=== PATIENT | female | born 1990 | race Caucasian/White ===

== ENCOUNTER 2016-07-15 06:48 | Day surgery (SDC) | payer OTHER ==
[2016-07-15 08:26] VITALS: RESP 16; TEMP 97.4
[2016-07-15] MEDS ORDERED: LACTATED RINGERS 1,000 ML IV SCH (08:36)
[2016-07-15] MEDS ORDERED: LIDOCAINE 1% 20 ML VIAL (10MG/ML) FOR IV START INTRADERMA ONE (08:36)
--- NOTE | 2016-07-15 09:30 | P.PCN ---
Date of Procedure: 07/15/16 Procedure(s) Performed: PREOPERATIVE DIAGNOSIS: Lumbar radiculopathy in right L5-S1 distribution POSTOPERATIVE DIAGNOSIS: Lumbar radiculopathy in right L5-S1 distribution PROCEDURE 1. Transforaminal epidural steroid injection under fluoroscopic guidance at right L5-S1 level. 2. Lumbar epidurogram : ANESTHESIA: Local with 1% lidocaine; IV sedation with Versed 2 mg and fentanyle 100 mcg . EBL: Minimal PROCEDURE INDICATION: The patient with low back pain and radiculopathy symptoms unresponsive to conservative treatment. PROCEDURE DESCRIPTION / TECHNIQUE: The patient was seen and identified in the preoperative area. Risks, benefits , complications, and alternatives were discussed with the patient. The patient agreed to proceed with the procedure and signed the consent. IV was started, and vital signs were stable. Patient was taken to the OR and time out was completed. The patient was placed in the prone position on procedure table and a pillow was placed under the abdomen to reduce lumbar lordosis. The lumbosacral area was prepped and draped in the usual sterile fashion. Critical pause was taken. Vital signs were closely monitored during the procedure. Conscious sedation was used during the procedure to decrease patients anxiety. Using oblique fluoroscopy, the chin of the Apollo dog at right L5-S1 level was identified, and the skin and deeper tissues just below was localized with 1 % lidocaine. Subsequently, a 22-gauge 3.5-inch spinal needle was advanced under a tunneled view fluoroscopic guidance just underneath the chin of the Apollo dog at the righ L5-S1 . Under lateral fluoroscopy, the needle was then advanced to the posterior border of the L5-S1 interforaminal space. After negative aspiration of CSF and blood and with no paresthesias, 3 mL ofomnipaque- 180 contrast dye was injected excellent epidurogram and outlining of the L5-S1 nerve root Subsequently, 3 mL of block solution containing 80 mg of Kenalog and 1 mL of Lidocaine 1% was injected. Needle was removed .. At the end of the procedure, skin was cleansed, and bandages were applied. COMPLICATIONS: None COMMENTS: DISPOSITION / PLANS: The patient was placed in a supine position and transferred to the recovery area in a stable condition for observation. There was no evidence of lower extremity motor or sensory deficit after the procedure. Patient was discharged from the recovery room after meeting discharge criteria. Home discharge instructions were given to the patient by the staff. The patient was reexamined prior to discharge.
[2016-07-15] MEDS ORDERED: IV FLUID CONTINUATION 1,000 ML IV ONE (09:33)
[2016-07-15 09:51] VITALS: BP 121/86; PULSE 86
--- NOTE | 2016-07-15 09:54 | FL ---
EXAMINATION TYPE: FL guided pain mgmt statistic DATE OF EXAM: 07/15/2016 9:32 AM CLINICAL HISTORY: Low back pain. TECHNIQUE: Fluoroscopy. COMPARISON: None. FINDINGS: Fluoroscopic guidance was provided during pain relief procedure performed by Dr. Dillon . A total of 8 seconds of fluoroscopic time was utilized during the procedure and two spot images ar e acquired. Images acquired shows needle localization with contrast injection off of the midline in the lower lumbar spine. IMPRESSION: As Above.
[2016-07-15] MEDS ORDERED: MIDAZOLAM 2 MG/2 ML VIAL ONE (15:13)
[2016-07-15] MEDS ORDERED: IOHEXOL 180 MG/ML 1 ML ML ONE (15:13)
[2016-07-15] MEDS ORDERED: TRIAMCINOLONE ACETONIDE 40 MG/ML 1 ML VIAL ONE (15:13)
[2016-07-15] MEDS ORDERED: fentaNYL (PF) 50 MCG/ML 2 ML AMP ONE (15:13)
== END 2016-07-15 10:02 | disposition home or self-care (01) ==
LOC: ORPAIN 06:48
PROVIDERS: ATTEND Specialist
DX: M54.16 Radiculopathy, lumbar region (principal); Z88.1 Allergy status to other antibiotic agents; Z88.5 Allergy status to narcotic agent; Z88.8 Allergy status to other drugs, medicaments and biological substances; Z79.899 Other long term (current) drug therapy
CPT/HCPCS: 81025; 64483; J2250; J3301; Q9965; J3010

== ENCOUNTER → 2016-07-28 | Outpatient (CLI) | payer OTHER ==
[2016-07-28 12:24] VITALS: BP 118/86; PULSE 96; RESP 16; TEMP 98.9
--- NOTE | 2016-07-28 13:16 | P.PN ---
Subjective This is follow-up visit for this patient with a history of severe and chronic low back pain with radiation to the right lower extremity diagnosed with lumbar radiculopathy, we have done interventional pain management injection, right transforaminal epidural steroid injection x3 , patient reported that her pain in the low back and right lower extremity , improved 100%, she is currently complaining of severe neck pain , and occasional numbness and tingling sensation in her hand, he had computed tomography scan of the neck done which was negative for any abnormalities Physical Examinations : 1-Constitutiona : Cooperative , not in acute distress . 2-HEENT : nech ; supple , no Lymphadenopathy , no Thyromegaly , normal thyroid size . eyes : no ptosis , no icterus, no photophobia . ENT : normal of hearing , normal oropharynx , no Thrush . 3- Respiratory : Chest clear to auscultations Bilaterally , no wheezing , no Rhonchi . 4- Cardiovascular : regular rate and rhythem , S1 , S2 , no S3 , no S4. 5- Gastrointestinal : abdomen soft no tenderness , bowel sounds positive all four quadrents , no organomegally . 6- Genitourinary : Defferred . 7- neurologic : Cranial nerve II to XII intact , no focal neurological deffecit . 8-psychatric : alert , oriented X 3 , appropriate affect , intact judgment and insight . 9-Lymphatic : no Lymphadenopathy . 10- musculoskeltal : exams of the cervical spine = motor strength normal bilateral upper extremities facet loading test cervical area positive. Normal sensation in the upper extremity bilaterally . Deep tendon reflexes in the biceps and the triceps exams of the Lumber spine = motor strength lower extremities ,thigh and legs .5/5 Assessment and plan = - Chronic low back pain with radiation to the right lower extremity , proved after right-sided transforaminal epidural steroid injections . Neck pain secondary to cervical facet , computed tomography scan of the cervical spine was negative for any abnormalities , for this reason I will order MRI of the cervical spine to confirm the diagnosis , and to identify the etiology And in the future we can consider doing diagnostic medial branch block cervical area and possible radiofrequency ablation of the medial branch Objective - Vital Signs Vital signs: Vital Signs Temp 98.9 F 07/28/16 12:17 Pulse 96 07/28/16 12:17 Resp 16 07/28/16 12:17 BP 118/86 07/28/16 12:17 Pulse Ox 95 07/28/16 12:17 Intake & Output 07/27/16 07/28/16 07/28/16 18:59 06:59 18:59 Weight 81.647 kg
== END | disposition home or self-care (01) ==
LOC: PNWHC3 12:03
PROVIDERS: ATTEND Specialist
DX: M54.16 Radiculopathy, lumbar region (principal); M46.93 Unspecified inflammatory spondylopathy, cervicothoracic region
CPT/HCPCS: 99211

== ENCOUNTER → 2016-08-06 | Outpatient (CLI) | payer OTHER ==
--- NOTE | 2016-08-06 17:09 | MR ---
EXAMINATION TYPE: MR cervical spine wo con DATE OF EXAM: 08/06/2016 8:06 AM COMPARISON: CT cervical spine dated 06/25/1962 HISTORY: Neck pain, Headaches TECHNIQUE: Multiplanar, multisequence images of the cervical spine were acquired. C2-C3: No evidence for degenerative disc disease. No disc bulge/herniation or protrusion. No Canal stenosis. Foramina are patent bilaterally. C3-C4: No evidence for degenerative disc disease. No disc bulge/herniation or protrusion. No Canal stenosis. Foramina are patent bilaterally. C4-C5: No evidence for degenerative disc disease. No disc bulge/herniation or protrusion. No Canal stenosis. Foramina are patent bilaterally. C5-C6: Mild disc desiccation and central disc bulging but no canal stenosis or foraminal encroachment . C6-C7: No evidence for degenerative disc disease. No disc bulge/herniation or protrusion. No Canal stenosis. Foramina are patent bilaterally. C7-T1: No evidence for degenerative disc disease. No disc bulge/herniation or protrusion. No Canal stenosis. Foramina are patent bilaterally. Cervical segments are intact. There is normal alignment. Cervical spinal cord is of normal signal. Craniovertebral junction relationships are within normal limits. Loss of the normal cervical lordos is. IMPRESSION: 1. Loss of the normal cervical lordosis can be seen with muscular spasm. 2. Mild disc desiccation C5-C6 with central disc bulging but no canal stenosis or foraminal encroachm ent.
== END | disposition home or self-care (01) ==
LOC: RADMRIMAIN 07:37
PROVIDERS: ATTEND Specialist
DX: M50.222 Other cervical disc displacement at C5-C6 level (principal)
CPT/HCPCS: 72141

== ENCOUNTER → 2016-08-19 | Outpatient (CLI) | payer OTHER ==
--- NOTE | 2016-08-19 14:53 | CT ---
EXAMINATION TYPE: CT abdomen pelvis wo con DATE OF EXAM: 08/19/2016 2:34 PM COMPARISON: NONE HISTORY: Diverticulitis CT DLP: 983 mGycm Automated exposure control for dose reduction was used. TECHNIQUE: Helical acquisition of images was performed from the lung bases through the pelvis. FINDINGS: LUNG BASES: No significant abnormality is appreciated. LIVER/GB: Previous cholecystectomy noted.. PANCREAS: No significant abnormality is seen. SPLEEN: No significant abnormality is seen. ADRENALS: No significant abnormality is seen. KIDNEYS: No significant abnormality is seen. URINARY BLADDER: No significant abnormality is seen. PELVIC ADENOPATHY: None visualized. OSSEOUS STRUCTURES: No significant abnormality is seen. BOWEL: Within the pelvis there is very mild induration of the fat adjacent to the sigmoid colon. This may represent a very mild colitis. Correlate clinically. Appendix has a normal appearance Other: Tiny subcutaneous nodules may represent sebaceous cysts IMPRESSION: MILD INDURATION THE PELVIC FAT MAY REPRESENT A MILD COLITIS OR CORRELATE CLINICALLY.
== END | disposition home or self-care (01) ==
LOC: RADCTMAIN 14:11
PROVIDERS: ATTEND Family Medicine
DX: K57.32 Diverticulitis of large intestine without perforation or abscess without bleeding (principal)
CPT/HCPCS: 74176

== ENCOUNTER → 2016-09-01 | Outpatient (CLI) | payer OTHER ==
[2016-09-01 14:09] VITALS: BP 124/89; PULSE 96; RESP 16; TEMP 99
--- NOTE | 2016-09-01 14:38 | P.PN ---
Progress Note - Text Patient returns for followup for chronic neck and back pain with radiation to bilateral LE's and right UE, and bilateral LE pain is significantly improved. Patient recently underwent TFESI x 3 with excellent relief but has had persistent neck pain and numbness/tingling in RUE, so Dr. Dillon ordered MRI C -spine, as patient has been also dropping objects and states that she cannot draw anymore with her right hand. Patient continues on tramadol medications for pain from PCP with good relief. Patient denies adverse drug effects from medications. Today, pt denies new-onset weakness, bowel/bladder incontinence, or any other signs or symptoms of cauda equina syndrome. There are no signs of acute intoxication, and no indications of medication diversion or overuse. In addition to above, 13-point review of systems is also negative for chest pain , shortness of breath, changes in vision, changes in hearing, new onset weakness , abdominal pain, diarrhea, extreme fatigue, malaise, fever, skin changes, homicidal or suicidal ideation, or bowel or bladder incontinence. Vital Signs: Reviewed in EMR Gen: WDWN, AAOx3, NAD HEENT: NCAT, EOMI, hearing grossly normal Pulm: resp unlabored Abd: soft, NT, ND Neck: supple, trachea midline ROM in flexion cervical spine: reduced ROM in extension cervical spine: reduced Cervical paravertebral tenderness: + Cervical Facet tenderness: + bilateral Spurling's: + RUE Upper extremity: decreased international manager strength due to pain Neuro: CN II-XII grossly intact, muscle strength lower extremities PRESERVED Imaging: MRI cervical spine dated 08/06/2016 demonstrates mild disc desiccation and central disc bulging at C5-C6 level without central canal stenosis or foraminal encroachment. There is also loss of the normal cervical lordosis. Assessment: 1. cervical spondylosis without myelopathy 2. lumbar radiculopathy 3. herniated cervical disc 4. cervical radiculopathy Plan: 1. Explanation: Opioid and psychological risk scores were reviewed. Diagnoses , prognoses, and multiple treatment options including but not limited to physical therapy, interventional therapies, adjuvant medical therapies, narcotic medication therapies, and surgery were discussed with the patient and all questions were answered to the patient's satisfaction. 2. Opioid agreement: no opioids prescribed 3. Counseling: The patient was counseled extensively on SMOKING CESSATION, BODY MASS INDEX, EXERCISE. Specifically, the patient was instructed regarding the importance of smoking cessation, obesity, and exercise in the context of both chronic pain and overall health. 4. Procedures: cervical NIKKI series 5. Consultations: None 6. Investigations: None 7. Medications: none prescribed 8. Disposition: f/u for procedure as scheduled PQRS measures: 1-Patient's medications are documented in the chart. 2-Tobacco use is positive, counseling given 3-Patient has not had a pneumococcal vaccine. 4-Advanced care planning discussed, patient unable to give. 5-Opioid contract NOT signed with the patient. 6-Pain positive, follow-up visit or procedure scheduled 7-Patient's blood pressure measured and documented, and WNL. 8-Patient's weight was measured, and body mass index ABOVE the normal limits, and counseling was done. Patient instructed to follow up with PCP. 9-Patient WAS NOT identified as an unhealthy alcohol user.
== END | disposition home or self-care (01) ==
LOC: PNWHC3 13:53
PROVIDERS: ATTEND Anesthesiology
DX: M47.812 Spondylosis without myelopathy or radiculopathy, cervical region (principal); M54.16 Radiculopathy, lumbar region; M50.20 Other cervical disc displacement, unspecified cervical region; M54.12 Radiculopathy, cervical region; Z79.899 Other long term (current) drug therapy; Z72.0 Tobacco use
CPT/HCPCS: 99211

== ENCOUNTER 2016-10-09 10:25 | Day surgery (SDC) | payer OTHER ==
[2016-10-07 11:34] VITALS: BMI 32.4
[~2016-10-09 10:25] MED LIST: LACTATED RINGERS 1,000 ML IV ONE
[2016-10-09 10:50] VITALS: TEMP 98.5
[2016-10-09] MEDS ORDERED: LIDOCAINE 1% 20 ML VIAL (10MG/ML) FOR IV START INTRADERMA ONE (10:57)
[2016-10-09] MEDS ORDERED: IOHEXOL 180 MG/ML 1 ML ML ONE (12:08)
[2016-10-09] MEDS ORDERED: MIDAZOLAM 2 MG/2 ML VIAL ONE (12:08)
[2016-10-09] MEDS ORDERED: DEXAMETHASONE SOD PHOS (MDV) 100 MG/10 ML VIAL ONE (12:08)
[2016-10-09] MEDS ORDERED: fentaNYL (PF) 50 MCG/ML 2 ML AMP ONE (12:08)
--- NOTE | 2016-10-09 12:33 | P.PCN ---
Date of Procedure: 10/09/16 Procedure(s) Performed: . PROCEDURE 1. Cervical epidural steroid injection under fluoroscopic guidance, C7-T1 2. Cervical epidurogram. PREOPERATIVE DIAGNOSIS: 1- Cervical herniated Disc Diseases 2-cervical spondylosis with cervical Facet arthropathy without myelopathy POSTOPERATIVE DIAGNOSIS: : 1- Cervical herniated Disc Diseases , 2-cervical spondylosis with cervical Facet arthropathy without myelopathy ANESTHESIA: Local anesthesia with 1% lidocaine 3 ml ,and IV sedation with Versed 2 mg and Fentanyl 100 mcg. EBL 0 PROCEDURE INDICATION: The patient with neck pain and radiculitis unresponsive to conservative treatment consents for procedure. PROCEDURE DESCRIPTION / TECHNIQUE: The patient was seen and identified in the preoperative area. Risks, benefits, complications, including but not limited to infections ,bleeding , allergic reactions to the medications ,and not complete pain releife, and alternatives were discussed with the patient, the patient agreed to proceed with the procedure and signed the consent. Patient was taken to the OR and time out was completed. The patient was placed in the prone position on the procedure table. A pillow was placed under the patients chest to increase the cervical interlaminar space. The cervical area was prepped and draped in the usual sterile fashion. Vital signs were closely monitored during the procedure. Conscious sedation was used during the procedure to decrease patients anxiety. Using anterior-posterior fluoroscopy, the C7-T1 interlaminar space was identified and the skin over this site was marked and then infiltrated with 1% lidocaine subcutaneously. Subsequently, a 20-gauge 3-1/2-inch Tuohy epidural needle was inserted and advanced toward the epidural space by means of the `` hanging-drop technique and guided by AP and lateral fluoroscopy. The correct needle position in the epidural space was verified with the injection of 2 mL of the water soluble contrast dye Isovue-180 and observing an excellent epidurogram with the epidural spread of the dye, after negative aspiration for blood and CSF and in the absence of paresthesias. Again after negative aspiration, mixture containing 20 mg Dexamethasone and 2 ml of preservative- free normal saline injected and a washout of epidurogram was seen. Needle was withdrawn intact, skin was cleansed, and bandages were applied. Complications= none. Disposition= patient was placed in supine position and transferred to the recovery room area in stable condition and there was no evidence of upper or lower extremity motor or sensory deficit after the procedure patient was discharged from recovery room after discharge criteria met and home discharge instructions was given by the staff and patient will follow with the pain clinic in 2-4 weeks
[2016-10-09 12:42] VITALS: RESP 18
[2016-10-09] MEDS ORDERED: IV FLUID CONTINUATION 1,000 ML IV ONE (12:59)
[2016-10-09 13:07] VITALS: BP 119/68; PULSE 83
--- NOTE | 2016-10-09 13:10 | FL ---
FLUOROSCOPY 20 of fluoroscopy time were utilized during Pain Injection. 1 images document the procedure.
== END 2016-10-09 13:02 | disposition home or self-care (01) ==
LOC: ORPAIN 10:25
PROVIDERS: ATTEND Specialist
DX: M50.10 Cervical disc disorder with radiculopathy, unspecified cervical region (principal); M47.812 Spondylosis without myelopathy or radiculopathy, cervical region; M46.92 Unspecified inflammatory spondylopathy, cervical region; Z88.1 Allergy status to other antibiotic agents; Z88.8 Allergy status to other drugs, medicaments and biological substances
CPT/HCPCS: 62321; 99152; J2250; Q9965; J3010; J1100

== ENCOUNTER 2016-10-22 08:37 | Day surgery (SDC) | payer OTHER ==
[2016-10-17 15:11] VITALS: BMI 31.8
[~2016-10-22 08:37] MED LIST changes: -LACTATED RINGERS 1,000 ML IV ONE; +LACTATED RINGERS 1,000 ML IV SCH; +LIDOCAINE 1% 20 ML VIAL (10MG/ML) FOR IV START INTRADERMA PRN
[2016-10-22 09:10] VITALS: RESP 16; TEMP 98.3
[2016-10-22 09:13] LABS: Glucose,Whole Blood 88 mg/dL (75-99)
[2016-10-22] MEDS ORDERED: LIDOCAINE 1% INJ 10MG/ML (20 ML MDV) ONE (09:20)
[2016-10-22] MEDS ORDERED: PROPOFOL 10 MG/ML 20 ML VIAL IV ONE (09:20)
--- NOTE | 2016-10-22 09:41 | P.PCN ---
Date of Procedure: 10/22/16 Procedure(s) Performed: Brief history: Patient is a pleasant 26-year-old white female, scheduled for an elective upper endoscopy as well as colonoscopy as a part of evaluation of abdominal pain, intermittent nausea vomiting and alternating diarrhea and constipation for the last 10 years duration. In the last 6 months symptoms have been progressively getting worse. Procedure performed: Esophagogastroduodenoscopy with biopsy Colonoscopy with biopsy Preoperative diagnosis: GERD/abdominal pain, nausea vomiting Change in bowel habits Anesthesia: MAC Procedure: After informed consent was obtained from the patient was brought into the endoscopy unit and IV sedation was administered by anesthesia under continuous monitoring. Initially upper endoscopy was done. The Olympus GF 160 video endoscope was inserted inserted into the mouth and esophagus intubated without any difficulty and was gradually advanced into the stomach and duodenum and carefully examined. The bulb and second part of the duodenum appeared normal. Biopsies were done from this area to rule out celiac disease. The scope was then withdrawn into the stomach adequately insufflated with air and upon careful examination the antrum had mild gastritis and biopsies were also done from this area. The body, cardia and fundus appeared normal. The scope was then withdrawn into the esophagus. The GE junction was located at 40 cm to the incisors. It appeared regular with no erythema erosions or ulcerations. Rest of the esophagus appeared normal. Patient tolerated the procedure well. At this time the patient continued to remain sedation. Initial digital rectal examination was normal. Olympus CF 160 video colonoscope was then inserted into the rectum and gradually advanced to the cecum without any difficulty. Careful examination was performed as the scope was gradually being withdrawn. to the terminal ileum was intubated and 20 cm visualized and appeared normal. The prep was excellent. The cecum, ascending colon, transverse colon, descending colon, sigmoid colon and rectum appeared normal. and biopsies were done from the ascending and descending colon to rule out microscopic/ collagenous colitis. Retroflexion was performed in the rectum and no lesions were noted. Patient tolerated the procedure well. Impression: 1. Upper endoscopy revealed mild antral gastritis but no evidence of esophagitis or peptic ulcer disease. 2.. Colonoscopy was essentially within normal limits with no evidence of colitis or colorectal neoplasia. Recommendations: Findings of this examination were discussed with the patient as well as her family. She was advised to follow with the biopsy results and she'll be seen in office in 2-3 weeks.
[2016-10-22 09:52] VITALS: PULSE 89
[2016-10-22 10:09] VITALS: BP 111/78
== END 2016-10-22 10:10 | disposition home or self-care (01) ==
LOC: ORWHC2ENDO 08:37
PROVIDERS: ATTEND Internal Medicine Gastroenterology
DX: K29.50 Unspecified chronic gastritis without bleeding (principal); K29.80 Duodenitis without bleeding; J45.909 Unspecified asthma, uncomplicated; Z79.899 Other long term (current) drug therapy; Z79.51 Long term (current) use of inhaled steroids; Z88.5 Allergy status to narcotic agent; Z88.0 Allergy status to penicillin; Z88.2 Allergy status to sulfonamides; Z88.8 Allergy status to other drugs, medicaments and biological substances; F17.200 Nicotine dependence, unspecified, uncomplicated
CPT/HCPCS: 88305; 88342; 45380; 43239; J2001; J2704

== ENCOUNTER 2016-11-11 09:11 | Day surgery (SDC) | payer OTHER ==
[2016-11-07 10:06] VITALS: BMI 31.8
[~2016-11-11 09:11] MED LIST changes: +LACTATED RINGERS 1,000 ML IV ONE; -LACTATED RINGERS 1,000 ML IV SCH; -LIDOCAINE 1% 20 ML VIAL (10MG/ML) FOR IV START INTRADERMA PRN
[2016-11-11 09:37] VITALS: TEMP 98.2
[2016-11-11] MEDS ORDERED: LACTATED RINGERS 1,000 ML IV ONE (09:47)
[2016-11-11] MEDS ORDERED: LIDOCAINE 1% 20 ML VIAL (10MG/ML) FOR IV START SQ ONE (09:49)
[2016-11-11] MEDS ORDERED: MIDAZOLAM 2 MG/2 ML VIAL ONE (09:50)
[2016-11-11] MEDS ORDERED: DEXAMETHASONE SOD PHOS (MDV) 100 MG/10 ML VIAL ONE (09:50)
[2016-11-11] MEDS ORDERED: fentaNYL (PF) 50 MCG/ML 2 ML AMP ONE (09:50)
[2016-11-11] MEDS ORDERED: IOHEXOL 180 MG/ML 1 ML ML ONE (09:50)
--- NOTE | 2016-11-11 10:08 | P.PCN ---
Date of Procedure: 11/11/16 Surgeon: Adam Mathews Pathology: none sent Condition: stable Disposition: PACU Description of Procedure: PREOPERATIVE DIAGNOSIS: Cervical radiculopathy. POSTOPERATIVE DIAGNOSIS: Cervical radiculopathy. PROCEDURE 1. Cervical epidural steroid injection under fluoroscopic guidance, C7-T1 level. 2. Cervical epidurogram. ANESTHESIA: Local anesthesia with 1% lidocaine and IV sedation with versed/ fentanyl. EBL: Minimal PROCEDURE INDICATION: The patient with neck pain and radiculitis unresponsive to conservative treatment consents for procedure. PROCEDURE DESCRIPTION / TECHNIQUE: The patient was seen and identified in the preoperative area. Risks, benefits, complications, and alternatives were discussed with the patient (including but not limited to incomplete pain relief, bleeding, infection, nerve damage, and allergies to medications), the patient agreed to proceed with the procedure and signed the consent after all questions were answered. Patient was taken to the OR and time out was completed to verify proper patient , position, laterality of pain, and allergies. Pt was placed in the prone position. A pillow was placed under the patients chest to increase the cervical interlaminar space. The cervical area was prepped and draped in the usual sterile fashion. Critical pause was taken. Vital signs were closely monitored during the procedure. Conscious sedation was used during the procedure to decrease patients anxiety. Using anterior-posterior fluoroscopy, the C7-T1 interlaminar space was identified and the skin over this site was marked and then infiltrated with 1% lidocaine subcutaneously in a paramedian fashion. Subsequently, a 20-gauge 3-1/2 -inch Tuohy epidural needle was inserted and advanced toward the epidural space by means of the loss of resistance technique and guided by AP and lateral fluoroscopy. After negative aspiration for blood or CSF and in the absence of paresthesias, the correct needle position in the epidural space was verified with the injection of 1 mL of the water soluble contrast dye Omnipaque-180 and observing an excellent epidurogram with the epidural spread of the dye, after negative aspiration for blood and CSF and in the absence of paresthesias. Again after negative aspiration, a 5 ml mixture containing 10 mg of Decadron and 4 ml of preservative free Normal Saline solution was injected and a washout of epidurogram was seen. Needle was withdrawn intact, skin was cleansed, and bandages were applied. COMPLICATIONS: None COMMENTS: DISPOSITION / PLANS: The patient was placed in a supine position and transferred to the recovery area in a stable condition for observation. There was no evidence of upper extremity motor or sensory deficit after the procedure. Patient was discharged from the recovery room after meeting discharge criteria. Home discharge instructions were given to the patient by the staff. The patient was reexamined prior to discharge. The patient will schedule a follow-up in the clinic in 4-6 weeks. Of note, when patient turned over prone for procedure to be done, I noted a BUFFALO HUMP in her upper back. Patient requested that I do the procedure to help with the pain, and I did so. Patient notes that she gets bronchitis once per month and gets steroids for one week roughly each month. I informed her that she should tell her PCP about this PIPPA and that we cannot do steroid injections for her for at least 2-3 months as we await reduction of circulating corticosteroids.
[2016-11-11] MEDS ORDERED: IV FLUID CONTINUATION 850 ML IV ONE (10:13)
--- NOTE | 2016-11-11 10:16 | FL ---
EXAMINATION TYPE: FL guided pain mgmt statistic DATE OF EXAM: 11/11/2016 10:10 AM FLUOROSCOPY Fluoroscopy time of 10 seconds was used during cervical epidural injection. 3 image/s document/s the procedure.
[2016-11-11 10:34] VITALS: BP 105/74; PULSE 96; RESP 18
== END 2016-11-11 10:38 | disposition home or self-care (01) ==
LOC: ORPAIN 09:11
PROVIDERS: ATTEND Anesthesiology
DX: G89.29 Other chronic pain (principal); M54.12 Radiculopathy, cervical region; M54.81 Occipital neuralgia; F32.9 Major depressive disorder, single episode, unspecified; Z79.1 Long term (current) use of non-steroidal anti-inflammatories (NSAID); Z79.899 Other long term (current) drug therapy; Z88.6 Allergy status to analgesic agent; Z88.1 Allergy status to other antibiotic agents; Z88.8 Allergy status to other drugs, medicaments and biological substances; Z91.09 Other allergy status, other than to drugs and biological substances
CPT/HCPCS: 62321; 99152; J2250; Q9965; J3010; J1100

== ENCOUNTER 2016-11-20 14:54 | Emergency (ER) | payer OTHER ==
[2016-11-20] MEDS ORDERED: HYDROmorphone 1 MG/ML 1 ML SYRINGE IVP STA ×2 (15:52→17:43)
[2016-11-20] MEDS ORDERED: SODIUM CHLORIDE 0.9% 1,000 ML IV ONE (15:52)
[2016-11-20] MEDS ORDERED: ONDANSETRON 4 MG/2 ML VIAL IVP STA ×2 (15:52→17:43)
[2016-11-20 16:21] LABS: Amorphous Sediment,Urine Occasional /hpf; Appearance,Urine Turbid (Clear); Bacteria,Urine Moderate /hpf; Bilirubin,Urine 1+ (Negative); Glucose,Urine (UA) Negative (Negative); Ketones,Urine Trace (Negative); Leukocyte Esterase,Urine Trace (Negative); Mucus,Urine Many /hpf; Nitrite,Urine Negative (Negative); Particle Count 45684; Protein,Urine 2+ (Negative); RBC,Urine 5 /hpf (0-5); Specific Gravity,Urine 1.027 (1.001-1.035); Squamous Epithelial Cell,Urine 68 /hpf (0-4); UA Billing (MACRO vs. MICRO) MICRO; WBC,Urine 13 /hpf (0-5)
[2016-11-20 16:46] LABS: Basophils # (A) 0.1 k/uL (0-0.2); Basophils % (A) 0 %; CH 31.9; CHCM 34.5; Eosinophils # (A) 0.2 k/uL (0-0.7); Eosinophils % (A) 1 %; HCT 50.6 % (34.0-46.0); HDW 2.54; HGB 16.8 gm/dL (11.4-16.0); Luc # (Auto) 0.15; Luc % (Auto) 1; Lymphocytes # (A) 3.1 k/uL (1.0-4.8); Lymphocytes % (A) 20 %; MCH 30.8 pg (25.0-35.0); MCHC 33.2 g/dL (31.0-37.0); MCV 92.7 fL (80.0-100.0); Mean Platelet Volume 7.5; Monocytes % (A) 7 %; Neutrophils # (A) 10.6 k/uL (1.3-7.7); Neutrophils % (A) 70 %; RBC 5.46 m/uL (3.80-5.40); RDW 12.9 % (11.5-15.5); WBC 15.1 k/uL (3.8-10.6); WBC (Perox) 14.88
[2016-11-20 16:54] LABS: ALT 28 U/L (9-52); AST 17 U/L (14-36); Alkaline Phosphatase 77 U/L (38-126); Anion Gap 17 mmol/L; Blood Urea Nitrogen 14 mg/dL (7-17); Calcium 10.6 mg/dL (8.4-10.2); Carbon Dioxide 20 mmol/L (22-30); Chloride 106 mmol/L (98-107); Glucose 96 mg/dL (74-99); Non-African American GFR(MDRD) >60 (>60 ml/min/1.73 sqM); Sodium 143 mmol/L (137-145); Total Bilirubin 0.6 mg/dL (0.2-1.3); Total Protein 8.1 g/dL (6.3-8.2)
[2016-11-20 17:26] VITALS: BP 109/58; PULSE 80; RESP 18; TEMP 98.5
--- NOTE | 2016-11-20 17:27 | US ---
EXAMINATION TYPE: US ABD LIMITED KIDNEYS/BLADDER DATE OF EXAM: 11/20/2016 5:16 PM COMPARISON: None CLINICAL HISTORY: Pain. Low midline pain, hematuria, hysterectomy. Hx of ovarian, uterine, cervical and colon cancer EXAM MEASUREMENTS: Liver Length: 14.4 cm CBD: 0.4 cm CHD: 0.6 cm Right Kidney: 10.4 x 4.4 x 4.4 cm Left Kidney: 10.3 x 4.2 x 5.0 cm Pancreas: Tail obscured by overlying bowel gas Liver: wnl Gallbladder: Surgically absent CBD: wnl CHD: wnl Right Kidney: wnl Left Kidney: wnl Bladder: mildly distended. Not well visualized Bilateral Jets not Seen IMPRESSION: NO ACUTE PROCESS.
--- NOTE | 2016-11-20 17:57 | ED ---
General Adult HPI - General Chief complaint: Abdominal Pain Stated complaint: vomiting Source: patient Mode of arrival: ambulatory Limitations: no limitations - History of Present Illness Initial comments: 26-year-old female with a past medical history of ureterolithiasis on the right and ureteral stents presented for evaluation of 2 days of left side pain that she states is similar to previous stones. She states that she used to have a urologist when she was living in [place] but has none here. She hasn 't established with primary care physician either. She states that her urine is discolored looked significantly hematuria. There is associated intractable nausea and vomiting and she tried taking Zofran without any improvement. There are no alleviating factors. She denies any vaginal discharge bleeding, diarrhea constipation, chest pain, shortness breath, fevers, chills. - Related Data Home Medications Medication Instructions Recorded Confirmed Albuterol Inhaler [Ventolin Hfa 1 - 2 puff INHALATION Q6HR PRN 03/25/16 11/20/16 Inhaler] Gabapentin [Neurontin] 600 mg PO TID 03/25/16 11/20/16 Lurasidone [Latuda] 80 mg PO DAILY 09/01/16 11/20/16 Estrogens, Conjugated Cream 1 applicator VAGINAL DAILY 10/07/16 11/20/16 [Premarin Cream] traMADol HCl [Ultram] 1 tab PO TID PRN 10/09/16 11/20/16 ALPRAZolam [Xanax] 0.5 mg PO DAILY PRN 11/20/16 11/20/16 Cetirizine HCl [Zyrtec] 10 mg PO DAILY 11/20/16 11/20/16 Meloxicam [Mobic] 15 mg PO DAILY 11/20/16 11/20/16 Methocarbamol [Robaxin] 500 mg PO QID PRN 11/20/16 11/20/16 Ondansetron Odt [Zofran Odt] 4 mg PO Q12HR PRN 11/20/16 11/20/16 Pantoprazole Sodium [Protonix] 40 mg PO BID 11/20/16 11/20/16 Previous Rx's Medication Instructions Recorded Ciprofloxacin HCl [Cipro] 250 mg PO Q12HR #6 tablet 11/20/16 Allergies Allergy/AdvReac Type Severity Reaction Status Date / Time acetaminophen Allergy Swelling Verified 11/20/16 15:44 [From Darvocet-N] amoxicillin trihydrate Allergy Swelling Verified 11/20/16 15:44 [From Augmentin] ceftriaxone sodium Allergy Swelling Verified 11/20/16 15:44 [From Rocephin] clarithromycin [From Biaxin] Allergy Swelling Verified 11/20/16 15:44 fexofenadine HCl Allergy Swelling Verified 11/20/16 15:44 [From Leslye] ketorolac tromethamine Allergy Swelling Verified 11/20/16 15:44 [From Toradol] loratadine [From Claritin] Allergy Swelling Verified 11/20/16 15:44 meperidine HCl [From Demerol] Allergy Swelling Verified 11/20/16 15:44 morphine Allergy Swelling Verified 11/20/16 15:44 Penicillins Allergy Swelling Verified 11/20/16 15:44 potassium clavulanate Allergy Swelling Verified 11/20/16 15:44 [From Augmentin] propoxyphene Allergy Swelling Verified 11/20/16 15:44 [From Darvocet-N] Sulfa (Sulfonamide Allergy Swelling Verified 11/20/16 15:44 Antibiotics) Review of Systems ROS Statement: Those systems with pertinent positive or pertinent negative responses have been documented in the HPI. ROS Other: All systems not noted in ROS Statement are negative. Constitutional: Denies: fever, chills, weakness Eyes: Denies: eye pain, eye discharge, vision change ENT: Denies: ear pain, throat pain Respiratory: Denies: cough, dyspnea Cardiovascular: Denies: chest pain, palpitations, dyspnea on exertion, orthopnea Gastrointestinal: Reports: abdominal pain, nausea, vomiting. Denies: diarrhea, constipation, hematemesis, melena Genitourinary: Reports: frequency, hematuria. Denies: urgency, dysuria Musculoskeletal: Reports: back pain. Denies: arthralgia, myalgia Skin: Denies: rash, lesions, change in color Neurological: Denies: headache, weakness, numbness, paresthesias, confusion Psychiatric: Denies: anxiety, depression Hematological/Lymphatic: Denies: easy bleeding, easy bruising Past Medical History Past Medical History: Asthma, Cancer, GERD/Reflux, Musculoskeletal Disorder Additional Past Medical History / Comment(s): HX OF CERVICAL,UTERINE AND COLON CANCER WITH CHEMO AT 16 YRS OLD, RIGHT KIDNEY STONES, HYPOGLYCEMIA (HIGH PROTEIN DIET) , ENVIRONMENTAL ALLERGIES, BULDGING DISC WITH BACK PAIN., STATES SHE HAS NAUSEA -POSSIBLE SORES IN STOMACH-SEES DR Edward CM. History of Any Multi-Drug Resistant Organisms: None Reported Past Surgical History: Cholecystectomy, Hysterectomy, Tonsillectomy Additional Past Surgical History / Comment(s): kidney stents, EGD Past Anesthesia/Blood Transfusion Reactions: Postoperative Nausea & Vomiting ( PONV) Additional Past Anesthesia/Blood Transfusion Reaction / Comment(s): ANXIETY. PT IS ADOPTED AND DOES NOT KNOW FAMILY HX. Past Psychological History: Anxiety, Depression, PTSD Smoking Status: Current every day smoker Past Alcohol Use History: None Reported Additional Past Alcohol Use History / Comment(s): SMOKING SINCE AGE 13. SMOKES 1 /2 PPD. Past Drug Use History: None Reported - Past Family History Mother Family Medical History: Unable to Obtain Additional Family Medical History / Comment(s): Adopted General Exam Limitations: no limitations General appearance: alert, in distress, obese Head exam: Present: atraumatic, normocephalic, normal inspection Eye exam: Present: normal appearance, PERRL, EOMI. Absent: scleral icterus, conjunctival injection, periorbital swelling ENT exam: Present: normal exam, mucous membranes moist Neck exam: Present: normal inspection. Absent: tenderness, meningismus, lymphadenopathy Respiratory exam: Present: normal lung sounds bilaterally. Absent: respiratory distress, wheezes, rales, rhonchi, stridor Cardiovascular Exam: Present: regular rate, normal rhythm, normal heart sounds. Absent: systolic murmur, diastolic murmur, rubs, gallop, clicks GI/Abdominal exam: Present: soft, normal bowel sounds. Absent: distended, tenderness, guarding, rebound, rigid Rectal exam: Present: deferred Extremities exam: Present: normal inspection, full ROM, normal capillary refill. Absent: tenderness, pedal edema, joint swelling, calf tenderness Back exam: Present: normal inspection Neurological exam: Present: alert, oriented X3, CN II-XII intact Psychiatric exam: Present: normal affect, normal mood Skin exam: Present: warm, dry, intact, normal color. Absent: rash Course Vital Signs 11/20/16 11/20/16 11/20/16 15:16 15:44 17:24 Temperature 98.2 F 98.5 F Pulse Rate 87 101 H 80 Respiratory 20 16 18 Rate Blood Pressure 120/78 109/58 O2 Sat by Pulse 97 98 98 Oximetry Medical Decision Making - Medical Decision Making 18-year-old female with a past medical history of ureterolithiasis presented for evaluation of left flank pain radiation around her left abdomen. She states there is associated hematuria during this time. Concern for recurrent ureterolithiasis versus urinary tract infection. Labs showed a mild leukocytosis however there was no blood in the urine. It was positive for urinary tract infection and she was given her first dose of antibiotics here in the department. She is informed of her results and stated that she was feeling much better at this time. She acknowledged an understanding of all these results and through shared decision making it was determined that she would be discharged with instructions to follow with her primary care physician but to return to this facility if her symptoms worsen or persist. She was also told that she would be given antibiotic for her urinary tract infection and a referral for a urologist. - Lab Data Result diagrams: 11/20/16 16:32 11/20/16 16:32 Lab Results 11/20/16 11/20/16 11/20/16 Range/Units 16:14 16:14 16:32 WBC 15.1 H (3.8-10.6) k/uL RBC 5.46 H (3.80-5.40) m/uL Hgb 16.8 H (11.4-16.0) gm/dL Hct 50.6 H (34.0-46.0) % MCV 92.7 (80.0-100.0) fL MCH 30.8 (25.0-35.0) pg MCHC 33.2 (31.0-37.0) g/dL RDW 12.9 (11.5-15.5) % Plt Count 268 (150-450) k/uL Neutrophils % 70 % Lymphocytes % 20 % Monocytes % 7 % Eosinophils % 1 % Basophils % 0 % Neutrophils # 10.6 H (1.3-7.7) k/uL Lymphocytes # 3.1 (1.0-4.8) k/uL Monocytes # 1.0 (0-1.0) k/uL Eosinophils # 0.2 (0-0.7) k/uL Basophils # 0.1 (0-0.2) k/uL Sodium (137-145) mmol/L Potassium (3.5-5.1) mmol/L Chloride (98-107) mmol/L Carbon Dioxide (22-30) mmol/L Anion Gap mmol/L BUN (7-17) mg/dL Creatinine (0.52-1.04) mg/dL Est GFR (MDRD) Af Amer (>60 ml/min/1.73 sqM) Est GFR (MDRD) Non-Af (>60 ml/min/1.73 sqM) Glucose (74-99) mg/dL Calcium (8.4-10.2) mg/dL Total Bilirubin (0.2-1.3) mg/dL AST (14-36) U/L ALT (9-52) U/L Alkaline Phosphatase (38-126) U/L Total Protein (6.3-8.2) g/dL Albumin (3.5-5.0) g/dL Lipase (23-300) U/L Urine Color [place] Urine Appearance Turbid H (Clear) Urine pH 6.0 (5.0-8.0) Ur Specific [place] 1.027 (1.001-1.035) Urine Protein 2+ H (Negative) Urine Glucose (UA) Negative (Negative) Urine Ketones Trace H (Negative) Urine Blood Negative (Negative) Urine Nitrite Negative (Negative) Urine Bilirubin 1+ H (Negative) Urine Urobilinogen 4.0 (<2.0) mg/dL Ur Leukocyte Esterase Trace H (Negative) Urine RBC 5 (0-5) /hpf Urine WBC 13 H (0-5) /hpf Ur Squamous Epith Cells 68 H (0-4) /hpf Amorphous Sediment Occasional H (None) /hpf Urine Bacteria Moderate H (None) /hpf Urine Mucus Many H (None) /hpf Urine HCG, Qual Not Detected (Not Detectd) 11/20/16 Range/Units 16:32 WBC (3.8-10.6) k/uL RBC (3.80-5.40) m/uL Hgb (11.4-16.0) gm/dL Hct (34.0-46.0) % MCV (80.0-100.0) fL MCH (25.0-35.0) pg MCHC (31.0-37.0) g/dL RDW (11.5-15.5) % Plt Count (150-450) k/uL Neutrophils % % Lymphocytes % % Monocytes % % Eosinophils % % Basophils % % Neutrophils # (1.3-7.7) k/uL Lymphocytes # (1.0-4.8) k/uL Monocytes # (0-1.0) k/uL Eosinophils # (0-0.7) k/uL Basophils # (0-0.2) k/uL Sodium 143 (137-145) mmol/L Potassium 4.0 (3.5-5.1) mmol/L Chloride 106 (98-107) mmol/L Carbon Dioxide 20 L (22-30) mmol/L Anion Gap 17 mmol/L BUN 14 (7-17) mg/dL Creatinine 0.70 (0.52-1.04) mg/dL Est GFR (MDRD) Af Amer >60 (>60 ml/min/1.73 sqM) Est GFR (MDRD) Non-Af >60 (>60 ml/min/1.73 sqM) Glucose 96 (74-99) mg/dL Calcium 10.6 H (8.4-10.2) mg/dL Total Bilirubin 0.6 (0.2-1.3) mg/dL AST 17 (14-36) U/L ALT 28 (9-52) U/L Alkaline Phosphatase 77 (38-126) U/L Total Protein 8.1 (6.3-8.2) g/dL Albumin 5.4 H (3.5-5.0) g/dL Lipase 39 (23-300) U/L Urine Color Urine Appearance (Clear) Urine pH (5.0-8.0) Ur Specific [place] (1.001-1.035) Urine Protein (Negative) Urine Glucose (UA) (Negative) Urine Ketones (Negative) Urine Blood (Negative) Urine Nitrite (Negative) Urine Bilirubin (Negative) Urine Urobilinogen (<2.0) mg/dL Ur Leukocyte Esterase (Negative) Urine RBC (0-5) /hpf Urine WBC (0-5) /hpf Ur Squamous Epith Cells (0-4) /hpf Amorphous Sediment (None) /hpf Urine Bacteria (None) /hpf Urine Mucus (None) /hpf Urine HCG, Qual (Not Detectd) Disposition Clinical Impression: UTI (urinary tract infection) Disposition: HOME SELF-CARE Condition: Stable Instructions: Urinary Tract Infection in Women (ED) Additional Instructions: Please use medication as discussed. Please follow up with family doctor if symptoms have not improved over the next two days. Please return to the emergency room if your symptoms increase or worsen or for any other concerns. Prescriptions: Ciprofloxacin HCl [Cipro] 250 mg PO Q12HR #6 tablet Referrals: Bijan James DO [Primary Care Provider] - 1-2 days Time of Disposition: 17:59
== END 2016-11-20 18:22 | disposition home or self-care (01) ==
LOC: EC 14:54 → SUPCPDRO 14:54 → EC 18:22
DX: N39.0 Urinary tract infection, site not specified (principal); R10.9 Unspecified abdominal pain; R11.2 Nausea with vomiting, unspecified; K21.9 Gastro-esophageal reflux disease without esophagitis; F32.9 Major depressive disorder, single episode, unspecified; F41.9 Anxiety disorder, unspecified; F43.10 Post-traumatic stress disorder, unspecified; F17.200 Nicotine dependence, unspecified, uncomplicated; Z85.41 Personal history of malignant neoplasm of cervix uteri; Z85.42 Personal history of malignant neoplasm of other parts of uterus; Z85.038 Personal history of other malignant neoplasm of large intestine; Z79.1 Long term (current) use of non-steroidal anti-inflammatories (NSAID); Z79.899 Other long term (current) drug therapy; Z88.5 Allergy status to narcotic agent; Z88.6 Allergy status to analgesic agent; Z88.0 Allergy status to penicillin; Z88.1 Allergy status to other antibiotic agents; Z88.2 Allergy status to sulfonamides; Z88.8 Allergy status to other drugs, medicaments and biological substances; Z90.49 Acquired absence of other specified parts of digestive tract; Z90.710 Acquired absence of both cervix and uterus
CPT/HCPCS: 36415; 80053; 83690; 85025; 81001; 81025; 76705; 76770; 99284; 96374; 96375; 96376 ×2; 96361 ×2; J2405; J1170

== ENCOUNTER 2016-11-21 08:16 | Emergency (ER) | payer OTHER ==
[2016-11-21 08:22] VITALS: BP 121/76; PULSE 103; RESP 20; TEMP 98.8
[2016-11-21] MEDS ORDERED: METOCLOPRAMIDE 5 MG/ML 2 ML VIAL IVP STA (08:28)
[2016-11-21] MEDS ORDERED: SODIUM CHLORIDE 0.9% 1,000 ML IV STA (08:28)
[2016-11-21] MEDS ORDERED: LEVOFLOXACIN 750MG-D5W PMX 750 MG in DEXTROSE/WATER 1 150ML.BAG IVPB STA (08:44)
[2016-11-21] MEDS ORDERED: SODIUM CHLORIDE 0.9% 1,000 ML IV ONE (08:54)
--- NOTE | 2016-11-21 08:56 | ED ---
Nausea/Vomiting/Diarrhea HPI - General Chief complaint: Nausea/Vomiting/Diarrhea Stated complaint: vomiting Time Seen by Provider: 11/21/16 08:26 Source: patient, RN notes reviewed Mode of arrival: ambulatory Limitations: no limitations - History of Present Illness Initial comments: 26-year-old female presents emergency Department with chief complaint of nausea vomiting and right flank pain. Patient seen here yesterday for similar symptoms and diagnosed with urinary tract infection. Patient states that she was unable take Cipro because of the vomiting. She tried some Zofran at home with no relief. Patient has a long history kidney stones. Patient had ultrasound x-ray which showed no evidence of stone or hydronephrosis. Patient denies any fever, chills, diarrhea constipation. Denies any chest pain or shortness of breath. Patient states nothing makes her pain feel better or worse at this time. - Related Data Home Medications Medication Instructions Recorded Confirmed Albuterol Inhaler [Ventolin Hfa 2 puff INHALATION RT-Q6H PRN 03/25/16 11/21/16 Inhaler] Gabapentin [Neurontin] 600 mg PO TID 03/25/16 11/21/16 Lurasidone [Latuda] 80 mg PO DAILY 09/01/16 11/21/16 Estrogens, Conjugated Cream 1 applicator VAGINAL DAILY 10/07/16 11/21/16 [Premarin Cream] traMADol HCl [Ultram] 1 tab PO TID PRN 10/09/16 11/21/16 ALPRAZolam [Xanax] 0.5 mg PO DAILY PRN 11/20/16 11/21/16 Cetirizine HCl [Zyrtec] 10 mg PO DAILY 11/20/16 11/21/16 Meloxicam [Mobic] 15 mg PO DAILY 11/20/16 11/21/16 Methocarbamol [Robaxin] 1,000 mg PO QID PRN 11/20/16 11/21/16 Ondansetron Odt [Zofran Odt] 4 mg PO Q12HR PRN 11/20/16 11/21/16 Pantoprazole Sodium [Protonix] 40 mg PO BID 11/20/16 11/21/16 Budesonide/Formoterol Fumarate 1 puff INHALATION RT-BID 11/21/16 11/21/16 [Symbicort 160-4.5 Mcg Inhaler] Previous Rx's Medication Instructions Recorded Ciprofloxacin HCl [Cipro] 250 mg PO Q12HR #6 tablet 11/20/16 Promethazine [Phenergan] 25 mg PO Q6HR #14 tablet 11/21/16 Allergies Allergy/AdvReac Type Severity Reaction Status Date / Time acetaminophen Allergy Swelling Verified 11/21/16 08:42 [From Darvocet-N] amoxicillin trihydrate Allergy Swelling Verified 11/21/16 08:42 [From Augmentin] ceftriaxone sodium Allergy Swelling Verified 11/21/16 08:42 [From Rocephin] clarithromycin [From Biaxin] Allergy Swelling Verified 11/21/16 08:42 fexofenadine HCl Allergy Swelling Verified 11/21/16 08:42 [From Leslye] ketorolac tromethamine Allergy Swelling Verified 11/21/16 08:42 [From Toradol] loratadine [From Claritin] Allergy Swelling Verified 11/21/16 08:42 meperidine HCl [From Demerol] Allergy Swelling Verified 11/21/16 08:42 morphine Allergy Swelling Verified 11/21/16 08:42 Penicillins Allergy Swelling Verified 11/21/16 08:42 potassium clavulanate Allergy Swelling Verified 11/21/16 08:42 [From Augmentin] propoxyphene Allergy Swelling Verified 11/21/16 08:42 [From Darvocet-N] Sulfa (Sulfonamide Allergy Swelling Verified 11/21/16 08:42 Antibiotics) Review of Systems ROS Statement: Those systems with pertinent positive or pertinent negative responses have been documented in the HPI. ROS Other: All systems not noted in ROS Statement are negative. 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 History of Any Multi-Drug Resistant Organisms: None Reported Past Surgical History: Cholecystectomy, Hysterectomy, Tonsillectomy Additional Past Surgical History / Comment(s): kidney stents, EGD Past Anesthesia/Blood Transfusion Reactions: Postoperative Nausea & Vomiting ( PONV) Additional Past Anesthesia/Blood Transfusion Reaction / Comment(s): ANXIETY. PT IS ADOPTED AND DOES NOT KNOW FAMILY HX. Past Psychological History: Anxiety, Depression, PTSD Smoking Status: Current every day smoker Past Alcohol Use History: None Reported Additional Past Alcohol Use History / Comment(s): SMOKING SINCE AGE 13. SMOKES 1 /2 PPD. Past Drug Use History: None Reported - Past Family History Mother Family Medical History: Unable to Obtain Additional Family Medical History / Comment(s): Adopted General Exam Limitations: no limitations General appearance: alert, in no apparent distress Head exam: Present: atraumatic, normocephalic, normal inspection Respiratory exam: Present: normal lung sounds bilaterally. Absent: respiratory distress, wheezes, rales, rhonchi, stridor Cardiovascular Exam: Present: regular rate, normal rhythm, normal heart sounds. Absent: systolic murmur, diastolic murmur, rubs, gallop, clicks GI/Abdominal exam: Present: soft, tenderness (Mild suprapubic), normal bowel sounds. Absent: distended, guarding, rebound, rigid Back exam: Present: full ROM, CVA tenderness (R). Absent: tenderness, CVA tenderness (L) Neurological exam: Present: alert, oriented X3, CN II-XII intact Skin exam: Present: warm, dry, intact, normal color. Absent: rash Course Vital Signs 11/21/16 08:21 Temperature 98.8 F Pulse Rate 103 H Respiratory 20 Rate Blood Pressure 121/76 O2 Sat by Pulse 97 Oximetry Medical Decision Making - Medical Decision Making 26-year-old female presented for nausea vomiting. Patient does feel slightly improved at this time. Patient has postnasal drainage most likely causing her nausea. Patient's labwork improved from prior yesterday. Patient is requesting to be discharged at this time return parameters were discussed. - Lab Data Result diagrams: 11/21/16 09:15 11/21/16 09:15 Lab Results 11/21/16 11/21/16 11/21/16 Range/Units 09:15 09:15 09:35 WBC 11.7 H (3.8-10.6) k/uL RBC 5.33 (3.80-5.40) m/uL Hgb 16.1 H (11.4-16.0) gm/dL Hct 48.7 H (34.0-46.0) % MCV 91.5 (80.0-100.0) fL MCH 30.2 (25.0-35.0) pg MCHC 33.0 (31.0-37.0) g/dL RDW 12.9 (11.5-15.5) % Plt Count 275 (150-450) k/uL Neutrophils % 67 % Lymphocytes % 24 % Monocytes % 7 % Eosinophils % 1 % Basophils % 0 % Neutrophils # 7.8 H (1.3-7.7) k/uL Lymphocytes # 2.8 (1.0-4.8) k/uL Monocytes # 0.8 (0-1.0) k/uL Eosinophils # 0.2 (0-0.7) k/uL Basophils # 0.1 (0-0.2) k/uL Sodium 142 (137-145) mmol/L Potassium 3.9 (3.5-5.1) mmol/L Chloride 108 H (98-107) mmol/L Carbon Dioxide 20 L (22-30) mmol/L Anion Gap 14 mmol/L BUN 13 (7-17) mg/dL Creatinine 0.66 (0.52-1.04) mg/dL Est GFR (MDRD) Af Amer >60 (>60 ml/min/1.73 sqM) Est GFR (MDRD) Non-Af >60 (>60 ml/min/1.73 sqM) Glucose 91 (74-99) mg/dL Calcium 10.1 (8.4-10.2) mg/dL Total Bilirubin 0.6 (0.2-1.3) mg/dL AST 18 (14-36) U/L ALT 19 (9-52) U/L Alkaline Phosphatase 70 (38-126) U/L Total Protein 7.9 (6.3-8.2) g/dL Albumin 5.1 H (3.5-5.0) g/dL Amylase 50 (30-110) U/L Lipase 35 (23-300) U/L Urine Color Urine Appearance (Clear) Urine pH (5.0-8.0) Ur Specific [place] (1.001-1.035) Urine Protein (Negative) Urine Glucose (UA) (Negative) Urine Ketones (Negative) Urine Blood (Negative) Urine Nitrite (Negative) Urine Bilirubin (Negative) Urine Urobilinogen (<2.0) mg/dL Ur Leukocyte Esterase (Negative) Urine RBC (0-5) /hpf Urine WBC (0-5) /hpf Ur Squamous Epith Cells (0-4) /hpf Urine Bacteria (None) /hpf Hyaline Casts (0-2) /lpf Urine Mucus (None) /hpf Urine HCG, Qual Not Detected (Not Detectd) 11/21/16 Range/Units 09:35 WBC (3.8-10.6) k/uL RBC (3.80-5.40) m/uL Hgb (11.4-16.0) gm/dL Hct (34.0-46.0) % MCV (80.0-100.0) fL MCH (25.0-35.0) pg MCHC (31.0-37.0) g/dL RDW (11.5-15.5) % Plt Count (150-450) k/uL Neutrophils % % Lymphocytes % % Monocytes % % Eosinophils % % Basophils % % Neutrophils # (1.3-7.7) k/uL Lymphocytes # (1.0-4.8) k/uL Monocytes # (0-1.0) k/uL Eosinophils # (0-0.7) k/uL Basophils # (0-0.2) k/uL Sodium (137-145) mmol/L Potassium (3.5-5.1) mmol/L Chloride (98-107) mmol/L Carbon Dioxide (22-30) mmol/L Anion Gap mmol/L BUN (7-17) mg/dL Creatinine (0.52-1.04) mg/dL Est GFR (MDRD) Af Amer (>60 ml/min/1.73 sqM) Est GFR (MDRD) Non-Af (>60 ml/min/1.73 sqM) Glucose (74-99) mg/dL Calcium (8.4-10.2) mg/dL Total Bilirubin (0.2-1.3) mg/dL AST (14-36) U/L ALT (9-52) U/L Alkaline Phosphatase (38-126) U/L Total Protein (6.3-8.2) g/dL Albumin (3.5-5.0) g/dL Amylase (30-110) U/L Lipase (23-300) U/L Urine Color Yellow Urine Appearance Cloudy H (Clear) Urine pH 6.0 (5.0-8.0) Ur Specific [place] 1.021 (1.001-1.035) Urine Protein 1+ H (Negative) Urine Glucose (UA) Negative (Negative) Urine Ketones 1+ H (Negative) Urine Blood Trace H (Negative) Urine Nitrite Negative (Negative) Urine Bilirubin 1+ H (Negative) Urine Urobilinogen 3.0 (<2.0) mg/dL Ur Leukocyte Esterase Trace H (Negative) Urine RBC 5 (0-5) /hpf Urine WBC 5 (0-5) /hpf Ur Squamous Epith Cells 29 H (0-4) /hpf Urine Bacteria Rare H (None) /hpf Hyaline Casts 5 H (0-2) /lpf Urine Mucus Many H (None) /hpf Urine HCG, Qual (Not Detectd) Disposition Clinical Impression: Nausea & vomiting, Post-nasal drainage, Abdominal pain Disposition: HOME SELF-CARE Condition: Stable Instructions: Acute Nausea and Vomiting (ED) Additional Instructions: Please return to the Emergency Department if symptoms worsen or any other concerns. Prescriptions: Promethazine [Phenergan] 25 mg PO Q6HR #14 tablet Referrals: Bijan James DO [Primary Care Provider] - 1-2 days Time of Disposition: 10:42
[2016-11-21] MEDS ORDERED: HYDROmorphone 1 MG/ML 1 ML SYRINGE IVP STA (08:57)
[2016-11-21 09:40] LABS: Basophils # (A) 0.1 k/uL (0-0.2); Basophils % (A) 0 %; CH 31.4; CHCM 34.5; Eosinophils # (A) 0.2 k/uL (0-0.7); Eosinophils % (A) 1 %; HCT 48.7 % (34.0-46.0); HDW 2.58; HGB 16.1 gm/dL (11.4-16.0); Luc # (Auto) 0.13; Luc % (Auto) 1; Lymphocytes # (A) 2.8 k/uL (1.0-4.8); Lymphocytes % (A) 24 %; MCH 30.2 pg (25.0-35.0); MCV 91.5 fL (80.0-100.0); Mean Platelet Volume 7.7; Monocytes # (A) 0.8 k/uL (0-1.0); Monocytes % (A) 7 %; Neutrophils # (A) 7.8 k/uL (1.3-7.7); Neutrophils % (A) 67 %; RBC 5.33 m/uL (3.80-5.40); RDW 12.9 % (11.5-15.5); WBC 11.7 k/uL (3.8-10.6); WBC (Perox) 9.78
[2016-11-21 09:45] LABS: ALT 19 U/L (9-52); AST 18 U/L (14-36); Alkaline Phosphatase 70 U/L (38-126); Amylase 50 U/L (30-110); Anion Gap 14 mmol/L; Blood Urea Nitrogen 13 mg/dL (7-17); Calcium 10.1 mg/dL (8.4-10.2); Carbon Dioxide 20 mmol/L (22-30); Chloride 108 mmol/L (98-107); Glucose 91 mg/dL (74-99); Non-African American GFR(MDRD) >60 (>60 ml/min/1.73 sqM); Potassium 3.9 mmol/L (3.5-5.1); Sodium 142 mmol/L (137-145); Total Bilirubin 0.6 mg/dL (0.2-1.3); Total Protein 7.9 g/dL (6.3-8.2)
[2016-11-21] MEDS ORDERED: ONDANSETRON 4 MG/2 ML VIAL IVP STA (10:00)
[2016-11-21 10:02] LABS: Appearance,Urine Cloudy (Clear); Bacteria,Urine Rare /hpf; Bilirubin,Urine 1+ (Negative); Glucose,Urine (UA) Negative (Negative); Ketones,Urine 1+ (Negative); Leukocyte Esterase,Urine Trace (Negative); Mucus,Urine Many /hpf; Nitrite,Urine Negative (Negative); Particle Count 20494; Protein,Urine 1+ (Negative); RBC,Urine 5 /hpf (0-5); Specific Gravity,Urine 1.021 (1.001-1.035); Squamous Epithelial Cell,Urine 29 /hpf (0-4); UA Billing (MACRO vs. MICRO) MICRO; WBC,Urine 5 /hpf (0-5)
== END 2016-11-21 11:06 | disposition home or self-care (01) ==
LOC: EC 08:16
DX: R11.2 Nausea with vomiting, unspecified (principal); R10.30 Lower abdominal pain, unspecified; R09.82 Postnasal drip; K21.9 Gastro-esophageal reflux disease without esophagitis; J45.909 Unspecified asthma, uncomplicated; F17.200 Nicotine dependence, unspecified, uncomplicated; Z85.038 Personal history of other malignant neoplasm of large intestine; Z90.49 Acquired absence of other specified parts of digestive tract; Z88.0 Allergy status to penicillin; Z88.1 Allergy status to other antibiotic agents; Z88.2 Allergy status to sulfonamides; Z88.5 Allergy status to narcotic agent; Z88.8 Allergy status to other drugs, medicaments and biological substances; Z79.51 Long term (current) use of inhaled steroids; Z79.899 Other long term (current) drug therapy
CPT/HCPCS: 99284; 96365; 96366; 96375 ×3; 36415; 80053; 82150; 83690; 85025; 81001; 81025; 87040; J2765; J2405; J1170; J1956

== ENCOUNTER 2016-11-27 08:14 | Emergency (ER) | payer OTHER ==
[2016-11-27 08:18] VITALS: TEMP 98.3
[2016-11-27] MEDS ORDERED: METOCLOPRAMIDE 5 MG/ML 2 ML VIAL IVP STA ×2 (08:44→09:54)
[2016-11-27] MEDS ORDERED: SODIUM CHLORIDE 0.9% 1,000 ML IV ONE (08:44)
[2016-11-27] MEDS ORDERED: HYDROmorphone 1 MG/ML 1 ML SYRINGE IVP STA (08:44)
--- NOTE | 2016-11-27 08:48 | ED ---
Nausea/Vomiting/Diarrhea HPI - General Chief complaint: Nausea/Vomiting/Diarrhea Stated complaint: vomiting Time Seen by Provider: 11/27/16 08:27 Source: patient, RN notes reviewed Mode of arrival: ambulatory Limitations: no limitations - History of Present Illness Initial comments: Patient is a 26-year-old female presents emergency room for evaluation of vomiting. Patient states she's been here twice already within the past week or so for vomiting. Patient states that she went to her primary care provider on Thursday and was told to come to the emergency room if symptoms still persist throughout the week. Patient states she still vomits multiple times today. Patient denies constipation or diarrhea. Patient now states she's been developing right lower quadrant pain over the past day. Patient states she has a history of cholecystectomy and hysterectomy. Both surgeries were done in [place]. Patient states she moved here about a year ago. Patient states she has been having on and off chills. Patient denies headache or dizziness. Patient denies chest pain or shortness of breath. Patient is very nauseous. Patient states she was sent home with Phenergan. Patient states she is unable to swallow the Phenergan. Patient states last time she was here she is diagnosed with urinary tract infection. Patient denies any urinary symptoms. Patient does state that she had a right ureteral stent placed about a year and a half ago. Patient denies any flank pain. Patient denies any blood in the urine. Patient states she is having constant 4 out of 10 pain in her right lower quadrant. - Related Data Home Medications Medication Instructions Recorded Confirmed Albuterol Inhaler [Ventolin Hfa 2 puff INHALATION RT-Q6H PRN 03/25/16 11/27/16 Inhaler] Gabapentin [Neurontin] 600 mg PO TID 03/25/16 11/27/16 Lurasidone [Latuda] 80 mg PO DAILY 09/01/16 11/27/16 traMADol HCl [Ultram] 50 mg PO TID PRN 10/09/16 11/27/16 ALPRAZolam [Xanax] 0.5 mg PO DAILY PRN 11/20/16 11/27/16 Cetirizine HCl [Zyrtec] 10 mg PO DAILY 11/20/16 11/27/16 Meloxicam [Mobic] 15 mg PO DAILY 11/20/16 11/27/16 Methocarbamol [Robaxin] 1,000 mg PO QID PRN 11/20/16 11/27/16 Ondansetron Odt [Zofran Odt] 4 mg PO Q12HR PRN 11/20/16 11/27/16 Pantoprazole Sodium [Protonix] 40 mg PO BID 11/20/16 11/27/16 Budesonide/Formoterol Fumarate 1 puff INHALATION RT-BID 11/21/16 11/27/16 [Symbicort 160-4.5 Mcg Inhaler] Allergies Allergy/AdvReac Type Severity Reaction Status Date / Time acetaminophen Allergy Swelling Verified 11/27/16 09:45 [From Darvocet-N] amoxicillin trihydrate Allergy Swelling Verified 11/27/16 09:45 [From Augmentin] ceftriaxone sodium Allergy Swelling Verified 11/27/16 09:45 [From Rocephin] clarithromycin [From Biaxin] Allergy Swelling Verified 11/27/16 09:45 fexofenadine HCl Allergy Swelling Verified 11/27/16 09:45 [From Leslye] ketorolac tromethamine Allergy Swelling Verified 11/27/16 09:45 [From Toradol] loratadine [From Claritin] Allergy Swelling Verified 11/27/16 09:45 meperidine HCl [From Demerol] Allergy Swelling Verified 11/27/16 09:45 morphine Allergy Swelling Verified 11/27/16 09:45 Penicillins Allergy Swelling Verified 11/27/16 09:45 potassium clavulanate Allergy Swelling Verified 11/27/16 09:45 [From Augmentin] propoxyphene Allergy Swelling Verified 11/27/16 09:45 [From Darvocet-N] Sulfa (Sulfonamide Allergy Swelling Verified 11/27/16 09:45 Antibiotics) Review of Systems ROS Statement: Those systems with pertinent positive or pertinent negative responses have been documented in the HPI. ROS Other: All systems not noted in ROS Statement are negative. 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 History of Any Multi-Drug Resistant Organisms: None Reported Past Surgical History: Cholecystectomy, Hysterectomy, Tonsillectomy Additional Past Surgical History / Comment(s): kidney stents, EGD Past Anesthesia/Blood Transfusion Reactions: Postoperative Nausea & Vomiting ( PONV) Additional Past Anesthesia/Blood Transfusion Reaction / Comment(s): ANXIETY. PT IS ADOPTED AND DOES NOT KNOW FAMILY HX. Past Psychological History: Anxiety, Depression, PTSD Smoking Status: Current every day smoker Past Alcohol Use History: None Reported Additional Past Alcohol Use History / Comment(s): SMOKING SINCE AGE 13. SMOKES 1 /2 PPD. Past Drug Use History: None Reported - Past Family History Mother Family Medical History: Unable to Obtain Additional Family Medical History / Comment(s): Adopted General Exam - General Exam Comments Initial Comments: Laying in exam room, no acute distress. Limitations: no limitations General appearance: alert, in no apparent distress Head exam: Present: atraumatic, normocephalic, normal inspection Eye exam: Present: normal appearance ENT exam: Present: normal exam Neck exam: Present: normal inspection Respiratory exam: Present: normal lung sounds bilaterally. Absent: respiratory distress Cardiovascular Exam: Present: normal rhythm, tachycardia, normal heart sounds GI/Abdominal exam: Present: soft, tenderness (Right lower quadrant), normal bowel sounds. Absent: distended, guarding, rebound, rigid Extremities exam: Present: normal inspection Back exam: Present: normal inspection Neurological exam: Present: alert, oriented X3, CN II-XII intact, normal gait Psychiatric exam: Present: normal affect, normal mood Skin exam: Present: warm, dry, intact, normal color. Absent: rash Course Vital Signs 11/27/16 11/27/16 11/27/16 08:16 09:56 11:50 Temperature 98.3 F 98.3 F Pulse Rate 108 H 89 89 Respiratory 20 18 18 Rate Blood Pressure 117/76 101/67 101/67 O2 Sat by Pulse 98 97 97 Oximetry Medical Decision Making - Medical Decision Making Patient is a 26-year-old female presents to the emergency room for evaluation of abdominal pain and nausea and vomiting. Patient has been here already twice for this issue. Patient's labs redrawn. No change from previous labs. CT abdomen and pelvis ordered to rule out appendicitis. No acute findings noted. Patient states she is feeling better after medications and would like to be discharged. Advised patient to follow-up with GI specialist. Patient states she understands everything that was discussed with her. Return parameters discussed. Case discussed with Dr. Olson. - Lab Data Result diagrams: 11/27/16 08:56 11/27/16 08:56 Lab Results 11/27/16 11/27/16 11/27/16 Range/Units 08:56 08:56 08:56 WBC 11.7 H (3.8-10.6) k/uL RBC 5.12 (3.80-5.40) m/uL Hgb 16.2 H (11.4-16.0) gm/dL Hct 46.6 H (34.0-46.0) % MCV 91.0 (80.0-100.0) fL MCH 31.7 (25.0-35.0) pg MCHC 34.9 (31.0-37.0) g/dL RDW 13.0 (11.5-15.5) % Plt Count 285 (150-450) k/uL Neutrophils % 72 % Lymphocytes % 19 % Monocytes % 6 % Eosinophils % 2 % Basophils % 0 % Neutrophils # 8.4 H (1.3-7.7) k/uL Lymphocytes # 2.2 (1.0-4.8) k/uL Monocytes # 0.7 (0-1.0) k/uL Eosinophils # 0.2 (0-0.7) k/uL Basophils # 0.1 (0-0.2) k/uL Sodium 142 (137-145) mmol/L Potassium 3.6 (3.5-5.1) mmol/L Chloride 106 (98-107) mmol/L Carbon Dioxide 21 L (22-30) mmol/L Anion Gap 15 mmol/L BUN 12 (7-17) mg/dL Creatinine 0.72 (0.52-1.04) mg/dL Est GFR (MDRD) Af Amer >60 (>60 ml/min/1.73 sqM) Est GFR (MDRD) Non-Af >60 (>60 ml/min/1.73 sqM) Glucose 96 (74-99) mg/dL Calcium 10.4 H (8.4-10.2) mg/dL Magnesium 1.9 (1.6-2.3) mg/dL Total Bilirubin 0.7 (0.2-1.3) mg/dL AST 21 (14-36) U/L ALT 30 (9-52) U/L Alkaline Phosphatase 83 (38-126) U/L Total Protein 8.1 (6.3-8.2) g/dL Albumin 5.2 H (3.5-5.0) g/dL Amylase 64 (30-110) U/L Lipase 52 (23-300) U/L Urine Color Yellow Urine Appearance Cloudy H (Clear) Urine pH 6.0 (5.0-8.0) Ur Specific [place] 1.019 (1.001-1.035) Urine Protein 1+ H (Negative) Urine Glucose (UA) Negative (Negative) Urine Ketones 1+ H (Negative) Urine Blood Trace H (Negative) Urine Nitrite Negative (Negative) Urine Bilirubin Negative (Negative) Urine Urobilinogen 3.0 (<2.0) mg/dL Ur Leukocyte Esterase Trace H (Negative) Urine RBC 7 H (0-5) /hpf Urine WBC 4 (0-5) /hpf Ur Squamous Epith Cells 7 H (0-4) /hpf Urine Bacteria Rare H (None) /hpf Urine Mucus Many H (None) /hpf - Radiology Data Radiology results: report reviewed, image reviewed Disposition Clinical Impression: Nausea and vomiting Disposition: HOME SELF-CARE Condition: Good Instructions: Acute Nausea and Vomiting (ED), Abdominal Pain (ED) Additional Instructions: Continue taking at home medications as needed. Please follow-up with GI specialist. If any new symptom arises or symptoms worsen, return to ER as soon as possible. Referrals: Bijan James DO [Primary Care Provider] - 1-2 days Time of Disposition: 11:37
[2016-11-27 09:20] LABS: Appearance,Urine Cloudy (Clear); Bacteria,Urine Rare /hpf; Bilirubin,Urine Negative (Negative); Glucose,Urine (UA) Negative (Negative); Ketones,Urine 1+ (Negative); Leukocyte Esterase,Urine Trace (Negative); Mucus,Urine Many /hpf; Nitrite,Urine Negative (Negative); Particle Count 10110; Protein,Urine 1+ (Negative); RBC,Urine 7 /hpf (0-5); Specific Gravity,Urine 1.019 (1.001-1.035); Squamous Epithelial Cell,Urine 7 /hpf (0-4); UA Billing (MACRO vs. MICRO) MICRO; WBC,Urine 4 /hpf (0-5)
[2016-11-27 09:22] LABS: Basophils # (A) 0.1 k/uL (0-0.2); Basophils % (A) 0 %; CH 31.7; CHCM 35.1; Eosinophils # (A) 0.2 k/uL (0-0.7); Eosinophils % (A) 2 %; HCT 46.6 % (34.0-46.0); HDW 2.55; HGB 16.2 gm/dL (11.4-16.0); Luc # (Auto) 0.15; Luc % (Auto) 1; Lymphocytes # (A) 2.2 k/uL (1.0-4.8); Lymphocytes % (A) 19 %; MCH 31.7 pg (25.0-35.0); MCHC 34.9 g/dL (31.0-37.0); Mean Platelet Volume 7.5; Monocytes # (A) 0.7 k/uL (0-1.0); Monocytes % (A) 6 %; Neutrophils # (A) 8.4 k/uL (1.3-7.7); Neutrophils % (A) 72 %; RBC 5.12 m/uL (3.80-5.40); WBC 11.7 k/uL (3.8-10.6); WBC (Perox) 12.46
[2016-11-27 09:35] LABS: ALT 30 U/L (9-52); AST 21 U/L (14-36); Alkaline Phosphatase 83 U/L (38-126); Amylase 64 U/L (30-110); Anion Gap 15 mmol/L; Blood Urea Nitrogen 12 mg/dL (7-17); Calcium 10.4 mg/dL (8.4-10.2); Carbon Dioxide 21 mmol/L (22-30); Chloride 106 mmol/L (98-107); Glucose 96 mg/dL (74-99); Magnesium 1.9 mg/dL (1.6-2.3); Non-African American GFR(MDRD) >60 (>60 ml/min/1.73 sqM); Potassium 3.6 mmol/L (3.5-5.1); Sodium 142 mmol/L (137-145); Total Bilirubin 0.7 mg/dL (0.2-1.3); Total Protein 8.1 g/dL (6.3-8.2)
[2016-11-27] MEDS ORDERED: RX INFO: IV CONTRAST WAS GIVEN 1 EACH MISC MISCELLANE PRN (09:53)
[2016-11-27 09:58] VITALS: BP 101/67; PULSE 89; RESP 18
--- NOTE | 2016-11-27 10:30 | CT ---
EXAMINATION TYPE: CT abdomen pelvis w con DATE OF EXAM: 11/27/2016 10:17 AM COMPARISON: NONE HISTORY: Rt sided pain, vomiting CT DLP: 1481 mGycm CONTRAST: CT scan of the abdomen and pelvis is performed without Oral Contrast and with IV Contrast, patient in jected with 100 mL of Omnipaque 350. FINDINGS: LUNG BASES-: No visible nodule. No infiltrate. LIVER/GB: Cholecystectomy clips are in place. No space occupying hepatic lesion. Biliary tree is o f normal caliber. PANCREAS: No inflammation. No distinct mass. SPLEEN: No splenic enlargement. No lesion seen. ADRENALS: No nodule. No thickening. KIDNEYS/BLADDER: No hydronephrosis. No nephrolithiasis. No disctinct renal mass. Urinary bladder g rossly unremarkable. BOWEL: Normal appendix. Normal bowel caliber. No inflammation. GENITAL ORGANS: No gross abnormality. LYMPH NODES: No greater than 1cm abdominal or pelvic lymph nodes are appreciated. AORTA: No significant abnormality. OSSEOUS STRUCTURES: Grade 1 retrolisthesis L5 on S1 with a mild posterior disc bulge or small herniat ion. OTHER: No significant additional abnormality is seen. IMPRESSION: 1. No significant abnormality to account for the patient's symptoms.
== END 2016-11-27 11:50 | disposition home or self-care (01) ==
LOC: EC 08:14
DX: R11.2 Nausea with vomiting, unspecified (principal); R10.31 Right lower quadrant pain; R68.83 Chills (without fever); R00.0 Tachycardia, unspecified; J45.909 Unspecified asthma, uncomplicated; K21.9 Gastro-esophageal reflux disease without esophagitis; F32.9 Major depressive disorder, single episode, unspecified; F41.9 Anxiety disorder, unspecified; M62.9 Disorder of muscle, unspecified; F17.200 Nicotine dependence, unspecified, uncomplicated; Z79.1 Long term (current) use of non-steroidal anti-inflammatories (NSAID); Z79.51 Long term (current) use of inhaled steroids; Z79.899 Other long term (current) drug therapy; Z88.0 Allergy status to penicillin; Z88.1 Allergy status to other antibiotic agents; Z88.2 Allergy status to sulfonamides; Z88.5 Allergy status to narcotic agent; Z88.6 Allergy status to analgesic agent; Z88.8 Allergy status to other drugs, medicaments and biological substances; Z91.048 Other nonmedicinal substance allergy status; Z90.49 Acquired absence of other specified parts of digestive tract; Z90.710 Acquired absence of both cervix and uterus
CPT/HCPCS: 36415; 80053; 82150; 83690; 83735; 85025; 81001; 74177; 99284; 96374; 96375; 96376; 96361 ×3; J2765; J1170; Q9967

== ENCOUNTER → 2016-12-30 | Outpatient (CLI) | payer OTHER ==
[2016-12-30 13:05] VITALS: BP 113/81; PULSE 98; RESP 16; TEMP 99.1
--- NOTE | 2016-12-30 13:15 | P.PN ---
Progress Note - Text Patient returns for followup for chronic neck and back pain with radiation to bilateral LE's and right UE, and bilateral LE pain is significantly improved. Patient recently underwent TFESI x 3 with excellent relief and MERCEDES x 2 with good relief but has had persistent headaches; each NIKKI worked for approximately 4-6 weeks. Patient continues on tramadol medications for pain from PCP with good relief. Patient denies adverse drug effects from medications. Today, pt denies new-onset weakness, bowel/bladder incontinence, or any other signs or symptoms of cauda equina syndrome. There are no signs of acute intoxication, and no indications of medication diversion or overuse. In addition to above, 13-point review of systems is also negative for chest pain , shortness of breath, changes in vision, changes in hearing, new onset weakness , abdominal pain, diarrhea, extreme fatigue, malaise, fever, skin changes, homicidal or suicidal ideation, or bowel or bladder incontinence. Vital Signs: Reviewed in EMR Gen: WDWN, AAOx3, NAD HEENT: NCAT, EOMI, hearing grossly normal; TTP over bilateral occipital ridges Pulm: resp unlabored Abd: soft, NT, ND Neck: supple, trachea midline ROM in flexion cervical spine: reduced ROM in extension cervical spine: reduced Cervical paravertebral tenderness: + Cervical Facet tenderness: + bilateral Spurling's: + RUE > LUE Upper extremity: decreased operations and maintenance specialist strength due to pain Neuro: CN II-XII grossly intact, muscle strength lower extremities PRESERVED Imaging: MRI cervical spine dated 08/06/2016 demonstrates mild disc desiccation and central disc bulging at C5-C6 level without central canal stenosis or foraminal encroachment. There is also loss of the normal cervical lordosis. Assessment: 1. cervical spondylosis without myelopathy 2. lumbar radiculopathy 3. herniated cervical disc 4. cervical radiculopathy\ 5. occipital neuralgia Plan: 1. Explanation: Opioid and psychological risk scores were reviewed. Diagnoses , prognoses, and multiple treatment options including but not limited to physical therapy, interventional therapies, adjuvant medical therapies, narcotic medication therapies, and surgery were discussed with the patient and all questions were answered to the patient's satisfaction. 2. Opioid agreement: no opioids prescribed 3. Counseling: The patient was counseled extensively on SMOKING CESSATION, BODY MASS INDEX, EXERCISE. Specifically, the patient was instructed regarding the importance of smoking cessation, obesity, and exercise in the context of both chronic pain and overall health. 4. Procedures: bilateral occipital NB 5. Consultations: None 6. Investigations: None 7. Medications: none prescribed 8. Disposition: f/u for procedure as scheduled PQRS measures: 1-Patient's medications are documented in the chart. 2-Tobacco use is positive, counseling given 3-Patient has not had a pneumococcal vaccine. 4-Advanced care planning discussed, patient unable to give. 5-Opioid contract NOT signed with the patient. 6-Pain positive, follow-up visit or procedure scheduled 7-Patient's blood pressure measured and documented, and WNL. 8-Patient's weight was measured, and body mass index ABOVE the normal limits, and counseling was done. Patient instructed to follow up with PCP. 9-Patient WAS NOT identified as an unhealthy alcohol user.
== END ==
LOC: PNWHC3 12:40
PROVIDERS: ATTEND Anesthesiology
DX: M50.10 Cervical disc disorder with radiculopathy, unspecified cervical region (principal); M47.22 Other spondylosis with radiculopathy, cervical region; M54.16 Radiculopathy, lumbar region; M54.81 Occipital neuralgia; Z79.891 Long term (current) use of opiate analgesic
CPT/HCPCS: 99211

== ENCOUNTER 2017-02-02 06:14 | Day surgery (SDC) | payer OTHER ==
[2017-01-27 12:10] VITALS: BMI 29.2
[2017-02-02 06:49] VITALS: RESP 16; TEMP 98.2
[2017-02-02 07:02] LABS: Glucose,Whole Blood 90 mg/dL (75-99)
[2017-02-02] MEDS ORDERED: IV FLUID CONTINUATION 1,000 ML IV ONE ×2 (07:02→07:41)
[2017-02-02] MEDS ORDERED: LIDOCAINE 1% 20 ML VIAL (10MG/ML) FOR IV START SQ ONE (07:04)
[2017-02-02] MEDS ORDERED: LACTATED RINGERS 1,000 ML IV ONE (07:15)
--- NOTE | 2017-02-02 07:41 | P.PCN ---
Date of Procedure: 02/02/17 Preoperative Diagnosis: Postoperative Diagnosis: Procedure(s) Performed: Implants: Surgeon: Adam Mathews Pathology: none sent Condition: stable Disposition: PACU Indications for Procedure: Operative Findings: Description of Procedure: Date of the Procedure: Pre-operative diagnosis: 1- Bilateral occipital neuralgia Post Operative Diagnosis: 1- Bilateral occipital neuralgia Procedure: Bilateral occipital nerve block ANESTHESIA: Conscious sedation with Versed/fentanyl. EBL: Minimal PROCEDURE INDICATION: The patient with neck pain and headache secondary to bilateral occipital neuralgia and has failed conservative management. No use of blood thinners. PROCEDURE DESCRIPTION / TECHNIQUE: The patient was seen and identified in the preoperative area. Risks, benefits, complications, and alternatives were discussed with the patient (including but not limited to incomplete pain relief , bleeding, infection, nerve damage, and allergies to medications), the patient agreed to proceed with the procedure and signed the consent after all questions were answered. Patient was taken to the OR and time out was completed to verify proper patient , position, laterality of pain, and allergies. Pt was placed in the sitting position. IV was started. Vital signs remained stable throughout the procedure. Conscious sedation was used during the procedure to decrease patients anxiety. The cervical area and bilateral occipital areas were prepped in the usual sterile fashion. Critical pause was taken. The right occipital ridge was palpated and was then accessed with a 25 G needle. Then after negative aspiration, 3 ml of the total 6 ml block solution containing 4 ml of PF Bupivacaine 0.5% and Kenalog 80 mg was injected. Needle was withdrawn intact. The entire procedure was then repeated on the left side exactly as above. Needle was withdrawn intact and there were no acute complications. DISPOSITION / PLANS: The patient was placed in a supine position and transferred to the recovery area in a stable condition for observation and was discharged from the recovery room after meeting discharge criteria. Home discharge instructions given to the patient by the staff. The patient was reexamined prior to discharge and there were no issues. The patient will schedule a repeat injection in approximately 2-4 weeks.
[2017-02-02 07:47] VITALS: BP 116/85; PULSE 83
== END 2017-02-02 07:58 | disposition home or self-care (01) ==
LOC: ORPAIN 06:14
PROVIDERS: ATTEND Anesthesiology
DX: M54.81 Occipital neuralgia (principal)
CPT/HCPCS: 64405; J2250; J3301; J2001; 99152

== ENCOUNTER → 2017-02-11 | Outpatient (CLI) | payer OTHER ==
--- NOTE | 2017-02-12 08:33 | ECHOF ---
Referral Reason:I49.3 PVC MEASUREMENTS -------- HEIGHT: 160.0 cm WEIGHT: 74.8 kg BP: 159/88 RVIDd: 2.5 cm (< 3.3) IVSd: 1.1 cm (0.6 - 1.1) LVIDd: 3.8 cm (3.9 - 5.3) LVPWd: 1.1 cm (0.6 - 1.1) IVSs: 1.4 cm LVIDs: 3.0 cm LVPWs: 1.4 cm LAESV Index (A-L): 7.18 ml/m Ao Diam: 2.6 cm (2.0 - 3.7) AV Cusp: 1.7 cm (1.5 - 2.6) LA Diam: 2.6 cm (2.7 - 3.8) MV EXCURSION: 19.436 mm (> 18.000) MV EF SLOPE: 126 mm/s (70 - 150) EPSS: 0.4 cm MV E Zafar: 0.59 m/s MV DecT: 243 ms MV A Zafar: 0.52 m/s MV E/A Ratio: 1.12 RAP: 5.00 mmHg RVSP: 8.72 mmHg FINDINGS -------- Sinus rhythm with extra systolic beats. This was a technically adequate study. Overall left ventricular systolic function is low-normal with, an EF between 50 - 55 %. The right ventricle is normal in size and function. Normal LA size by volume 22+/-6 ml/m2. The right atrium is normal in size. The aortic valve is trileaflet and appears structurally normal. The mitral valve is normal. There is trace mitral regurgitation. Trace tricuspid regurgitation present. There is no evidence of pulmonary hypertension. The right ventricular systolic pressure, as measured by Doppler, is 8.72mmHg. Trace/mild (physiologic) pulmonic regurgitation. The aortic root size is normal. Normal inferior vena cava with normal inspiratory collapse consistent with estimated right atrial pressure of 5 mmHg. There is a small pericardial effusion is located near the right ventricular apex. CONCLUSIONS -------- 1. Sinus rhythm with extra systolic beats. 2. Trace/mild (physiologic) pulmonic regurgitation. 3. The aortic root size is normal. 4. There is a small pericardial effusion is located near the right ventricular apex. 5. This was a technically adequate study. 6. Overall left ventricular systolic function is low-normal with, an EF between 50 - 55 %. 7. Normal LA size by volume 22+/-6 ml/m2. 8. The aortic valve is trileaflet and appears structurally normal. 9. There is trace mitral regurgitation. 10. Trace tricuspid regurgitation present. 11. There is no evidence of pulmonary hypertension. 12. The right ventricular systolic pressure, as measured by Doppler, is 8.72mmHg. [employer]: Chase Islas RDCS
== END | disposition home or self-care (01) ==
LOC: RADECHMAIN 11:11
PROVIDERS: ATTEND Family Medicine
DX: I08.1 Rheumatic disorders of both mitral and tricuspid valves (principal); I31.3 Pericardial effusion (noninflammatory)
CPT/HCPCS: 93306

== ENCOUNTER 2017-02-24 06:19 | Day surgery (SDC) | payer OTHER ==
[2017-02-20 09:59] VITALS: BMI 29.2
[2017-02-24 06:33] VITALS: RESP 16; TEMP 97.6
[2017-02-24] MEDS: LACTATED RINGERS 1,000 ML IV SCH ×2 (06:35→07:07)
[2017-02-24 06:41] LABS: Glucose,Whole Blood 97 mg/dL (75-99)
[2017-02-24] MEDS ORDERED: IV FLUID CONTINUATION 1,000 ML IV ONE (07:28)
[2017-02-24 07:46] VITALS: BP 128/87; PULSE 93
--- NOTE | 2017-02-24 08:23 | P.PCN ---
Date of Procedure: 02/24/17 Preoperative Diagnosis: Postoperative Diagnosis: Procedure(s) Performed: Pre-operative diagnosis: 1- Bilateral occipital neuralgea Post Operative Diagnosis 1- Bilateral occipital neuralgea Procedure: 1- Bilateral occipital nerve block ANESTHESIA: Conscious sedation with Versed.2 mg , EBL: Minimal PROCEDURE INDICATION: The patient with neck pain and headache secondary to occipital neuralgea unresponsive to conservative treatments. PROCEDURE DESCRIPTION / TECHNIQUE: The patient was seen and identified in the preoperative area. Risks, benefits, complications, and alternatives were discussed with the patient, the patient agreed to proceed with the procedure and signed the consent. IV was started. Vital signs remained stable throughout the procedure. Patient was taken to the OR and time out was completed. The patient was placed in the pron (sitting ) position on the procedure table. A pillow was placed under the patients chest to increase the cervical interlaminar space. The cervical area and right occiptial area were prepped with alcohol swab. Critical pause was taken. Vital signs were closely monitored during the procedure. Conscious sedation was used during the procedure to decrease patients anxiety. The right occiptal ridge was palpated and was then accessed with a 25 G needle. Then after negative aspiration, 6 ml of the block solution containing 6 ml of PF Buvicaine 0.5% and Kenalog 40 mg was injected. Needle was withdrawn intact. Then the same procedure was repeated on the left side and related the left occipital nerve block, after negative aspiration 6 mL of the block solution containing ropivacaine 0.5% and 40 mg of Kenalog injected after negative aspiration Patient tolerated procedure well. No acute complications. Implants: Indications for Procedure: Operative Findings: Description of Procedure:
== END 2017-02-24 07:57 | disposition home or self-care (01) ==
LOC: ORPAIN 06:19
PROVIDERS: ATTEND Specialist
DX: M54.81 Occipital neuralgia (principal)
CPT/HCPCS: 64405; 99152; J2250; J3301

== ENCOUNTER 2017-04-07 11:03 | Emergency (ER) | payer OTHER ==
[2017-04-07 11:08] VITALS: RESP 18
[2017-04-07] MEDS ORDERED: methylPREDNISolone SOD SUCCI 125 MG/2 ML VIAL IV STA (11:13)
[2017-04-07] MEDS ORDERED: ACETAMINOPHEN IV (For NPO) 1,000 MG in EMPTY BAG 1 BAG IVPB STA (11:13)
[2017-04-07] MEDS ORDERED: SODIUM CHLORIDE 0.9% 1,000 ML IV STA (11:13)
[2017-04-07] MEDS ORDERED: IPRATROPIUM-ALBUTEROL 3 ML NEB INHALATION STA ×2 (11:13→12:09)
--- NOTE | 2017-04-07 11:16 | ED ---
General Adult HPI - General Chief complaint: Upper Respiratory Infection Stated complaint: Cough, poss pneumonia Time Seen by Provider: 04/07/17 11:09 Source: patient, RN notes reviewed Mode of arrival: ambulatory Limitations: no limitations - History of Present Illness Initial comments: Patient 26-year-old female who presents emergency room today with chief complaint of increased cough congestion over the last 5 days. She does admit to history of asthma. States been on steroids and breathing treatments at home over the last 5 days. States she started antibiotics azithromycin yesterday. She was seen by the family doctor yesterday given another shot steroids. She was told by the family doctor if she was not feeling better today to come here to the emergency room. Patient states no improvement today. States still coughing with positive sputum production. She denies any other symptoms. Patient denies any recent shortness of breath, chest pain, back pain, abdominal pain, nausea or vomiting, numbness or tingling, dysuria or hematuria, constipation or diarrhea, headaches or visual changes, or any other complaints. - Related Data Home Medications Medication Instructions Recorded Confirmed Cetirizine HCl [Zyrtec] 10 mg PO DAILY 11/20/16 04/07/17 Pantoprazole Sodium [Protonix] 40 mg PO BID 11/20/16 04/07/17 Budesonide/Formoterol Fumarate 1 puff INHALATION RT-BID 11/21/16 04/07/17 [Symbicort 160-4.5 Mcg Inhaler] Venlafaxine HCl ER [Effexor XR] 150 mg PO DAILY 12/30/16 04/07/17 ALPRAZolam [Xanax] 0.25 mg PO BID PRN 04/07/17 04/07/17 Gabapentin [Neurontin] 300 mg PO BID 04/07/17 04/07/17 Allergies Allergy/AdvReac Type Severity Reaction Status Date / Time amoxicillin trihydrate Allergy Swelling Verified 04/07/17 11:23 [From Augmentin] ceftriaxone sodium Allergy Swelling Verified 04/07/17 11:23 [From Rocephin] clarithromycin [From Biaxin] Allergy Swelling Verified 04/07/17 11:23 fexofenadine HCl Allergy Swelling Verified 04/07/17 11:23 [From Leslye] ketorolac tromethamine Allergy Swelling Verified 04/07/17 11:23 [From Toradol] loratadine [From Claritin] Allergy Swelling Verified 04/07/17 11:23 meperidine HCl [From Demerol] Allergy Swelling Verified 04/07/17 11:23 morphine Allergy Swelling Verified 04/07/17 11:23 Penicillins Allergy Swelling Verified 04/07/17 11:23 potassium clavulanate Allergy Swelling Verified 04/07/17 11:23 [From Augmentin] propoxyphene Allergy Swelling Verified 04/07/17 11:23 [From Darvocet-N] Sulfa (Sulfonamide Allergy Swelling Verified 04/07/17 11:23 Antibiotics) Review of Systems ROS Statement: Those systems with pertinent positive or pertinent negative responses have been documented in the HPI. ROS Other: All systems not noted in ROS Statement are negative. Past Medical History Past Medical History: Cancer Additional Past Medical History / Comment(s): HX OF CERVICAL,UTERINE AND COLON CANCER WITH CHEMO AT 16 YRS OLD, RIGHT KIDNEY STONES, HYPOGLYCEMIA (HIGH PROTEIN DIET), BULDGING DISC WITH BACK PAIN., History of Any Multi-Drug Resistant Organisms: None Reported Past Surgical History: Cholecystectomy, Hysterectomy, Tonsillectomy Additional Past Surgical History / Comment(s): kidney stents, EGD Past Anesthesia/Blood Transfusion Reactions: Postoperative Nausea & Vomiting ( PONV) Additional Past Anesthesia/Blood Transfusion Reaction / Comment(s): ANXIETY. PT IS ADOPTED AND DOES NOT KNOW FAMILY HX. Past Psychological History: Anxiety, Depression, PTSD Smoking Status: Current every day smoker Past Alcohol Use History: None Reported Past Drug Use History: Marijuana - Past Family History Mother Family Medical History: Unable to Obtain Additional Family Medical History / Comment(s): Adopted General Exam - General Exam Comments Initial Comments: General: The patient is awake and alert, in no distress, and does not appear acutely ill. Eye: Pupils are equal, round and reactive to light, extra-ocular movements are intact. No nystagmus. There is normal conjunctiva bilaterally. No signs of icterus. Ears, nose, mouth and throat: There are moist mucous membranes and no oral lesions. Neck: The neck is supple, there is no tenderness or JVD. Cardiovascular: There is a regular rate and rhythm. No murmur, rub or gallop is appreciated. Respiratory: Bilateral expiratory wheeze and scattered rhonchi. respirations are non-labored, breath sounds are equal. No stridor, rales. Musculoskeletal: Normal ROM, no tenderness. Strength 5/5. Sensation intact. Pulses equal bilaterally 2+. Neurological: A&O x 3. CN II-XII intact, There are no obvious motor or sensory deficits. Coordination appears grossly intact. Speech is normal. Skin: Skin is warm and dry and no rashes or lesions are noted. Psychiatric: Cooperative, appropriate mood & affect, normal judgment. Limitations: no limitations Course Vital Signs 04/07/17 04/07/17 04/07/17 11:04 11:21 11:32 Temperature 99.1 F Pulse Rate 116 H 116 H 116 H Respiratory 18 Rate Blood Pressure 119/74 O2 Sat by Pulse 96 Oximetry 04/07/17 04/07/17 12:14 12:25 Temperature Pulse Rate 114 H 116 H Respiratory Rate Blood Pressure O2 Sat by Pulse Oximetry Medical Decision Making - Medical Decision Making Patient reexamined at this time shows no signs of distress. Chest x-rays negative for any sign of pneumonia. Was given 2 breathing treatments here in the emergency room is feeling better. She states she would like to be discharged home. Patient labs been reviewed to show 16,000 white count. She has been on steroids. Patient at this time will be discharged. Advised continue his antibiotics, steroids and breathing treatments at home. Advised return if symptoms increase or worsen. - Lab Data Result diagrams: 04/07/17 11:29 04/07/17 11:29 Lab Results 04/07/17 04/07/17 04/07/17 Range/Units 11:29 11:29 11:29 WBC 16.5 H (3.8-10.6) k/uL RBC 4.56 (3.80-5.40) m/uL Hgb 14.6 (11.4-16.0) gm/dL Hct 43.5 (34.0-46.0) % MCV 95.3 (80.0-100.0) fL MCH 31.9 (25.0-35.0) pg MCHC 33.5 (31.0-37.0) g/dL RDW 13.3 (11.5-15.5) % Plt Count 316 (150-450) k/uL Neutrophils % 85 % Lymphocytes % 9 % Monocytes % 4 % Eosinophils % 1 % Basophils % 0 % Neutrophils # 14.0 H (1.3-7.7) k/uL Lymphocytes # 1.6 (1.0-4.8) k/uL Monocytes # 0.7 (0-1.0) k/uL Eosinophils # 0.1 (0-0.7) k/uL Basophils # 0.0 (0-0.2) k/uL Sodium 142 (137-145) mmol/L Potassium 3.9 (3.5-5.1) mmol/L Chloride 108 H (98-107) mmol/L Carbon Dioxide 22 (22-30) mmol/L Anion Gap 12 mmol/L BUN 7 (7-17) mg/dL Creatinine 0.63 (0.52-1.04) mg/dL Est GFR (MDRD) Af Amer >60 (>60 ml/min/1.73 sqM) Est GFR (MDRD) Non-Af >60 (>60 ml/min/1.73 sqM) Glucose 98 (74-99) mg/dL Calcium 9.6 (8.4-10.2) mg/dL Urine Color Urine Appearance (Clear) Urine pH (5.0-8.0) Ur Specific [place] (1.001-1.035) Urine Protein (Negative) Urine Glucose (UA) (Negative) Urine Ketones (Negative) Urine Blood (Negative) Urine Nitrite (Negative) Urine Bilirubin (Negative) Urine Urobilinogen (<2.0) mg/dL Ur Leukocyte Esterase (Negative) Ur Squamous Epith Cells (0-4) /hpf Amorphous Sediment (None) /hpf Urine Mucus (None) /hpf Urine HCG, Qual Not Detected (Not Detectd) 04/07/17 Range/Units 11:29 WBC (3.8-10.6) k/uL RBC (3.80-5.40) m/uL Hgb (11.4-16.0) gm/dL Hct (34.0-46.0) % MCV (80.0-100.0) fL MCH (25.0-35.0) pg MCHC (31.0-37.0) g/dL RDW (11.5-15.5) % Plt Count (150-450) k/uL Neutrophils % % Lymphocytes % % Monocytes % % Eosinophils % % Basophils % % Neutrophils # (1.3-7.7) k/uL Lymphocytes # (1.0-4.8) k/uL Monocytes # (0-1.0) k/uL Eosinophils # (0-0.7) k/uL Basophils # (0-0.2) k/uL Sodium (137-145) mmol/L Potassium (3.5-5.1) mmol/L Chloride (98-107) mmol/L Carbon Dioxide (22-30) mmol/L Anion Gap mmol/L BUN (7-17) mg/dL Creatinine (0.52-1.04) mg/dL Est GFR (MDRD) Af Amer (>60 ml/min/1.73 sqM) Est GFR (MDRD) Non-Af (>60 ml/min/1.73 sqM) Glucose (74-99) mg/dL Calcium (8.4-10.2) mg/dL Urine Color Yellow Urine Appearance Turbid H (Clear) Urine pH 7.0 (5.0-8.0) Ur Specific [place] 1.016 (1.001-1.035) Urine Protein Trace H (Negative) Urine Glucose (UA) Negative (Negative) Urine Ketones Negative (Negative) Urine Blood Trace H (Negative) Urine Nitrite Negative (Negative) Urine Bilirubin Negative (Negative) Urine Urobilinogen <2.0 (<2.0) mg/dL Ur Leukocyte Esterase Negative (Negative) Ur Squamous Epith Cells 2 (0-4) /hpf Amorphous Sediment Many H (None) /hpf Urine Mucus Rare H (None) /hpf Urine HCG, Qual (Not Detectd) Disposition Clinical Impression: Asthma exacerbation Disposition: HOME SELF-CARE Condition: Good Instructions: Upper Respiratory Infection (ED) Additional Instructions: Please use medication as discussed. Please follow-up with family doctor in the next 2 days of symptoms have not improved. Please return to emergency room if the symptoms increase or worsen or for any other concerns. Referrals: Glynn Akhtar PAC [Primary Care Provider] - 1-2 days Time of Disposition: 12:44
[2017-04-07 11:56] LABS: Basophils % (A) 0 %; CH 31.5; CHCM 33.2; Eosinophils # (A) 0.1 k/uL (0-0.7); Eosinophils % (A) 1 %; HCT 43.5 % (34.0-46.0); HDW 2.43; HGB 14.6 gm/dL (11.4-16.0); Luc # (Auto) 0.07; Luc % (Auto) 0; Lymphocytes # (A) 1.6 k/uL (1.0-4.8); Lymphocytes % (A) 9 %; MCH 31.9 pg (25.0-35.0); MCHC 33.5 g/dL (31.0-37.0); MCV 95.3 fL (80.0-100.0); Mean Platelet Volume 7.2; Monocytes # (A) 0.7 k/uL (0-1.0); Monocytes % (A) 4 %; Neutrophils % (A) 85 %; RBC 4.56 m/uL (3.80-5.40); RDW 13.3 % (11.5-15.5); WBC 16.5 k/uL (3.8-10.6); WBC (Perox) 16.36
[2017-04-07 12:06] LABS: Anion Gap 12 mmol/L; Blood Urea Nitrogen 7 mg/dL (7-17); Calcium 9.6 mg/dL (8.4-10.2); Carbon Dioxide 22 mmol/L (22-30); Chloride 108 mmol/L (98-107); Glucose 98 mg/dL (74-99); Non-African American GFR(MDRD) >60 (>60 ml/min/1.73 sqM); Potassium 3.9 mmol/L (3.5-5.1); Sodium 142 mmol/L (137-145)
[2017-04-07 12:07] LABS: Amorphous Sediment,Urine Many /hpf; Appearance,Urine Turbid (Clear); Bilirubin,Urine Negative (Negative); Glucose,Urine (UA) Negative (Negative); Ketones,Urine Negative (Negative); Leukocyte Esterase,Urine Negative (Negative); Mucus,Urine Rare /hpf; Nitrite,Urine Negative (Negative); Particle Count 9956; Protein,Urine Trace (Negative); Specific Gravity,Urine 1.016 (1.001-1.035); Squamous Epithelial Cell,Urine 2 /hpf (0-4); UA Billing (MACRO vs. MICRO) MICRO; Urobilinogen,Urine <2.0 mg/dL (<2.0)
--- NOTE | 2017-04-07 12:17 | XR ---
EXAMINATION TYPE: XR chest 2V DATE OF EXAM: 04/07/2017 COMPARISON: 06/25/2016 TECHNIQUE: PA and lateral views submitted. HISTORY: Cough and congestion FINDINGS: The lungs are clear and there is no pneumothorax, pleural effusion, or focal pneumonia. Surgical cl ips are seen in the upper abdomen. IMPRESSION: 1. No acute process.
[2017-04-07 12:54] VITALS: BP 128/67; PULSE 109; TEMP 98.3
== END 2017-04-07 12:54 | disposition home or self-care (01) ==
LOC: EC 11:03
DX: J45.901 Unspecified asthma with (acute) exacerbation (principal); F41.9 Anxiety disorder, unspecified; F32.9 Major depressive disorder, single episode, unspecified; F17.200 Nicotine dependence, unspecified, uncomplicated; F43.10 Post-traumatic stress disorder, unspecified; Z85.038 Personal history of other malignant neoplasm of large intestine; Z85.41 Personal history of malignant neoplasm of cervix uteri; Z85.42 Personal history of malignant neoplasm of other parts of uterus; Z79.51 Long term (current) use of inhaled steroids; Z79.899 Other long term (current) drug therapy; Z88.0 Allergy status to penicillin; Z88.1 Allergy status to other antibiotic agents; Z88.8 Allergy status to other drugs, medicaments and biological substances; Z88.6 Allergy status to analgesic agent; Z88.5 Allergy status to narcotic agent; Z88.2 Allergy status to sulfonamides
CPT/HCPCS: 99284 ×2; 96374 ×2; 96375 ×2; 96361 ×2; 36415; 94640 ×2; 80048; 85025; 81001; 81025; 71020; J2930; J0131

== ENCOUNTER → 2017-04-21 | Outpatient (CLI) | payer OTHER ==
--- NOTE | 2017-04-21 11:51 | XR ---
EXAMINATION TYPE: XR chest 2V DATE OF EXAM: 04/21/2017 COMPARISON: None HISTORY: Wheezing TECHNIQUE: Frontal and lateral views of the chest are obtained. FINDINGS: There is no focal air space opacity, pleural effusion, or pneumothorax seen. The cardiac silhouette size is within normal limits. The osseous structures are intact. IMPRESSION: No acute cardiopulmonary process.
== END | disposition home or self-care (01) ==
LOC: RADXRYALE 11:26
PROVIDERS: ATTEND Physician Assistant
DX: R00.2 Palpitations (principal)
CPT/HCPCS: 71020

== ENCOUNTER 2017-06-03 10:49 | Emergency (ER) | payer OTHER ==
[2017-06-03 10:57] VITALS: RESP 18
[2017-06-03] MEDS ORDERED: ORPHENADRINE 30 MG/ML 2 ML VIAL IM STA (11:08)
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
[2017-06-03] MEDS ORDERED: ACETAMINOPHEN TAB 500 MG TAB PO STA (12:05)
[2017-06-03 12:59] VITALS: BP 109/68; PULSE 82; TEMP 98.2
--- NOTE | 2017-06-03 13:29 | CT ---
EXAMINATION TYPE: CT cervical spine wo con DATE OF EXAM: 06/03/2017 COMPARISON: 06/25/2016 HISTORY: Neck pain CT DLP: [address] of the cervical spine was performed with bone and soft tissue window settings submitted . Coronal and sagittal reconstruction is obtained. There is normal alignment and prevertebral soft tissues. I do not see evidence for fracture or subl uxation. No significant degenerative changes are present. The lung apices are clear IMPRESSION: No evidence for fracture or subluxation of the cervical spine.
--- NOTE | 2017-06-03 14:00 | XR ---
EXAM TYPE: LUMBAR SPINE X RAY SERIES COMPARISON: NONE HISTORY: Pain TECHNIQUE: 4 views are submitted. FINDINGS: Alignment is anatomic. The pedicles are intact. The transverse processes are intact. There is no s pondylolysis or spondylolisthesis. Surgical clips in the right upper quadrant noted. IMPRESSION: 1. No acute process.
== END 2017-06-03 14:47 | disposition home or self-care (01) ==
LOC: EC 10:49
DX: S16.1XXA Strain of muscle, fascia and tendon at neck level, initial encounter (principal); M54.5 Low back pain; J45.909 Unspecified asthma, uncomplicated; M79.7 Fibromyalgia; F32.9 Major depressive disorder, single episode, unspecified; F41.9 Anxiety disorder, unspecified; F17.200 Nicotine dependence, unspecified, uncomplicated; Z79.51 Long term (current) use of inhaled steroids; Z79.899 Other long term (current) drug therapy; Z88.0 Allergy status to penicillin; Z88.1 Allergy status to other antibiotic agents; Z88.5 Allergy status to narcotic agent; Z88.6 Allergy status to analgesic agent; Z88.8 Allergy status to other drugs, medicaments and biological substances; Z87.39 Personal history of other diseases of the musculoskeletal system and connective tissue; Z86.69 Personal history of other diseases of the nervous system and sense organs; Z85.41 Personal history of malignant neoplasm of cervix uteri; Z85.42 Personal history of malignant neoplasm of other parts of uterus; Z85.038 Personal history of other malignant neoplasm of large intestine; Z90.710 Acquired absence of both cervix and uterus; V49.59XA Passenger injured in collision with other motor vehicles in traffic accident, initial encounter; Y92.410 Unspecified street and highway as the place of occurrence of the external cause
CPT/HCPCS: 72100; 72125; 96372; 99284

== ENCOUNTER 2017-07-05 21:45 | Emergency (ER) | payer OTHER ==
[2017-07-05 21:52] VITALS: RESP 18; TEMP 98.4
[2017-07-05] MEDS ORDERED: SODIUM CHLORIDE 0.9% 500 ML IV STA (22:33)
[2017-07-05] MEDS ORDERED: METOCLOPRAMIDE 5 MG/ML 2 ML VIAL IVP STA (22:33)
[2017-07-05 22:46] VITALS: BP 107/66; PULSE 83
[2017-07-05 23:03] LABS: Basophils # (A) 0.1 k/uL (0-0.2); Basophils % (A) 1 %; Eosinophils # (A) 0.2 k/uL (0-0.7); Eosinophils % (A) 2 %; HCT 47.1 % (34.0-46.0); HGB 15.1 gm/dL (11.4-16.0); Lymphocytes # (A) 3.2 k/uL (1.0-4.8); Lymphocytes % (A) 22 %; MCH 29.8 pg (25.0-35.0); MCV 93.1 fL (80.0-100.0); Mean Platelet Volume 8.6; Monocytes # (A) 0.8 k/uL (0-1.0); Monocytes % (A) 5 %; Neutrophils # (A) 10.1 k/uL (1.3-7.7); Neutrophils % (A) 69 %; Platelet Count 305 k/uL (150-450); RBC 5.06 m/uL (3.80-5.40); RDW 14.5 % (11.5-15.5); WBC 14.5 k/uL (3.8-10.6)
--- NOTE | 2017-07-05 23:03 | XR ---
EXAMINATION TYPE: XR chest 2V DATE OF EXAM: 07/05/2017 COMPARISON: 04/28/2017 HISTORY: Chest pain TECHNIQUE: Frontal and lateral views of the chest are obtained. FINDINGS: Heart and mediastinum are normal. Lungs are clear. Diaphragm is normal. Bony thorax is int act. There are chest leads. IMPRESSION: Normal chest. No change.
--- NOTE | 2017-07-05 23:10 | ED ---
General Adult HPI - General Chief complaint: Arrhythmia/Palpitations Stated complaint: heart monitor/cardiac issue Time Seen by Provider: 07/05/17 22:07 Source: patient, RN notes reviewed Mode of arrival: wheelchair Limitations: no limitations - History of Present Illness Initial comments: 26-year-old female presents to the emergency department with a chief complaint of syncope. The patient states that she was at home she felt her heart start to race and then she passed out for a quick second. She has a monitor on for the last month try to catch this arrhythmia that they have been looking for. They state that she had no pain or discomfort for this. She states she started to develop tunnel vision before she passed out. There has been no fever chills lately. She sees Dr. Mccray. Her cardiac arrhythmia. They deny any other symptoms at this time. Patient denies any recent fever, chills, shortness of breath, chest pain, back pain, abdominal pain, nausea vomiting, numbness or tingling, dysuria or hematuria, constipation or diarrhea, headaches or visual changes, or any other current symptoms. - Related Data Home Medications Medication Instructions Recorded Confirmed Pantoprazole Sodium [Protonix] 40 mg PO BID 11/20/16 07/05/17 Venlafaxine HCl ER [Effexor XR] 150 mg PO DAILY 12/30/16 07/05/17 Gabapentin [Neurontin] 600 mg PO BID 04/07/17 07/05/17 traZODone HCL 50 - 150 mg PO HS 04/22/17 07/05/17 traMADol HCL [Ultram] 50 mg PO BID PRN 07/05/17 07/05/17 Allergies Allergy/AdvReac Type Severity Reaction Status Date / Time amoxicillin trihydrate Allergy Swelling Verified 07/05/17 21:52 [From Augmentin] ceftriaxone sodium Allergy Swelling Verified 07/05/17 21:52 [From Rocephin] clarithromycin [From Biaxin] Allergy Swelling Verified 07/05/17 21:52 fexofenadine HCl Allergy Swelling Verified 07/05/17 21:52 [From Leslye] ketorolac tromethamine Allergy Swelling Verified 07/05/17 21:52 [From Toradol] loratadine [From Claritin] Allergy Swelling Verified 07/05/17 21:52 meperidine HCl [From Demerol] Allergy Swelling Verified 07/05/17 21:52 morphine Allergy Swelling Verified 07/05/17 21:52 Penicillins Allergy Swelling Verified 07/05/17 21:52 potassium clavulanate Allergy Swelling Verified 07/05/17 21:52 [From Augmentin] propoxyphene Allergy Swelling Verified 07/05/17 21:52 [From Darvocet-N] Sulfa (Sulfonamide Allergy Swelling Verified 07/05/17 21:52 Antibiotics) Review of Systems ROS Statement: Those systems with pertinent positive or pertinent negative responses have been documented in the HPI. ROS Other: All systems not noted in ROS Statement are negative. Past Medical History Past Medical History: Asthma, Cancer, Fibromyalgia Additional Past Medical History / Comment(s): "HX OF CERVICAL,UTERINE AND COLON CANCER WITH HYSTERECTOMY/CHEMO AT 16 YRS OLD, RIGHT KIDNEY STONES, HYPOGLYCEMIA (HIGH PROTEIN DIET), BULDGING DISCS CERVICAL AND IN BACK, BACK PAIN, R SIDED SCIATICA, CERVICAL PAIN, OCCIPITAL NEURALGIA, PVCS. History of Any Multi-Drug Resistant Organisms: C-DIFF Date of last positivie culture/infection: 2010 MDRO Source:: stool Past Surgical History: Cholecystectomy, Hysterectomy, Tonsillectomy Additional Past Surgical History / Comment(s): R sided kidney stents, EGD/ colonoscopy, several pain clinic procedures/blocks. Past Anesthesia/Blood Transfusion Reactions: Motion Sickness, Postoperative Nausea & Vomiting (PONV) Additional Past Anesthesia/Blood Transfusion Reaction / Comment(s): PT IS ADOPTED AND DOES NOT KNOW FAMILY HX. Past Psychological History: Anxiety, Depression, PTSD Smoking Status: Current some day smoker Past Alcohol Use History: None Reported Past Drug Use History: Marijuana - Past Family History Mother Family Medical History: Unable to Obtain Additional Family Medical History / Comment(s): Adopted Father Family Medical History: Neurologic Disorder Additional Family Medical History / Comment(s): Father of ALS. General Exam - General Exam Comments Initial Comments: General: The patient is awake and alert, in no distress, and does not appear acutely ill. Eye: Pupils are equal, round and reactive to light, extra-ocular movements are intact; there is normal conjunctiva bilaterally. No signs of icterus. Ears, nose, mouth and throat: There are moist mucous membranes. Neck: The neck is supple, there is no tenderness. Cardiovascular: There is a regular rate and rhythm. No murmur, rub or gallop is appreciated. Respiratory: Lungs are clear to auscultation, respirations are non-labored, breath sounds are equal. No wheezes, stridor, rales, or rhonchi. Gastrointestinal: Soft, non-distended, non-tender abdomen without masses or organomegaly noted. There is no rebound or guarding present. No CVA tenderness. Bowel sounds are unremarkable. Back: There is no tenderness to palpation in the midline. There is no obvious deformity. No rashes noted. Musculoskeletal: Normal ROM, no tenderness, There is no pedal edema. There is no calf tenderness or swelling. Sensation intact. Pulses equal bilaterally 2+. Neurological: CN II-XII intact, There are no obvious motor or sensory deficits. Coordination appears grossly intact. Speech is normal. Skin: Skin is warm and dry and no rashes or lesions are noted. Psychiatric: Cooperative, appropriate mood & affect, normal judgment. Limitations: no limitations Course Vital Signs 07/05/17 07/05/17 21:46 22:45 Temperature 98.4 F Pulse Rate 104 H 83 Respiratory 18 18 Rate Blood Pressure 116/77 107/66 O2 Sat by Pulse 98 94 L Oximetry Medical Decision Making - Medical Decision Making 26-year-old female presents emergency Department chief complaint of syncopal episode at home. Patient proceeded to leave AMA due to the fact that he had to redraw her blood. We discussed with hemolyzed we would need 3 tested. She do not want this to happen. We did contact her Holter monitor which she'll that she went into sinus tachycardia between 102 and 108. She is a snack at this time an EKG was reviewed. We did discuss the risks of leaving AGAINST MEDICAL ADVICE. The patient stated that she understood but she will be leaving at this time. - Lab Data Result diagrams: 07/05/17 22:03 Lab Results 07/05/17 07/05/17 Range/Units 22:03 22:03 WBC 14.5 H (3.8-10.6) k/uL RBC 5.06 (3.80-5.40) m/uL Hgb 15.1 (11.4-16.0) gm/dL Hct 47.1 H (34.0-46.0) % MCV 93.1 (80.0-100.0) fL MCH 29.8 (25.0-35.0) pg MCHC 32.0 (31.0-37.0) g/dL RDW 14.5 (11.5-15.5) % Plt Count 305 (150-450) k/uL Neutrophils % 69 % Lymphocytes % 22 % Monocytes % 5 % Eosinophils % 2 % Basophils % 1 % Neutrophils # 10.1 H (1.3-7.7) k/uL Lymphocytes # 3.2 (1.0-4.8) k/uL Monocytes # 0.8 (0-1.0) k/uL Eosinophils # 0.2 (0-0.7) k/uL Basophils # 0.1 (0-0.2) k/uL PT 10.2 (9.0-12.0) sec INR 1.0 (<1.2) APTT 24.8 (22.0-30.0) sec - Radiology Data Radiology results: report reviewed, image reviewed Disposition Clinical Impression: Tachycardia Disposition: Left Against Medical Advice Referrals: Bijan James DO [Primary Care Provider] - 1-2 days
[2017-07-05 23:26] LABS: Partial Thromboplastin Time 24.8 sec (22.0-30.0); Prothrombin Time 10.2 sec (9.0-12.0)
== END 2017-07-05 23:40 | disposition left against medical advice (07) ==
LOC: EC 21:45
DX: R00.0 Tachycardia, unspecified (principal); R55 Syncope and collapse; F32.9 Major depressive disorder, single episode, unspecified; F41.9 Anxiety disorder, unspecified; F43.10 Post-traumatic stress disorder, unspecified; F17.200 Nicotine dependence, unspecified, uncomplicated; M79.7 Fibromyalgia; Z85.41 Personal history of malignant neoplasm of cervix uteri; Z85.038 Personal history of other malignant neoplasm of large intestine; Z79.899 Other long term (current) drug therapy; Z88.0 Allergy status to penicillin; Z88.1 Allergy status to other antibiotic agents; Z88.2 Allergy status to sulfonamides; Z88.5 Allergy status to narcotic agent; Z88.6 Allergy status to analgesic agent; Z88.8 Allergy status to other drugs, medicaments and biological substances
CPT/HCPCS: 36415; 93005; 85025; 85610; 85730; 71020; 99285; 96374; 96361; J2765

== ENCOUNTER → 2017-07-09 | Day surgery (SDC) | payer OTHER ==
[2017-06-01 14:15] VITALS: BMI 29.5
[~2017-07-09] MED LIST changes: +IV FLUID CONTINUATION 400 ML IV ONE; +LACTATED RINGERS 1,000 ML IV SCH; +LIDOCAINE 1% 20 ML VIAL (10MG/ML) FOR IV START INTRADERMA ONE
--- NOTE | 2017-07-09 08:31 | P.PCN ---
Date of Procedure: 07/09/17 Procedure(s) Performed: PREOPERATIVE DIAGNOSIS: Lumbar radiculopathy in right L4-5 distribution POSTOPERATIVE DIAGNOSIS: Lumbar radiculopathy in right L4-5 distribution PROCEDURE 1. Transforaminal epidural steroid injection under fluoroscopic guidance at right L4-5 level. 2. Lumbar epidurogram : ANESTHESIA: Local with 1% lidocaine 3 ml , moderate sedation with intravenous Versed 2 mg and fentanyle 100 micrograms. EBL: Minimal PROCEDURE INDICATION: The patient with low back pain and radiculopathy symptoms unresponsive to conservative treatment. PROCEDURE DESCRIPTION / TECHNIQUE: The patient was seen and identified in the preoperative area. Risks, benefits , complications, and alternatives were discussed with the patient. The patient agreed to proceed with the procedure and signed the consent. IV was started, and vital signs were stable. Patient was taken to the OR and time out was completed. The patient was placed in the prone position on procedure table and a pillow was placed under the abdomen to reduce lumbar lordosis. The lumbosacral area was prepped and draped in the usual sterile fashion. Critical pause was taken. Vital signs were closely monitored during the procedure. Conscious sedation was used during the procedure to decrease patients anxiety. Using oblique fluoroscopy, the chin of the ``Apollo dog at right L4-5 level was identified, and the skin and deeper tissues just below was localized with 1 % lidocaine. Subsequently, a 22-gauge 3.5-inch spinal needle was advanced under a tunneled view fluoroscopic guidance just underneath the chin of the ``Apollo dog at the right/left L-(or S1). Under lateral fluoroscopy, the needle was then advanced to the posterior border of the L4-5 interforaminal space. After negative aspiration of CSF and blood and with no paresthesias, 1 mL ofomnipaque- 240 contrast dye was injected excellent epidurogram and outlining of the L4-5 nerve root Subsequently, 3 mL of block solution containing 20 mg Dexamethason and 2 mL of Lidocaine 1% was injected. Needle was removed intact .. At the end of the procedure, skin was cleansed, and bandages were applied. COMPLICATIONS: None COMMENTS: DISPOSITION / PLANS: The patient was placed in a supine position and transferred to the recovery area in a stable condition for observation. There was no evidence of lower extremity motor or sensory deficit after the procedure. Patient was discharged from the recovery room after meeting discharge criteria. Home discharge instructions were given to the patient by the staff. The patient was reexamined prior to discharge.
--- NOTE | 2017-07-09 08:49 | FL ---
Fluoroscopy INDICATION: Pain FINDINGS: Fluoroscopy time: 12 seconds. Images obtained: 2. IMPRESSIONS: 1. Documentation of fluoroscopy.
[2017-07-09 16:28] VITALS: BP 110/71; PULSE 94; RESP 18; TEMP 98
== END | disposition home or self-care (01) ==
LOC: ORPAIN 06:44
PROVIDERS: ATTEND Specialist
DX: M54.16 Radiculopathy, lumbar region (principal); C18.9 Malignant neoplasm of colon, unspecified; J45.909 Unspecified asthma, uncomplicated; M79.7 Fibromyalgia; Z88.0 Allergy status to penicillin; Z88.1 Allergy status to other antibiotic agents; Z90.710 Acquired absence of both cervix and uterus
CPT/HCPCS: 64483; J2250; J3301; Q9965; J2001; J3010; 99152

== ENCOUNTER 2017-07-21 08:44 | Day surgery (SDC) | payer OTHER ==
[2017-07-15 12:23] VITALS: BMI 27.8
[~2017-07-21 08:44] MED LIST changes: -IV FLUID CONTINUATION 400 ML IV ONE; -LACTATED RINGERS 1,000 ML IV ONE; -LACTATED RINGERS 1,000 ML IV SCH; -LIDOCAINE 1% 20 ML VIAL (10MG/ML) FOR IV START INTRADERMA ONE; +SODIUM CHLORIDE 0.9% 1,000 ML IV SCH
[2017-07-21 09:42] VITALS: PULSE 99; TEMP 98.4
[2017-07-21 10:54] VITALS: RESP 16
--- NOTE | 2017-07-21 11:09 | P.PCN ---
Preoperative Diagnosis: Recurrent syncope, syncope of unknown origin Twelve-lead ECG Sinus rhythm normal SC narrow QRS early repolarization abnormality inferior laterally normal QT interval no delta waves no epsilon waves Tilt table test report Baseline blood pressure 120/79 mmHg Baseline heart rate 74 beats a minute Patient was tilted upright at an angle of 70 per protocol there was no significant change in her blood pressure there was a mild increase in heart rate from 90-200 beats a minute that remain sustained Complain of blurring of vision but no loss of consciousness When she was laid supine her blood pressure was 113/71 mmHg and heart rate 75 beats a minute Impression Mild orthostatic intolerance Normal twelve-lead ECG with early repolarization abnormality, a normal variant Patient is intolerant of ECG patches when she wore a 30 day event monitor I would recommend proceeding with a diagnostic EP study for evaluation of recurrent syncope. If the EP study does not reveal any abnormalities, then a loop monitor should be implanted
== END 2017-07-21 11:04 | disposition home or self-care (01) ==
LOC: CATHEP 08:44
PROVIDERS: ATTEND Internal Medicine Clinical Cardiac Electrophysiology
DX: R55 Syncope and collapse (principal); R00.2 Palpitations; Z88.1 Allergy status to other antibiotic agents; Z88.2 Allergy status to sulfonamides; Z88.8 Allergy status to other drugs, medicaments and biological substances; F17.210 Nicotine dependence, cigarettes, uncomplicated; Z79.899 Other long term (current) drug therapy
CPT/HCPCS: 93005; 93660

== ENCOUNTER → 2017-08-10 | Outpatient (CLI) | payer OTHER ==
[2017-08-10 14:15] VITALS: BP 112/79; PULSE 111; RESP 16; TEMP 98.3
--- NOTE | 2017-08-10 20:27 | P.PN ---
Subjective Progress Note Date: 08/10/17 This is follow-up visit for this patient with a history of severe and chronic low back pain with radiation to the right lower extremity we have on right side L4 5 transforaminal epidural steroid injection, and this helped her radicular pain significantly , currently she is complaining of severe low back pain radiated to the right buttock area, she denies any motor or sensory deficit , Patients currently on Ultram 50 mg every 6 hours when necessary Patient denies any side effects of the medication, denies excessive drowsiness or sleepiness, denies suicidal ideation, and reports that the current pain medication is NOT helping To control the pain ,and improve activity of daily living Patient denies any motor or sensory deficit , patient denies any fever or night sweats, denies any change in the bowel movements or urination Physical Examinations : 1-Constitutiona : Cooperative , not in acute distress . 2-HEENT : nech ; supple , no Lymphadenopathy , no Thyromegaly , normal thyroid size . eyes : no ptosis , no icterus, no photophobia . ENT : normal of hearing , normal oropharynx , no Thrush . 3- Respiratory : Chest clear to auscultations Bilaterally , no wheezing , no Rhonchi . 4- Cardiovascular : regular rate and rhythem , S1 , S2 , no S3 , no S4. 5- Gastrointestinal : abdomen soft no tenderness , bowel sounds positive all four quadrents , no organomegally . 6- Genitourinary : Defferred . 7- neurologic : Cranial nerve II to XII intact , no focal neurological deffecit . 8-psychatric : alert , oriented X 3 , appropriate affect , intact judgment and insight . 9-Lymphatic : no Lymphadenopathy . 10- musculoskeltal : exams of the Lumber spine = motor strength lower extremities ,thigh and legs .5/5 deep tendon reflexes : normal Knee Jerk , normal ankle Jerk . Sever tenderness over the Sacroiliac joint on the Right Assessment and plan = Chronic low back pain secondary to lumbar radiculopathy pain improved after the right-sided transforaminal epidural steroid injection Currently complaining of severe right sided sacroiliitis chronic and current use of high-risk medication (Opioids). The patient was counseled about risk of opioid use, psychological risk associated with opioids and was orally counseled to not overuse , divert,or sell dictations to take medications as prescribed only , and to restore medication in safe location , and the patient counseled against driving while using narcotic medications, and also not to use alcohol or any illicit recreational drugs, the patient's verbalized understanding that the lack of compliance will result in failure to renew narcotic prescription and possible discharge from the clinic - diagnoses, prognosis, and treatment options including but not limited to physical therapy, surgical interventions, interventional therapies , and medication management including narcotics and adjuvant medication were discussed with the patient and all the questions answered Patient could benefit from right-sided sacroiliac joint steroid injection under fluoroscopy guidance , procedure risk and benefits and alternatives discussed with the patient she agreed with the preceding also patient given prescription refill for her current pain medication Ultram 50 mg every 8 hours dispense 60 with 2 refills and [place] 5/325 every 8 hours when necessary dispensed 10 Objective - Vital Signs Vital signs: Vital Signs Temp 98.3 F 08/10/17 14:07 Pulse 111 H 08/10/17 14:07 Resp 16 08/10/17 14:07 BP 112/79 08/10/17 14:07 Pulse Ox 96 08/10/17 14:07 Intake & Output 08/10/17 08/10/17 08/11/17 06:59 18:59 06:59 Weight 63.503 kg
== END | disposition home or self-care (01) ==
LOC: PNWHC3 13:50
PROVIDERS: ATTEND Specialist
DX: G89.29 Other chronic pain (principal); M54.16 Radiculopathy, lumbar region; M46.1 Sacroiliitis, not elsewhere classified; Z79.52 Long term (current) use of systemic steroids; Z79.891 Long term (current) use of opiate analgesic; Z76.0 Encounter for issue of repeat prescription; Z71.89 Other specified counseling
CPT/HCPCS: 99211

== ENCOUNTER → 2017-08-15 | Outpatient (CLI) | payer OTHER ==
[2017-08-15 11:06] LABS: HCT 43.8 % (34.0-46.0); HGB 14.6 gm/dL (11.4-16.0); MCH 30.5 pg (25.0-35.0); MCHC 33.3 g/dL (31.0-37.0); MCV 91.6 fL (80.0-100.0); Mean Platelet Volume 7.1; Platelet Count 267 k/uL (150-450); RBC 4.79 m/uL (3.80-5.40); RDW 12.8 % (11.5-15.5); WBC 15.8 k/uL (3.8-10.6)
[2017-08-15 11:24] LABS: Anion Gap 14 mmol/L; Blood Urea Nitrogen 9 mg/dL (7-17); Calcium 10.3 mg/dL (8.4-10.2); Carbon Dioxide 26 mmol/L (22-30); Chloride 104 mmol/L (98-107); Glucose 95 mg/dL (74-99); Potassium 3.4 mmol/L (3.5-5.1); Sodium 144 mmol/L (137-145)
== END | disposition home or self-care (01) ==
LOC: LABWHC1 10:33
PROVIDERS: ATTEND Internal Medicine Clinical Cardiac Electrophysiology
DX: R00.2 Palpitations (principal); R55 Syncope and collapse
CPT/HCPCS: 36415; 80048; 85027

== ENCOUNTER 2017-08-21 03:49 | Emergency (ER) | payer OTHER ==
[2017-08-21 03:56] VITALS: RESP 18; TEMP 98.2
[2017-08-21] MEDS ORDERED: PANTOPRAZOLE 40 MG/10 ML VIAL IVP STA (05:05)
[2017-08-21] MEDS ORDERED: SODIUM CHLORIDE 0.9% 500 ML IV STA (05:05)
[2017-08-21] MEDS ORDERED: METOCLOPRAMIDE 5 MG/ML 2 ML VIAL IVP STA (05:07)
--- NOTE | 2017-08-21 05:10 | ED ---
General Adult HPI - General Chief complaint: Abdominal Pain Stated complaint: Abdominal pain Time Seen by Provider: 08/21/17 04:32 Source: patient, RN notes reviewed, Caregiver Mode of arrival: ambulatory Limitations: no limitations - History of Present Illness Initial comments: Patient is a pleasant 27-year-old female presenting to the emergency Department with abdominal pain. Onset of symptoms was around midnight. Discomfort is severe. Patient has vomited and had diarrhea. Patient leaves there may have been blood in the vomit and diarrhea. Patient has had similar symptoms approximately 20 times previously associate with kidney stones. Generally symptoms are more on the right however. Patient states every time she has this there is associated bleeding. Patient states she has been evaluated for this and they're unclear why she has associated bleeding. Patient has seen Neurologists and Has Had Scopes Done. - Related Data Home Medications Medication Instructions Recorded Confirmed Pantoprazole Sodium [Protonix] 40 mg PO BID 11/20/16 08/18/17 Venlafaxine HCl ER [Effexor XR] 150 mg PO DAILY 12/30/16 08/18/17 Gabapentin [Neurontin] 600 mg PO BID 04/07/17 08/18/17 traZODone HCL 100 mg PO HS 04/22/17 08/18/17 traMADol HCL [Ultram] 50 mg PO BID PRN 07/05/17 08/18/17 Previous Rx's Medication Instructions Recorded Ondansetron Odt [Zofran Odt] 4 mg PO Q8HR PRN #10 tab 08/21/17 Potassium Chloride ER [K-Dur 20] 20 meq PO BID #4 tab 08/21/17 Allergies Allergy/AdvReac Type Severity Reaction Status Date / Time amoxicillin trihydrate Allergy Swelling Verified 08/18/17 13:51 [From Augmentin] ceftriaxone sodium Allergy Swelling Verified 08/18/17 13:51 [From Rocephin] clarithromycin [From Biaxin] Allergy Swelling Verified 08/18/17 13:51 fexofenadine HCl Allergy Swelling Verified 08/18/17 13:51 [From Leslye] ketorolac tromethamine Allergy Swelling Verified 08/18/17 13:51 [From Toradol] loratadine [From Claritin] Allergy Swelling Verified 08/18/17 13:51 meperidine HCl [From Demerol] Allergy Swelling Verified 08/18/17 13:51 morphine Allergy Swelling Verified 08/18/17 13:51 Penicillins Allergy Swelling Verified 08/18/17 13:51 potassium clavulanate Allergy Swelling Verified 08/18/17 13:51 [From Augmentin] propoxyphene Allergy Swelling Verified 08/18/17 13:51 [From Darvocet-N] Sulfa (Sulfonamide Allergy Swelling Verified 08/18/17 13:51 Antibiotics) Review of Systems ROS Statement: Those systems with pertinent positive or pertinent negative responses have been documented in the HPI. ROS Other: All systems not noted in ROS Statement are negative. Constitutional: Denies: fever Eyes: Denies: eye pain ENT: Denies: ear pain Respiratory: Denies: dyspnea Cardiovascular: Denies: chest pain Endocrine: Denies: fatigue Gastrointestinal: Reports: abdominal pain, nausea, vomiting, diarrhea Genitourinary: Denies: dysuria Musculoskeletal: Denies: back pain Skin: Denies: rash Neurological: Denies: weakness Past Medical History Past Medical History: Asthma, Cancer, Fibromyalgia Additional Past Medical History / Comment(s): HX OF CERVICAL,UTERINE AND COLON CANCER WITH HYSTERECTOMY/CHEMO AT 16 YRS OLD, RIGHT KIDNEY STONES, HYPOGLYCEMIA (HIGH PROTEIN DIET), BULGING DISCS CERVICAL AND IN BACK, BACK PAIN, R SIDED SCIATICA, CERVICAL PAIN, OCCIPITAL NEURALGIA, STATES HX OF PVC'S History of Any Multi-Drug Resistant Organisms: C-DIFF Date of last positivie culture/infection: 2010 MDRO Source:: stool Past Surgical History: Cholecystectomy, Hysterectomy, Tonsillectomy Additional Past Surgical History / Comment(s): R sided kidney stents, EGD/ colonoscopy, several pain clinic procedures/blocks. Past Anesthesia/Blood Transfusion Reactions: Motion Sickness, Postoperative Nausea & Vomiting (PONV) Additional Past Anesthesia/Blood Transfusion Reaction / Comment(s): PT IS ADOPTED AND DOES NOT KNOW FAMILY HX. Past Psychological History: Anxiety, Depression, PTSD Smoking Status: Current some day smoker Past Alcohol Use History: None Reported Past Drug Use History: Marijuana - Past Family History Mother Family Medical History: Unable to Obtain Additional Family Medical History / Comment(s): Adopted Father Family Medical History: Neurologic Disorder Additional Family Medical History / Comment(s): Father of ALS. General Exam Limitations: no limitations General appearance: alert Head exam: Present: atraumatic, normocephalic Eye exam: Present: normal appearance, PERRL ENT exam: Present: normal oropharynx Neck exam: Present: normal inspection Respiratory exam: Present: normal lung sounds bilaterally Cardiovascular Exam: Present: regular rate, normal rhythm Expanded Peripheral pulses: 2+: Radial (R), Radial (L), Dorsalis Pedis (R), Dorsalis Pedis (L) GI/Abdominal exam: Present: soft, tenderness (Moderate tenderness left lower abdomen), normal bowel sounds. Absent: distended, guarding, rebound, rigid, pulsatile mass Rectal exam: Present: normal inspection (RN is present. No gross blood.). Absent: bloody stool Extremities exam: Present: normal inspection Neurological exam: Present: alert Psychiatric exam: Present: normal affect, normal mood Skin exam: Present: normal color Course Vital Signs 08/21/17 08/21/17 03:53 06:36 Temperature 98.2 F Pulse Rate 107 H 75 Respiratory 18 18 Rate Blood Pressure 121/82 114/56 O2 Sat by Pulse 98 96 Oximetry Medical Decision Making - Medical Decision Making Patient reevaluated and resting comfortably in bed. Patient does request bentyl and states this usually works well for her. Patient updated on results and plan. - Lab Data Result diagrams: 08/21/17 05:20 08/21/17 05:20 Lab Results 08/21/17 08/21/17 08/21/17 Range/Units 05:20 05:20 05:20 WBC 14.2 H (3.8-10.6) k/uL RBC 4.78 (3.80-5.40) m/uL Hgb 14.6 (11.4-16.0) gm/dL Hct 43.1 (34.0-46.0) % MCV 90.0 (80.0-100.0) fL MCH 30.6 (25.0-35.0) pg MCHC 33.9 (31.0-37.0) g/dL RDW 12.9 (11.5-15.5) % Plt Count 302 (150-450) k/uL Neutrophils % 76 % Lymphocytes % 17 % Monocytes % 4 % Eosinophils % 2 % Basophils % 0 % Neutrophils # 10.7 H (1.3-7.7) k/uL Lymphocytes # 2.5 (1.0-4.8) k/uL Monocytes # 0.6 (0-1.0) k/uL Eosinophils # 0.3 (0-0.7) k/uL Basophils # 0.1 (0-0.2) k/uL Sodium 145 (137-145) mmol/L Potassium 3.0 L* (3.5-5.1) mmol/L Chloride 106 (98-107) mmol/L Carbon Dioxide 25 (22-30) mmol/L Anion Gap 14 mmol/L BUN 5 L (7-17) mg/dL Creatinine 0.60 (0.52-1.04) mg/dL Est GFR (MDRD) Af Amer >60 (>60 ml/min/1.73 sqM) Est GFR (MDRD) Non-Af >60 (>60 ml/min/1.73 sqM) Glucose 99 (74-99) mg/dL Calcium 10.1 (8.4-10.2) mg/dL Total Bilirubin 0.3 (0.2-1.3) mg/dL AST 17 (14-36) U/L ALT 24 (9-52) U/L Alkaline Phosphatase 74 (38-126) U/L Total Protein 6.9 (6.3-8.2) g/dL Albumin 4.4 (3.5-5.0) g/dL Amylase 41 (30-110) U/L Lipase 49 (23-300) U/L Urine Color Urine Appearance (Clear) Urine pH (5.0-8.0) Ur Specific [place] (1.001-1.035) Urine Protein (Negative) Urine Glucose (UA) (Negative) Urine Ketones (Negative) Urine Blood (Negative) Urine Nitrite (Negative) Urine Bilirubin (Negative) Urine Urobilinogen (<2.0) mg/dL Ur Leukocyte Esterase (Negative) Ur Squamous Epith Cells (0-4) /hpf Amorphous Sediment (None) /hpf Urine Mucus (None) /hpf Stool Occult Blood Negative (Negative) 08/21/17 Range/Units 05:20 WBC (3.8-10.6) k/uL RBC (3.80-5.40) m/uL Hgb (11.4-16.0) gm/dL Hct (34.0-46.0) % MCV (80.0-100.0) fL MCH (25.0-35.0) pg MCHC (31.0-37.0) g/dL RDW (11.5-15.5) % Plt Count (150-450) k/uL Neutrophils % % Lymphocytes % % Monocytes % % Eosinophils % % Basophils % % Neutrophils # (1.3-7.7) k/uL Lymphocytes # (1.0-4.8) k/uL Monocytes # (0-1.0) k/uL Eosinophils # (0-0.7) k/uL Basophils # (0-0.2) k/uL Sodium (137-145) mmol/L Potassium (3.5-5.1) mmol/L Chloride (98-107) mmol/L Carbon Dioxide (22-30) mmol/L Anion Gap mmol/L BUN (7-17) mg/dL Creatinine (0.52-1.04) mg/dL Est GFR (MDRD) Af Amer (>60 ml/min/1.73 sqM) Est GFR (MDRD) Non-Af (>60 ml/min/1.73 sqM) Glucose (74-99) mg/dL Calcium (8.4-10.2) mg/dL Total Bilirubin (0.2-1.3) mg/dL AST (14-36) U/L ALT (9-52) U/L Alkaline Phosphatase (38-126) U/L Total Protein (6.3-8.2) g/dL Albumin (3.5-5.0) g/dL Amylase (30-110) U/L Lipase (23-300) U/L Urine Color Yellow Urine Appearance Turbid H (Clear) Urine pH 7.5 (5.0-8.0) Ur Specific [place] 1.018 (1.001-1.035) Urine Protein Trace H (Negative) Urine Glucose (UA) Negative (Negative) Urine Ketones Negative (Negative) Urine Blood Negative (Negative) Urine Nitrite Negative (Negative) Urine Bilirubin Negative (Negative) Urine Urobilinogen 2.0 (<2.0) mg/dL Ur Leukocyte Esterase Negative (Negative) Ur Squamous Epith Cells 3 (0-4) /hpf Amorphous Sediment Rare H (None) /hpf Urine Mucus Many H (None) /hpf Stool Occult Blood (Negative) - Radiology Data Radiology results: report reviewed (Computed tomography scan abdomen pelvis shows no acute process) Disposition Clinical Impression: Abdominal pain Disposition: HOME SELF-CARE Condition: Stable Instructions: Abdominal Pain (ED) Additional Instructions: Please follow-up with your primary care physician in the next day or 2 for recheck. Please have your primary care physician recheck your potassium level. Return for fever, uncontrolled vomiting, increased pain, change or worsening symptoms, bleeding, or other concerns. Prescriptions: Ondansetron Odt [Zofran Odt] 4 mg PO Q8HR PRN #10 tab PRN Reason: Nausea Potassium Chloride ER [K-Dur 20] 20 meq PO BID #4 tab Referrals: Bijan James DO [Primary Care Provider] - 1-2 days Time of Disposition: 06:46
[2017-08-21] MEDS: HYDROmorphone 0.5 MG/0.5 ML SYRINGE IVP STA ×2 (05:18→05:23)
[2017-08-21 05:36] LABS: Basophils # (A) 0.1 k/uL (0-0.2); Basophils % (A) 0 %; Eosinophils # (A) 0.3 k/uL (0-0.7); Eosinophils % (A) 2 %; HCT 43.1 % (34.0-46.0); HGB 14.6 gm/dL (11.4-16.0); Lymphocytes # (A) 2.5 k/uL (1.0-4.8); Lymphocytes % (A) 17 %; MCH 30.6 pg (25.0-35.0); MCHC 33.9 g/dL (31.0-37.0); Mean Platelet Volume 7.1; Monocytes # (A) 0.6 k/uL (0-1.0); Monocytes % (A) 4 %; Neutrophils # (A) 10.7 k/uL (1.3-7.7); Neutrophils % (A) 76 %; Platelet Count 302 k/uL (150-450); RBC 4.78 m/uL (3.80-5.40); RDW 12.9 % (11.5-15.5); WBC 14.2 k/uL (3.8-10.6)
[2017-08-21 05:43] LABS: ALT 24 U/L (9-52); AST 17 U/L (14-36); Albumin 4.4 g/dL (3.5-5.0); Alkaline Phosphatase 74 U/L (38-126); Amylase 41 U/L (30-110); Anion Gap 14 mmol/L; Blood Urea Nitrogen 5 mg/dL (7-17); Calcium 10.1 mg/dL (8.4-10.2); Carbon Dioxide 25 mmol/L (22-30); Chloride 106 mmol/L (98-107); Glucose 99 mg/dL (74-99); Lipase 49 U/L (23-300); Sodium 145 mmol/L (137-145); Total Bilirubin 0.3 mg/dL (0.2-1.3); Total Protein 6.9 g/dL (6.3-8.2)
[2017-08-21 05:47] LABS: Amorphous Sediment,Urine Rare /hpf; Appearance,Urine Turbid (Clear); Bilirubin,Urine Negative (Negative); Blood,Urine Negative (Negative); Color,Urine Yellow; Glucose,Urine (UA) Negative (Negative); Ketones,Urine Negative (Negative); Leukocyte Esterase,Urine Negative (Negative); Mucus,Urine Many /hpf; Nitrite,Urine Negative (Negative); PH, Urine 7.5 (5.0-8.0); Protein,Urine Trace (Negative); Specific Gravity,Urine 1.018 (1.001-1.035); Squamous Epithelial Cell,Urine 3 /hpf (0-4)
[2017-08-21] MEDS ORDERED: POTASSIUM CHLORIDE 2 MEQ/ML 20 ML VIAL IV STA (05:50)
[2017-08-21] MEDS ORDERED: POTASSIUM CHLORIDE 10 MEQ in WATER FOR INJECTION 1 100ML.BAG IVPB STA (05:53)
--- NOTE | 2017-08-21 06:30 | CT ---
EXAM: CT Abdomen and Pelvis Without Intravenous Contrast CLINICAL HISTORY: Reason: abdominal pain TECHNIQUE: Axial computed tomography images of the abdomen and pelvis without intravenous contrast. CTDI is 7.7 mGy and DLP is 402.2 mGy-cm. This CT exam was performed using one or more of the following dose reduction techniques: automated exposure control, adjustment of the mA and/or kV according to patient size, and/or use of iterative reconstruction technique. COMPARISON: 11/27/16 FINDINGS: Absent contrast limit evaluation. Lower thorax: Calcification in the visualized right hilum and right lower lobe likely benign Mild dependent atelectasis. ABDOMEN: Liver: Unremarkable noncontrast liver. Gallbladder and bile ducts: Status post cholecystectomy. No ductal dilatation. Pancreas: Unremarkable. No ductal dilation. Spleen: Unremarkable. No splenomegaly. Adrenals: Unremarkable. No mass. Kidneys and ureters: No renal or ureteral calcification. No hydronephrosis Stomach and bowel: Mild thickening of the colonic wall likely under distention Nonspecific small bowel gas pattern. No bowel obstruction. Appendix: Normal appendix PELVIS: Bladder: Unremarkable. No stones. Decompressed bladder Reproductive: Status post hysterectomy. ABDOMEN and PELVIS: Intraperitoneal space: No free fluid. No free air Bones/joints: No acute fracture. No dislocation. Soft tissues: Unremarkable. Vasculature: Unremarkable. No abdominal aortic aneurysm. Lymph nodes: Unremarkable. No enlarged lymph nodes. IMPRESSION: Nonspecific bowel gas pattern. No bowel obstruction, free fluid or free air. Status post cholecystectomy. No renal or ureteral calcification
[2017-08-21 06:37] VITALS: BP 114/56; PULSE 75
[2017-08-21] MEDS ORDERED: POTASSIUM CHLORIDE ER 20 MEQ TAB.ER PO STA (06:42)
[2017-08-21] MEDS ORDERED: DICYCLOMINE 10 MG/ML 2 ML AMP IM STA (06:45)
== END 2017-08-21 07:33 | disposition home or self-care (01) ==
LOC: EC 03:49
DX: R10.32 Left lower quadrant pain (principal); R19.7 Diarrhea, unspecified; R11.2 Nausea with vomiting, unspecified; F41.9 Anxiety disorder, unspecified; F32.9 Major depressive disorder, single episode, unspecified; M79.7 Fibromyalgia; F43.10 Post-traumatic stress disorder, unspecified; F17.200 Nicotine dependence, unspecified, uncomplicated; Z87.442 Personal history of urinary calculi; Z85.41 Personal history of malignant neoplasm of cervix uteri; Z85.038 Personal history of other malignant neoplasm of large intestine; Z90.49 Acquired absence of other specified parts of digestive tract; Z98.890 Other specified postprocedural states; Z88.0 Allergy status to penicillin; Z88.1 Allergy status to other antibiotic agents; Z88.2 Allergy status to sulfonamides; Z88.5 Allergy status to narcotic agent; Z88.6 Allergy status to analgesic agent; Z88.8 Allergy status to other drugs, medicaments and biological substances; Z79.899 Other long term (current) drug therapy
CPT/HCPCS: 99284; 96365; 96375 ×3; 96372; 96361; 36415; 80053; 82150; 83690; 85025; 82272; 81001; 74176; J0500; J2765; J3480; C9113; J1170

== ENCOUNTER → 2017-08-24 | Day surgery (SDC) | payer OTHER ==
[2017-08-18 13:56] VITALS: BMI 24.7
[~2017-08-24] MED LIST changes: +ACETAMINOPHEN IV (For NPO) 1,000 MG in EMPTY BAG 1 BAG IVPB ONE; +ACETAMINOPHEN TAB 325 MG TAB PO PRN; +CLINDAMYCIN 600 MG in DEXTROSE 5% IN WATER 50 ML IVPB ONE; +DEXAMETHASONE SOD PHOSPHATE 10 MG/ML 1 ML VIAL IV ONE; +GABAPENTIN 300 MG CAP PO SCH; +HYDROmorphone 2 MG/ML 1 ML SYRINGE IVP ONE; +ISOPROTERENOL 250 MCG/1.25 ML SYR IV ONE; +LACTATED RINGERS 1,000 ML IV SCH; +LIDOCAINE 1% INJ 10MG/ML (20 ML MDV) ONE; +LIDOCAINE 2% INJ 20 MG/ML SQ ONE; +MIDAZOLAM 2 MG/2 ML VIAL IV ONE; +MIDAZOLAM 2 MG/2 ML VIAL IV PRN; +MIDAZOLAM 2 MG/2 ML VIAL ONE; +ONDANSETRON 4 MG/2 ML VIAL IVP ONE; +PROCAINAMIDE 100 MG/ML 10 ML VIAL IV ONE; +PROPOFOL 10 MG/ML 20 ML VIAL IV ONE; +SCOPOLAMINE 1.5MG/72HR PATCH TRANSDERM ONE; +fentaNYL (PF) 50 MCG/ML 2 ML AMP IV PRN; +fentaNYL (PF) 50 MCG/ML 2 ML AMP ONE; +traMADol 50 MG TAB PO PRN
[2017-08-24 06:54] VITALS: RESP 18
[2017-08-24 07:21] LABS: Basophils # (A) 0.1 k/uL (0-0.2); Basophils % (A) 0 %; Eosinophils # (A) 0.2 k/uL (0-0.7); Eosinophils % (A) 2 %; HGB 14.1 gm/dL (11.4-16.0); Lymphocytes # (A) 2.7 k/uL (1.0-4.8); Lymphocytes % (A) 22 %; MCH 30.5 pg (25.0-35.0); MCHC 33.4 g/dL (31.0-37.0); MCV 91.2 fL (80.0-100.0); Monocytes # (A) 0.5 k/uL (0-1.0); Monocytes % (A) 5 %; Neutrophils # (A) 8.5 k/uL (1.3-7.7); Neutrophils % (A) 70 %; Platelet Count 277 k/uL (150-450); RBC 4.61 m/uL (3.80-5.40); WBC 12.1 k/uL (3.8-10.6)
[2017-08-24 07:29] LABS: Anion Gap 12 mmol/L; Calcium 9.9 mg/dL (8.4-10.2); Carbon Dioxide 23 mmol/L (22-30); Chloride 109 mmol/L (98-107); Glucose 85 mg/dL (74-99); Sodium 144 mmol/L (137-145)
[2017-08-24 07:34] LABS: Blood Urea Nitrogen 7 mg/dL (7-17); Potassium 4.3 mmol/L (3.5-5.1)
--- NOTE | 2017-08-24 10:55 | P.PCN ---
Preoperative Diagnosis: Loop monitor implant Primary physicians: Dr. James Aerophysics Engineer: Dr. Monte Indication: Recurrent syncope with palpitations, no evidence for neurocardiogenic syncope on tilt table testing, normal twelve-lead ECG, EP study did not reveal any inducible arrhythmias, normal procainamide challenge Patient was brought to the EP lab in a fasting state. Written informed consent was obtained prior to the procedure. The left pectoral area was prepped and draped per protocol. Intravenous antibiotic was administered preoperatively. A subcutaneous Loop monitor was implanted successfully and the wound was closed per protocol. The device was programmed to detect significant malcom- arrhythmic and tachy-arrhythmic events, per protocol. Device and programming details: Programming to detect tachycardia and bradycardia arrhythmias. R wave sensing greater than 0.5 mV
[2017-08-24] MEDS: HYDROcodone/APAP 5-325MG 1 EACH TAB PO PRN ×2 (11:28→17:05)
[2017-08-24 11:32] VITALS: TEMP 98.2
--- NOTE | 2017-08-24 11:59 | CE ---
CARDIAC ELECTROPHYSIOLOGY REPORT This is a 27-year-old female with recurrent palpitations and syncope whose tilt-table test did not reveal neurocardiogenic syncope. Her 12-lead ECG is normal. She was brought in for a diagnostic EP study and possible radiofrequency ablation and possible implantation of loop monitor, depending upon the results. Patient was brought to the EP Lab in a fasting state. Written informed consent was obtained prior to the procedure. Three venous sheaths were placed in the right femoral vein and via these diagnostic catheters were placed in the heart starting at high right atrium, HIS bundle and RV and later in the coronary sinus. Sinus cycle length 716 milliseconds, AR interval 150 milliseconds, QRS 104 milliseconds, QT 360 milliseconds. AH interval 76 milliseconds, HV interval 46 milliseconds. Sinus node recovery times at 600, 500, and 400 milliseconds were 841, 888 and 825 milliseconds. Corresponding corrected sinus node recovery times within normal limits. AV node Wenckebach block was about 400 milliseconds. No slow pathway. No delta waves noted. VA Wenckebach block greater than 550 milliseconds. Ventricular extra stimulation was performed after a single extrastimuli. Ventricular ERP is 500/200 milliseconds. No VT induced. High-right atrial extra stim was performed and a single echo beat was noted 500/40 milliseconds but no SVT was induced and this could not be reproduced. Atrial ERP 500/390 milliseconds, AV node ERP was 500/350 milliseconds. Isuprel was started and the heart rate increased from 140 to 150 beats per minute. Thereafter, full EP study was performed from the high right atrium and from the coronary sinus and from the right ventricle. Straight pacing was performed, burst stimulation was performed in the coronary sinus. The stimulation was performed in the right ventricle. Extra stimulation after double extra stimuli was performed. No supraventricular ventricular arrhythmias were induced. Following that, Isuprel was stopped and a full g of IV procainamide was infused. HV interval remained stable and there were no ECG abnormalities noted on procainamide. All catheters were then removed and preparations were made for implantation of a loop monitor. RESULT: 1. Diagnostic EP study revealing normal sinus node function, normal AV node function. 2. Absence of dual AV node physiology or any accessory pathway conduction. 3. No inducible supraventricular arrhythmias. 4. No inducible ventricular arrhythmias and normal response to IV procainamide infusion without development of any ECG abnormalities and without development of any HV abnormalities. MMODL / IJN: [id number] /
--- NOTE | 2017-08-24 12:05 | LTR ---
DATE OF SERVICE: 08/24/2018 RE: Emma Ruiz Dear Dr. James; Emma Ruiz underwent a diagnostic EP study which revealed normal sinus node function, normal AV node function and absence of any inducible supraventricular or ventricular arrhythmias both on and off Isuprel. I infused IV procainamide to look for any HIS bundle abnormalities or any evidence for Brugada syndrome, but response to procainamide infusion was also normal. Therefore, I proceeded with implantation of a loop monitor to see if she has any arrhythmias during the episodes of syncope, when she also complains of palpitations. In the past, she has had a tilt-table test which did not reveal any neurocardiogenic phenomenon. Hopefully we can sort out whether her syncopal spells are arrhythmogenic or not with an implanted loop monitor. Thank you for entrusting me with the care of your patient. Warm regards. Sincerely, MD ROLAND Shaikh / JUANY: [id number] /
[2017-08-24 18:11] VITALS: BP 146/82; PULSE 102
== END ==
LOC: CATHEP 06:19
PROVIDERS: ATTEND Internal Medicine Clinical Cardiac Electrophysiology
DX: R55 Syncope and collapse (principal); R00.2 Palpitations; Z79.899 Other long term (current) drug therapy; F17.210 Nicotine dependence, cigarettes, uncomplicated; Z88.6 Allergy status to analgesic agent; Z88.1 Allergy status to other antibiotic agents; Z88.5 Allergy status to narcotic agent; Z88.0 Allergy status to penicillin
CPT/HCPCS: 93623; 93620; 33282; 80048; 85025; C1894; C1769 ×2; C1730 ×2; C1764; J2001; J2690; J2250; J1100; J2405

== ENCOUNTER 2017-09-08 09:14 | Day surgery (SDC) | payer OTHER ==
[2017-09-07 09:35] VITALS: BMI 24.7
[2017-09-08] MEDS ORDERED: LIDOCAINE 1% 20 ML VIAL (10MG/ML) FOR IV START INTRADERMA ONE (09:26)
[2017-09-08 09:36] VITALS: RESP 16; TEMP 98.3
[2017-09-08] MEDS ORDERED: LACTATED RINGERS 1,000 ML IV ONE (09:40)
--- NOTE | 2017-09-08 10:31 | P.PCN ---
Date of Procedure: 09/08/17 Surgeon: Adam Mathews Pathology: none sent Condition: stable Disposition: PACU Description of Procedure: PREOPERATIVE DIAGNOSIS: 1-Sacroiliitis. POSTOPERATIVE DIAGNOSIS:. 1-Sacroiliitis. PROCEDURES: Right Sacroiliac joint steroid injection with fluoroscopic guidance ANESTHESIA: Local with 1% lidocaine; conscious sedation EBL: Minimal. PROCEDURE INDICATIONS: This patient with a history of low back pain secondary to sacroiliitis and lumbar DDD unresponsive to conservative management. No use of blood thinners. PROCEDURE DESCRIPTION: The patient was seen and identified in the preoperative area. Risks, benefits, complications, and alternatives were discussed with the patient (including but not limited to incomplete pain relief, bleeding, infection, nerve damage, and allergies to medications), the patient agreed to proceed with the procedure and signed the consent after all questions were answered. Patient was taken to the OR and time out was completed to verify proper patient , position, laterality of pain, and allergies. Pt was placed in the prone position and a pillow was placed under the abdomen to reduce lumbar lordosis. The lumbosacral area was prepped and draped in the usual sterile fashion. Critical pause was taken. Vital signs were closely monitored during the procedure. The fluoroscopic camera was placed in contralateral oblique view and right sacroiliiac joint lower pole was identified. After local infiltration with 1% lidocaine 2 ml, Subsequently, a 22-gauge 3.5 inch spinal needle was introduced into the posteroinferior aspect of the right sacroiliac joint under direct fluoroscopic visualization. Subsequently, all 4 ml of a solution of a total of 4 ml solution containing total 3 mL of 0.5% preservative-free bupivicaine mixed with 40 mg of Kenalog was injected after negative aspiration for CSF, blood, and air and negative for paresthesia. The entire procedure was repeated on the left side as above. Needle was withdrawn intact. Skin was cleansed, and bandages were applied. COMPLICATIONS: None. COMMENTS: DISPOSITION / PLANS: The patient was placed in a supine position and transferred to the recovery area in a stable condition for observation and was discharged from the recovery room after meeting discharge criteria. Home discharge instructions given to the patient by the staff. The patient was reexamined prior to discharge. The patient will schedule a follow up in clinic in 3-4 weeks.
[2017-09-08] MEDS ORDERED: IV FLUID CONTINUATION 1,000 ML IV ONE (10:55)
[2017-09-08 10:59] VITALS: BP 127/84; PULSE 95
--- NOTE | 2017-09-08 13:03 | FL ---
EXAMINATION TYPE: FL guided pain mgmt statistic DATE OF EXAM: 09/08/2017 FLUOROSCOPY Fluoroscopy time of 11 seconds was used during needle placement for SI joint injection. 2 image/s do cument/s the procedure.
== END 2017-09-08 11:04 | disposition home or self-care (01) ==
LOC: ORPAIN 09:14
PROVIDERS: ATTEND Anesthesiology
DX: G89.29 Other chronic pain (principal); M46.1 Sacroiliitis, not elsewhere classified; M51.16 Intervertebral disc disorders with radiculopathy, lumbar region; Z90.710 Acquired absence of both cervix and uterus
CPT/HCPCS: J2250; J3301; Q9965; J3010; G0260; 27096

== ENCOUNTER → 2017-10-05 | Outpatient (CLI) | payer OTHER ==
[2017-10-05 14:50] VITALS: BP 142/95; PULSE 96; RESP 20
--- NOTE | 2017-10-05 15:47 | P.PN ---
Subjective Progress Note Date: 10/05/17 This is follow-up visit for this patient with a history of severe and chronic low back pain with radiation to the right lower extremity diagnosed with lumbar radiculopathy and right sacroiliitis , we have done transforaminal epidural steroid injection which helped her lower extremity pain , and later on with done right-sided sacroiliac joint steroid injection , and that helped her right buttock pain patient currently on Ultram 50 mg twice a day and Neurontin 600 mg twice a day Patient denies any side effects of the medication, denies excessive drowsiness or sleepiness, denies suicidal ideation, and reports that the current pain medication is helping To control the pain and improve activity of daily living . and patient here for follow-up visit and medication refill, but she reported that she was recently diagnosed with acute leukemia and she is going to get chemotherapy at [facility] Objective - Vital Signs Vital signs: Vital Signs Temp Pulse 96 10/05/17 14:45 Resp 20 10/05/17 14:45 BP 142/95 10/05/17 14:45 Pulse Ox 96 10/05/17 14:45 Intake & Output 10/04/17 10/05/17 10/05/17 18:59 06:59 18:59 Weight 68.039 kg - Exam Physical Examinations : 1-Constitutiona : Cooperative , not in acute distress . 2-HEENT : nech ; supple , eyes : no ptosis , no icterus, no photophobia . ENT : normal of hearing , normal oropharynx , no Thrush . 3- Respiratory : Chest clear to auscultations Bilaterally , no wheezing , no Rhonchi . 4- Cardiovascular : regular rate and rhythem , S1 , S2 , no S3 , no S4. 5- Gastrointestinal : abdomen soft no tenderness , bowel sounds positive all four quadrents , no organomegally . 6- Genitourinary : Defferred . 7- neurologic : Cranial nerve II to XII intact , no focal neurological deffecit . 8-psychatric : alert , oriented X 3 , appropriate affect , intact judgment and insight . 9- musculoskeltal : , Lumber spine = normal moter stegnth lower extremities ,thigh and legs Sever tenderness over the Sacroiliac joint on the Right , Assessment and Plan Plan: Assessment and plan= chronic low back pain secondary to lumbar radiculitis, right sacroiliitis Newly diagnosed leukemia patient will get chemotherapy [facility] chronic and current use of high-risk medication (opioids) Patient denies any side effects of the current pain medication and the current treatment/medication ML and the patient to do activity of daily living , Diagnoses, prognosis, treatment options, including but not limited to physical therapy, medication management, interventional therapies, and surgery, were discussed with the patient All the questions answered Patient signed the narcotic agreement, and he was orally counseled, not to overuse, not to abuse, not to Divert , not tp sell pain medication, and to take it as prescribed only, Patient was counseled not to drive or operate heavy equipment while using narcotic medication, and advised not to use alcohol or any Illicit drugs while using the narcotis, the patient's verbalized understanding that lack of compliance with any of the above instructions and will likely to cause discharge from the pain service, not to renew his narcotic prescriptions Medication managements= patient will be given prescription refills for Ultram 50 mg twice a day dispense 60 with 2refill patient will follow up in the pain clinic in 3 months , Time with Patient: Less than 30
== END | disposition home or self-care (01) ==
LOC: PNWHC3 13:48
PROVIDERS: ATTEND Specialist
DX: G89.29 Other chronic pain (principal); M54.16 Radiculopathy, lumbar region; M46.1 Sacroiliitis, not elsewhere classified; C95.90 Leukemia, unspecified not having achieved remission; Z79.891 Long term (current) use of opiate analgesic; Z79.899 Other long term (current) drug therapy
CPT/HCPCS: 99211

== ENCOUNTER 2017-10-16 10:43 | Emergency (ER) | payer OTHER ==
[2017-10-16 10:48] VITALS: BP 123/86; PULSE 78; RESP 18; TEMP 98.8
[2017-10-16] MEDS ORDERED: SODIUM CHLORIDE 0.9% 1,000 ML IV STA (11:50)
[2017-10-16] MEDS ORDERED: ONDANSETRON 4 MG/2 ML VIAL IVP STA (11:50)
--- NOTE | 2017-10-16 12:06 | ED ---
General Adult HPI - General Chief complaint: Nausea/Vomiting/Diarrhea Stated complaint: SENT BY FOR FLUIDS Time Seen by Provider: 10/16/17 11:42 Source: patient, RN notes reviewed Mode of arrival: ambulatory Limitations: no limitations - History of Present Illness Initial comments: 27-year-old female presenting with nausea and vomiting. Patient called her oncologist's office today and was instructed by staff to present to the emergency department for evaluation. She has recent diagnosis of cancer, she is uncertain if this is leukemia, lymphoma, or breast origin. She states her workup was completed at [facility]. She states she is scheduled to start chemotherapy in approximately one month but has not had any treatments today. Nausea vomiting has been ongoing for several months. She also has chronic pain and is taking tramadol. She is complaining of generalized pain at the time my evaluation. No significant abdominal pain, no fever or chills. No change in bowel habits or dysuria. - Related Data Home Medications Medication Instructions Recorded Confirmed Venlafaxine HCl ER [Effexor XR] 150 mg PO HS 12/30/16 10/16/17 traZODone HCL 50 mg PO HS 04/22/17 10/16/17 traMADol HCL [Ultram] 50 mg PO BID PRN 07/05/17 10/16/17 Albuterol Inhaler [Ventolin Hfa 2 puff INHALATION RT-Q6H PRN 10/16/17 10/16/17 Inhaler] Gabapentin 600 mg PO TID 10/16/17 10/16/17 Ranitidine HCl [Zantac] 150 mg PO BID 10/16/17 10/16/17 Allergies Allergy/AdvReac Type Severity Reaction Status Date / Time adhesive tape Allergy skin Verified 10/16/17 11:45 blisters amoxicillin trihydrate Allergy Swelling Verified 10/16/17 11:45 [From Augmentin] ceftriaxone sodium Allergy Swelling Verified 10/16/17 11:45 [From Rocephin] clarithromycin [From Biaxin] Allergy Swelling Verified 10/16/17 11:45 fexofenadine HCl Allergy Swelling Verified 10/16/17 11:45 [From Leslye] ketorolac tromethamine Allergy Swelling Verified 10/16/17 11:45 [From Toradol] loratadine [From Claritin] Allergy Swelling Verified 10/16/17 11:45 meperidine HCl [From Demerol] Allergy Swelling Verified 10/16/17 11:45 morphine Allergy Swelling Verified 10/16/17 11:45 Penicillins Allergy Swelling Verified 10/16/17 11:45 potassium clavulanate Allergy Swelling Verified 10/16/17 11:45 [From Augmentin] propoxyphene Allergy Swelling Verified 10/16/17 11:45 [From Darvocet-N] Sulfa (Sulfonamide Allergy Swelling Verified 10/16/17 11:45 Antibiotics) Review of Systems ROS Statement: Those systems with pertinent positive or pertinent negative responses have been documented in the HPI. ROS Other: All systems not noted in ROS Statement are negative. Past Medical History Past Medical History: Asthma, Cancer, Fibromyalgia Additional Past Medical History / Comment(s): HX OF CERVICAL,UTERINE AND COLON CANCER WITH HYSTERECTOMY/CHEMO AT 16 YRS OLD, RIGHT KIDNEY STONES, HYPOGLYCEMIA (HIGH PROTEIN DIET), BULGING DISCS CERVICAL AND IN BACK, BACK PAIN, R SIDED SCIATICA, CERVICAL PAIN, OCCIPITAL NEURALGIA, STATES HX OF PVC'S, History of Any Multi-Drug Resistant Organisms: C-DIFF Date of last positivie culture/infection: 2010 MDRO Source:: stool Past Surgical History: Cholecystectomy, Hysterectomy, Tonsillectomy Additional Past Surgical History / Comment(s): R sided kidney stents, EGD/ colonoscopy, several pain clinic procedures/blocks. Past Anesthesia/Blood Transfusion Reactions: Motion Sickness, Postoperative Nausea & Vomiting (PONV) Additional Past Anesthesia/Blood Transfusion Reaction / Comment(s): PT IS ADOPTED AND DOES NOT KNOW FAMILY HX. Past Psychological History: Anxiety, Depression, PTSD Smoking Status: Current some day smoker Past Alcohol Use History: None Reported Past Drug Use History: Marijuana - Past Family History Mother Family Medical History: Unable to Obtain Additional Family Medical History / Comment(s): Adopted Father Family Medical History: Neurologic Disorder Additional Family Medical History / Comment(s): Father of ALS. General Exam Limitations: no limitations General appearance: alert, in no apparent distress Head exam: Present: normocephalic Eye exam: Present: normal appearance, PERRL, EOMI ENT exam: Present: mucous membranes dry Neck exam: Present: normal inspection. Absent: tenderness, meningismus Respiratory exam: Present: normal lung sounds bilaterally. Absent: respiratory distress, wheezes Cardiovascular Exam: Present: regular rate, normal rhythm GI/Abdominal exam: Present: soft. Absent: distended, tenderness, guarding Extremities exam: Present: normal inspection, normal capillary refill. Absent: pedal edema Back exam: Present: normal inspection Neurological exam: Present: alert, oriented X3. Absent: motor sensory deficit Psychiatric exam: Present: normal affect, normal mood Skin exam: Present: warm, intact Course Vital Signs 10/16/17 10:44 Temperature 98.8 F Pulse Rate 78 Respiratory 18 Rate Blood Pressure 123/86 O2 Sat by Pulse 98 Oximetry Medical Decision Making - Medical Decision Making Laboratory studies are obtained, patient will be given IV hydration prior to IV initiation, patient is requesting pain medication, she has an ALLERGY to Toradol and morphine. She states Dilaudid works for her pain, she is informed that this institution is currently out of [facility] and there is a national shortage. At this time the patient does state she is leaving, this is AGAINST MEDICAL ADVICE, I would prefer the patient stay for IV hydration. Disposition Clinical Impression: Dehydration Disposition: Left Against Medical Advice Referrals: Bijan James DO [Primary Care Provider] - 1-2 days Time of Disposition: 12:06
== END 2017-10-16 12:02 | disposition left against medical advice (07) ==
LOC: EC 10:43
DX: E86.0 Dehydration (principal); R11.2 Nausea with vomiting, unspecified; G89.29 Other chronic pain; F32.9 Major depressive disorder, single episode, unspecified; F41.9 Anxiety disorder, unspecified; M79.7 Fibromyalgia; F17.200 Nicotine dependence, unspecified, uncomplicated; Z79.891 Long term (current) use of opiate analgesic; Z79.899 Other long term (current) drug therapy; Z92.21 Personal history of antineoplastic chemotherapy; Z88.0 Allergy status to penicillin; Z88.1 Allergy status to other antibiotic agents; Z88.2 Allergy status to sulfonamides; Z88.5 Allergy status to narcotic agent; Z88.6 Allergy status to analgesic agent; Z88.8 Allergy status to other drugs, medicaments and biological substances; Z91.048 Other nonmedicinal substance allergy status; Z85.41 Personal history of malignant neoplasm of cervix uteri; Z85.42 Personal history of malignant neoplasm of other parts of uterus; Z86.69 Personal history of other diseases of the nervous system and sense organs; Z90.710 Acquired absence of both cervix and uterus; Z85.038 Personal history of other malignant neoplasm of large intestine; Z90.49 Acquired absence of other specified parts of digestive tract
CPT/HCPCS: 99283

== ENCOUNTER → 2017-10-20 | Outpatient (CLI) | payer OTHER ==
--- NOTE | 2017-10-20 08:29 | MM ---
Reason for exam: clinical finding. Last mammogram was performed 1 year and 4 months ago. History: Patient is postmenopausal, has history of colon cancer at age 21, has history of endometrial cancer at age 16, and has history of ovarian cancer at age 16. Taking estrogen for 5 years. Physical Findings: Nurse did not find any significant physical abnormalities on exam. MG 3D Diag Mammo W/Cad NANDINI Bilateral CC and MLO view(s) were taken. Prior study comparison: July 04, 2016, right breast MG 3d diag mammo w/cad RT. January 03, 2016, right breast MG 3d work up w/cad RT. There are scattered fibroglandular densities. There is no discrete abnormality. Loop recorder inferior medial aspect. These results were verbally communicated with the patient and result sheet given to the patient on 10/20/17. ASSESSMENT: Negative, BI-RAD 1 RECOMMENDATION: Routine screening mammogram of both breasts at age 38. Manage on a clinical basis with regard to left pain.
--- NOTE | 2017-10-20 08:30 | USB ---
Reason for exam: clinical finding. History: Patient is postmenopausal, has history of colon cancer at age 21, has history of endometrial cancer at age 16, and has history of ovarian cancer at age 16. Taking estrogen for 5 years. US Breast LT Left breast ultrasound includes all four quadrants, the retroareolar region and axilla. Finding demonstrates no cystic or solid lesion seen. These results were verbally communicated with the patient and result sheet given to the patient on 10/20/17. ASSESSMENT: Negative, BI-RAD 1 RECOMMENDATION: Clinical management of the left breast. Manage on a clinical basis with regard to left pain.
== END | disposition home or self-care (01) ==
LOC: RADMAMWWP 06:57
PROVIDERS: ATTEND Family Medicine
DX: N64.4 Mastodynia (principal); Z85.43 Personal history of malignant neoplasm of ovary
CPT/HCPCS: 77066; 76641; G0279

== ENCOUNTER → 2017-11-09 | Outpatient (CLI) | payer OTHER ==
--- NOTE | 2017-11-10 08:42 | CT ---
EXAMINATION TYPE: CT chest w con DATE OF EXAM: 11/09/2017 COMPARISON: NONE HISTORY: Shortness of breath with pain under left rib cage. CT DLP: 550 mGycm Automated exposure control for dose reduction was used. CONTRAST: CT scan of the chest is performed with IV Contrast, patient injected with 100 mL of Isovue 300. FINDINGS: LUNGS: The lungs are grossly clear, there is no concerning parenchymal mass or nodule identified. T here is no pleural effusion or pneumothorax seen. The tracheobronchial tree is patent. MEDIASTINUM: There are no greater than 1 cm hilar or mediastinal lymph nodes. No pericardial effusi on is seen. Thoracic aorta is of normal caliber. The heart is not enlarged. UPPER ABDOMEN: No significant abnormality appreciated. OTHER: Subcutaneous radiopaque metallic object measuring 4.6 cm in length which extends over the ant erior chest wall to the left of midline at the level of the sternomanubrial joint. IMPRESSION: 1. No significant abnormality to account for the patient's symptoms. 2.Subcutaneous radiopaque metallic object as discussed above. Correlate clinically.
== END | disposition home or self-care (01) ==
LOC: RADCTMAIN 18:47
PROVIDERS: ATTEND Internal Medicine Hematology & Oncology
DX: T17.898A Other foreign object in other parts of respiratory tract causing other injury, initial encounter (principal)
CPT/HCPCS: 71260; Q9967

== ENCOUNTER 2017-12-07 13:29 | Day surgery (SDC) | payer OTHER ==
[2017-11-16 09:17] VITALS: BMI 26.5
[~2017-12-07 13:29] MED LIST changes: -ACETAMINOPHEN IV (For NPO) 1,000 MG in EMPTY BAG 1 BAG IVPB ONE; -ACETAMINOPHEN TAB 325 MG TAB PO PRN; +CLINDAMYCIN 600 MG in DEXTROSE 5% IN WATER 50 ML IVPB STA; -DEXAMETHASONE SOD PHOSPHATE 10 MG/ML 1 ML VIAL IV ONE; -GABAPENTIN 300 MG CAP PO SCH; -HYDROmorphone 2 MG/ML 1 ML SYRINGE IVP ONE; -ISOPROTERENOL 250 MCG/1.25 ML SYR IV ONE; -LACTATED RINGERS 1,000 ML IV SCH; -LIDOCAINE 1% INJ 10MG/ML (20 ML MDV) ONE; -LIDOCAINE 2% INJ 20 MG/ML SQ ONE; -MIDAZOLAM 2 MG/2 ML VIAL IV ONE; -MIDAZOLAM 2 MG/2 ML VIAL IV PRN; -MIDAZOLAM 2 MG/2 ML VIAL ONE; -ONDANSETRON 4 MG/2 ML VIAL IVP ONE; -PROCAINAMIDE 100 MG/ML 10 ML VIAL IV ONE; -PROPOFOL 10 MG/ML 20 ML VIAL IV ONE; -SCOPOLAMINE 1.5MG/72HR PATCH TRANSDERM ONE; -fentaNYL (PF) 50 MCG/ML 2 ML AMP IV PRN; -fentaNYL (PF) 50 MCG/ML 2 ML AMP ONE; -traMADol 50 MG TAB PO PRN
[2017-12-07 13:46] VITALS: TEMP 99
[2017-12-07] MEDS: MIDAZOLAM 2 MG/2 ML VIAL IVP ONE ×2 (14:57→15:05)
[2017-12-07] MEDS ORDERED: LIDOCAINE 2% INJ 20 MG/ML SQ ONE (15:00)
[2017-12-07] MEDS ORDERED: fentaNYL (PF) 50 MCG/ML 2 ML AMP IVP ONE (15:05)
--- NOTE | 2017-12-07 15:17 | P.PCN ---
Preoperative Diagnosis: Loop explant under sedation and local anesthesia. Patient was brought to the EP lab in a fasting state. Written informed consent was obtained prior to the procedure. The subcutaneous device was successfully explanted under local anesthesia. Preoperative antibiotics were administered. The wound was closed in layers and dressed per protocol. Result: Successful loop monitor explantation. Conscious sedation Patient underwent EP procedure under conscious sedation/moderate sedation, monitoring of the level of consciousness and physiologic parameters including but not limited to vital signs and oxygenation. Patient tolerated the procedure well without any acute complications. Start time: 1455 Stop time: 1510
[2017-12-07 16:08] VITALS: BP 111/69; PULSE 82; RESP 18
== END 2017-12-07 15:56 | disposition home or self-care (01) ==
LOC: CATHEP 13:29
PROVIDERS: ATTEND Internal Medicine Clinical Cardiac Electrophysiology
DX: T82.847A Pain due to cardiac prosthetic devices, implants and grafts, initial encounter (principal)
CPT/HCPCS: 33284; J2001; J2250; J3010

== ENCOUNTER → 2017-12-28 | Outpatient (CLI) | payer OTHER ==
[2017-12-28 13:46] VITALS: BP 105/64; PULSE 93; RESP 16; TEMP 98.4
--- NOTE | 2017-12-28 14:19 | P.PAINPG ---
Subjective Progress Note Date: 12/28/17 Principal diagnosis: Lumbar radicular pain, right hip pain, right sacroiliac pain This is a pleasant 27-year-old woman with a very complicated past medical history. She presents today for medication management. She also would like to consider injection therapy. She has had this in the past reports is quite helpful for her. She has 2 main areas of pain today she has intractable right hip joint pain. She also has pain which begins around her lumbosacral junction and radiates down her right leg into her foot. She denies bowel or bladder dysfunction. She does report she is having difficulty walking secondary to her severe pain. She reports excellent results from previous lumbar epidural steroid injections. She was recently taken to the [facility] and had a presumed diagnosis of leukemia. Fortunately, this proved to not be the case. She is still looking for the cause of her significant weight loss. Objective - Vital Signs Vital signs: Vital Signs Temp 98.4 F 12/28/17 13:43 Pulse 93 12/28/17 13:43 Resp 16 12/28/17 13:43 BP 105/64 12/28/17 13:43 Pulse Ox 97 12/28/17 13:43 Intake & Output 12/27/17 12/28/17 12/28/17 18:59 06:59 18:59 Weight 58.967 kg - Exam General: The patient is alert and oriented. Patient is not sedateded Patient answers all question appropriately. Cardiac: Heart is regular in rate and rhythm Respiratory: Clear to auscultation. No audible wheezes. Abdomen: Soft nontender nondistended. Lower extremities: Strength is normal bilaterally. Sensation is normal bilaterally. Reflexes are preserved and symmetric bilaterally. Straight leg raise is negative bilaterally. Straight leg raise on the right is provocative for lumbar radicular symptoms as well as a significant back pain. The left side is negative. Internal and external hip rotation maneuvers are extremity painful for this patient. Assessment and Plan (1) Lumbar back pain with radiculopathy affecting right lower extremity Narrative/Plan: Plan of Care 1. Medications: I had a prolonged conversation the patient regarding her use of opiates as well as her use of marijuana. She does use opiates on an extremely conservative basis. She has used 10 [place] tablets over the last 6 months. She also uses a small amount of tramadol. The addition of marijuana to her medication management profile has allowed her to discontinue her use of benzodiazepines as well as other central nervous system depressants. We discussed the current legal situation regarding marijuana being considered a schedule one substance by the Federal Government. We also discussed that these medications have not been studied to be safe in concomitant utilization. Overall evaluation of the clinical picture I think reveals that the use of marijuana has allowed her to discontinue significant medications. I advised her not to use these medicines at the same time. We will continue to give her tramadol as well as a very small amount of [place]. We will not escalate this dosage. She has agreed to start working with a mental health counselor to decrease her use of marijuana. I have reviewed the patient's MAPS report and it reveals expected results. Patient has signed an opiate agreement as well as opiate consent for treatment in our clinic. They understand the risks and benefits of opiate medications. They are aware of the potential for addiction. 2. Interventions: We will schedule the patient for a right L4 5 lumbar transforaminal epidural steroid injection. 3. Referrals: I have referred the patient to the pain psychologist at the [facility] in [place]. 4. Testing: No testing was ordered today. 5. Psychological: Patient is being referred to a psychologist Current Visit: Yes Status: Acute Code(s): M54.17 - RADICULOPATHY, LUMBOSACRAL REGION SNOMED Code(s): 001629157 (2) Right hip pain Current Visit: Yes Status: Acute Code(s): M25.551 - PAIN IN RIGHT HIP SNOMED Code(s): 18576683 (3) Pain of right sacroiliac joint Current Visit: Yes Status: Acute Code(s): M53.3 - SACROCOCCYGEAL DISORDERS, NOT ELSEWHERE CLASSIFIED SNOMED Code(s): 991638010 PQRS Measure Charge Sheet Measure #130: Documentation of Current Meds in Medical Chart: Patient's medications documented in chart Measure #226: Tobacco Use: Screen & Cessation Intervention: Pt screened for tobacco use AND intervention given Measure #111: Pneumonia Vaccination: Pneumococcal vaccine NOT administered or previously given Measure #47: Advance Care Plan: Advance care planning discussed & documented, pt chose/unable to give Measure #412: Opioid Treatment Agreement: Documented signed opioid trtmnt agreemnt min once during opioid trtmnt Measure #408: Opioid Therapy Follow-up Evaluation: Patient had f/u eval minimum every 3 months during opioid therapy Measure #317: Preventitive Care & Scrn High Bld Press & F/U: Normal blood pressure, f/u not required Measure #128: Body Mass Index (BMI) Screening & Follow-up: BMI documented within normal parameters Measure #131: Pain Assessment & Follow-up: Pain positive & plan documented Measure #431: Unhealthy Alcohol Use Preventative Care & Scrn: Patient not identified as an unhealthy alcohol user PQRS Narrative: Smoking Status Current every day smoker Do You Want the Pneumonia No Vaccine AT THIS TIME? Narcotic Agreement Date Signed 04/14/17 Blood Pressure 105/64 Pain Intensity [Right Lower 8 Back] Scale Used Numeric (1 - 10) Hx Alcohol Use (MH) No Home Medications: Ambulatory Orders Venlafaxine HCl ER [Effexor XR] 150 mg PO HS 12/30/16 traZODone HCL 50 mg PO HS 04/22/17 traMADol HCL [Ultram] 50 mg PO BID PRN 07/05/17 Albuterol Inhaler [Ventolin Hfa Inhaler] 2 puff INHALATION RT-Q6H PRN 10/16/17 Gabapentin 600 mg PO TID 10/16/17 Ranitidine HCl [Zantac] 150 mg PO BID 10/16/17 Controlled Substance Measures - Controlled Substance Measures Is patient prescribed a controlled substance at discharge?: Yes When asked, does pt state using other controlled substances?: Yes If prescribed controlled substance>3 days was MAPS reviewed?: Yes If Rx opioid, was Start Talking consent form obtained?: Yes Was information provided regarding opioid addiction?: Yes
== END | disposition home or self-care (01) ==
LOC: PNWHC3 13:29
PROVIDERS: ATTEND Pain Medicine Pain Medicine
DX: M25.551 Pain in right hip (principal); M54.17 Radiculopathy, lumbosacral region; M53.3 Sacrococcygeal disorders, not elsewhere classified; F17.200 Nicotine dependence, unspecified, uncomplicated; Z79.899 Other long term (current) drug therapy
CPT/HCPCS: 99211

== ENCOUNTER 2018-01-13 08:20 | Day surgery (SDC) | payer OTHER ==
[2018-01-11 12:52] VITALS: BMI 23.9
[~2018-01-13 08:20] MED LIST changes: -CLINDAMYCIN 600 MG in DEXTROSE 5% IN WATER 50 ML IVPB ONE; -CLINDAMYCIN 600 MG in DEXTROSE 5% IN WATER 50 ML IVPB STA; +LACTATED RINGERS 1,000 ML IV SCH; -SODIUM CHLORIDE 0.9% 1,000 ML IV SCH
[2018-01-13 09:32] VITALS: TEMP 98.5
[2018-01-13] MEDS ORDERED: LIDOCAINE 1% 20 ML VIAL (10MG/ML) FOR IV START INTRADERMA ONE (09:47)
--- NOTE | 2018-01-13 10:44 | P.PCN ---
Date of Procedure: 01/13/18 Procedure(s) Performed: PREOPERATIVE DIAGNOSIS: Lumbar radiculopathy in right L4-5 distribution POSTOPERATIVE DIAGNOSIS: Lumbar radiculopathy in right L4-5 distribution PROCEDURE 1. Transforaminal epidural steroid injection under fluoroscopic guidance at right L4-5 level. 2. Lumbar epidurogram : ANESTHESIA: Local with 1% lidocaine 3 ml , moderate sedation with intravenous Versed 2 mg and fentanyle 100 micrograms EBL: Minimal PROCEDURE INDICATION: The patient with low back pain and radiculopathy symptoms unresponsive to conservative treatment. PROCEDURE DESCRIPTION / TECHNIQUE: The patient was seen and identified in the preoperative area. Risks, benefits , complications, and alternatives were discussed with the patient. The patient agreed to proceed with the procedure and signed the consent. IV was started, and vital signs were stable. Patient was taken to the OR and time out was completed. The patient was placed in the prone position on procedure table and a pillow was placed under the abdomen to reduce lumbar lordosis. The lumbosacral area was prepped and draped in the usual sterile fashion. Critical pause was taken. Vital signs were closely monitored during the procedure. Conscious sedation was used during the procedure to decrease patients anxiety. Using oblique fluoroscopy, the chin of the ``Apollo dog at right L4-5 level was identified, and the skin and deeper tissues just below was localized with 1% lidocaine. Subsequently, a 22-gauge 3.5-inch spinal needle was advanced under a tunneled view fluoroscopic guidance just underneath the chin of the `` Apollo dog at the right L4-5 . Under lateral fluoroscopy, the needle was then advanced to the posterior border of the L4-5 interforaminal space. After negative aspiration of CSF and blood and with no paresthesias, 1 mL Isovue 200 contrast dye was injected excellent epidurogram and outlining of the nerve root Subsequently, 3 mL of block solution containing 40 Depomedrol, and 2 mL of Lidocaine 1% was injected. Needle was removed . At the end of the procedure, skin was cleansed, and bandages were applied. COMPLICATIONS:none DISPOSITION / PLANS: The patient was placed in a supine position and transferred to the recovery area in a stable condition for observation. There was no evidence of lower extremity motor or sensory deficit after the procedure. Patient was discharged from the recovery room after meeting discharge criteria. Home discharge instructions were given to the patient by the staff. The patient was reexamined prior to discharge.
[2018-01-13] MEDS ORDERED: IV FLUID CONTINUATION 1,000 ML IV ONE (10:47)
[2018-01-13 10:49] VITALS: RESP 16
[2018-01-13 11:03] VITALS: BP 102/68; PULSE 76
--- NOTE | 2018-01-13 11:44 | FL ---
Fluoroscopy HISTORY: Pain 2 seconds fluoroscopy time supplied to the referring clinician. 2 intraoperative C-arm images docume nt the procedure. See dictated report from anesthesia.
== END 2018-01-13 11:20 | disposition home or self-care (01) ==
LOC: ORPAIN 08:20
PROVIDERS: ATTEND Specialist
DX: M54.16 Radiculopathy, lumbar region (principal); Z90.710 Acquired absence of both cervix and uterus
CPT/HCPCS: 64483; J2250; J3301; J3010; Q9966

== ENCOUNTER 2018-01-28 09:04 | Day surgery (SDC) | payer OTHER ==
[2018-01-26 09:09] VITALS: BMI 23.9
[2018-01-28 10:16] VITALS: TEMP 98.7
[2018-01-28] MEDS: LACTATED RINGERS 1,000 ML IV SCH ×2 (10:31→10:38)
--- NOTE | 2018-01-28 10:48 | P.PCN ---
Date of Procedure: 01/28/18 Surgeon: Neville Jerry Description of Procedure: DESCRIPTION OF PROCEDURE(S): PREOPERATIVE DIAGNOSIS: Lumbar radiculopathy POSTOPERATIVE DIAGNOSIS: Lumbar radiculopathy PROCEDURE 1. Transforaminal epidural steroid injection under fluoroscopic guidance right L4 2. Lumbar epidurogram ANESTHESIA: Local with 1% lidocaine 3 ml ; IV sedation with Versed 2 mg and fentanyl 100 micrograms. PROCEDURE INDICATION: The patient with low back pain and radiculopathy symptoms unresponsive to conservative treatment. She is undergone one previous lumbar transforaminal epidural steroid injection at the L4 5 interspace. She reports this was extremely helpful in reducing her symptoms. PROCEDURE DESCRIPTION / TECHNIQUE: The patient was seen and identified in the preoperative area. Risks, benefits, complications, and alternatives were discussed with the patient. The patient agreed to proceed with the procedure and signed the consent. IV was started, and vital signs were stable. Patient was taken to the OR and time out was completed. The patient was placed in the prone position on procedure table and a pillow was placed under the abdomen to reduce lumbar lordosis. The lumbosacral area was prepped and draped in the usual sterile fashion. Vital signs were closely monitored during the procedure. Conscious sedation was used. Using oblique fluoroscopy, the chin of the ``Apollo dog and the skin and deeper tissues just below was localized with 1% lidocaine. Subsequently, a 22- gauge 3.5-inch spinal needle was advanced under a tunneled view fluoroscopic guidance just underneath the chin of the ``Apollo dog . Under lateral fluoroscopy, the needle was then advanced to the posterior border of the foramen. After negative aspiration of CSF and blood and with no paresthesias, 1 mL of Omnipaque-240 contrast dye was injected and there was no evidence of intravascular injection. The 40 mg of Depo-Medrol and 1 mL of 0.5% bupivacaine was then delivered. The needle was withdrawn intact. At the end of the procedure, skin was cleansed, and bandages were applied. COMPLICATIONS: None COMMENTS: DISPOSITION / PLANS: The patient was placed in a supine position and transferred to the recovery area in a stable condition for observation. There was no evidence of lower extremity motor or sensory deficit after the procedure. Patient was discharged from the recovery room after meeting discharge criteria. Home discharge instructions were given to the patient by the staff. The patient was reexamined prior to discharge. She can follow up for repeat of this procedure on an as-needed basis.
[2018-01-28] MEDS ORDERED: IV FLUID CONTINUATION 1,000 ML IV ONE (11:02)
[2018-01-28 11:05] VITALS: RESP 18
[2018-01-28 11:22] VITALS: BP 106/75; PULSE 82
--- NOTE | 2018-01-28 12:08 | FL ---
EXAMINATION TYPE: FL guided pain mgmt statistic DATE OF EXAM: 01/28/2018 HISTORY: Pain TRANSFORAMINAL STEROID INJ. 2 images scanned. 5 secs FL time. .
== END 2018-01-28 11:40 | disposition home or self-care (01) ==
LOC: ORPAIN 09:04
PROVIDERS: ATTEND Pain Medicine Pain Medicine
DX: M54.16 Radiculopathy, lumbar region (principal)
CPT/HCPCS: 64483; J2250; J1030; J3010; Q9966; 99152

== ENCOUNTER → 2018-02-12 | Outpatient (CLI) | payer OTHER ==
--- NOTE | 2018-02-14 13:22 | CT ---
EXAMINATION TYPE: CT abdomen pelvis w con DATE OF EXAM: 02/12/2018 COMPARISON: 08/21/2017 INDICATION: weight loss DLP: 920 mGycm, Automated exposure control for dose reduction was used. CONTRAST: 100 mL of Isovue 300. Study performed with Oral Contrast TECHNIQUE: Axial images were obtained from above the diaphragm to the pubic rami in the axial plane a t 5 mm thick sections. Reconstructed images are reviewed on the computer in the coronal plane. FINDINGS: Limited CT sections are obtained the lung bases. Minimal compressive atelectasis within the dependen t portions of the lung bases. Lung bases are otherwise clear. CT ABDOMEN: Liver: Normal Spleen: Normal Pancreas: Normal Adrenal glands: The adrenal glands are normal. Gallbladder: Surgically absent Kidneys: No masses are evident. No hydronephrosis is present. No cysts are present. Delayed images were obtained through the kidneys, which remain unremarkable. Aorta: Normal Inferior vena cava: Normal. CT PELVIS: Loops of bowel within the abdomen and pelvis are normal. There are loops of bowel which are incom pletely distended or lack oral contrast limiting their evaluation. Patient's anastomosis is not ident ified. Fecal debris is within the ascending and transverse colon. Appendix: Normal as visualized. Urinary bladder: Normal. Genitourinary structures: Adnexal regions are clear. Uterus is absent. There is fullness through the vaginal vault region. Osseous structures: No suspicious lytic or sclerotic lesions. IMPRESSIONS: 1. Unremarkable CT abdomen pelvis. Some fullness of the vaginal vault is present, this could be eval uated with pelvic examination.
== END | disposition home or self-care (01) ==
LOC: RADCTMAIN 16:19
PROVIDERS: ATTEND Family Medicine
DX: R10.12 Left upper quadrant pain (principal); R19.7 Diarrhea, unspecified
CPT/HCPCS: 74177; Q9967

== ENCOUNTER 2018-06-01 11:51 | Observation (INO) | payer OTHER ==
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
--- NOTE | 2018-06-01 13:05 | CT ---
EXAMINATION TYPE: CT brain wo con for TPA DATE OF EXAM: 06/01/2018 COMPARISON: 06/25/2016 HISTORY: Rt sided numbness CT DLP: 1067.[address] of the brain was performed. The ventricles, basal cisterns and sulci overlying the cerebral convexities demonstrate a normal appe arance. There is no evidence for intracranial hemorrhage or sulcal effacement. No mass effects are seen. Osseous calvarium is intact. If symptoms persist consider MRI as clinically warranted. IMPRESSION: 1. No acute intracranial process is seen at this time.
[2018-06-01 13:50] LABS: Basophils # (A) 0.1 k/uL (0-0.2); Basophils % (A) 0 %; Eosinophils # (A) 0.3 k/uL (0-0.7); Eosinophils % (A) 2 %; HCT 40.2 % (34.0-46.0); HGB 14.4 gm/dL (11.4-16.0); Lymphocytes # (A) 2.6 k/uL (1.0-4.8); Lymphocytes % (A) 17 %; MCH 32.3 pg (25.0-35.0); MCHC 35.8 g/dL (31.0-37.0); MCV 90.3 fL (80.0-100.0); Mean Platelet Volume 7.3; Monocytes # (A) 0.6 k/uL (0-1.0); Monocytes % (A) 4 %; Neutrophils # (A) 11.4 k/uL (1.3-7.7); Neutrophils % (A) 76 %; Platelet Count 261 k/uL (150-450); RBC 4.45 m/uL (3.80-5.40); RDW 12.7 % (11.5-15.5)
--- NOTE | 2018-06-01 13:50 | XR ---
EXAMINATION TYPE: XR chest 2V DATE OF EXAM: 06/01/2018 COMPARISON: 07/05/2017 INDICATION: Altered mental status right arm numbness syncope chest pain asthma TECHNIQUE: Frontal and lateral views of the chest are obtained. FINDINGS: The heart size is normal. The pulmonary vasculature is normal. The lungs are clear. IMPRESSION: 1. No acute pulmonary process.
--- NOTE | 2018-06-01 13:50 | CT ---
EXAMINATION TYPE: CT angio head neck DATE OF EXAM: 06/01/2018 COMPARISON: None HISTORY: Rt sided numbness and weakness CT DLP: 377.6 mGycm CONTRAST: Performed with IV Contrast, patient injected with 65 mL of Isovue 370. Combination Contrast CTA cervical carotids and [place] CTA cervical carotids with 3-D recons truction Contrast CTA of the cervical carotids was performed 3-D reconstruction imaging obtained at a separate workstation. Right carotid system: No significant plaque is seen of the right common carotid artery. There is No significant plaque also noted at the carotid bulb and proximal ICA. No significant diameter reductio n. ECA is patent. Right vertebral artery appears unremarkable. Left carotid system: No significant plaque is seen of the left common carotid artery. There is No si gnificant plaque also noted at the carotid bulb and proximal ICA. No significant diameter reduction. ECA is patent. Left vertebral artery appears unremarkable. IMPRESSION: 1. No significant diameter reduction to account for the patient's symptoms. CTA [place] with 3-D reconstruction Contrast CTA of the [place] was performed 3-D reconstruction imaging obtained at a separate workstation. Vertebrobasilar system as well as intracranial portions of the internal carotid arteries and their ma eric tributaries are patent. I do not see evidence for sizable aneurysm or vascular malformation. Pl ease note MRI provides greater sensitivity and specificity. Visualized brain appears grossly unremar kable. IMPRESSION: 1. No significant abnormality.
[2018-06-01 13:53] LABS: INR 1.1 (<1.2); Partial Thromboplastin Time 24.5 sec (22.0-30.0); Prothrombin Time 10.5 sec (9.0-12.0)
[2018-06-01 13:58] LABS: ALT 21 U/L (9-52); AST 18 U/L (14-36); Alkaline Phosphatase 55 U/L (38-126); Anion Gap 7 mmol/L; Blood Urea Nitrogen 9 mg/dL (7-17); Calcium 9.5 mg/dL (8.4-10.2); Carbon Dioxide 25 mmol/L (22-30); Chloride 105 mmol/L (98-107); Glucose 69 mg/dL (74-99); Potassium 3.8 mmol/L (3.5-5.1); Sodium 137 mmol/L (137-145); Total Bilirubin 0.3 mg/dL (0.2-1.3); Total Protein 6.4 g/dL (6.3-8.2)
[2018-06-01 14:08] LABS: Creatine Kinase 76 U/L (30-135)
[2018-06-01 14:21] LABS: Creatine Kinase MB <0.2 ng/mL (0.0-2.4); Troponin I <0.012 ng/mL (0.000-0.034)
[2018-06-01] MEDS ORDERED: fentaNYL (PF) 50 MCG/ML 2 ML AMP IV STA (14:26)
[2018-06-01] MEDS ORDERED: ASPIRIN 325 MG TAB PO STA (14:34)
[2018-06-01] MEDS ORDERED: KETOROLAC 30 MG/ML 1 ML VIAL IVP STA (15:36)
[2018-06-01] MEDS ORDERED: METOCLOPRAMIDE 5 MG/ML 2 ML VIAL IVP STA (15:36)
[2018-06-01] MEDS: SODIUM CHLORIDE 0.9% 1,000 ML IV SCH (15:39)
[2018-06-01] MEDS ORDERED: LORazepam 2 MG/ML INJ IV STA (15:50)
[2018-06-01] MEDS: GABAPENTIN 300 MG CAP PO SCH ×2 (17:34→21:39)
[2018-06-01] MEDS: METHOCARBAMOL 750 MG TAB PO SCH ×2 (17:38→21:40)
[2018-06-01] MEDS ORDERED: ALPRAZolam 0.25 MG TAB PO PRN (20:53)
[2018-06-01] MEDS ORDERED: MELATONIN 3 MG TABLET PO PRN (20:53)
[2018-06-01] MEDS ORDERED: risperiDONE 1 MG TAB PO SCH (21:00)
[2018-06-01] MEDS ORDERED: VENLAFAXINE HCL ER 75 MG CAP PO SCH (21:00)
[2018-06-01] MEDS: NICOTINE 14MG/24HR PATCH TRANSDERM SCH (21:37)
[2018-06-01] MEDS: HEPARIN SODIUM,PORCINE 5,000 UNIT/ML 1 ML VIAL SQ SCH (21:39)
[2018-06-01] MEDS: FAMOTIDINE 20 MG TAB PO SCH (21:39)
[2018-06-01] MEDS: HYDROcodone/APAP 5-325MG 1 EACH TAB PO PRN (21:40)
--- NOTE | 2018-06-01 22:38 | P.CNNES ---
History of Present Illness Consult date: 06/01/18 Reason for Consult: Patient admitted for right sided numbness and weakness for possible TIA. History of Present Illness: This patient is a 27-year-old right-handed white female who has a known history of underlying migraine headaches. Patient states that she develop a severe sharp pain yesterday which was quite intractable in nature. She states the pain was localized over the right side of her head mostly in the suboccipital region. She does have a history of occipital neuritis in the past but this headache was quite different. Soon after the onset of the headache pain she began experiencing right-sided face and arm numbness. This came on suddenly. Shortly after this symptoms she also noted some facial droop on the right side of her face. This also was transient. The patient was very concerned with these new symptoms and decided to come to the emergency room at medical clinic in [facility] for further evaluation. She was seen in the emergency room today by Dr. Olson. She continued to have evidence of right-sided numbness and weakness. She was sent for a computed tomography scan of the brain which revealed no acute intracranial process. The patient also underwent a CT angiogram of the head and neck. This test also came back negative for any acute changes. She was seen in the ER today and was given aspirin. She was admitted to the hospital for more thorough investigation and treatment. Patient states that her headache pain has subsided to a 5/10 in intensity. This morning it was 9/10. She did have some right-sided facial asymmetry but this is also significantly improved since coming into the hospital. The patient was concerned as she has never had this type of headache associated with the numbness and paresthesias. She was seen in the ER by Dr. Olson. She had no signs of meningitis. Her intensity of headache pain had subsided to 4/ 10 in intensity. The patient otherwise seems to be doing better since admission to the hospital. She still has some residual right arm numbness. Patient on questioning mentioned she has been experiencing muscle spasms especially in her calf muscles bilaterally. This is been ongoing for the last several weeks. We have suggested that she have a vitamin D level done and checked. The patient was admitted with a presumptive diagnosis of possible TIA versus stroke. Her neurological examination at this time is nonfocal. We have discussed with her the possibility of complicated migraine presenting with focal neurological deficits. We have recommended the patient undergo a complete stroke evaluation. We will obtain an MRI of the brain for further assessment. She does have evidence of severe right sided occipital neuritis. This is likely contributing to much of her right-sided headache pain. We have recommended she have a occipital nerve block procedure done tomorrow by anesthesia. Her overall prognosis at this time remains guarded. We have discussed all of her findings in detail today with the patient. She is aware of our findings and further recommendations. Neurology is now been consulted for further evaluation and recommendations. Review of Systems IV Constitutional: Denies chills, Denies fever Eyes: denies blurred vision, denies pain Ears, nose, mouth and throat: Denies headache, Denies sore throat Cardiovascular: Denies chest pain, Denies shortness of breath Respiratory: Denies cough Gastrointestinal: Denies abdominal pain, Denies diarrhea, Denies nausea, Denies vomiting Genitourinary: Denies dysuria, Denies hematuria Musculoskeletal: Denies myalgias Integumentary: Denies pruritus, Denies rash Neurological: Reports change in speech, Reports headaches, Reports migraines, Reports motor disturbance, Reports paresthesias, Reports tingling, Denies numbness, Denies weakness Psychiatric: Denies anxiety, Denies depression Endocrine: Denies fatigue, Denies weight change Past Medical History Past Medical History: Asthma, Cancer, Fibromyalgia, Musculoskeletal Disorder, Syncope Additional Past Medical History / Comment(s): HX OF CERVICAL,UTERINE AND COLON CANCER W/ HYSTERECTOMY/CHEMO AT 16 YRS OLD. RIGHT KIDNEY STONES, HYPOGLYCEMIA ( HIGH PROTEIN DIET), BULGING DISCS CERVICAL, AND BACK, W/PAIN, R SIDED SCIATICA, CERVICAL PAIN, OCCIPITAL NEURALGIA. STATES HX OF PVC'S, SYNCOPE. History of Any Multi-Drug Resistant Organisms: C-DIFF Date of last positivie culture/infection: 2010 MDRO Source:: stool Past Surgical History: Cholecystectomy, Hysterectomy, Tonsillectomy Additional Past Surgical History / Comment(s): R sided kidney stents- since removed, EGD/colonoscopy, several pain clinic procedures/blocks. LOOP RECORDER INSERTION since removed. Past Anesthesia/Blood Transfusion Reactions: Motion Sickness, Postoperative Nausea & Vomiting (PONV) Additional Past Anesthesia/Blood Transfusion Reaction / Comment(s): PT IS ADOPTED AND DOES NOT KNOW FAMILY HX. Smoking Status: Current every day smoker - Past Family History Mother Family Medical History: Unable to Obtain Additional Family Medical History / Comment(s): Adopted Father Family Medical History: Neurologic Disorder Additional Family Medical History / Comment(s): Father of ALS. Medications and Allergies Home Medications Medication Instructions Recorded Confirmed Type Gabapentin 600 mg PO TID 10/16/17 06/01/18 History HYDROcodone/APAP 5-325MG [[place] 0.5 tab PO QID PRN 06/01/18 06/01/18 History 5-325] Methocarbamol [Robaxin-750] 750 mg PO QID 06/01/18 06/01/18 History Ranitidine HCl [Zantac] 150 mg PO BID 06/01/18 06/01/18 History Venlafaxine HCl ER [Effexor Xr] 75 mg PO HS 06/01/18 06/01/18 History risperiDONE [RisperDAL] 1 mg PO HS 06/01/18 06/01/18 History Allergies Allergy/AdvReac Type Severity Reaction Status Date / Time adhesive tape Allergy skin Verified 06/01/18 12:17 blisters amoxicillin trihydrate Allergy Swelling Verified 06/01/18 12:17 [From Augmentin] ceftriaxone sodium Allergy Swelling Verified 06/01/18 12:17 [From Rocephin] clarithromycin [From Biaxin] Allergy Swelling Verified 06/01/18 12:17 fexofenadine HCl Allergy Swelling Verified 06/01/18 12:17 [From Leslye] ketorolac tromethamine Allergy Swelling Verified 06/01/18 12:17 [From Toradol] loratadine [From Claritin] Allergy Swelling Verified 06/01/18 12:17 meperidine HCl [From Demerol] Allergy Swelling Verified 06/01/18 12:17 morphine Allergy Swelling Verified 06/01/18 12:17 Penicillins Allergy Swelling Verified 06/01/18 12:17 potassium clavulanate Allergy Swelling Verified 06/01/18 12:17 [From Augmentin] propoxyphene Allergy Swelling Verified 06/01/18 12:17 [From Darvocet-N] Sulfa (Sulfonamide Allergy Swelling Verified 06/01/18 12:17 Antibiotics) Physical Examination - Vital Signs Vital Signs: Vital Signs Temp Pulse Pulse Resp BP BP Pulse Ox 06/01/18 17:15 98.3 F 111 H 18 121/67 99 06/01/18 16:30 18 116/77 96 06/01/18 16:00 72 18 103/48 93 L 06/01/18 11:54 98.1 F 104 H 18 128/76 100 Intake and Output 06/01/18 06/01/18 06/01/18 06:59 14:59 22:59 Other: Weight 63.503 kg 67.9 kg - Constitutional General appearance: average body habitus, cooperative - EENT EENT: PERRL, mucous membranes moist - Respiratory Respiratory: lungs clear, normal breath sounds - Cardiovascular Cardiovascular: regular rate, normal S1, normal S2 Extremities: no peripheral edema bilaterally - Gastrointestinal Gastrointestinal: normoactive bowel sounds - Integumentary Integumentary: normal - Neurologic Cranial nerve examination: PERRL, EOMI, VFF, V1/V2/V3 grossly intact, face symmetric Speech examination: intact Sensorimotor examination: intact Motor examination - right side: 4/5: biceps, triceps, wrist flexion, wrist extension, research engineer marine equipment, hip flexors, knee extensors, dorsiflexion, toe extension (EHL) , plantarflexion Motor examination - left side: 4/5: biceps, triceps, wrist flexion, wrist extension, research engineer marine equipment, hip flexors, knee extensors, dorsiflexion, toe extension (EHL) , plantarflexion Detailed sensory examination: intact Reflex and gait examination: intact Reflexes: 2+: ankle, bicep, knee, tricep - Musculoskeletal Musculoskeletal: no pain - Psychiatric Psychiatric: mood/affect appropriate, cooperative Results - Laboratory Findings CBC and BMP: 06/01/18 13:24 06/01/18 13:24 Abnormal Lab Findings: Abnormal Labs 06/01/18 06/01/18 13:24 13:24 WBC 15.0 H Neutrophils # 11.4 H Glucose 69 L Assessment and Plan (1) Transient cerebral ischemia Current Visit: Yes Status: Acute Code(s): G45.9 - TRANSIENT CEREBRAL ISCHEMIC ATTACK, UNSPECIFIED SNOMED Code(s): 714637658 (2) Occipital neuritis Current Visit: Yes Status: Acute Code(s): M54.81 - OCCIPITAL NEURALGIA SNOMED Code(s): 12861978 (3) Muscle spasm Current Visit: Yes Status: Acute Code(s): M62.838 - OTHER MUSCLE SPASM SNOMED Code(s): 13375509 (4) Asthma exacerbation Current Visit: No Status: Acute Code(s): J45.901 - UNSPECIFIED ASTHMA WITH ( ACUTE) EXACERBATION SNOMED Code(s): 208850428 Plan: This patient is a 27-year-old female who has a long-standing history of migraine headaches. Yesterday she developed a severe onset of right-sided headache pain associated with right-sided face and arm numbness. She is never experience paresthesias associated with her typical migraine headaches. She was very concerned and came into the emergency room today for further evaluation. She was seen in the ER by Dr. Olson. She was sent for a computed tomography scan of the brain and CTA angiogram of the head and neck. Results are as noted above. The patient does have evidence of acute right occipital neuritis on examination. This is the major cause of her headache pain. She also has paresthesias and some degree of spasticity suggesting possibility of underlying demyelinating disease. We have recommended patient undergo MRI of the brain for further evaluation. We will check her vitamin D level as well. Anesthesia will be consulted tomorrow for tomorrow morning to perform a right occipital nerve block procedure for this patient. Her overall prognosis at this time remains guarded. Case was discussed at length with the patient and her son in detail. All of their questions were answered. She'll be reevaluated in the outpatient neurology clinic in 3-4 weeks. Her overall prognosis at this time remains guarded. Time with Patient: Greater than 30
--- NOTE | 2018-06-01 22:56 | HP ---
HISTORY AND PHYSICAL DATE OF SERVICE: 06/01/2018 CHIEF COMPLAINTS: Right-sided numbness. HISTORY OF PRESENT ILLNESS: This 27-year-old woman with a past medical history of multiple medical problems such as asthma, fibromyalgia, DJD, syncope, cholecystectomy, hysterectomy, anxiety, depression, PTSD was being followed by Dr. James in the outpatient setting. The patient had significant history of family history of strokes. The patient has had numbness and tingling of the right side for the last 2 weeks, but today the patient had significant recurrence of numbness of the right hand and some weakness right facial numbness and drooping also which is noted by family and the patient taken to [facility] and admitted for evaluation and treatment. The patient also had some headache also. The initial evaluation including CT angio and stroke workup was basically negative and the patient is admitted for further evaluation and treatment for possible TIA. There is no history of any fever, rigors or chills. No history of headache, loss of consciousness, seizures at this time. The chest x-ray was negative as well. PAST MEDICAL HISTORY: History of fibromyalgia, history of asthma, history of DJD, history of syncope, history of cholecystectomy, anxiety, depression, PTSD. MEDICATIONS: Prior to admission include home medications are: 1. Zantac 150 mg p.o. b.i.d. 2. Robaxin 750 mg p.o. q.i.d. 3. Effexor XR 75 mg p.o. q.h.s. 4. [place] 5 mg q.i.d. p.r.n. 5. Risperdal 1 mg q.h.s. 6. Gabapentin 600 mg p.o. t.i.d. ALLERGIES: ADHESIVE TAPES, AMOXICILLIN, ROCEPHIN, FEXOFENADINE, KETORALAC, LORATADINE, MEPERIDINE, MORPHINE, PENICILLIN, POTASSIUM, PROPOXYPHENE, SULFA. FAMILY HISTORY: Unable to obtain. Patient is adopted. SOCIAL HISTORY: History of smoking on a regular basis. REVIEW OF SYSTEMS: ENT: No diminished hearing or vision. CARDIOVASCULAR: No angina or palpitations. Respiration: No cough. GI as mentioned earlier. : No dysuria. NERVOUS SYSTEM: As mentioned earlier. Allergy/Immunology: No asthma or hayfever. Musculoskeletal: As mentioned above. Hematology/Oncology: No history of anemia. Endocrine: No history of diabetes or hypothyroidism. Constitutional: As mentioned earlier. Dermatology: Negative. Rheumatology: Negative. Psychiatry: As mentioned earlier. PHYSICAL EXAMINATION: The patient is alert and oriented times three. Pulse is 111, blood pressure 120 /67, respirations 18, temperature 98.2, pulse ox 99% on room air. HEENT: Conjunctivae normal. Oral mucosa moist. Neck is no jugular venous distention. No lymph node enlargement. Cardiovascular system: S1, S2 muffled. Respirations: Breath sounds diminished in the bases. No rhonchi. No crackles. ABDOMEN: Soft, nontender. No mass palpable. Legs: No edema. No swelling. Central nervous system: Higher functions as mentioned earlier. Moves all four extremities. No focal deficits. Lymphatics: No lymph nodes palpable in the neck, axillae or groin. Skin: No ulcer, rash or bleeding. LABS: WBC 15, hemoglobin 14.4. Glucose 69. ASSESSMENT: 1. Numbness and weakness of the right side possible acute transient ischemic attack involving the left hemisphere. 2. Increased WBC. 3. History of asthma. 4. History of fibromyalgia. 5. History of degenerative joint disease. 6. History of syncope. 7. History of cervical uterine colon cancer with hysterectomy and chemo. 8. History of right kidney stenosis. 9. Hypoglycemia. 10.Degenerative joint disease. 12.History of cholecystectomy. 13.History of anxiety, depression, PTSD. 14.History of nicotine dependence. RECOMMENDATIONS AND DISCUSSION: In this 27-year-old woman who presented with multiple complex medical issues, we will monitor the patient closely, continue the current medications, management symptomatic treatment. Otherwise, at this time, I recommend continue with current medications. Antiplatelet agents. Consultation for neurovascular workup. Guarded prognosis because of multiple complex medical issues. Further recommendations to follow. Copy of dictation being forwarded to Dr. Bijan James who is the primary care physician. MMODL / IJN: [id number] / MTDD
[2018-06-02] MEDS: SODIUM CHLORIDE 0.9% 1,000 ML IV SCH ×2 (00:07→08:30)
[2018-06-02] MEDS: HYDROcodone/APAP 5-325MG 1 EACH TAB PO PRN (04:24)
[2018-06-02 06:05] VITALS: RESP 16
[2018-06-02 07:09] LABS: Cholesterol 195 mg/dL (<200); HDL Cholesterol 37 mg/dL (40-60); LDL Cholesterol,Calculated 132 mg/dL (0-99); Triglycerides 128 mg/dL (<150)
[2018-06-02] MEDS ORDERED: PANTOPRAZOLE 40 MG TABLET PO SCH (07:30)
[2018-06-02 08:39] VITALS: BP 98/53; PULSE 86; TEMP 98.2
[2018-06-02] MEDS ORDERED: CLOPIDOGREL 75 MG TAB PO SCH (09:00)
[2018-06-02] MEDS ORDERED: DIAZEPAM 5 MG TAB PO ONE (09:30)
--- NOTE | 2018-06-02 10:44 | MR ---
EXAMINATION TYPE: MR brain wo con DATE OF EXAM: 06/02/2018 COMPARISON: CT Angio head and neck dated 06/01/[address] brain dated 06/01/2018 HISTORY: TIA. Rt sided numbness on the prior exams. TECHNIQUE: Multiplanar, multisequence images of the brain and brainstem is performed without intravenous contras t. FINDINGS: Diffusion weighted images demonstrate no evidence of a recent infarct or other diffusion ab normality. There is no extra-axial fluid collection or significant white matter signal abnormality. The ventricular system and cisternal spaces are normal in size and appearance. The brain volume is age appropriate. Midline structures demonstrate normal morphology. The craniocervical junction appears within normal limits. The dural venous sinuses appear patent. The visualized sinuses demonstrate minimal mucosal th ickening within the maxillary and ethmoid sinuses. The globes appear symmetric. IMPRESSION: No evidence of acute infarct or white matter change. Minimal paranasal sinus disease.
[2018-06-02] MEDS ORDERED: ATORVASTATIN 10 MG TAB PO SCH (11:15)
[2018-06-02] MEDS ORDERED: ASPIRIN 325 MG TAB PO SCH (12:00)
--- NOTE | 2018-06-02 12:29 | ECHOF ---
Referral Reason:Stroke MEASUREMENTS -------- HEIGHT: 160.0 cm WEIGHT: 68.0 kg BP: 130/80 IVSd: 1.4 cm (0.6 - 1.1) LVIDd: 3.5 cm (3.9 - 5.3) LVPWd: 1.0 cm (0.6 - 1.1) IVSs: 1.5 cm LVIDs: 2.5 cm LVPWs: 1.7 cm LA Diam: 2.6 cm (2.7 - 3.8) Ao Diam: 2.4 cm (2.0 - 3.7) AV Cusp: 1.8 cm (1.5 - 2.6) LA Diam: 2.5 cm (2.7 - 3.8) MV EXCURSION: 22.560 mm (> 18.000) MV EF SLOPE: 70 mm/s (70 - 150) EPSS: 0.3 cm MV E Zafar: 0.73 m/s MV DecT: 149 ms MV A Zafar: 0.56 m/s MV E/A Ratio: 1.30 RAP: 5.00 mmHg RVSP: 5.68 mmHg FINDINGS -------- Sinus rhythm. This was a technically adequate study. LV size, wall thickness and systolic function are normal, with an EF greater than 55%. The left yaneli tricular size is normal. The right ventricle is normal in size. The left atrial size is normal. The right atrial size is normal. The aortic valve is trileaflet, and appears structurally normal. No aortic stenosis or regurgitation. The mitral valve is normal. Mild mitral regurgitation is present. Mild tricuspid regurgitation present. There is no evidence of pulmonary hypertension. The right v entricular systolic pressure, as measured by Doppler, is 5.68mmHg. There is no pulmonic regurgitation present. The aortic root size is normal. There is no pericardial effusion. CONCLUSIONS -------- 1. Sinus rhythm. 2. This was a technically adequate study. 3. LV size, wall thickness and systolic function are normal, with an EF greater than 55%. 4. The left ventricular size is normal. 5. The left atrial size is normal. 6. The aortic valve is trileaflet, and appears structurally normal. No aortic stenosis or regurgitati on. 7. Mild mitral regurgitation is present. 8. Mild tricuspid regurgitation present. 9. There is no evidence of pulmonary hypertension. 10. There is no pulmonic regurgitation present. 11. The aortic root size is normal. 12. There is no pericardial effusion. MACHINE STRIPER: Grace Carbone RDCS
[2018-06-02] MEDS: GABAPENTIN 300 MG CAP PO SCH (12:43)
[2018-06-02] MEDS: METHOCARBAMOL 750 MG TAB PO SCH ×2 (12:43→12:48)
[2018-06-02] MEDS: FAMOTIDINE 20 MG TAB PO SCH (12:43)
[2018-06-02] MEDS: NICOTINE 14MG/24HR PATCH TRANSDERM SCH (12:43)
[2018-06-02] MEDS: HEPARIN SODIUM,PORCINE 5,000 UNIT/ML 1 ML VIAL SQ SCH (12:47)
--- NOTE | 2018-06-02 23:09 | DS ---
DISCHARGE SUMMARY DATE OF SERVICE: 06/02/2018 FINAL DIAGNOSES: 1. Numbness and weakness of the right side with possible acute transient ischemic attack involving the left hemisphere. 2. Increased WBC. 3. History of asthma. 4. History of fibromyalgia. 5. Hyperlipidemia. 6. Degenerative joint disease. 7. Syncope. 8. Family history of strokes. 9. History of cervical uterine colon cancer with hysterectomy and chemo. 10.History of right kidney stenosis. 11.Hypoglycemia. 12.History of degenerative joint disease. 13.History of cholecystectomy. 14.History of anxiety, depression, PTSD. 15.History of nicotine dependence. DISCHARGE DISPOSITION: The patient is being discharged in stable condition with guarded prognosis. HISTORY OF PRESENT ILLNESS: This 27-year-old woman with a past medical history of multiple medical problems, as mentioned earlier, being followed by Dr. James in the outpatient setting, was admitted with right-sided numbness. The patient treated symptomatically. Neurovascular workup was basically negative. Brain MRI was also done. Neurology cleared the patient for discharge. A brain MRI showed no acute abnormality. The patient is being discharged in stable condition with guarded prognosis. On exam, vital signs are stable. Cardiovascular: S1, S2. Abdomen is soft. Nervous system: No focal deficits. DISCHARGE ADVICE AND MEDICATIONS: 1. Discharge diet is cardiac diet. 2. Activity limited until follow up. 3. Follow up with Dr. James in 2-3 days. 4. Follow up with Dr. Basilio Nagel as advised. MEDICATIONS: 1. Gabapentin 60 mg t.i.d. 2. [place] 5 mg q.i.d. p.r.n. 3. Robaxin 750 mg p.o. q.i.d. 4. Zantac 150 mg b.i.d. 5. Risperdal 1 mg q.h.s. 6. Effexor XR 75 mg q.h.s. 7. Lipitor 10 mg p.o. daily. 8. Plavix 75 mg p.o. daily. 9. [place]it[place] 14 daily. Once again the patient is being discharged in stable condition with guarded prognosis. MMODL / IJN: [id number] /
== END 2018-06-02 13:36 | disposition home or self-care (01) ==
LOC: EC 11:51 → 3SCARD 14:34
PROVIDERS: ADMIT Hospitalist; ATTEND Hospitalist
DX: R20.0 Anesthesia of skin (principal); R53.1 Weakness; M54.81 Occipital neuralgia; R20.2 Paresthesia of skin; R29.810 Facial weakness; D72.829 Elevated white blood cell count, unspecified; J45.909 Unspecified asthma, uncomplicated; G43.909 Migraine, unspecified, not intractable, without status migrainosus; M79.7 Fibromyalgia; F43.10 Post-traumatic stress disorder, unspecified; F32.9 Major depressive disorder, single episode, unspecified; F41.9 Anxiety disorder, unspecified; E78.5 Hyperlipidemia, unspecified; M19.90 Unspecified osteoarthritis, unspecified site; M50.20 Other cervical disc displacement, unspecified cervical region; I49.3 Ventricular premature depolarization; M54.41 Lumbago with sciatica, right side; E16.2 Hypoglycemia, unspecified; F17.200 Nicotine dependence, unspecified, uncomplicated; Z79.899 Other long term (current) drug therapy; Z88.1 Allergy status to other antibiotic agents; Z88.5 Allergy status to narcotic agent; Z88.0 Allergy status to penicillin; Z88.2 Allergy status to sulfonamides; Z88.8 Allergy status to other drugs, medicaments and biological substances; Z91.048 Other nonmedicinal substance allergy status; Z90.710 Acquired absence of both cervix and uterus; Z90.49 Acquired absence of other specified parts of digestive tract; Z16.24 Resistance to multiple antibiotics; Z86.79 Personal history of other diseases of the circulatory system; Z85.41 Personal history of malignant neoplasm of cervix uteri; Z85.42 Personal history of malignant neoplasm of other parts of uterus; Z85.038 Personal history of other malignant neoplasm of large intestine; Z92.21 Personal history of antineoplastic chemotherapy; Z82.0 Family history of epilepsy and other diseases of the nervous system; Z82.3 Family history of stroke
CPT/HCPCS: 96372; 96374; 96375; 99291; 36415; 93005; 93306; 97161; 92523; 80061; 80053; 82550; 82553; 84484; 85025; 85610; 85730; 82306; 71046; 70496; 70450; 70498; 70551; G0378 ×2; S4990 ×2; J2060; J1644; J2765; J3010; Q9967

== ENCOUNTER 2018-06-03 10:41 | Emergency (ER) | payer OTHER ==
--- NOTE | 2018-06-03 11:59 | ED ---
Extremity Problem HPI - General Chief complaint: Extremity Problem,Nontraumatic Stated complaint: rt arm pain, poss blood clot Time Seen by Provider: 06/03/18 11:37 Source: patient, RN notes reviewed, old records reviewed Mode of arrival: ambulatory - History of Present Illness Initial comments: Patient is a 27-year-old female, with a recent history of TIA presents emergency department today with chief complaint of right arm pain extending from the elbow to the hand. She reports it feels swollen and cold touch. Patient reports that the recent diagnosis of TIA was earlier this week. She started on Lipitor and Plavix at that time. Patient states that she has had some pain with range of motion in the elbow and arm. She reports that majority of her IVs were in the left. Patient states that she's had no fevers or chills. She denies any chest pain or shortness breath Patient denies any headache or neurological deficits. - Related Data Home Medications Medication Instructions Recorded Confirmed Gabapentin 600 mg PO TID 10/16/17 06/01/18 HYDROcodone/APAP 5-325MG [[place] 0.5 tab PO QID PRN 06/01/18 06/01/18 5-325] Methocarbamol [Robaxin-750] 750 mg PO QID 06/01/18 06/01/18 Ranitidine HCl [Zantac] 150 mg PO BID 06/01/18 06/01/18 Venlafaxine HCl ER [Effexor XR] 75 mg PO HS 06/01/18 06/01/18 risperiDONE [RisperDAL] 1 mg PO HS 06/01/18 06/01/18 Previous Rx's Medication Instructions Recorded Atorvastatin [Lipitor] 10 mg PO DAILY #30 tab 06/02/18 Clopidogrel [Plavix] 75 mg PO DAILY #30 tab 06/02/18 Nicotine 14Mg/24Hr Patch [Habitrol] 1 patch TRANSDERM DAILY #30 patch 06/02/18 Allergies Allergy/AdvReac Type Severity Reaction Status Date / Time adhesive tape Allergy skin Verified 06/01/18 12:17 blisters amoxicillin trihydrate Allergy Swelling Verified 06/01/18 12:17 [From Augmentin] ceftriaxone sodium Allergy Swelling Verified 06/01/18 12:17 [From Rocephin] clarithromycin [From Biaxin] Allergy Swelling Verified 06/01/18 12:17 fexofenadine HCl Allergy Swelling Verified 06/01/18 12:17 [From Leslye] ketorolac tromethamine Allergy Swelling Verified 06/01/18 12:17 [From Toradol] loratadine [From Claritin] Allergy Swelling Verified 06/01/18 12:17 meperidine HCl [From Demerol] Allergy Swelling Verified 06/01/18 12:17 morphine Allergy Swelling Verified 06/01/18 12:17 Penicillins Allergy Swelling Verified 06/01/18 12:17 potassium clavulanate Allergy Swelling Verified 06/01/18 12:17 [From Augmentin] propoxyphene Allergy Swelling Verified 06/01/18 12:17 [From Darvocet-N] Sulfa (Sulfonamide Allergy Swelling Verified 06/01/18 12:17 Antibiotics) Review of Systems ROS Statement: Those systems with pertinent positive or pertinent negative responses have been documented in the HPI. ROS Other: All systems not noted in ROS Statement are negative. Past Medical History Past Medical History: Asthma, Cancer, CVA/TIA, Fibromyalgia, Musculoskeletal Disorder, Syncope Additional Past Medical History / Comment(s): HX OF CERVICAL,UTERINE AND COLON CANCER W/ HYSTERECTOMY/CHEMO AT 16 YRS OLD. RIGHT KIDNEY STONES, HYPOGLYCEMIA ( HIGH PROTEIN DIET), BULGING DISCS CERVICAL, AND BACK, W/PAIN, R SIDED SCIATICA, CERVICAL PAIN, OCCIPITAL NEURALGIA. STATES HX OF PVC'S, SYNCOPE. History of Any Multi-Drug Resistant Organisms: C-DIFF Date of last positivie culture/infection: 2010 MDRO Source:: stool Past Surgical History: Cholecystectomy, Hysterectomy, Tonsillectomy Additional Past Surgical History / Comment(s): R sided kidney stents- since removed, EGD/colonoscopy, several pain clinic procedures/blocks. LOOP RECORDER INSERTION since removed. Past Anesthesia/Blood Transfusion Reactions: Motion Sickness, Postoperative Nausea & Vomiting (PONV) Additional Past Anesthesia/Blood Transfusion Reaction / Comment(s): PT IS ADOPTED AND DOES NOT KNOW FAMILY HX. Past Psychological History: Anxiety, Depression, PTSD Smoking Status: Current some day smoker Past Alcohol Use History: None Reported Past Drug Use History: None Reported - Past Family History Mother Family Medical History: Unable to Obtain Additional Family Medical History / Comment(s): Adopted Father Family Medical History: Neurologic Disorder Additional Family Medical History / Comment(s): Father of ALS. General Exam - General Exam Comments Initial Comments: This is a 27-year-old female. Alert and oriented. Patient appears in no acute distress. General appearance: alert, in no apparent distress Head exam: Present: atraumatic, normocephalic, normal inspection Eye exam: Present: normal appearance, PERRL, EOMI. Absent: scleral icterus, conjunctival injection, periorbital swelling ENT exam: Present: normal exam, mucous membranes moist Neck exam: Present: normal inspection. Absent: tenderness, meningismus, lymphadenopathy Respiratory exam: Present: normal lung sounds bilaterally. Absent: respiratory distress, wheezes, rales, rhonchi, stridor Cardiovascular Exam: Present: regular rate, normal rhythm, normal heart sounds. Absent: systolic murmur, diastolic murmur, rubs, gallop, clicks GI/Abdominal exam: Present: soft, normal bowel sounds. Absent: distended, tenderness, guarding, rebound, rigid Extremities exam: Present: normal inspection, full ROM, normal capillary refill , other (Patient has tenderness over the brachial radialis muscle over the right elbow and forearm. Patient has full range of motion of the arm and hand. Normal capillary refill less than 2 seconds. Radial pulse was palpable 2+. I was able to obtain the Doppler ultrasound to get an ulnar pulse which was normal. ). Absent: tenderness, pedal edema, joint swelling, calf tenderness Back exam: Present: normal inspection Neurological exam: Present: alert, oriented X3, CN II-XII intact Psychiatric exam: Present: normal affect, normal mood Course Vital Signs 06/03/18 11:02 Temperature 99.2 F Pulse Rate 105 H Respiratory 18 Rate Blood Pressure 144/86 O2 Sat by Pulse 99 Oximetry Medical Decision Making - Medical Decision Making 27-year-old female presents emergency department today complaining of right arm pain and swelling Edvin Yeh reports pain and tenderness palpation over the brachioradialis muscle. Patient reports recent TIA. Essentially his normal pulses normal sensation in the hand distally. Able to obtain Doppler pulses. She started to the brachial radialis muscle. She recent start Lipitor. Could likely have myalgias related to starting Lipitor. I discussed with alt.brought shot was negative for DVT. Discussed that Patient should've rest, ice, take a temperature medication for the pain in the arm. Patient agrees treatment plan will comply. Return parameters were discussed. - Radiology Data Radiology results: report reviewed Ultrasound was negative for any acute process. Disposition Clinical Impression: Right arm pain, Brachioradialis muscle tenderness Disposition: HOME SELF-CARE Condition: Good Instructions: Arm Pain (ED) Additional Instructions: Patient is to follow-up with primary care provider. Return to emergency department if any alarming signs or symptoms occur. Is patient prescribed a controlled substance at d/c from ED?: No Referrals: Bijan James DO [Primary Care Provider] - 1-2 days Time of Disposition: 13:21
--- NOTE | 2018-06-03 12:55 | US ---
EXAMINATION TYPE: US venous doppler duplex UE RT DATE OF EXAM: 06/03/2018 COMPARISON: NONE CLINICAL HISTORY: Pain. Recent IV on Thursday in right arm, pain in right arm. Patient is taking blood thinners SIDE PERFORMED: Right Right Arm: Negative for DVT Grayscale, color doppler, spectral doppler imaging performed of the deep veins of the right upper ext remity. There is normal flow, compressibility and vascular waveforms. IMPRESSION: No ultrasound evidence for acute deep or superficial vein thrombus in the right upper extremity.
[2018-06-03 13:30] VITALS: BP 137/81; PULSE 98; RESP 16; TEMP 99
== END 2018-06-03 13:30 | disposition home or self-care (01) ==
LOC: EC 10:41
DX: M79.7 Fibromyalgia (principal); F32.9 Major depressive disorder, single episode, unspecified; F41.9 Anxiety disorder, unspecified; F43.10 Post-traumatic stress disorder, unspecified; F17.200 Nicotine dependence, unspecified, uncomplicated; Z85.41 Personal history of malignant neoplasm of cervix uteri; Z85.038 Personal history of other malignant neoplasm of large intestine; Z85.42 Personal history of malignant neoplasm of other parts of uterus; Z79.899 Other long term (current) drug therapy; Z88.6 Allergy status to analgesic agent; Z88.5 Allergy status to narcotic agent; Z88.0 Allergy status to penicillin; Z88.2 Allergy status to sulfonamides; Z91.048 Other nonmedicinal substance allergy status; Z88.8 Allergy status to other drugs, medicaments and biological substances
CPT/HCPCS: 99284

== ENCOUNTER 2018-06-07 13:44 | Observation (INO) | payer OTHER ==
[2018-06-07 14:11] LABS: Glucose,Whole Blood 93 mg/dL (75-99)
--- NOTE | 2018-06-07 14:32 | CT ---
EXAMINATION TYPE: CT brain wo con for TPA DATE OF EXAM: 06/07/2018 COMPARISON: 06/01/2018 HISTORY: Rt facial droop CT DLP: 1060.4 mGycm Automated exposure control for dose reduction was used. FINDINGS: There is no acute intracranial hemorrhage, mass effect, or midline shift identified. The ventricles and sulci are within normal limits in size. Changes of chronic sinusitis noted.. IMPRESSION: No acute intracranial hemorrhage, mass effect, or midline shift is seen. If there is clinical concern for acute ischemia correlate with MRI as clinically warranted.
[2018-06-07 14:35] LABS: Basophils # (A) 0.1 k/uL (0-0.2); Basophils % (A) 1 %; Eosinophils # (A) 0.4 k/uL (0-0.7); Eosinophils % (A) 3 %; HCT 42.9 % (34.0-46.0); HGB 14.5 gm/dL (11.4-16.0); Lymphocytes % (A) 32 %; MCH 30.3 pg (25.0-35.0); MCHC 33.9 g/dL (31.0-37.0); MCV 89.4 fL (80.0-100.0); Mean Platelet Volume 7.2; Monocytes # (A) 0.7 k/uL (0-1.0); Monocytes % (A) 6 %; Neutrophils % (A) 57 %; Platelet Count 264 k/uL (150-450); RDW 12.6 % (11.5-15.5); WBC 12.3 k/uL (3.8-10.6)
[2018-06-07 14:46] LABS: ALT 18 U/L (9-52); AST 20 U/L (14-36); Albumin 4.4 g/dL (3.5-5.0); Alkaline Phosphatase 60 U/L (38-126); Anion Gap 9 mmol/L; Blood Urea Nitrogen 11 mg/dL (7-17); Calcium 10.2 mg/dL (8.4-10.2); Carbon Dioxide 25 mmol/L (22-30); Chloride 106 mmol/L (98-107); Glucose 74 mg/dL (74-99); Potassium 4.5 mmol/L (3.5-5.1); Sodium 140 mmol/L (137-145); Total Bilirubin 0.2 mg/dL (0.2-1.3); Total Protein 6.9 g/dL (6.3-8.2)
[2018-06-07 14:47] LABS: Prothrombin Time 10.1 sec (9.0-12.0)
[2018-06-07 14:52] LABS: Creatine Kinase 83 U/L (30-135)
--- NOTE | 2018-06-07 15:01 | ED ---
Neuro HPI - General Chief Complaint: Neuro Symptoms/Deficit Stated Complaint: poss stroke Time Seen by Provider: 06/07/18 13:50 Source: patient, family, RN notes reviewed, old records reviewed Mode of arrival: wheelchair Limitations: no limitations - History of Present Illness Is the patient presenting with stroke symptoms?: Yes Initial Comments: This is a 26-year-old female who presents with complaints of sudden onset at 12: 15 this afternoon of right facial numbness and asymmetry along with right upper and lower extremity weakness. She also has a headache which she states is about 3-4/10 in severity it came on about the same time. Of note she just discharged last week after being worked up for a similar presentation. She denies any blurry vision nausea vomiting fevers chills sweats other symptoms. Of note the patient does states she has improved she has no lower motor weakness to her lower extremities the right upper extremity so weak that improved. She still has right facial asymmetry and difficulty with speech. - Related Data Home Medications: Home Medications Medication Instructions Recorded Confirmed Gabapentin 600 mg PO TID 10/16/17 06/07/18 HYDROcodone/APAP 5-325MG [[place] 0.5 tab PO QID PRN 06/01/18 06/07/18 5-325] Methocarbamol [Robaxin-750] 750 mg PO QID 06/01/18 06/07/18 Ranitidine HCl [Zantac] 150 mg PO BID 06/01/18 06/07/18 Venlafaxine HCl ER [Effexor XR] 75 mg PO HS 06/01/18 06/07/18 risperiDONE [RisperDAL] 1 mg PO HS 06/01/18 06/07/18 ALPRAZolam [Xanax] 0.5 mg PO BID 06/07/18 06/07/18 Previous Rx's Medication Instructions Recorded Atorvastatin [Lipitor] 10 mg PO DAILY #30 tab 06/02/18 Clopidogrel [Plavix] 75 mg PO DAILY #30 tab 06/02/18 Allergies/Adverse Reactions: Allergies Allergy/AdvReac Type Severity Reaction Status Date / Time adhesive tape Allergy skin Verified 06/07/18 14:30 blisters amoxicillin trihydrate Allergy Swelling Verified 06/07/18 14:30 [From Augmentin] ceftriaxone sodium Allergy Swelling Verified 06/07/18 14:30 [From Rocephin] clarithromycin [From Biaxin] Allergy Swelling Verified 06/07/18 14:30 fexofenadine HCl Allergy Swelling Verified 06/07/18 14:30 [From Leslye] ketorolac tromethamine Allergy Swelling Verified 06/07/18 14:30 [From Toradol] loratadine [From Claritin] Allergy Swelling Verified 06/07/18 14:30 meperidine HCl [From Demerol] Allergy Swelling Verified 06/07/18 14:30 morphine Allergy Swelling Verified 06/07/18 14:30 Penicillins Allergy Swelling Verified 06/07/18 14:30 potassium clavulanate Allergy Swelling Verified 06/07/18 14:30 [From Augmentin] propoxyphene Allergy Swelling Verified 06/07/18 14:30 [From Darvocet-N] Sulfa (Sulfonamide Allergy Swelling Verified 06/07/18 14:30 Antibiotics) Review of Systems ROS Statement: Those systems with pertinent positive or pertinent negative responses have been documented in the HPI. ROS Other: All systems not noted in ROS Statement are negative. General Exam - General Exam Comments Initial Comments: This is a well-developed well-nourished awake alert oriented x 3 female Limitations: no limitations General appearance: alert, anxious Head exam: Present: atraumatic, normocephalic, normal inspection Eye exam: Present: PERRL, EOMI ENT exam: Present: mucous membranes moist Neck exam: Present: normal inspection, other (No stridor JVD or bruits). Absent : tenderness, meningismus, lymphadenopathy Respiratory exam: Present: normal lung sounds bilaterally. Absent: respiratory distress, wheezes, rales, rhonchi, stridor Cardiovascular Exam: Present: regular rate, normal rhythm, normal heart sounds. Absent: systolic murmur, diastolic murmur, rubs, gallop, clicks GI/Abdominal exam: Present: soft, normal bowel sounds. Absent: distended, tenderness, guarding, rebound, rigid Extremities exam: Present: normal inspection, normal capillary refill. Absent: full ROM, tenderness, pedal edema, joint swelling, calf tenderness Back exam: Present: normal inspection Neurological exam: Present: alert, oriented X3, motor sensory deficit. Absent: CN II-XII intact Psychiatric exam: Present: normal affect, normal mood Skin exam: Present: warm, dry, intact, normal color. Absent: rash Stroke MDM - Lab Data Result diagrams: 06/07/18 14:10 06/07/18 14:10 Lab Results 06/07/18 06/07/18 06/07/18 Range/Units 14:10 14:10 14:10 WBC 12.3 H (3.8-10.6) k/uL RBC 4.80 (3.80-5.40) m/uL Hgb 14.5 (11.4-16.0) gm/dL Hct 42.9 (34.0-46.0) % MCV 89.4 (80.0-100.0) fL MCH 30.3 (25.0-35.0) pg MCHC 33.9 (31.0-37.0) g/dL RDW 12.6 (11.5-15.5) % Plt Count 264 (150-450) k/uL Neutrophils % 57 % Lymphocytes % 32 % Monocytes % 6 % Eosinophils % 3 % Basophils % 1 % Neutrophils # 7.0 (1.3-7.7) k/uL Lymphocytes # 4.0 (1.0-4.8) k/uL Monocytes # 0.7 (0-1.0) k/uL Eosinophils # 0.4 (0-0.7) k/uL Basophils # 0.1 (0-0.2) k/uL PT (9.0-12.0) sec INR (<1.2) APTT (22.0-30.0) sec Sodium (137-145) mmol/L Potassium (3.5-5.1) mmol/L Chloride (98-107) mmol/L Carbon Dioxide (22-30) mmol/L Anion Gap mmol/L BUN (7-17) mg/dL Creatinine (0.52-1.04) mg/dL Est GFR (CKD-EPI)AfAm (>60 ml/min/1.73 sqM) Est GFR (CKD-EPI)NonAf (>60 ml/min/1.73 sqM) Glucose (74-99) mg/dL POC Glucose (mg/dL) 93 (75-99) mg/dL POC Glu Mechanic Assistant ID Yen Hernández Calcium (8.4-10.2) mg/dL Total Bilirubin (0.2-1.3) mg/dL AST (14-36) U/L ALT (9-52) U/L Alkaline Phosphatase (38-126) U/L Total Creatine Kinase 83 (30-135) U/L CK-MB (CK-2) <0.2 (0.0-2.4) ng/mL CK-MB (CK-2) Rel Index Troponin I <0.012 (0.000-0.034) ng/mL Total Protein (6.3-8.2) g/dL Albumin (3.5-5.0) g/dL 06/07/18 06/07/18 Range/Units 14:10 14:10 WBC (3.8-10.6) k/uL RBC (3.80-5.40) m/uL Hgb (11.4-16.0) gm/dL Hct (34.0-46.0) % MCV (80.0-100.0) fL MCH (25.0-35.0) pg MCHC (31.0-37.0) g/dL RDW (11.5-15.5) % Plt Count (150-450) k/uL Neutrophils % % Lymphocytes % % Monocytes % % Eosinophils % % Basophils % % Neutrophils # (1.3-7.7) k/uL Lymphocytes # (1.0-4.8) k/uL Monocytes # (0-1.0) k/uL Eosinophils # (0-0.7) k/uL Basophils # (0-0.2) k/uL PT 10.1 (9.0-12.0) sec INR 1.0 (<1.2) APTT 25.0 (22.0-30.0) sec Sodium 140 (137-145) mmol/L Potassium 4.5 (3.5-5.1) mmol/L Chloride 106 (98-107) mmol/L Carbon Dioxide 25 (22-30) mmol/L Anion Gap 9 mmol/L BUN 11 (7-17) mg/dL Creatinine 0.65 (0.52-1.04) mg/dL Est GFR (CKD-EPI)AfAm >90 (>60 ml/min/1.73 sqM) Est GFR (CKD-EPI)NonAf >90 (>60 ml/min/1.73 sqM) Glucose 74 (74-99) mg/dL POC Glucose (mg/dL) (75-99) mg/dL POC Glu Mechanic Assistant ID Calcium 10.2 (8.4-10.2) mg/dL Total Bilirubin 0.2 (0.2-1.3) mg/dL AST 20 (14-36) U/L ALT 18 (9-52) U/L Alkaline Phosphatase 60 (38-126) U/L Total Creatine Kinase (30-135) U/L CK-MB (CK-2) (0.0-2.4) ng/mL CK-MB (CK-2) Rel Index Troponin I (0.000-0.034) ng/mL Total Protein 6.9 (6.3-8.2) g/dL Albumin 4.4 (3.5-5.0) g/dL - NIH Stroke Scale 1a. Level of Consciousness: (0) alert 1b. LOC Questions: (0) answers correctly 1c. LOC Commands: (0) performs tasks correctly 2. Best Gaze: (0) normal 3. Visual: (0) no visual loss 4. Facial Palsy: (1) minor paralysis 5a. Motor Arm Left: (0) no drift 5b. Motor Arm Right: (1) drift 6a. Motor Leg Left: (0) no drift 6b. Motor Leg Right: (0) no drift 7. Limb Ataxia: (0) absent 8. Sensory: (0) normal 9. Best Language: (0) no aphasia 10. Dysarthria: (1) mild/moderate dysarthria 11. Extinction/Inattention: (0) no abnormality - Thrombolytic Inclusion/Exclusion Thrombolytic Contraindications: Rapidly Improving s/s - Medical Decision Making The patient did present initially with improving symptoms and denies stroke scale of 3 which improved to 1. This is similar to the presentation the patient had a previous week. Patient will be readmitted for reevaluation migraine variant is considered. - EKG Data -: EKG Interpreted by Me EKG shows normal: sinus rhythm, axis, intervals, QRS complexes, ST-T waves ( Normal sinus rhythm of 80. Interval 158 QRS duration 82 daily since QTC 354/ 421 this is a normal-appearing EKG.) Rate: normal When compared to previous EKG there are: no significant change Past Medical History Past Medical History: Asthma, Cancer, CVA/TIA, Fibromyalgia, Musculoskeletal Disorder, Syncope Additional Past Medical History / Comment(s): HX OF CERVICAL,UTERINE AND COLON CANCER W/ HYSTERECTOMY/CHEMO AT 16 YRS OLD. RIGHT KIDNEY STONES, HYPOGLYCEMIA ( HIGH PROTEIN DIET), BULGING DISCS CERVICAL, AND BACK, W/PAIN, R SIDED SCIATICA, CERVICAL PAIN, OCCIPITAL NEURALGIA. STATES HX OF PVC'S, SYNCOPE. History of Any Multi-Drug Resistant Organisms: C-DIFF Date of last positivie culture/infection: 2010 MDRO Source:: stool Past Surgical History: Cholecystectomy, Hysterectomy, Tonsillectomy Additional Past Surgical History / Comment(s): R sided kidney stents- since removed, EGD/colonoscopy, several pain clinic procedures/blocks. LOOP RECORDER INSERTION since removed. Past Anesthesia/Blood Transfusion Reactions: Motion Sickness, Postoperative Nausea & Vomiting (PONV) Additional Past Anesthesia/Blood Transfusion Reaction / Comment(s): PT IS ADOPTED AND DOES NOT KNOW FAMILY HX. Past Psychological History: Anxiety, Depression, PTSD Smoking Status: Current some day smoker Past Alcohol Use History: None Reported Past Drug Use History: None Reported - Past Family History Mother Family Medical History: Unable to Obtain Additional Family Medical History / Comment(s): Adopted Father Family Medical History: Neurologic Disorder Additional Family Medical History / Comment(s): Father of ALS. Course Vital Signs 06/07/18 06/07/18 06/07/18 13:59 14:14 14:29 Temperature 98.5 F Pulse Rate 96 86 92 Respiratory 18 18 18 Rate Blood Pressure 121/74 112/75 116/75 O2 Sat by Pulse 99 97 97 Oximetry 06/07/18 15:25 Temperature Pulse Rate 81 Respiratory 18 Rate Blood Pressure 104/71 O2 Sat by Pulse 99 Oximetry - Reevaluation(s) Reevaluation #1: 06/07/18 16:00 Due to the circumstances a code stroke was called Dr. Verdugo from interventional neurology did evaluate the patient via telemedicine. CAT scans were reviewed patient currently is not a candidate for TPA. He will be recommending that she seen in this facility for inpatient workup Reevaluation #2: 06/07/18 16:01 Patient did get improvement in her symptoms her NIH score is down to 1. Critical Care Time Critical Care Time: Yes Critical Care Time: 39 minutes of critical care time which includes initial presentation with history physical labs x-rays also reevaluation the patient. Discussion with the neuro interventional is. Discussed with the family. Review of old charting. Discussion with the main physician admission orders and documentation of the above. Disposition Clinical Impression: Transient ischemic attack (TIA), Cephalgia Disposition: ADMITTED IP TO THIS HOSP Condition: Serious Referrals: Bijan James DO [Primary Care Provider] - 1-2 days
[2018-06-07] MEDS ORDERED: METOCLOPRAMIDE 5 MG/ML 2 ML VIAL IVP STA (15:02)
[2018-06-07] MEDS ORDERED: fentaNYL (PF) 50 MCG/ML 2 ML AMP IV STA (15:03)
[2018-06-07 15:05] LABS: Creatine Kinase MB <0.2 ng/mL (0.0-2.4); Troponin I <0.012 ng/mL (0.000-0.034)
--- NOTE | 2018-06-07 15:07 | XR ---
EXAMINATION TYPE: XR chest 2V DATE OF EXAM: 06/07/2018 COMPARISON: 06/01/2018 HISTORY: Altered mental status TECHNIQUE: Frontal and lateral views of the chest are obtained. FINDINGS: There is no focal air space opacity, pleural effusion, or pneumothorax seen. The cardiac silhouette size is within normal limits. The osseous structures are intact. IMPRESSION: No acute cardiopulmonary process.
[2018-06-07] MEDS ORDERED: SODIUM CHLORIDE 0.9% 1,000 ML IV SCH (16:15)
[2018-06-07] MEDS ORDERED: HYDROcodone/APAP 5-325MG 1 EACH TAB PO PRN (16:16)
[2018-06-07 17:15] VITALS: BP 121/72; PULSE 92; RESP 12; TEMP 98.2
[2018-06-07] MEDS ORDERED: METHOCARBAMOL 750 MG TAB PO SCH (18:00)
[2018-06-07] MEDS ORDERED: FAMOTIDINE 20 MG TAB PO SCH (21:00)
[2018-06-07] MEDS ORDERED: risperiDONE 1 MG TAB PO SCH (21:00)
[2018-06-07] MEDS ORDERED: ALPRAZolam 0.5 MG TAB PO SCH (21:00)
[2018-06-07] MEDS ORDERED: VENLAFAXINE HCL ER 75 MG CAP PO SCH (21:00)
[2018-06-07] MEDS ORDERED: GABAPENTIN 300 MG CAP PO SCH (22:00)
[2018-06-08] MEDS ORDERED: ATORVASTATIN 10 MG TAB PO SCH (09:00)
[2018-06-08] MEDS ORDERED: CLOPIDOGREL 75 MG TAB PO SCH (09:00)
== END 2018-06-07 17:09 | disposition left against medical advice (07) ==
LOC: EC 13:44 → 3SCARD 16:17
PROVIDERS: ADMIT Hospitalist; ATTEND Hospitalist
DX: R20.0 Anesthesia of skin (principal); R53.1 Weakness; R51 Headache; D72.829 Elevated white blood cell count, unspecified; M79.7 Fibromyalgia; J45.909 Unspecified asthma, uncomplicated; M19.90 Unspecified osteoarthritis, unspecified site; E78.5 Hyperlipidemia, unspecified; M50.20 Other cervical disc displacement, unspecified cervical region; M54.31 Sciatica, right side; E16.2 Hypoglycemia, unspecified; F43.10 Post-traumatic stress disorder, unspecified; F32.9 Major depressive disorder, single episode, unspecified; F41.9 Anxiety disorder, unspecified; Z16.24 Resistance to multiple antibiotics; F17.200 Nicotine dependence, unspecified, uncomplicated; Z91.048 Other nonmedicinal substance allergy status; Z79.02 Long term (current) use of antithrombotics/antiplatelets; Z79.899 Other long term (current) drug therapy; Z88.0 Allergy status to penicillin; Z88.1 Allergy status to other antibiotic agents; Z88.2 Allergy status to sulfonamides; Z88.5 Allergy status to narcotic agent; Z88.8 Allergy status to other drugs, medicaments and biological substances; Z85.41 Personal history of malignant neoplasm of cervix uteri; Z92.21 Personal history of antineoplastic chemotherapy; Z86.79 Personal history of other diseases of the circulatory system; Z85.42 Personal history of malignant neoplasm of other parts of uterus; Z82.0 Family history of epilepsy and other diseases of the nervous system; Z82.3 Family history of stroke
CPT/HCPCS: 96374; 96375; 99291; 36415; 93005; 80053; 82550; 82553; 84484; 85025; 85610; 85730; 71046; 70450; G0378; J2765; J3010

== ENCOUNTER → 2018-07-09 | Outpatient (CLI) | payer OTHER ==
--- NOTE | 2018-07-09 19:15 | MR ---
EXAMINATION TYPE: MR angio head wo con DATE OF EXAM: 07/09/2018 COMPARISON: None HISTORY: Migraine CONTRAST: None TECHNIQUE: Multiplanar multiecho imaging on a 3.0 Karen magnet is performed through the [place] of T[place] lis. 3-D [id number] imaging is performed. Source images are reviewed on the computer in the axi al plane. Reconstructed images rotating on the computer are reviewed. FINDINGS: The internal carotid arteries bifurcate normally into A1 and M1 segments. The A2 segments are normal. Middle cerebral artery branches are normal. Anterior communicating artery is patent. The right posterior communicating artery is patent. The left posterior communicating artery is patent. Vertebrobasilar arteries within the [id number] are normal. Posterior cerebral vasculature is norm al. No suspicious aneurysm or aneurysmal dilatation is evident. No obstructions are identified. No significant flow-limiting stenosis is evident. IMPRESSIONS: 1. NORMAL MRA [place] OF [place].
--- NOTE | 2018-07-10 11:54 | MR ---
EXAMINATION TYPE: MR cervical spine wo con DATE OF EXAM: 07/09/2018 COMPARISON: 08/06/2016 HISTORY: Disc degeneration, migraine headaches CONTRAST: Performed utilizing 0 mL intravenous Gadavist gadolinium contrast. TECHNIQUE: Multiplanar multiecho imaging on a 3.0 [place] magnet is performed through the cervical spin e. FINDINGS: The craniovertebral junction is normal. Vertebral body alignment is normal. C7-T1: No focal disc herniation or significant disc bulge is evident. No spinal canal stenosis or n eural foraminal stenosis is present. C6-7: No focal disc herniation or significant disc bulge is evident. No spinal canal stenosis or nathen ral foraminal stenosis is present. Mild disc desiccation is present without loss of disc height. C5-6: Subtle disc bulge is present with anterior thecal sac contact. No cord contact is evident. No s chelo canal stenosis or neural foraminal stenosis is present.. C4-5: No focal disc herniation or significant disc bulge is evident. No spinal canal stenosis or nathen ral foraminal stenosis is present. C3-4: No focal disc herniation or significant disc bulge is evident. No spinal canal stenosis or nathen ral foraminal stenosis is present. C2-3: No focal disc herniation or significant disc bulge is evident. No spinal canal stenosis or nathen ral foraminal stenosis is present. Exam is essentially stable from comparison. IMPRESSIONS: 1. Very minimal disc bulge C5-C6 with anterior thecal sac contact. 2. Minimal disc desiccation C6-7.
== END | disposition home or self-care (01) ==
LOC: RADMRIMAIN 13:01
PROVIDERS: ATTEND Psychiatry & Neurology Neurology
DX: G43.109 Migraine with aura, not intractable, without status migrainosus (principal); M50.222 Other cervical disc displacement at C5-C6 level
CPT/HCPCS: 70544; 72141

== ENCOUNTER → 2018-07-27 | Outpatient (CLI) | payer OTHER ==
[2018-07-27 13:26] VITALS: BP 115/78; PULSE 93; RESP 18
--- NOTE | 2018-07-27 14:11 | P.PAINPG ---
Subjective Progress Note Date: 07/27/18 This is follow-up visit for this patient with a history of severe and chronic low back pain with radiation to the right lower extremity diagnosed with lumbar radiculopathy and right sacroiliitis , we have done transforaminal epidural steroid injection which helped her lower extremity pain , and later on with done right-sided sacroiliac joint steroid injection , and that helped her right buttock pain, patient also has severe neck pain and headache she is diagnosed with occipital neuralgia and migraine headache , previously we have done right-sided occipital nerve block patient gets excellent pain relief , in May 2018 patient diagnosed with a TIA , and she had no residual , but currently patient complaining of some numbness in her upper extremities patient currently on [place] 5/325 every 6 hours ,and Neurontin 600 mg twice a day, Robaxin 750 mg every 6 hours Patient denies any side effects of the medication, denies excessive drowsiness or sleepiness, denies suicidal ideation, and reports that the current pain medication is helping To control the pain and improve activity of daily living Physical Examinations : 1-Constitutiona : Cooperative , not in acute distress . 2-HEENT : nech ; supple , eyes : no ptosis , no icterus, no photophobia . ENT : normal of hearing , normal oropharynx , no Thrush . 3- Respiratory : Chest clear to auscultations Bilaterally , no wheezing , no Rhonchi . 4- Cardiovascular : regular rate and rhythem , S1 , S2 , no S3 , no S4. 5- Gastrointestinal : abdomen soft no tenderness , bowel sounds positive all four quadrents , no organomegally . 6- Genitourinary : Defferred . 7- neurologic : Cranial nerve II to XII intact , no focal neurological deffecit . Severe tenderness over the right occipital nerve 8-psychatric : alert , oriented X 3 , appropriate affect , intact judgment and insight . 9- musculoskeltal : , Lumber spine = normal moter stegnth lower extremities ,thigh and legs , Assessment and plan= Right occipital neuralgia chronic low back pain secondary to lumbar radiculitis, right sacroiliitis, improved after the transforaminal epidural steroid injection and right sacroiliac joint steroid injection. Patient could benefit from right-sided occipital nerve block which will be done PIPPA , Objective - Vital Signs Vital signs: Vital Signs Temp Pulse 93 07/27/18 13:16 Resp 18 07/27/18 13:16 BP 115/78 07/27/18 13:16 Pulse Ox 93 L 07/27/18 13:16 Intake & Output 07/26/18 07/27/18 07/27/18 18:59 06:59 18:59 Weight 68.039 kg PQRS Measure Charge Sheet Measure #130: Documentation of Current Meds in Medical Chart: Patient's medications documented in chart Measure #226: Tobacco Use: Screen & Cessation Intervention: Pt screened for tobacco use AND intervention given Measure #111: Pneumonia Vaccination: Pneumococcal vaccine administered or previously received Measure #47: Advance Care Plan: Advance care planning discussed & documented, pt chose/unable to give Measure #412: Opioid Treatment Agreement: No documentation of signed opioid treatment agreement Measure #408: Opioid Therapy Follow-up Evaluation: Patient had NO f/u eval minimum every 3 months during opioid therapy Measure #317: Preventitive Care & Scrn High Bld Press & F/U: Normal blood pressure, f/u not required Measure #128: Body Mass Index (BMI) Screening & Follow-up: BMI documented ABOVE normal parameters - f/u documented Measure #131: Pain Assessment & Follow-up: Pain positive & plan documented, Follow-up scheduled Measure #431: Unhealthy Alcohol Use Preventative Care & Scrn: Patient not identified as an unhealthy alcohol user PQRS Narrative: Smoking Status Current every day smoker Do You Want the Pneumonia Vaccine Up to Date Vaccine AT THIS TIME? Narcotic Agreement Date Signed 04/14/17 Blood Pressure 115/78 Pain Intensity [Right Neck] 8 Hx Alcohol Use (MH) No Home Medications: Ambulatory Orders Gabapentin 600 mg PO TID 10/16/17 HYDROcodone/APAP 5-325MG [[place] 5-325] 0.5 tab PO QID PRN 06/01/18 Methocarbamol [Robaxin-750] 750 mg PO QID 06/01/18 Ranitidine HCl [Zantac] 150 mg PO BID 06/01/18 Venlafaxine HCl ER [Effexor XR] 75 mg PO HS 06/01/18 risperiDONE [RisperDAL] 1 mg PO HS 06/01/18 Atorvastatin [Lipitor] 10 mg PO DAILY #30 tab 06/02/18 ALPRAZolam [Xanax] 0.5 mg PO BID PRN 06/07/18 Aspirin 325 mg PO DAILY 07/27/18 Controlled Substance Measures - Controlled Substance Measures Is patient prescribed a controlled substance at discharge?: No When asked, does pt state using other controlled substances?: No If prescribed controlled substance>3 days was MAPS reviewed?: No If Rx opioid, was Start Talking consent form obtained?: No If opioid is for acute pain is fill amount 7 days or less?: No Was information provided regarding opioid addiction?: No
== END ==
LOC: PNWHC3 12:35
PROVIDERS: ATTEND Specialist
DX: G89.29 Other chronic pain (principal); M54.16 Radiculopathy, lumbar region; M46.1 Sacroiliitis, not elsewhere classified; M54.81 Occipital neuralgia; F17.200 Nicotine dependence, unspecified, uncomplicated; Z79.891 Long term (current) use of opiate analgesic; Z79.899 Other long term (current) drug therapy; Z79.82 Long term (current) use of aspirin
CPT/HCPCS: 99211

== ENCOUNTER → 2018-08-24 | Outpatient (CLI) | payer OTHER ==
[2018-08-24 11:38] VITALS: BP 108/74; PULSE 101; RESP 16
--- NOTE | 2018-08-24 13:30 | P.PN ---
Subjective Progress Note Date: 08/24/18 Emma is a 28-year-old female presents today with continued low back pain as well as occipital headaches. She reports since she's had the occipital nerve block that her pain is significantly improved. She reports pain in her lumbar spine on the right side going down her right leg. She reports that her pain is worse with standing for prolonged periods which causes her have numbness in her legs. She has pain with tenderness to palpation on the right leg and the right hip. She is tender to palpation in multiple areas throughout her body. She is also using multiple medications including opioids, benzodiazepines, muscle relaxants, as well as antipsychotics. She reports she is being weaned off her benzodiazepines. Her primary care physician does not want to write these medications for any further and requested that we take over her care. I discussed with her the risks and benefits of using these medications along with her age and addiction profile. Objective - Vital Signs Vital signs: Vital Signs Temp Pulse 101 H 08/24/18 11:38 Resp 16 08/24/18 11:38 BP 108/74 08/24/18 11:38 Pulse Ox 96 08/24/18 11:38 Intake & Output 08/23/18 08/24/18 08/24/18 18:59 06:59 18:59 Weight 72.121 kg - Exam General: Awake and alert oriented 3 no distress Respiratory exam: No audible wheezing no accessory muscle usage Cardiovascular exam: regular rate, palpable bilateral pulses, no lower extremity edema Abdominal exam: No distention nontender to palpation Cervical spine: Normal alignment, Spurling's negative, facet loading negative Lumbar spine: Loss of lumbar lordosis, forward flexed body position, tender to palpation over bilateral paraspinal muscles, facet loading is positive bilaterally. Straight leg raise is negative. Sacroiliac joints: Tender to palpation over the right SI joint, Jean Paul's test positive on right, gains on's positive on the right. She is also tender over the right trochanteric bursa. Neuro exam: Normal sensation in bilateral upper extremities, deep tendon reflexes are 2+ bilateral upper extremities. Normal sensation in bilateral lower extremities. Deep tendon reflexes are 2+ in lower extremities Psych exam: Cooperative, appropriate mood Assessment and Plan Assessment: #1 sacroiliitis #2 lumbar spondylosis without myelopathy #3 occipital neuralgia Plan: At this time are reviewed with patient her exam as well as her medication list. I advised her that the medication she is on her counterproductive to her overall health. I advised her age of 28 she should focus on her overall health and improving her overall health by daily exercise and try and avoid these medications in general. I advised him that I'm not comfortable writing these medications for her at this point until she is at least off the benzodiazepines. At this point I will schedule for right side SI joint injection. I discussed with the risks benefits and alternatives of the procedure and have also discussed with her in detail the risks of using chronic steroid injections including bone density loss, adjuvant suppression, as well as diabetes. Her mother is also with her the bedside. She would like to move forward with the injection. I advised her that she should hold off on future future injections after this one for at least 3-4 months
== END | disposition home or self-care (01) ==
LOC: PNWHC3 11:04
PROVIDERS: ATTEND Hospitalist
DX: M47.816 Spondylosis without myelopathy or radiculopathy, lumbar region (principal); M46.1 Sacroiliitis, not elsewhere classified; M54.81 Occipital neuralgia; Z79.891 Long term (current) use of opiate analgesic; Z79.899 Other long term (current) drug therapy
CPT/HCPCS: 99211

== ENCOUNTER 2018-09-07 09:24 | Day surgery (SDC) | payer OTHER ==
[2018-09-03 14:50] VITALS: BMI 26.5
[~2018-09-07 09:24] MED LIST changes: -LACTATED RINGERS 1,000 ML IV SCH; +SODIUM CHLORIDE 0.9% 500 ML 500 ML IV SCH
[2018-09-07 10:00] VITALS: TEMP 98.4
[2018-09-07] MEDS ORDERED: LIDOCAINE 1% 20 ML VIAL (10MG/ML) FOR IV START INTRADERMA ONE (10:05)
[2018-09-07] MEDS ORDERED: LACTATED RINGERS 1,000 ML IV ONE (10:05)
[2018-09-07] MEDS ORDERED: IV FLUID CONTINUATION 1,000 ML IV ONE (11:10)
[2018-09-07 11:13] VITALS: RESP 18
[2018-09-07 11:26] VITALS: BP 106/78; PULSE 81
--- NOTE | 2018-09-07 13:20 | FL ---
Fluoroscopy HISTORY: Pain 6 seconds fluoroscopy time supplied to the referring clinician. 1 intraoperative C-arm images docume nt the procedure. See dictated report from anesthesia.
--- NOTE | 2018-09-07 15:19 | P.PCN ---
Date of Procedure: 09/07/18 Procedure(s) Performed: Procedure= Right sacral iliac joints steroid injection under fluoroscopy guidance Preoperative diagnosis= 1-sacroiliitis 2-lumbar spondylosis with facet arthropathy Postoperative diagnosis=1-sacroiliitis 2-lumbar spondylosis with facet arthropathy Complication = none Condition= stable Anesthesia= moderate sedation with intravenous Versed ,and fentanyl ,and local infiltration with lidocaine 1% 2 mL Indication for the procedure= patient complaining of low back pain , examination was positive for severe tenderness over the sacroiliac joints bilaterally and patient diagnosed with sacroiliitis, for this reason he/ she was good candidate for sacroiliac joint steroid injection. Description of the procedure= procedure risk and benefits discussed with the patient, including but not limited, risk of infection and bleeding, and ALLERGIC reaction to the medication and not complete pain relief and patient agreed with the preceding patient taken to the operating room, placed in prone position or standard monitors applied to the patient then after induction of anesthesia back prepped with chlorhexidine 3 times , Then under strict sterile technique, first I did the right sacroiliac joint the which was identified under fluoroscopy guidance been local infiltration of the skin and subcu interstitial with lidocaine 1% then 22-gauge Quincke Needle advanced slowly under fluoroscopy and placed in the right sacroiliac joint needle placement confirmed with AP and oblique and lateral view and after appropriate needle placement confirmed and after negative aspiration, or heme , then Ropivacaine 0.5% 3 mL, and 40 mg of Kenalog mixed together and injected in the right sacroiliac joint after negative aspiration patient tolerated the procedure well without any complication.
== END 2018-09-07 11:36 | disposition home or self-care (01) ==
LOC: ORPAIN 09:24
PROVIDERS: ATTEND Specialist
DX: M46.1 Sacroiliitis, not elsewhere classified (principal); M47.816 Spondylosis without myelopathy or radiculopathy, lumbar region; Z88.0 Allergy status to penicillin; Z88.2 Allergy status to sulfonamides
CPT/HCPCS: J2250; J1030; J3010; G0260; 27096

== ENCOUNTER 2018-09-21 08:40 | Day surgery (SDC) | payer OTHER ==
[2018-09-20 08:35] VITALS: BMI 28.0
[2018-09-21 09:07] VITALS: TEMP 98.5
[2018-09-21] MEDS ORDERED: LACTATED RINGERS 1,000 ML IV ONE (09:17)
[2018-09-21 09:52] VITALS: RESP 16
[2018-09-21 10:03] VITALS: BP 110/76; PULSE 85
[2018-09-21] MEDS ORDERED: IV FLUID CONTINUATION 1,000 ML IV ONE (10:04)
--- NOTE | 2018-09-21 10:07 | FL ---
EXAMINATION TYPE: FL guided pain mgmt statistic DATE OF EXAM: 09/21/2018 CLINICAL HISTORY: Sacroiliac joint pain. TECHNIQUE: Fluoroscopy. COMPARISON: None. FINDINGS: Fluoroscopic guidance was provided during pain relief procedure performed by Dr. Jerry . A total of 2 seconds of fluoroscopic time was utilized during the procedure and 1 spot images are ac quired. Images acquired shows needle localization of the right sacroiliac joint. IMPRESSION: As Above.
--- NOTE | 2018-09-21 13:37 | P.PCN ---
Date of Procedure: 09/21/18 Surgeon: Neville Jerry Description of Procedure: Preoperative diagnoses: right sacroilitis Postoperative diagnoses: right sacroilitis. Procedure: right sacroiliac joint steroid injection under fluoroscopic guidance. Surgeon: Neville Jerry MD Anesthesia: IV sedation per hospital guidelines EBL: None Procedure indication: The patient had a history of severe chronic low back pain, diagnosed with sacroiliitis and lumbar sacral facet arthropathy unresponsive to conservative treatment. Procedure description: The patient was seen and identified in the preoperative holding area, risks and benefits and alternative of the procedure and possible complications discussed with the patient, and he agreed with the preceding, patient signed the consent, an IV was started, and vital signs were monitored and were stable throughout the procedure, patient was placed in the prone position or table and the lumbosacral area was prepped and draped with a sterile fashion, vital signs were closely monitored during the procedure, the fluoroscopy camera was placed in the contralateral oblique view on the right sacroiliac joint and the lower part of the joint was identified a 2 mL then a 25-gauge Quincke-type spinal needle advanced slowly under fluoroscopy and placed in the posterior and inferior border of the right sacroiliac joint, placement confirmed with AP and lateral view, and after appropriate needle placement confirmed and after negative aspiration for heme and CSF and there was , 3 ml of Marcaine 0.5% and 40 mg of Depo-Medrol injected after negative aspiration, no paresthesia during the injection, no resistance to injection, and the needle was removed. The entire same procedure was repeated for the left sacroiliac joint Patient tolerated the procedure well without any complication. The patient returned to supine position after the back was cleaned and a Band- Aid applied, the patient transported to recovery room in stable condition and he was monitored for 30 minutes before he was discharged home and then patient was reexamined before going home and patient was discharged in stable condition and patient will follow up with the pain clinic in a few weeks
== END 2018-09-21 10:07 | disposition home or self-care (01) ==
LOC: ORPAIN 08:40
PROVIDERS: ATTEND Pain Medicine Pain Medicine
DX: G89.29 Other chronic pain (principal); M46.1 Sacroiliitis, not elsewhere classified
CPT/HCPCS: J2250; J1030; J3010; G0260; 27096

== ENCOUNTER 2018-09-28 13:02 | Emergency (ER) | payer OTHER ==
[2018-09-28 13:05] VITALS: BP 103/70; RESP 18; TEMP 98.6
[2018-09-28] MEDS ORDERED: diphenhydrAMINE 50 MG/ML 1 ML VIAL IVP STA (13:15)
[2018-09-28] MEDS ORDERED: SODIUM CHLORIDE 0.9% 1,000 ML IV STA (13:15)
[2018-09-28] MEDS ORDERED: METOCLOPRAMIDE 5 MG/ML 2 ML VIAL IVP STA (13:15)
[2018-09-28] MEDS ORDERED: IPRATROPIUM-ALBUTEROL 3 ML NEB INHALATION STA (13:15)
--- NOTE | 2018-09-28 13:19 | ED ---
General Adult HPI - General Chief complaint: ENT Stated complaint: upper respiratory,migraine Time Seen by Provider: 09/28/18 13:08 Source: patient, RN notes reviewed Mode of arrival: ambulatory Limitations: no limitations - History of Present Illness Initial comments: Patient 28-year-old female presented to the emergency room today with chief complaint of increased sinus congestion over the last 3 days. She states that yesterday afternoon she began having a migraine headache as well. She states that she does have a history of migraines and this wound located in the right side of the back of her head. She does admit that it is a throbbing type pain. She does admit to photosensitivity and feeling nauseous. She states symptoms are consistent with migraine headaches that she's had in the past. She admits that she had a TIA back in June with similar symptoms as well and she was concerned so she thought she should come here to the emergency room to be evaluated. Patient does admit that she's had some mild cough congestion and wheezing. She states she has been using some breathing treatments at home that she just started today. Patient denies any recent fever, chills, shortness of breath, chest pain, back pain, abdominal pain, nausea or vomiting, numbness or tingling, visual changes, or any other complaints. - Related Data Home Medications Medication Instructions Recorded Confirmed Gabapentin 600 mg PO TID 10/16/17 09/28/18 Methocarbamol [Robaxin-750] 750 mg PO QID 06/01/18 09/28/18 Ranitidine HCl [Zantac] 150 mg PO DAILY 06/01/18 09/28/18 Venlafaxine HCl ER [Effexor XR] 75 mg PO HS 06/01/18 09/28/18 risperiDONE [RisperDAL] 1 mg PO HS 06/01/18 09/28/18 Aspirin 325 mg PO DAILY 07/27/18 09/28/18 ALPRAZolam [Xanax] 0.25 mg PO BID PRN 09/28/18 09/28/18 D-Methorphan/PE/Acetaminophen 1 cap PO DAILY PRN 09/28/18 09/28/18 [Vicks Dayquil Liquicaps] Naproxen Sodium [Aleve] 220 mg PO DAILY 09/28/18 09/28/18 risperiDONE [RisperDAL] 0.5 mg PO DAILY 09/28/18 09/28/18 Previous Rx's Medication Instructions Recorded Atorvastatin [Lipitor] 10 mg PO DAILY #30 tab 06/02/18 Allergies Allergy/AdvReac Type Severity Reaction Status Date / Time adhesive tape Allergy skin Verified 09/28/18 13:20 blisters amoxicillin trihydrate Allergy Swelling Verified 09/28/18 13:20 [From Augmentin] ceftriaxone sodium Allergy Swelling Verified 09/28/18 13:20 [From Rocephin] clarithromycin [From Biaxin] Allergy Swelling Verified 09/28/18 13:20 fexofenadine HCl Allergy Swelling Verified 09/28/18 13:20 [From Leslye] ketorolac tromethamine Allergy Swelling Verified 09/28/18 13:20 [From Toradol] loratadine [From Claritin] Allergy Swelling Verified 09/28/18 13:20 meperidine HCl [From Demerol] Allergy Swelling Verified 09/28/18 13:20 morphine Allergy Swelling Verified 09/28/18 13:20 Penicillins Allergy Swelling Verified 09/28/18 13:20 potassium clavulanate Allergy Swelling Verified 09/28/18 13:20 [From Augmentin] propoxyphene Allergy Swelling Verified 09/28/18 13:20 [From Darvocet-N] Sulfa (Sulfonamide Allergy Swelling Verified 09/28/18 13:20 Antibiotics) Review of Systems ROS Statement: Those systems with pertinent positive or pertinent negative responses have been documented in the HPI. ROS Other: All systems not noted in ROS Statement are negative. Past Medical History Past Medical History: Asthma, Cancer, CVA/TIA, Fibromyalgia, Musculoskeletal Disorder, Syncope Additional Past Medical History / Comment(s): HX OF CERVICAL,UTERINE AND COLON CANCER W/ HYSTERECTOMY/CHEMO AT 16 YRS OLD. RIGHT KIDNEY STONES, HYPOGLYCEMIA (HIGH PROTEIN DIET), BULGING DISCS CERVICAL, AND BACK, W/PAIN, R SIDED SCIATICA, CERVICAL PAIN, OCCIPITAL NEURALGIA. STATES HX OF PVC'S, SYNCOPE. History of Any Multi-Drug Resistant Organisms: C-DIFF Date of last positivie culture/infection: 2010 MDRO Source:: stool Past Surgical History: Cholecystectomy, Hysterectomy, Tonsillectomy Additional Past Surgical History / Comment(s): R sided kidney stents- since removed, EGD/colonoscopy, several pain clinic procedures/blocks. LOOP RECORDER INSERTION since removed. Past Anesthesia/Blood Transfusion Reactions: Motion Sickness, Postoperative Nausea & Vomiting (PONV) Additional Past Anesthesia/Blood Transfusion Reaction / Comment(s): PT IS ADOPTED AND DOES NOT KNOW FAMILY HX. Past Psychological History: Anxiety, Depression, PTSD Smoking Status: Current every day smoker Past Alcohol Use History: None Reported Past Drug Use History: None Reported - Past Family History Mother Family Medical History: Unable to Obtain Additional Family Medical History / Comment(s): Adopted Father Family Medical History: Neurologic Disorder Additional Family Medical History / Comment(s): Father of ALS. General Exam - General Exam Comments Initial Comments: General: The patient is awake and alert, in no distress, and does not appear acutely ill. Eye: Pupils are equal, round and reactive to light, extra-ocular movements are intact. No nystagmus. There is normal conjunctiva bilaterally. No signs of icterus. Ears, nose, mouth and throat: There are moist mucous membranes and no oral lesions. Neck: The neck is supple, there is no tenderness or JVD. Cardiovascular: There is a regular rate and rhythm. No murmur, rub or gallop is appreciated. Respiratory: Lungs are clear to auscultation, respirations are non-labored, breath sounds are equal. No wheezes, stridor, rales, or rhonchi. Musculoskeletal: Normal ROM, no tenderness. Strength 5/5. Sensation intact. Neurological: A&O x 3. CN II-XII intact, There are no obvious motor or sensory deficits. Coordination appears grossly intact. Speech is normal. Skin: Skin is warm and dry and no rashes or lesions are noted. Psychiatric: Cooperative, appropriate mood & affect, normal judgment. Limitations: no limitations Course Vital Signs 09/28/18 09/28/18 09/28/18 13:03 14:20 14:30 Temperature 98.6 F Pulse Rate 109 H 69 70 Respiratory 18 Rate Blood Pressure 103/70 O2 Sat by Pulse 95 Oximetry Medical Decision Making - Medical Decision Making Patient's CT of the brain is negative. Patient's chest x-ray unremarkable. Does admit to improvement after breathing treatment here in emergency room. Patient does admit that headache is improved after Reglan, Benadryl, and IV fluids here in the emergency room. Patient admits that she was admitted in the past after similar episodes this past June. Was reviewed and patient did have MRI. MRI was unremarkable. Patient has normal neurological exam. Patient is doing well at this time. Will be discharged home. - Lab Data Result diagrams: 09/28/18 13:44 09/28/18 13:44 Lab Results 09/28/18 09/28/18 09/28/18 Range/Units 13:44 13:44 13:44 WBC 11.4 H (3.8-10.6) k/uL RBC 4.78 (3.80-5.40) m/uL Hgb 14.5 (11.4-16.0) gm/dL Hct 43.7 (34.0-46.0) % MCV 91.5 (80.0-100.0) fL MCH 30.3 (25.0-35.0) pg MCHC 33.1 (31.0-37.0) g/dL RDW 14.2 (11.5-15.5) % Plt Count 244 (150-450) k/uL Neutrophils % 63 % Lymphocytes % 27 % Monocytes % 5 % Eosinophils % 3 % Basophils % 1 % Neutrophils # 7.2 (1.3-7.7) k/uL Lymphocytes # 3.1 (1.0-4.8) k/uL Monocytes # 0.6 (0-1.0) k/uL Eosinophils # 0.3 (0-0.7) k/uL Basophils # 0.1 (0-0.2) k/uL PT 9.9 (9.0-12.0) sec INR 0.9 (<1.2) APTT 24.6 (22.0-30.0) sec Sodium 140 (137-145) mmol/L Potassium 4.0 (3.5-5.1) mmol/L Chloride 107 (98-107) mmol/L Carbon Dioxide 23 (22-30) mmol/L Anion Gap 10 mmol/L BUN 14 (7-17) mg/dL Creatinine 0.53 (0.52-1.04) mg/dL Est GFR (CKD-EPI)AfAm >90 (>60 ml/min/1.73 sqM) Est GFR (CKD-EPI)NonAf >90 (>60 ml/min/1.73 sqM) Glucose 80 (74-99) mg/dL Calcium 9.7 (8.4-10.2) mg/dL Total Bilirubin 0.3 (0.2-1.3) mg/dL AST 16 (14-36) U/L ALT 29 (9-52) U/L Alkaline Phosphatase 74 (38-126) U/L Total Protein 6.8 (6.3-8.2) g/dL Albumin 4.5 (3.5-5.0) g/dL Disposition Clinical Impression: Migraine Disposition: HOME SELF-CARE Condition: Good Instructions (If sedation given, give patient instructions): Migraine Headache (ED) Additional Instructions: Please use medication as discussed. Please follow-up with family doctor in the next 2 days of symptoms have not improved. Please return to emergency room if the symptoms increase or worsen or for any other concerns. Is patient prescribed a controlled substance at d/c from ED?: No Referrals: Bijan James DO [Primary Care Provider] - 1-2 days Time of Disposition: 14:55
[2018-09-28 14:03] LABS: Basophils # (A) 0.1 k/uL (0-0.2); Basophils % (A) 1 %; Eosinophils # (A) 0.3 k/uL (0-0.7); Eosinophils % (A) 3 %; HCT 43.7 % (34.0-46.0); HGB 14.5 gm/dL (11.4-16.0); Lymphocytes # (A) 3.1 k/uL (1.0-4.8); Lymphocytes % (A) 27 %; MCH 30.3 pg (25.0-35.0); MCHC 33.1 g/dL (31.0-37.0); MCV 91.5 fL (80.0-100.0); Mean Platelet Volume 7.7; Monocytes # (A) 0.6 k/uL (0-1.0); Monocytes % (A) 5 %; Neutrophils # (A) 7.2 k/uL (1.3-7.7); Neutrophils % (A) 63 %; Platelet Count 244 k/uL (150-450); RBC 4.78 m/uL (3.80-5.40); RDW 14.2 % (11.5-15.5); WBC 11.4 k/uL (3.8-10.6)
[2018-09-28 14:13] LABS: ALT 29 U/L (9-52); AST 16 U/L (14-36); Albumin 4.5 g/dL (3.5-5.0); Alkaline Phosphatase 74 U/L (38-126); Anion Gap 10 mmol/L; Blood Urea Nitrogen 14 mg/dL (7-17); Calcium 9.7 mg/dL (8.4-10.2); Carbon Dioxide 23 mmol/L (22-30); Chloride 107 mmol/L (98-107); Glucose 80 mg/dL (74-99); Sodium 140 mmol/L (137-145); Total Bilirubin 0.3 mg/dL (0.2-1.3); Total Protein 6.8 g/dL (6.3-8.2)
[2018-09-28 14:17] LABS: INR 0.9 (<1.2); Partial Thromboplastin Time 24.6 sec (22.0-30.0); Prothrombin Time 9.9 sec (9.0-12.0)
--- NOTE | 2018-09-28 14:18 | CT ---
EXAMINATION TYPE: CT brain wo con DATE OF EXAM: 09/28/2018 COMPARISON: 06/07/2018 HISTORY: Weakness CT DLP: 1094.[address] of the brain was performed. The ventricles, basal cisterns and sulci overlying the cerebral convexities demonstrate a normal appe arance. There is no evidence for intracranial hemorrhage or sulcal effacement. No mass effects are seen. Osseous calvarium is intact. If symptoms persist consider MRI as clinically warranted. IMPRESSION: 1. No acute intracranial process is seen at this time.
--- NOTE | 2018-09-28 14:24 | XR ---
EXAMINATION TYPE: XR chest 2V DATE OF EXAM: 09/28/2018 COMPARISON: 06/07/2018 TECHNIQUE: PA and lateral views submitted. HISTORY: Cough FINDINGS: The lungs are clear and there is no pneumothorax, pleural effusion, or focal pneumonia. Surgical cl ips in the abdomen. IMPRESSION: 1. No acute process.
[2018-09-28 14:30] VITALS: PULSE 70
== END 2018-09-28 15:48 | disposition home or self-care (01) ==
LOC: EC 13:02
DX: G43.909 Migraine, unspecified, not intractable, without status migrainosus (principal); R09.89 Other specified symptoms and signs involving the circulatory and respiratory systems; R05 Cough; M79.7 Fibromyalgia; F32.9 Major depressive disorder, single episode, unspecified; F41.9 Anxiety disorder, unspecified; F43.10 Post-traumatic stress disorder, unspecified; F17.200 Nicotine dependence, unspecified, uncomplicated; Z86.73 Personal history of transient ischemic attack (TIA), and cerebral infarction without residual deficits; Z85.41 Personal history of malignant neoplasm of cervix uteri; Z85.038 Personal history of other malignant neoplasm of large intestine; Z85.42 Personal history of malignant neoplasm of other parts of uterus; Z79.1 Long term (current) use of non-steroidal anti-inflammatories (NSAID); Z79.82 Long term (current) use of aspirin; Z79.899 Other long term (current) drug therapy; Z88.0 Allergy status to penicillin; Z88.1 Allergy status to other antibiotic agents; Z88.2 Allergy status to sulfonamides; Z88.6 Allergy status to analgesic agent; Z88.5 Allergy status to narcotic agent; Z88.8 Allergy status to other drugs, medicaments and biological substances
CPT/HCPCS: 36415; 94640; 80053; 85025; 85610; 85730; 71046; 70450; 99284; 96374; 96375; 96361 ×2; J1200; J2765

== ENCOUNTER → 2018-10-19 | Outpatient (CLI) | payer OTHER ==
[2018-10-19 14:34] VITALS: BP 122/75; PULSE 101; RESP 16
--- NOTE | 2018-10-19 14:53 | P.PN ---
Subjective Progress Note Date: 10/19/18 This is a follow-up visit for this 11 years old female with a chronic history of severe low back pain, diagnosed with lumbar radiculopathy and right sacroiliitis Recently we have done right-sided sacroiliac joint steroid injections 2 , she had significant improvement of her right-sided buttock pain , and the pain relief was for a few weeks after each injection, currently she is complaining of severe right buttock pain, she denies any motor or sensory deficits, he denies any fever or night sweats, Objective - Vital Signs Vital signs: Vital Signs Temp Pulse 101 H 10/19/18 14:29 Resp 16 10/19/18 14:29 BP 122/75 10/19/18 14:29 Pulse Ox 96 10/19/18 14:29 Intake & Output 10/18/18 10/19/18 10/19/18 18:59 06:59 18:59 Weight 72.575 kg - Exam Physical Examinations : -Constitutiona : Cooperative , not in acute distress . -HEENT : nech ; supple , no Lymphadenopathy , normal thyroid size . eyes : no ptosis , no icterus, no photophobia . Lumber spine moter stegnth lower extremities ,thigh and legs 5/5 Right side , 5/5 Left side deep tendon reflexes : normal Knee Jerk , normal ankle Jerk positive lumber facet Loading Test Range of motion of the lumbar spine Flexion 30 degrees, extension 10 degrees Fabere test positive RT and positive LT . Sever tenderness over the Sacroiliac joint on the Right sides Gaenslen test positive on the right side Seated flexion test positive on the right side Assessment and Plan Assessment: Assessment and plan= lumbar radiculopathy , right sacroiliitis Patient had positive results after right-sided sacroiliac joint steroid injections 2 She will be good candidate to have RFA of the L5 S1 Dorsal Ramus , and RFA of the lateral branches right-sided S1/S2/S3 Dishing given prescription for Garwood 10/325 dispensed 10 tablets for severe pain , when necessary - PQRS measures = - Patient's medications are documented in the chart. -Tobacco use is positive ,and counseling.Given. -Patient's has not received pneumococcal vaccine. -Advanced care planning discussed, patient not eligible. -Opiate contract not signed. -Pain positive and follow-up visit/procedure is scheduled. -Patient's blood pressure measured [ 122/75 ] , and documented in the record ,and patient will follow up with the primary care. -Patient's weight was measured and body mass index [ 28.3 ] above the normal limits ,and patient instructed to follow-up with the primary care physician. -Patient was not identified as an unhealthy alcohol user Time with Patient: Less than 30
== END ==
LOC: PNWHC3 14:15
PROVIDERS: ATTEND Specialist
DX: M54.16 Radiculopathy, lumbar region (principal); M46.1 Sacroiliitis, not elsewhere classified; Z79.891 Long term (current) use of opiate analgesic; Z71.6 Tobacco abuse counseling; Z72.0 Tobacco use
CPT/HCPCS: 99211

== ENCOUNTER 2018-10-27 09:15 | Day surgery (SDC) | payer OTHER ==
[2018-10-26 10:09] VITALS: BMI 28.3
[~2018-10-27 09:15] MED LIST changes: +LACTATED RINGERS 1,000 ML IV SCH; -SODIUM CHLORIDE 0.9% 500 ML 500 ML IV SCH
[2018-10-27 09:32] VITALS: TEMP 98.8
[2018-10-27] MEDS ORDERED: IV FLUID CONTINUATION 1,000 ML IV ONE (10:30)
[2018-10-27 10:37] VITALS: RESP 18
[2018-10-27 10:46] VITALS: BP 122/75; PULSE 77
--- NOTE | 2018-10-27 11:39 | P.PCN ---
Date of Procedure: 10/27/18 Surgeon: Neville Jerry Description of Procedure: OPERATION: Radiofrequency ablation of the right lateral branches S1, S2, S3 levels under fluoroscopic guidance. PREOPERATIVE DIAGNOSES: Right sacroilitis POSTOPERATIVE DIAGNOSES: same COMPLICATIONS: None. ANESTHESIA: IV sedation with local infiltration. 2 mg of Versed and 100 g of fentanyl was administered CONDITION: Stable. FLUOROSCOPY TIME: 5 seconds. INDICATION FOR THE PROCEDURE: This is a 28-year-old [] with a history of low back pain. The patient has responded well to previous diagnostic sacroiliac joint injections. Based on this positive response to screening evaluations, patient was felt to be good candidate for radiofrequency ablation and scheduled for this procedure. Procedure in Detail: Procedure, risks and benefits discussed with the patient who agreed with proceeding. Patient taken to the operating room, placed in prone position. All standard monitors applied to the patient. Then after induction of anesthesia, back prepped with chloroprep 3 times. Then under fluoroscopic guidance we used 1% lidocaine 8 mL for skin and subcutaneous tissue infiltrations. Then after that, 20-gauge radiofrequency active-tip needles, 4 needles used, each one of them placed at the junction of the base of the transverse process and the superior articulating process of the right side at S1,S2,S3 levels. Needle placement confirmed with AP and lateral views. Then after appropriate needle placement confirmed, we checked for the motor stimulation at 2.5 v, which was positive for localized contractions in the lumbar area and there were no contractions in the lower extremities. Then after that, we checked for the sensory stimulation, which was positive at all levels at less than 0.5 v. Then after that, the radiofrequency done at 80 degrees Centigrade for 90 seconds at each level. Then before the needles taken out, 0.5% Marcaine 6 mL and 40 mg of depomedrol mixed together and 1.5 mL injected at each level after negative aspiration. Patient tolerated the procedure well without any complication and will follow up with the pain clinic in few weeks.
--- NOTE | 2018-10-27 13:26 | FL ---
EXAMINATION TYPE: FL guided pain mgmt statistic DATE OF EXAM: 10/27/2018 CLINICAL HISTORY: Right sacroiliac joint pain. TECHNIQUE: Fluoroscopy. COMPARISON: None. FINDINGS: Fluoroscopic guidance was provided during pain relief procedure performed by Dr. Jerry . A total of 3 seconds of fluoroscopic time was utilized during the procedure and 1 spot images are ac quired. Image acquired shows needle localization of the right sacroiliac joint. IMPRESSION: As Above.
== END 2018-10-27 10:46 | disposition home or self-care (01) ==
LOC: ORPAIN 09:15
PROVIDERS: ATTEND Pain Medicine Pain Medicine
DX: G89.29 Other chronic pain (principal); M46.1 Sacroiliitis, not elsewhere classified; M54.16 Radiculopathy, lumbar region; Z91.09 Other allergy status, other than to drugs and biological substances
CPT/HCPCS: 64640 ×3; J2250; J2001; J3010; 64635; 64636; 99152

== ENCOUNTER → 2018-11-15 | Outpatient (CLI) | payer OTHER ==
[2018-11-15 13:29] VITALS: BP 121/82; PULSE 103; RESP 16
--- NOTE | 2018-11-15 14:03 | P.PN ---
Progress Note - Text Progress Note Date: 11/15/18 Patient returns for followup after right L5, S1 S3 lateral branch radio freq uency ablation. Patient had excellent relief from the procedure. She still has persistent pain in her right low back radiating down to her right lower extremity into the lateral aspect of her foot. She feels pins and needles at the sole of her right foot. She's not had an MRI of her lumbar spine and I will order one today. She takes Whiting 5 mg once to twice a week as needed. She tolerates the medication well with no side effects. She denies weakness, bowel/bladder incontinence, or any other signs or symptoms of cauda equina syndrome. There are no signs of acute intoxication, and no indications of medication diversion or overuse. In addition to above, 13-point review of systems is also negative for chest pain, shortness of breath, changes in vision, changes in hearing, new onset wea kness, abdominal pain, diarrhea, extreme fatigue, malaise, fever, skin changes, homicidal or suicidal ideation, or bowel or bladder incontinence. Vital Signs: Reviewed in EMR Gen: WDWN, AAOx3, NAD HEENT: NCAT, EOMI, hearing grossly normal; TTP over bilateral occipital ridges Pulm: resp unlabored Abd: soft, NT, ND Neck: supple, trachea midline ROM in flexion lumbar spine: reduced ROM in extension lumbarspine: reduced Straight leg raise: + RLE at 30 degrees Neuro: CN II-XII grossly intact, muscle strength lower extremities PRESERVED Imaging: MRI cervical spine dated 08/06/2016 demonstrates mild disc desiccation and central disc bulging at C5-C6 level without central canal stenosis or foraminal encroachment. There is also loss of the normal cervical lordosis. Assessment: 1. cervical spondylosis without myelopathy 2. lumbar radiculopathy, L4-L5, L5-S1 on the right. 3. herniated cervical disc 4. cervical radiculopathy 5. occipital neuralgia Plan: 1. Explanation: Opioid and psychological risk scores were reviewed. Diagnoses, prognoses, and multiple treatment options including but not limited to physical therapy, interventional therapies, adjuvant medical therapies, narcotic medication therapies, and surgery were discussed with the patient and all questions were answered to the patient's satisfaction. 2. Opioid agreement: Whiting 5 mg/325 mg 10 tablets given. 3. Counseling: The patient was counseled extensively on SMOKING CESSATION, BODY MASS INDEX, EXERCISE. Specifically, the patient was instructed regarding the importance of smoking cessation, obesity, and exercise in the context of both chronic pain and overall health. 4. Procedures: R lumbar transforaminal NIKKI L4-L5, L5-S1 as well as lumbar paraspinal trigger point injections. 5. Consultations: Referred patient to Dr. Adriana Diaz for evaluation of lumbar radiculopathy. 6. Investigations Maps reviewed and appropriate patient's history she had a UDS within the last 12 months that was appropriate. A prescription was given for an MRI of her lumbar spine without contrast. 7. Medications: Whiting 5/325 #10 for two months' supply 8. Disposition: f/u for procedure as scheduled PQRS measures: 1-Patient's medications are documented in the chart. 2-Tobacco use is positive, counseling given 3-Patient has not had a pneumococcal vaccine. 4-Advanced care planning discussed, patient unable to give. 5-Opioid contract NOT signed with the patient. 6-Pain positive, follow-up visit or procedure scheduled 7-Patient's blood pressure measured and documented, and WNL. 8-Patient's weight was measured, and body mass index ABOVE the normal limits, and counseling was done. Patient instructed to follow up with PCP. 9-Patient WAS NOT identified as an unhealthy alcohol user.
== END ==
LOC: PNWHC3 13:16
PROVIDERS: ATTEND Anesthesiology
DX: M54.17 Radiculopathy, lumbosacral region (principal); M54.16 Radiculopathy, lumbar region; M47.22 Other spondylosis with radiculopathy, cervical region; M50.10 Cervical disc disorder with radiculopathy, unspecified cervical region; M54.81 Occipital neuralgia; Z71.6 Tobacco abuse counseling; Z79.891 Long term (current) use of opiate analgesic
CPT/HCPCS: 99211

== ENCOUNTER 2018-12-06 06:00 | Day surgery (SDC) | payer OTHER ==
[2018-12-02 10:35] VITALS: BMI 28.3
[2018-12-06 06:21] VITALS: TEMP 97.9
--- NOTE | 2018-12-06 06:29 | P.PCN ---
Date of Procedure: 12/06/18 Description of Procedure: PREOPERATIVE DIAGNOSIS: Lumbar radiculopathy POSTOPERATIVE DIAGNOSIS: Lumbar radiculopathy PROCEDURE 1. Right Transforaminal epidural steroid injection under fluoroscopic guidance L4 5 2. Lumbar epidurogram ANESTHESIA: Local with 1% lidocaine 5 ml PROCEDURE DESCRIPTION / TECHNIQUE: The patient was seen and identified in the preoperative area. Risks, benefits, complications, and alternatives were discussed with the patient. The patient agreed to proceed with the procedure and signed the consent, vital signs were stable prior to the procedure. Patient was taken to the OR and time out was completed. The patient was placed in the prone position on procedure table and a pillow was placed under the abdomen to reduce lumbar lordosis. The lumbosacral area was prepped and draped in the usual sterile fashion. Vital signs were closely monitored during the procedure. Conscious sedation was used. Using oblique fluoroscopy, the chin of the "Apollo dog" at the pedicle and the skin and deeper tissues just below was localized with 1% lidocaine. Subsequently, a 22-gauge 3.5-inch spinal needle was advanced under a tunneled view fluoroscopic guidance just underneath the chin of the "Apollo dog". Under lateral fluoroscopy, the needle was then advanced to the posterior border interforaminal space. After negative aspiration of CSF and blood and with no paresthesias, 1 mL of Omnipaque-240 contrast dye was injected excellent epidurogram. Subsequently, a solution totalling 2ml of dexamethasone and PFNS was injected after negative aspiration (total of 10mg of dexamethasone was used). The needle was removed intact. COMPLICATIONS: None DISPOSITION: The patient was placed in a supine position and transferred to the recovery area in a stable condition for observation. There was no evidence of lower extremity motor or sensory deficit after the procedure. Patient was discharged from the recovery room after meeting discharge criteria. Home discharge instructions were given to the patient by the staff. The patient was reexamined prior to discharge. Follow up as directed.
--- NOTE | 2018-12-06 06:31 | P.PCN ---
Date of Procedure: 12/06/18 Description of Procedure: Procedure right lumbar paraspinal trigger point injections Preoperative diagnosis myofascial pain syndrome Postoperative diagnosis same Procedure description: After the back was prepped with chlorhexidine trigger points were palpated bimanually. At that point a 25-gauge 1.5 inch needle was advanced to the center of the trigger points. After negative aspiration 3 mL of 0.5% ropivacaine was injected into the trigger point. 3 separate points were injected along the paraspinal muscles. Patient tolerated the procedure well and was sent to the recovery Follow-up in the clinic in 4-8 weeks
[2018-12-06 07:18] VITALS: RESP 18
[2018-12-06 07:28] VITALS: BP 114/79; PULSE 91
--- NOTE | 2018-12-06 07:49 | FL ---
EXAMINATION TYPE: FL guided pain mgmt statistic DATE OF EXAM: 12/06/2018 CLINICAL HISTORY: Low back pain. TECHNIQUE: Fluoroscopy. COMPARISON: None. FINDINGS: Fluoroscopic guidance was provided during pain relief procedure performed by Dr. Johnston . A total of 5 seconds of fluoroscopic time was utilized during the procedure and 1 spot images are a cquired. Images acquired shows needle localization of the lumbosacral spine. IMPRESSION: As Above.
== END 2018-12-06 07:31 | disposition home or self-care (01) ==
LOC: ORPAIN 06:00
PROVIDERS: ATTEND Hospitalist
DX: M54.16 Radiculopathy, lumbar region (principal); M79.18 Myalgia, other site; M47.22 Other spondylosis with radiculopathy, cervical region; M50.122 Cervical disc disorder at C5-C6 level with radiculopathy; M54.81 Occipital neuralgia; E66.9 Obesity, unspecified; Z68.28 Body mass index [BMI] 28.0-28.9, adult; Z90.710 Acquired absence of both cervix and uterus; F17.200 Nicotine dependence, unspecified, uncomplicated; Z79.891 Long term (current) use of opiate analgesic; Z88.1 Allergy status to other antibiotic agents; Z88.5 Allergy status to narcotic agent; Z88.0 Allergy status to penicillin; Z88.2 Allergy status to sulfonamides; Z88.8 Allergy status to other drugs, medicaments and biological substances; Z91.09 Other allergy status, other than to drugs and biological substances
CPT/HCPCS: 64483; 20552; J1100; Q9966

== ENCOUNTER → 2018-12-09 | Outpatient (CLI) | payer OTHER ==
--- NOTE | 2018-12-09 15:19 | MR ---
EXAMINATION TYPE: MR lumbar spine wo con DATE OF EXAM: 12/09/2018 COMPARISON: CT abdomen and pelvis February 12, 2018 HISTORY: Intervertebral disc degeneration, lumbar per order. Pain and numbness for over 5 years into right buttocks and thigh per patient. TECHNIQUE: Multiplanar, multisequence imaging of the lumbar spine is performed without IV contrast. FINDINGS: Sagittal images of the lumbar spine show vertebral body heights and alignment to remain sat isfactory. Comparing with CT shows sacralized L5 segment. There is disc desiccation at the L4-L5 leve l. The intervertebral discs otherwise demonstrate normal heights and hydration. The conus medullaris is normal in position and signal ending at T12-L1 disc space. The bone marrow signal intensity is w ithin normal limits. Axial images began at labeled T11-T12 level on image 33 which is felt within normal limits. Axial maggie ges at T12-L1, L1-L2, L2-L3, L3-L4 levels are felt within normal limits. Axial images at L4-L5 and L5-S1 levels show mild to moderate facet degenerative changes bilaterally. Spinal canal is preserved. Bilateral neural foramina are patent. No suspicious incidental retroperitoneal finding is seen. IMPRESSION: Sacralized L5 segment. Facet arthropathy lower lumbar spine..
== END | disposition home or self-care (01) ==
LOC: RADMRIMAIN 14:41
PROVIDERS: ATTEND Family Medicine
DX: M46.96 Unspecified inflammatory spondylopathy, lumbar region (principal); Q76.49 Other congenital malformations of spine, not associated with scoliosis
CPT/HCPCS: 72148

== ENCOUNTER → 2019-01-07 | Outpatient (CLI) | payer OTHER ==
--- NOTE | 2019-01-07 14:59 | ECHOF ---
Referral Reason:R20.2 R53.1 MEASUREMENTS -------- HEIGHT: 160.0 cm WEIGHT: 77.1 kg BP: 109/75 IVSd: 1.1 cm (0.6 - 1.1) LVIDd: 3.5 cm (3.9 - 5.3) LVPWd: 1.0 cm (0.6 - 1.1) IVSs: 1.3 cm LVIDs: 2.6 cm LVPWs: 1.6 cm RVIDd: 2.8 cm (< 3.3) LAESV Index (A-L): 15.75 ml/m Ao Diam: 2.9 cm (2.0 - 3.7) LA Diam: 2.8 cm (2.7 - 3.8) AV Cusp: 2.1 cm (1.5 - 2.6) EPSS: 0.8 cm MV E Zafar: 0.57 m/s MV DecT: 148 ms MV A Zafar: 0.47 m/s MV E/A Ratio: 1.21 MV EF SLOPE: 88.39 mm/s (70 - 150) MV EXCURSION: 14.58 mm (> 18.000) FINDINGS -------- Sinus rhythm. This was a technically adequate study. The left ventricular size is normal. Left ventricular wall thickness is normal. There is normal g lobal left ventricular contractility. Overall left ventricular systolic function is normal with, an EF between 55 - 60 %. The diastolic filling pattern is normal for the age of the patient 6.21. The right ventricle is normal in size. Normal LA size by volume 22+/-6 ml/m2. The right atrial size is normal. Contrast study was performed with 2 iv injections of 8 ccs of agitated normal saline, at rest, and wi th cough. Interatrial and interventricular septum intact. The aortic valve is trileaflet and appears structurally normal. There is no evidence of aortic regu rgitation. There is no evidence of aortic stenosis. The mitral valve is normal. There is trace mitral regurgitation. Trace tricuspid regurgitation present. There is no evidence of pulmonary hypertension. There is no pulmonic regurgitation present. The aortic root size is normal. Normal inferior vena cava with normal inspiratory collapse consistent with estimated right atrial pre ssure of 5 mmHg. There is no pericardial effusion. CONCLUSIONS -------- 1. Sinus rhythm. 2. This was a technically adequate study. 3. The left ventricular size is normal. 4. Left ventricular wall thickness is normal. 5. There is normal global left ventricular contractility. 6. Overall left ventricular systolic function is normal with, an EF between 55 - 60 %. 7. The diastolic filling pattern is normal for the age of the patient 6.21 8. The right ventricle is normal in size. 9. Normal LA size by volume 22+/-6 ml/m2. 10. The right atrial size is normal. 11. Contrast study was performed with 2 iv injections of 8 ccs of agitated normal saline, at rest, an d with cough. 12. Interatrial and interventricular septum intact. 13. The aortic valve is trileaflet and appears structurally normal. 14. There is no evidence of aortic regurgitation. 15. There is no evidence of aortic stenosis. 16. The mitral valve is normal. 17. There is trace mitral regurgitation. 18. Trace tricuspid regurgitation present. 19. There is no evidence of pulmonary hypertension. 20. There is no pulmonic regurgitation present. 21. The aortic root size is normal. 22. Normal inferior vena cava with normal inspiratory collapse consistent with estimated right atrial pressure of 5 mmHg. 23. There is no pericardial effusion. STAGE BUILDER: Tammy Chilel RDCS
== END | disposition home or self-care (01) ==
LOC: RADECHMAIN 07:59
DX: R20.2 Paresthesia of skin (principal); R53.1 Weakness
CPT/HCPCS: 93306

== ENCOUNTER → 2019-01-11 | Outpatient (CLI) | payer OTHER ==
[2019-01-11 11:06] VITALS: BP 119/83; PULSE 109; RESP 18; TEMP 98.5
--- NOTE | 2019-01-11 19:58 | P.PAINPG ---
Subjective Progress Note Date: 01/11/19 This is a follow-up visit for this 28 years old female with a chronic history of severe low back pain, diagnosed with lumbar radiculopathy and right sacroiliitis, lumbar spondylosis with lumbar facet arthropathy, patient continued to have severe low back pain after interventional pain management ,, currently she is complaining of severe right buttock pain, she denies any motor or sensory deficits, she had a new MRI of the lumbar spine H short sacralization of the L5 segment and L4 5 L5-S1 facet joint degeneration , patient was evaluated by the spine surgeon and she is scheduled to have lumbar/sacral fusion by the end of January ,she denies any fever or night sweats, Physical Examinations : -Constitutiona : Cooperative , not in acute distress . -HEENT : nech ; supple , no Lymphadenopathy , normal thyroid size . eyes : no ptosis , no icterus, no photophobia . Lumber spine moter stegnth lower extremities ,thigh and legs 5/5 Right side , 5/5 Left side deep tendon reflexes : normal Knee Jerk , normal ankle Jerk positive lumber facet Loading Test Range of motion of the lumbar spine Flexion 30 degrees, extension 10 degrees Fabere test positive RT and positive LT . Sever tenderness over the Sacroiliac joint on the Right sides Gaenslen test positive on the right side Seated flexion test positive on the right side Assessment and plan= lumbar radiculopathy , right sacroiliitis, lumbar spondylosis and lumbar facet arthropathy. Patient will have lumbar/sacral surgery by the end of the months Patient should continue Neurontin given prescription for Edison 10/325 dispensed 120 tablets for severe pain , when necessary, Patient reported that she will follow up with her spine surgeon after the surgery, she will follow up in the pain clinic in 3-4 months Objective - Vital Signs Vital signs: Vital Signs Temp 98.5 F 01/11/19 10:53 Pulse 109 H 01/11/19 10:53 Resp 18 01/11/19 10:53 BP 119/83 01/11/19 10:53 Pulse Ox 95 01/11/19 10:53 Intake & Output 01/11/19 01/11/19 01/12/19 06:59 18:59 06:59 Weight 77.111 kg PQRS Measure Charge Sheet Measure #130: Documentation of Current Meds in Medical Chart: Patient's medications documented in chart Measure #226: Tobacco Use: Screen & Cessation Intervention: Pt screened for tobacco use AND intervention given Measure #111: Pneumonia Vaccination: Pneumococcal vaccine NOT administered or previously given Measure #47: Advance Care Plan: Advance care planning discussed & documented, pt chose/unable to give Measure #412: Opioid Treatment Agreement: Documented signed opioid trtmnt agreemnt min once during opioid trtmnt Measure #408: Opioid Therapy Follow-up Evaluation: Patient had f/u eval minimum every 3 months during opioid therapy Measure #317: Preventitive Care & Scrn High Bld Press & F/U: Normal blood pressure, f/u not required Measure #128: Body Mass Index (BMI) Screening & Follow-up: BMI documented ABOVE normal parameters - f/u documented Measure #131: Pain Assessment & Follow-up: Pain positive & plan documented, Follow-up scheduled Measure #431: Unhealthy Alcohol Use Preventative Care & Scrn: Patient not identified as an unhealthy alcohol user PQRS Narrative: Smoking Status Current every day smoker Narcotic Agreement Date Signed 01/11/19 Blood Pressure 119/83 Pain Intensity [Right Lower 8 Back] Scale Used Numeric (1 - 10) Hx Alcohol Use (MH) No Home Medications: Ambulatory Orders Gabapentin 800 mg PO TID 10/16/17 Methocarbamol [Robaxin-750] 750 mg PO QID 06/01/18 Ranitidine HCl [Zantac] 150 mg PO BID 06/01/18 Venlafaxine HCl ER [Effexor XR] 75 mg PO HS 06/01/18 risperiDONE [RisperDAL] 1 mg PO HS 06/01/18 Atorvastatin [Lipitor] 10 mg PO DAILY #30 tab 06/02/18 Aspirin 325 mg PO DAILY 07/27/18 ALPRAZolam [Xanax] 0.25 mg PO BID PRN 09/28/18 Naproxen Sodium [Aleve] 220 mg PO DAILY 09/28/18 risperiDONE [RisperDAL] 0.5 mg PO DAILY 09/28/18 HYDROcodone/APAP 10-325MG [Edison 10-325] 10 mg PO DAILY PRN MDD GETS 10 TABS A MONTH 11/15/18 Controlled Substance Measures - Controlled Substance Measures Is patient prescribed a controlled substance at discharge?: Yes When asked, does pt state using other controlled substances?: No If prescribed controlled substance>3 days was MAPS reviewed?: Yes If Rx opioid, was Start Talking consent form obtained?: Yes If opioid is for acute pain is fill amount 7 days or less?: No Was information provided regarding opioid addiction?: Yes
== END | disposition home or self-care (01) ==
LOC: PNWHC3 10:49
PROVIDERS: ATTEND Specialist
DX: G89.29 Other chronic pain (principal); M47.26 Other spondylosis with radiculopathy, lumbar region; M46.96 Unspecified inflammatory spondylopathy, lumbar region; M46.1 Sacroiliitis, not elsewhere classified; F17.200 Nicotine dependence, unspecified, uncomplicated
CPT/HCPCS: 99211

== ENCOUNTER → 2019-02-22 | Outpatient (CLI) | payer OTHER ==
--- NOTE | 2019-02-22 14:41 | XR ---
EXAMINATION TYPE: XR pelvis AP view DATE OF EXAM: 02/22/2019 CLINICAL HISTORY: Pain status post right surgery. TECHNIQUE: A single AP view of the pelvis is obtained. COMPARISON: None. FINDINGS: There is no acute fracture/dislocation evident in the pelvis. 2 metallic devices bridge th e right sacroiliac joint. Left sacroiliac joint also within normal limits. Mild superior joint space loss in both hips is present. Pelvic phleboliths are noted. IMPRESSION: As above
== END | disposition home or self-care (01) ==
LOC: RADXRMAIN 14:14
PROVIDERS: ATTEND Neurological Surgery
DX: Z47.89 Encounter for other orthopedic aftercare (principal); Z98.1 Arthrodesis status
CPT/HCPCS: 72170

== ENCOUNTER → 2019-04-12 | Outpatient (CLI) | payer OTHER ==
--- NOTE | 2019-04-12 14:28 | XR ---
EXAMINATION TYPE: XR pelvis AP view DATE OF EXAM: 04/12/2019 CLINICAL HISTORY: Increasing pelvic pain. History of fusion. TECHNIQUE: A single AP view of the pelvis is obtained. COMPARISON: 02/22/2019. FINDINGS: There is no acute fracture/dislocation evident in the pelvis. Right sacroiliac joint is fu sed with 2 fixation rods. No sacroiliac joint space widening is seen bilaterally. Mild bilateral sacr oiliac joint sclerosis. The hip and sacroiliac joints appear symmetric. No dilated overlying bowel. I ncidentally noted lack of haustration in the colon and suggestion of bowel wall thickening of the merlin cending colon IMPRESSION: 1. Postsurgical change of the right sacroiliac joint. No sacroiliac joint space widening. Mild sclero sis symmetric sacroiliitis. 2. Incidentally noted lack of haustration of the descending colon and suggestion of bowel wall thicke carl. Given the known sacroiliitis consideration could be given to associated inflammatory bowel dise ase such as ulcerative colitis or Crohn's disease.
== END | disposition home or self-care (01) ==
LOC: RADXRMAIN 13:04
PROVIDERS: ATTEND Neurological Surgery
DX: M46.1 Sacroiliitis, not elsewhere classified (principal); Z98.1 Arthrodesis status
CPT/HCPCS: 72170

== ENCOUNTER → 2019-04-28 | Outpatient (CLI) | payer OTHER ==
--- NOTE | 2019-04-28 16:03 | CT ---
EXAMINATION TYPE: CT pelvis wo con DATE OF EXAM: 04/28/2019 COMPARISON: AP pelvis 04/12/2019 HISTORY: Right sided SI joint fusion. CT DLP: 586 mGycm Automated exposure control for dose reduction was used. FINDINGS: Images are obtained in the axial plane at 3 mm thick sections. Oral contrast was utilized. Femoral heads articulate with the acetabulum. There is fusion through the right sacroiliac joint. Lef t sacroiliac joint is patent. Intra-abdominal contents as visualized appear unremarkable. Loops of bowel contrast normal. Urinary b ladder is unremarkable. There may be some prostate prominence. Note is made of some attempted sacralization of L5 on the right IMPRESSION: . NO SUSPICIOUS ACUTE CHANGES. RIGHT SACROILIAC JOINT FIXATION WITH 2 METALLIC IMPLANTS APPEARS EVIDE NT.
== END | disposition home or self-care (01) ==
LOC: RADCTMAIN 13:57
PROVIDERS: ATTEND Neurological Surgery
DX: M25.9 Joint disorder, unspecified (principal); Z98.890 Other specified postprocedural states
CPT/HCPCS: 72192; Q9967

== ENCOUNTER → 2019-05-03 | Outpatient (CLI) | payer OTHER ==
[2019-05-03 12:15] VITALS: BP 113/77; PULSE 101; RESP 16
--- NOTE | 2019-05-03 12:51 | P.PAINPG ---
Subjective Progress Note Date: 05/03/19 This is a follow-up visit for this 28 years old female with a chronic history of severe low back pain, diagnosed with lumbar radiculopathy and right sacroiliitis, lumbar spondylosis with lumbar facet arthropathy, and fibromyalgia, patient had right sacroiliac joint fusion done a few months ago, currently she is complaining severe low back pain, and left-sided neck pain she denies any motor or sensory deficits ,she denies any fever or night sweats, she is currently on Percocet 5/325 every 4 hours when necessary, Neurontin 800 mg 3 times a day, Robaxin-750 Q6 hours Objective - Vital Signs Vital signs: Vital Signs Temp Pulse 101 H 05/03/19 12:07 Resp 16 05/03/19 12:07 BP 113/77 05/03/19 12:07 Pulse Ox 95 05/03/19 12:07 - Exam Physical Examinations : -Constitutiona : Cooperative , not in acute distress . -HEENT : nech : supple , no Lymphadenopathy , normal thyroid size . eyes : no ptosis , no icterus, no photophobia . - neurologic : Cranial nerve II to XII intact , no focal neurological deffecit . -psychatric : alert , oriented X 3 , appropriate affect , intact judgment and insight . -Lymphatic : no Lymphadenopathy . - musculoskeltal : Cervical Spine motor stregnth in the deltoid and biceps, normal right side , normal Left side motor stregnth biceps and the wrist extensors normal right side ,normal left side . Trigger point in the left side trapezius/left rhomboid muscle Lumber spine moter stegnth lower extremities ,thigh and legs 5/5 Right side , 5/5 Left side deep tendon reflexes : normal Knee Jerk , normal ankle Jerk positive lumber facet Loading Test Range of motion of the lumbar spine Flexion 30 degrees, extension 10 degrees strait leg raising test , positive at 60 degree Fabere test positive RT and positive LT . Sever tenderness over the Sacroiliac joint on the Right Ga[place]len test positive on the right side. Seated flexion test positive on the right side. Assessment and Plan Plan: Assessment and plan= chronic low back pain secondary to lumbar degenerative disc disease , lumbar spondylosis with lumbar facet arthropathy . Right sacroiliitis( status post fusion of the right sacroiliac joint) chronic and current use of high-risk medication (opioids) Patient denies any side effects of the current pain medication and the current treatment/medication helping the patient to do activity of daily living , Diagnoses, prognosis, treatment options, including but not limited to physical therapy, medication management, interventional therapies, and surgery, were discussed with the patient All the questions answered The narcotic consent was signed and patient agreed and understood the side effects and complications of opioid treatment. Patient signed the narcotic agreement, and was orally counseled, not to overuse, not to abuse, not to Divert , not tp sell pain medication, and to take it as prescribed only, Patient was counseled not to drive or operate heavy equipment while using narcotic medication, and advised not to use alcohol or any Illicit drugs while using the narcotis. understanding that lack of compliance with any of the above instructions, will likely to cause discharge from, the pain service, not to renew his narcotic prescriptions MAPS Reviwed and it was apropriate . Medication managements= patient will be given prescription refills for [place] 5/325 every 6 hours dispense 30 Neurontin 800 mg every 8 hours dispense 90 with 1 refill, Robaxin 750 every 6 hours when necessary Interventions= patient would be good candidate to have diagnostic medial branch block lumbar area bilaterally L3, L4 ,L5 (to target the facet joint L4-5 , L5-S1 ) , Time with Patient: Less than 30 PQRS Measure Charge Sheet Measure #130: Documentation of Current Meds in Medical Chart: Patient's medications documented in chart Measure #226: Tobacco Use: Screen & Cessation Intervention: Pt screened for tobacco use AND intervention given Measure #111: Pneumonia Vaccination: Pneumococcal vaccine administered or previously received Measure #47: Advance Care Plan: Advance care planning discussed & documented, pt chose/unable to give Measure #412: Opioid Treatment Agreement: Documented signed opioid trtmnt agreemnt min once during opioid trtmnt Measure #408: Opioid Therapy Follow-up Evaluation: Patient had f/u eval minimum every 3 months during opioid therapy Measure #317: Preventitive Care & Scrn High Bld Press & F/U: Normal blood pressure, f/u not required Measure #128: Body Mass Index (BMI) Screening & Follow-up: BMI documented ABOVE normal parameters - f/u documented Measure #131: Pain Assessment & Follow-up: Pain positive & plan documented, Follow-up scheduled Measure #431: Unhealthy Alcohol Use Preventative Care & Scrn: Patient not identified as an unhealthy alcohol user PQRS Narrative: Smoking Status Current every day smoker Narcotic Agreement Date Signed 01/11/19 Blood Pressure 113/77 Pain Intensity [Bilateral 6 Lower Back] Pain Intensity [Neck] 6 Scale Used Numeric (1 - 10) Hx Alcohol Use (MH) No Home Medications: Ambulatory Orders Gabapentin 800 mg PO TID 10/16/17 Methocarbamol [Robaxin-750] 750 mg PO QID 06/01/18 Ranitidine HCl [Zantac] 150 mg PO BID 06/01/18 Venlafaxine HCl ER [Effexor XR] 150 mg PO HS 06/01/18 risperiDONE [RisperDAL] 1 mg PO HS 06/01/18 Atorvastatin [Lipitor] 10 mg PO DAILY #30 tab 06/02/18 risperiDONE [RisperDAL] 0.5 mg PO DAILY 09/28/18 Butalb/Acetaminophen/Caffeine [Esgic 50-325-40 Capsule] 1 cap PO DIRECTED PRN 04/27/19 Cetirizine HCl [Zyrtec] 10 mg PO DAILY 04/27/19 Doxycycline [Vibramycin] 100 mg PO BID 04/27/19 oxyCODONE-APAP 5-325MG [Percocet 5-325 mg] 1 tab PO Q4HR PRN 04/27/19 Controlled Substance Measures - Controlled Substance Measures Is patient prescribed a controlled substance at discharge?: Yes When asked, does pt state using other controlled substances?: No If prescribed controlled substance>3 days was MAPS reviewed?: Yes If Rx opioid, was Start Talking consent form obtained?: Yes If opioid is for acute pain is fill amount 7 days or less?: No Was information provided regarding opioid addiction?: Yes
== END | disposition home or self-care (01) ==
LOC: PNWHC3 12:00
PROVIDERS: ATTEND Specialist
DX: G89.29 Other chronic pain (principal); M51.36 Other intervertebral disc degeneration, lumbar region; M47.816 Spondylosis without myelopathy or radiculopathy, lumbar region; M46.96 Unspecified inflammatory spondylopathy, lumbar region; M46.1 Sacroiliitis, not elsewhere classified; F17.200 Nicotine dependence, unspecified, uncomplicated; Z79.2 Long term (current) use of antibiotics; Z79.891 Long term (current) use of opiate analgesic; Z79.899 Other long term (current) drug therapy
CPT/HCPCS: 99211

== ENCOUNTER 2019-05-10 09:23 | Day surgery (SDC) | payer OTHER ==
[2019-05-06 10:48] VITALS: BMI 29.2
[2019-05-10 10:03] VITALS: TEMP 97.8
--- NOTE | 2019-05-10 10:39 | P.PCN ---
Date of Procedure: 05/10/19 Procedure(s) Performed: PREOPERATIVE DIAGNOSIS : 1- Lumbar spondylosis with Facet Arthropathy without myelopathy . 2- Lumber degenerative disc disease 3-myofascial pain syndrome left side trapezius and cervical paravertebral muscles POSTOPERATIVE DIAGNOSIS: Same as preoperative diagnoses PROCEDURE:1- Diagnostic bilateral L3 , L4 , and L5 medial branch block under fluoroscopy guidance (fluoroscopy images available in the radiology Department ). (The target was the facet joint at L4- 5 ,and L5-S1 levels ) 2- Left side trapezius muscle, and left-sided cervical paravertebral muscle injection(total of 2 trigger point injected ) ANESTHESIA: Local with Ropivacain 0.5 % 6 ml , moderate sedation with intravenous Versed 2 mg and Fentanyl 50 mcg. EBL: Minimal COMPLICATION: None. IV FLUIDS: 100 mL of normal saline. PROCEDURE INDICATION: Chronic low back pain secondary to Facet arthropathy unresponsive to conservative treatment. PROCEDURE DESCRIPTION: the patient was seen and identified in the preop holding area , risks and benefits and possible complications of the procedure and alternative were discussed with the patient, and the patient agreed to proceed with the procedure and signed the consent IV was started and vital signs monitored during the procedure and fluoroscopy was used to maximize the benefit and accuracy of the needle placement, and sedation was given to decrease patient anxiety, patient was taken to the procedure room and placed in prone position vital signs monitored in the back prepped with chlorhexidine X3 then under strict sterile technique using a right oblique fluoroscopy ,the junction of the transverse process and the superior articulating process of the right L3 , L4, and L5 vertebra which corresponding to the fluoroscopy image of the eye of the Apollo dog on the block side for the medial branches and subsequently , after local infiltration of skin and subcu tissuies with Ropivacaine 0.5 % , one mL at each level ,then 22-gauge Quincke-type needles , 3 needle was used , each one of them placed at the junction of the base of the transverse process and the superior articular process at the appropriate level, and the needle was advanced until the periosteum contacted, needle placement confirmed with AP oblique and lateral view and after appropriate needle placement confirmed, and after negative aspiration for heme and CSF and there was no paresthesia 1-1/2 mL of Ropivacaine 0.5% mixed with 20 mg Depo-Medrol , then half mL injected at each level after negative aspiration the needle subsequently removed and the same procedure repeated for the left side at left side at L3, L4 and L5 levels. Then after that the trigger point injection in the left side trapezius muscle on the left side cervical paravertebral muscles each of the trigger point injected with ropivacaine 0.5% 2 mL injected at each trigger point after negative aspiration and injection done after negative aspiration and there was no paresthesia during the injection, injection done several technique after the cervical area was prepped with chlorhexidine 3, tolerated the procedure well without any complications At the end of the procedure and the needles removed and a bandage applied after the skin was cleaned the cleaning solution patient taken to recovery room in sta ble condition and monitors in the recovery room for 20-30 minutes and discharged home in stable condition after discharge criteria met and patient will follow up with the pain clinic in 2-4 weeks
[2019-05-10] MEDS ORDERED: IV FLUID CONTINUATION 650 ML IV ONE (10:40)
[2019-05-10 10:45] VITALS: RESP 18
[2019-05-10 10:58] VITALS: BP 109/73; PULSE 90
--- NOTE | 2019-05-11 10:54 | FL ---
EXAMINATION TYPE: FL guided pain mgmt statistic DATE OF EXAM: 05/10/2019 CLINICAL HISTORY: Low back pain. TECHNIQUE: Fluoroscopy. COMPARISON: None. FINDINGS: Fluoroscopic guidance was provided during pain relief procedure performed by Dr. Dillon . A total of 9 seconds of fluoroscopic time was utilized during the procedure and 4 spot images are acquired. Images acquired shows needle localization at multiple levels in the lumbar spine. IMPRESSION: As Above.
== END 2019-05-10 11:09 | disposition home or self-care (01) ==
LOC: ORPAIN 09:23
PROVIDERS: ATTEND Specialist
DX: G89.29 Other chronic pain (principal); M47.816 Spondylosis without myelopathy or radiculopathy, lumbar region; M51.36 Other intervertebral disc degeneration, lumbar region; M79.18 Myalgia, other site; J45.909 Unspecified asthma, uncomplicated; Z91.048 Other nonmedicinal substance allergy status; Z88.8 Allergy status to other drugs, medicaments and biological substances; Z88.1 Allergy status to other antibiotic agents; Z88.5 Allergy status to narcotic agent; Z88.2 Allergy status to sulfonamides; Z88.0 Allergy status to penicillin; Z88.6 Allergy status to analgesic agent; Z86.73 Personal history of transient ischemic attack (TIA), and cerebral infarction without residual deficits; Z90.710 Acquired absence of both cervix and uterus
CPT/HCPCS: 20552; 64493; 64494; 64495; J2250; J1030; J3010; 99152

== ENCOUNTER 2019-05-16 17:20 | Emergency (ER) | payer OTHER ==
[2019-05-16 17:39] VITALS: BP 106/72; PULSE 94; RESP 18; TEMP 98.9
[2019-05-16] MEDS ORDERED: HYDROmorphone 1 MG/ML 1 ML SYRINGE IM STA (17:56)
--- NOTE | 2019-05-16 18:07 | ED ---
General Adult HPI - General Chief complaint: Headache Stated complaint: lt sided pain Time Seen by Provider: 05/16/19 17:49 Source: patient, RN notes reviewed Mode of arrival: ambulatory Limitations: no limitations - History of Present Illness Initial comments: 28-year-old female with a past medical history of bulging disks, tonic neck pain, chronic back pain, occipital neuralgia, remote history of cervical, uterine, and colon cancer presents to the emergency department for a chief complaint of left neck and left arm pain. Patient states she received trigger point injections in the cervical spine last week. Patient states that since that time she has had a migraine. Patient states she always has a migraine and this is normal for her. Patient states that the pain is shooting from her neck down her arm into her first 3 fingers. States it feels like a nerve pain. Despite initial complaint, patient denies any numbness of the left arm. Denies any fevers or chills. Denies any midline neck pain. Denies any nausea vomiting or confusion. Patient has no other complaints at this time including shortness of breath, chest pain, abdominal pain, nausea or vomiting, headache, or visual changes. - Related Data Home Medications Medication Instructions Recorded Confirmed Gabapentin 800 mg PO TID 10/16/17 05/10/19 Methocarbamol [Robaxin-750] 750 mg PO QID 06/01/18 05/10/19 Ranitidine HCl [Zantac] 150 mg PO BID 06/01/18 05/10/19 Venlafaxine HCl ER [Effexor XR] 150 mg PO HS 06/01/18 05/10/19 risperiDONE [RisperDAL] 1 mg PO HS 06/01/18 05/10/19 risperiDONE [RisperDAL] 0.5 mg PO DAILY 09/28/18 05/10/19 Butalb/Acetaminophen/Caffeine 1 cap PO DIRECTED PRN 04/27/19 05/10/19 [Esgic 50-325-40 Capsule] Cetirizine HCl [Zyrtec] 10 mg PO DAILY 04/27/19 05/10/19 Doxycycline [Vibramycin] 100 mg PO BID 04/27/19 05/10/19 HYDROcodone/APAP 5-325MG [[place] 1 tab PO Q8HR PRN 05/03/19 05/10/19 5-325] Previous Rx's Medication Instructions Recorded Atorvastatin [Lipitor] 10 mg PO DAILY #30 tab 06/02/18 Allergies Allergy/AdvReac Type Severity Reaction Status Date / Time adhesive tape Allergy skin Verified 05/16/19 17:39 blisters amoxicillin trihydrate Allergy Swelling Verified 05/16/19 17:39 [From Augmentin] ceftriaxone sodium Allergy Swelling Verified 05/16/19 17:39 [From Rocephin] clarithromycin [From Biaxin] Allergy Swelling Verified 05/16/19 17:39 fexofenadine HCl Allergy Swelling Verified 05/16/19 17:39 [From Leslye] ketorolac tromethamine Allergy Swelling Verified 05/16/19 17:39 [From Toradol] loratadine [From Claritin] Allergy Swelling Verified 05/16/19 17:39 meperidine HCl [From Demerol] Allergy Swelling Verified 05/16/19 17:39 morphine Allergy Swelling Verified 05/16/19 17:39 Penicillins Allergy Swelling Verified 05/16/19 17:39 potassium clavulanate Allergy Swelling Verified 05/16/19 17:39 [From Augmentin] propoxyphene Allergy Swelling Verified 05/16/19 17:39 [From Darvocet-N] Sulfa (Sulfonamide Allergy Swelling Verified 05/16/19 17:39 Antibiotics) Review of Systems ROS Statement: Those systems with pertinent positive or pertinent negative responses have been documented in the HPI. ROS Other: All systems not noted in ROS Statement are negative. Past Medical History Past Medical History: Asthma, Cancer, CVA/TIA, Fibromyalgia, Musculoskeletal Disorder, Syncope Additional Past Medical History / Comment(s): HX OF CERVICAL,UTERINE AND COLON CANCER W/ HYSTERECTOMY/CHEMO AT 16 YRS OLD. RIGHT KIDNEY STONES, HYPOGLYCEMIA (HIGH PROTEIN DIET), BULGING DISCS CERVICAL, AND BACK, W/PAIN, R SIDED SCIATICA, CERVICAL PAIN, OCCIPITAL NEURALGIA. STATES HX OF PVC'S, SYNCOPE. History of Any Multi-Drug Resistant Organisms: C-DIFF Date of last positivie culture/infection: 2010 MDRO Source:: stool Past Surgical History: Cholecystectomy, Hysterectomy, Tonsillectomy Additional Past Surgical History / Comment(s): R sided kidney stents- since removed, EGD/colonoscopy, several pain clinic procedures/blocks. LOOP RECORDER INSERTION since removed. Right SI infusion Past Anesthesia/Blood Transfusion Reactions: Motion Sickness, Postoperative Nausea & Vomiting (PONV) Additional Past Anesthesia/Blood Transfusion Reaction / Comment(s): PT IS ADOPTED AND DOES NOT KNOW FAMILY HX. Past Psychological History: Anxiety, Depression, PTSD Smoking Status: Current every day smoker Past Alcohol Use History: None Reported Past Drug Use History: None Reported - Past Family History Mother Family Medical History: Unable to Obtain Additional Family Medical History / Comment(s): Adopted Father Family Medical History: Neurologic Disorder Additional Family Medical History / Comment(s): Father of ALS. General Exam Limitations: no limitations General appearance: alert, in no apparent distress Head exam: Present: atraumatic, normocephalic, normal inspection Eye exam: Present: normal appearance, PERRL, EOMI. Absent: scleral icterus, conjunctival injection, periorbital swelling ENT exam: Present: normal exam, mucous membranes moist Neck exam: Present: normal inspection, tenderness (Tenderness noted to the left paraspinal cervical muscles including the trapezius into the shoulder. Muscle spasm noted.), full ROM (Full range motion. No pain with flexion or full extension of the neck.). Absent: meningismus, lymphadenopathy Respiratory exam: Present: normal lung sounds bilaterally. Absent: respiratory distress, wheezes, rales, rhonchi, stridor Cardiovascular Exam: Present: regular rate, normal rhythm, normal heart sounds. Absent: systolic murmur, diastolic murmur, rubs, gallop, clicks Extremities exam: Present: full ROM (Full Range of motion of the left arm. Strength 5 out of 5 in upper extremities bilaterally. No weakness.), normal capillary refill (cap refill less than 2 seconds, radial pulse 2+ in left upper extremity and equal bilaterally), other (Sensation intact in the left upper extremity. Patient able to make an okay sign, spread all fingers, and flex and extend the left wrist. ). Absent: tenderness, pedal edema, joint swelling, calf tenderness Neurological exam: Present: alert, oriented X3, normal gait, other (GCS 15) Psychiatric exam: Present: normal affect, normal mood Course Vital Signs 05/16/19 17:36 Temperature 98.9 F Pulse Rate 94 Respiratory 18 Rate Blood Pressure 106/72 O2 Sat by Pulse 99 Oximetry Medical Decision Making - Medical Decision Making Patient presents for chronic migraine as well as left arm pain after a trigger point injection last week. Pain shoots from her trapezius down her arm. I suspect a muscle spasm of the cervical trapezius as she is tender in this area. It is likely causing mild impingement causing a sharp pain shooting down the median nerve distribution. Patient is ALLERGIC to Toradol and morphine. Patient will be given one IM injection of Dilaudid. Discussed that she needs to follow-up with pain management for further treatment of this problem. However if she has any worsening symptoms such as fever, increased neck pain, or any other she is to return to the emergency department. Disposition Clinical Impression: Migraine, Cervical radiculopathy Disposition: HOME SELF-CARE Condition: Good Instructions (If sedation given, give patient instructions): Cervical Radiculopathy (ED), Migraine Headache (ED) Additional Instructions: Please do gentle stretching of the area. Gentle massage may help as well. Please follow up with primary care in 1-2 days. Please return to the emergency department if you have any worsening symptoms. Is patient prescribed a controlled substance at d/c from ED?: No Referrals: Bijan James DO [Primary Care Provider] - 1-2 days Time of Disposition: 18:06
== END 2019-05-16 18:23 | disposition home or self-care (01) ==
LOC: EC 17:20
DX: G43.909 Migraine, unspecified, not intractable, without status migrainosus (principal); M54.12 Radiculopathy, cervical region; J45.909 Unspecified asthma, uncomplicated; G89.29 Other chronic pain; M79.7 Fibromyalgia; F32.9 Major depressive disorder, single episode, unspecified; F41.9 Anxiety disorder, unspecified; F17.200 Nicotine dependence, unspecified, uncomplicated; Z88.0 Allergy status to penicillin; Z88.1 Allergy status to other antibiotic agents; Z88.2 Allergy status to sulfonamides; Z88.5 Allergy status to narcotic agent; Z88.6 Allergy status to analgesic agent; Z88.8 Allergy status to other drugs, medicaments and biological substances; Z91.048 Other nonmedicinal substance allergy status; Z79.899 Other long term (current) drug therapy; Z85.038 Personal history of other malignant neoplasm of large intestine; Z85.41 Personal history of malignant neoplasm of cervix uteri; Z92.21 Personal history of antineoplastic chemotherapy; Z90.710 Acquired absence of both cervix and uterus; Z98.1 Arthrodesis status
CPT/HCPCS: 99283; 96372; J1170

== ENCOUNTER → 2019-06-04 | Outpatient (CLI) | payer OTHER | END | disposition home or self-care (01) | LOC: RADMRIMAIN 12:11 | PROVIDERS: ATTEND Neurological Surgery | DX: Z53.9 Procedure and treatment not carried out, unspecified reason (principal) ==

== ENCOUNTER 2019-06-09 11:17 | Emergency (ER) | payer OTHER ==
[2019-06-09 11:27] VITALS: BP 104/70; PULSE 94; RESP 16; TEMP 97.9
[2019-06-09] MEDS ORDERED: HYDROmorphone 1 MG/ML 1 ML SYRINGE IM STA (11:49)
[2019-06-09] MEDS ORDERED: ORPHENADRINE 30 MG/ML 2 ML VIAL IM STA (11:50)
--- NOTE | 2019-06-09 11:54 | ED ---
General Adult HPI - General Chief complaint: Neck Pain/Injury Stated complaint: Neck/Head Pain Time Seen by Provider: 06/09/19 11:33 Source: patient, RN notes reviewed Mode of arrival: ambulatory Limitations: no limitations - History of Present Illness Initial comments: Patient is a pleasant 28-year-old female presenting to the emergency Department with neck pain. Patient has chronic neck pain. Patient has had MRI and has seen neurosurgeon. Patient is scheduled for surgery with her neurosurgeon out of [facility]. Patient states no new neck pain. Patient states she has some paresthesias of her left arm however this is chronic and unchanged. No weakness. No loss of control of bowel or bladder. Patient also has chronic back pain which she is also planning surgery for. No fevers. - Related Data Home Medications Medication Instructions Recorded Confirmed Gabapentin 800 mg PO TID 10/16/17 05/10/19 Methocarbamol [Robaxin-750] 750 mg PO QID 06/01/18 05/10/19 Ranitidine HCl [Zantac] 150 mg PO BID 06/01/18 05/10/19 Venlafaxine HCl ER [Effexor XR] 150 mg PO HS 06/01/18 05/10/19 risperiDONE [RisperDAL] 1 mg PO HS 06/01/18 05/10/19 risperiDONE [RisperDAL] 0.5 mg PO DAILY 09/28/18 05/10/19 Butalb/Acetaminophen/Caffeine 1 cap PO DIRECTED PRN 04/27/19 05/10/19 [Esgic 50-325-40 Capsule] Cetirizine HCl [Zyrtec] 10 mg PO DAILY 04/27/19 05/10/19 Doxycycline [Vibramycin] 100 mg PO BID 04/27/19 05/10/19 HYDROcodone/APAP 5-325MG [[place] 1 tab PO Q8HR PRN 05/03/19 05/10/19 5-325] Previous Rx's Medication Instructions Recorded Atorvastatin [Lipitor] 10 mg PO DAILY #30 tab 06/02/18 Allergies Allergy/AdvReac Type Severity Reaction Status Date / Time adhesive tape Allergy skin Verified 06/09/19 11:25 blisters amoxicillin trihydrate Allergy Swelling Verified 06/09/19 11:25 [From Augmentin] ceftriaxone sodium Allergy Swelling Verified 06/09/19 11:25 [From Rocephin] clarithromycin [From Biaxin] Allergy Swelling Verified 06/09/19 11:25 fexofenadine HCl Allergy Swelling Verified 06/09/19 11:25 [From Leslye] ketorolac tromethamine Allergy Swelling Verified 06/09/19 11:25 [From Toradol] loratadine [From Claritin] Allergy Swelling Verified 06/09/19 11:25 meperidine HCl [From Demerol] Allergy Swelling Verified 06/09/19 11:25 morphine Allergy Swelling Verified 06/09/19 11:25 Penicillins Allergy Swelling Verified 06/09/19 11:25 potassium clavulanate Allergy Swelling Verified 06/09/19 11:25 [From Augmentin] propoxyphene Allergy Swelling Verified 06/09/19 11:25 [From Darvocet-N] Sulfa (Sulfonamide Allergy Swelling Verified 06/09/19 11:25 Antibiotics) Review of Systems ROS Statement: Those systems with pertinent positive or pertinent negative responses have been documented in the HPI. ROS Other: All systems not noted in ROS Statement are negative. Constitutional: Denies: fever Eyes: Denies: eye pain ENT: Denies: ear pain Respiratory: Denies: cough, dyspnea Cardiovascular: Denies: chest pain Endocrine: Denies: fatigue Gastrointestinal: Denies: abdominal pain Genitourinary: Denies: dysuria Musculoskeletal: Reports: as per HPI Skin: Denies: rash Neurological: Denies: headache, weakness Past Medical History Past Medical History: Asthma, Cancer, CVA/TIA, Fibromyalgia, Musculoskeletal Disorder, Syncope Additional Past Medical History / Comment(s): HX OF CERVICAL,UTERINE AND COLON CANCER W/ HYSTERECTOMY/CHEMO AT 16 YRS OLD. RIGHT KIDNEY STONES, HYPOGLYCEMIA (HIGH PROTEIN DIET), BULGING DISCS CERVICAL, AND BACK, W/PAIN, R SIDED SCIATICA, CERVICAL PAIN, OCCIPITAL NEURALGIA. STATES HX OF PVC'S, SYNCOPE. History of Any Multi-Drug Resistant Organisms: C-DIFF Date of last positivie culture/infection: 2010 MDRO Source:: stool Past Surgical History: Cholecystectomy, Hysterectomy, Tonsillectomy Additional Past Surgical History / Comment(s): R sided kidney stents- since removed, EGD/colonoscopy, several pain clinic procedures/blocks. LOOP RECORDER INSERTION since removed. Right SI infusion Past Anesthesia/Blood Transfusion Reactions: Motion Sickness, Postoperative Nausea & Vomiting (PONV) Additional Past Anesthesia/Blood Transfusion Reaction / Comment(s): PT IS ADOPTED AND DOES NOT KNOW FAMILY HX. Past Psychological History: Anxiety, Depression, PTSD Smoking Status: Current every day smoker Past Alcohol Use History: None Reported Past Drug Use History: None Reported - Past Family History Mother Family Medical History: Unable to Obtain Additional Family Medical History / Comment(s): Adopted Father Family Medical History: Neurologic Disorder Additional Family Medical History / Comment(s): Father of ALS. General Exam Limitations: no limitations General appearance: alert, in no apparent distress Head exam: Present: normocephalic Eye exam: Present: normal appearance Neck exam: Present: tenderness (Mild diffuse tenderness) Respiratory exam: Present: normal lung sounds bilaterally Cardiovascular Exam: Present: regular rate, normal rhythm Expanded Peripheral pulses: 2+: Radial (R), Radial (L) GI/Abdominal exam: Present: soft. Absent: tenderness Extremities exam: Present: normal inspection, full ROM Back exam: Present: normal inspection Neurological exam: Present: alert. Absent: motor sensory deficit Expanded Speech: Present: fluid speech Sensory exam: Upper Extremity Light Touch: Normal Motor strength exam: RUE: 5, LUE: 5, RLE: 5, LLE: 5 Psychiatric exam: Present: normal affect, normal mood Skin exam: Present: normal color Course Vital Signs 06/09/19 11:23 Temperature 97.9 F Pulse Rate 94 Respiratory 16 Rate Blood Pressure 104/70 O2 Sat by Pulse 98 Oximetry Disposition Clinical Impression: Chronic neck pain Disposition: HOME SELF-CARE Condition: Stable Instructions (If sedation given, give patient instructions): Neck Pain (ED), Chronic Neck Pain (DC) Additional Instructions: Please follow-up with your primary care physician in the next day or 2 for recheck as well as your neurosurgeon. Return for weakness, fever, loss of sensation, loss of control of bowel or bladder, worsening symptoms or any other concerns. Is patient prescribed a controlled substance at d/c from ED?: No Referrals: Bijna James DO [Primary Care Provider] - 1-2 days Time of Disposition: 11:52
== END 2019-06-09 12:34 | disposition home or self-care (01) ==
LOC: EC 11:17
DX: G89.29 Other chronic pain (principal); M54.9 Dorsalgia, unspecified; M54.2 Cervicalgia; F41.9 Anxiety disorder, unspecified; F32.9 Major depressive disorder, single episode, unspecified; M79.7 Fibromyalgia; M54.81 Occipital neuralgia; F17.200 Nicotine dependence, unspecified, uncomplicated; Z79.899 Other long term (current) drug therapy; Z88.2 Allergy status to sulfonamides; Z88.8 Allergy status to other drugs, medicaments and biological substances; Z88.0 Allergy status to penicillin; Z88.5 Allergy status to narcotic agent; Z88.1 Allergy status to other antibiotic agents; Z88.6 Allergy status to analgesic agent; Z91.048 Other nonmedicinal substance allergy status; Z85.038 Personal history of other malignant neoplasm of large intestine; Z86.73 Personal history of transient ischemic attack (TIA), and cerebral infarction without residual deficits; Z92.21 Personal history of antineoplastic chemotherapy
CPT/HCPCS: 96372 ×2; 99283; J2360; J1170

== ENCOUNTER 2019-06-23 13:25 | Emergency (ER) | payer OTHER ==
[2019-06-23 13:30] VITALS: BP 113/72; PULSE 83; RESP 20; TEMP 97.9
[2019-06-23] MEDS ORDERED: oxyCODONE-APAP 10-325MG 1 EACH TAB PO STA (13:48)
--- NOTE | 2019-06-23 14:06 | XR ---
EXAMINATION TYPE: XR hand complete LT DATE OF EXAM: 06/23/2019 CLINICAL HISTORY: Pain and swelling after stepped on dog injury. TECHNIQUE: Frontal, lateral and oblique images of the left hand are obtained. COMPARISON: None. FINDINGS: There is no acute fracture/dislocation evident in the left hand. The joint spaces in the l eft hand appear within normal limits. The overlying soft tissue appears unremarkable. IMPRESSION: There is no acute fracture or dislocation in the left hand.
--- NOTE | 2019-06-23 14:13 | ED ---
Upper Extremity HPI - General Chief Complaint: Extremity Injury, Upper Stated Complaint: Hand injury Time Seen by Provider: 06/23/19 13:39 Source: patient Mode of arrival: ambulatory Limitations: no limitations - History of Present Illness Initial Comments: 28-year-old female presenting today for chief complaint ofleft hand pain after injury. Patient states that when she was sitting on the floor wrapping her great Larry ran across to her left hand causing pain over the dorsum mostly near the base of the right index finger. She otherwise denies gross deformity ecchymosis or soft tissue swelling. She states she is able to fully range of the digit with full strength. Patient does admit to a paresthesia of the left hand she says this is secondary to her cervical spine disease which she has scheduled procedure with Dr. Joseph at [facility] next month> patient denies any worsening of symptoms. remaining ROS (-). pt takes percocet at home for pain. - Related Data Home Medications Medication Instructions Recorded Confirmed Gabapentin 800 mg PO TID 10/16/17 05/10/19 Methocarbamol [Robaxin-750] 750 mg PO QID 06/01/18 05/10/19 Ranitidine HCl [Zantac] 150 mg PO BID 06/01/18 05/10/19 Venlafaxine HCl ER [Effexor XR] 150 mg PO HS 06/01/18 05/10/19 risperiDONE [RisperDAL] 1 mg PO HS 06/01/18 05/10/19 risperiDONE [RisperDAL] 0.5 mg PO DAILY 09/28/18 05/10/19 Butalb/Acetaminophen/Caffeine 1 cap PO DIRECTED PRN 04/27/19 05/10/19 [Esgic 50-325-40 Capsule] Cetirizine HCl [Zyrtec] 10 mg PO DAILY 04/27/19 05/10/19 Doxycycline [Vibramycin] 100 mg PO BID 04/27/19 05/10/19 HYDROcodone/APAP 5-325MG [[place] 1 tab PO Q8HR PRN 05/03/19 05/10/19 5-325] Previous Rx's Medication Instructions Recorded Atorvastatin [Lipitor] 10 mg PO DAILY #30 tab 06/02/18 Allergies Allergy/AdvReac Type Severity Reaction Status Date / Time adhesive tape Allergy skin Verified 06/23/19 13:30 blisters amoxicillin trihydrate Allergy Swelling Verified 06/23/19 13:30 [From Augmentin] ceftriaxone sodium Allergy Swelling Verified 06/23/19 13:30 [From Rocephin] clarithromycin [From Biaxin] Allergy Swelling Verified 06/23/19 13:30 fexofenadine HCl Allergy Swelling Verified 06/23/19 13:30 [From Leslye] ketorolac tromethamine Allergy Swelling Verified 06/23/19 13:30 [From Toradol] loratadine [From Claritin] Allergy Swelling Verified 06/23/19 13:30 meperidine HCl [From Demerol] Allergy Swelling Verified 06/23/19 13:30 morphine Allergy Swelling Verified 06/23/19 13:30 Penicillins Allergy Swelling Verified 06/23/19 13:30 potassium clavulanate Allergy Swelling Verified 06/23/19 13:30 [From Augmentin] propoxyphene Allergy Swelling Verified 06/23/19 13:30 [From Darvocet-N] Sulfa (Sulfonamide Allergy Swelling Verified 06/23/19 13:30 Antibiotics) Review of Systems ROS Statement: Those systems with pertinent positive or pertinent negative responses have been documented in the HPI. ROS Other: All systems not noted in ROS Statement are negative. Past Medical History Past Medical History: Asthma, Cancer, CVA/TIA, Fibromyalgia, Musculoskeletal Disorder, Syncope Additional Past Medical History / Comment(s): HX OF CERVICAL,UTERINE AND COLON CANCER W/ HYSTERECTOMY/CHEMO AT 16 YRS OLD. RIGHT KIDNEY STONES, HYPOGLYCEMIA (HIGH PROTEIN DIET), BULGING DISCS CERVICAL, AND BACK, W/PAIN, R SIDED SCIATICA, CERVICAL PAIN, OCCIPITAL NEURALGIA. STATES HX OF PVC'S, SYNCOPE. History of Any Multi-Drug Resistant Organisms: C-DIFF Date of last positivie culture/infection: 2010 MDRO Source:: stool Past Surgical History: Cholecystectomy, Hysterectomy, Tonsillectomy Additional Past Surgical History / Comment(s): R sided kidney stents- since removed, EGD/colonoscopy, several pain clinic procedures/blocks. LOOP RECORDER INSERTION since removed. Right SI infusion Past Anesthesia/Blood Transfusion Reactions: Motion Sickness, Postoperative Nausea & Vomiting (PONV) Additional Past Anesthesia/Blood Transfusion Reaction / Comment(s): PT IS ADOPTED AND DOES NOT KNOW FAMILY HX. Past Psychological History: Anxiety, Depression, PTSD Smoking Status: Current every day smoker Past Alcohol Use History: None Reported Past Drug Use History: None Reported - Past Family History Mother Family Medical History: Unable to Obtain Additional Family Medical History / Comment(s): Adopted Father Family Medical History: Neurologic Disorder Additional Family Medical History / Comment(s): Father of ALS. General Exam - General Exam Comments Initial Comments: General: The patient is awake and alert, in no distress, and does not appear acutely ill. Eye: Pupils are equal, round and reactive to light, extra-ocular movements are intact. No nystagmus. There is normal conjunctiva bilaterally. No signs of icterus. Cardiovascular: There is a regular rate and rhythm. No murmur, rub or gallop is appreciated. Respiratory: Lungs are clear to auscultation, respirations are non-labored, breath sounds are equal. No wheezes, stridor, rales, or rhonchi. Musculoskeletal: upon inspection of the hands bilaterally there is no Sadler Her male roommate of the skin. No soft tissue swelling or ecchymosis. Patient is able to fully range at the MCP DP PIP joints of all 5 digits the hands equal comparison bilaterally with no decreased strength. Sensation intact both proximal and distal to the affected area. Patient is no anatomical snuffbox tenderness with +2 radial pulses equal and comparison bilaterally. Patient able to fully range the wrist elbow and shoulder of the affected extremity. Neurological: A&O x 3. CN II-XII intact grossly, There are no obvious motor or sensory deficits. Coordination appears grossly intact. Speech is normal. Skin: Skin is warm and dry and no rashes or lesions are noted. Psychiatric: Cooperative, appropriate mood & affect, normal judgment. Limitations: no limitations Course Vital Signs 06/23/19 13:28 Temperature 97.9 F Pulse Rate 83 Respiratory 20 Rate Blood Pressure 113/72 O2 Sat by Pulse 99 Oximetry Medical Decision Making - Medical Decision Making 28-year-old female presenting today for chief complaint of left hand pain after great Larry stepped on it. Patient has no snuffbox tenderness neurovascularly intact x-rays negative for acute osseous injury. Patient has full strength without limitations. Patient is provided home dose of pain medication. Otherwise at this time feel patient is stable for discharge with [facility] instructions and primary care follow-up. Patient is agreeable to this Plan discharge at this time. Return parameters were discussed at length Disposition Clinical Impression: Injury of left hand, Left hand pain Disposition: HOME SELF-CARE Condition: Good Instructions (If sedation given, give patient instructions): Hand Sprain (ED) Additional Instructions: Please use medication as discussed. Please follow-up with family doctor in the next 2 days. Please return to emergency room if the symptoms increase or worsen or for any other concerns. Is patient prescribed a controlled substance at d/c from ED?: No Referrals: Bijan James DO [Primary Care Provider] - 1-2 days Time of Disposition: 14:25
== END 2019-06-23 14:40 | disposition home or self-care (01) ==
LOC: EC 13:25
DX: S69.92XA Unspecified injury of left wrist, hand and finger(s), initial encounter (principal); M79.7 Fibromyalgia; F41.9 Anxiety disorder, unspecified; F32.9 Major depressive disorder, single episode, unspecified; F43.10 Post-traumatic stress disorder, unspecified; F17.200 Nicotine dependence, unspecified, uncomplicated; Z79.899 Other long term (current) drug therapy; Z91.048 Other nonmedicinal substance allergy status; Z88.1 Allergy status to other antibiotic agents; Z88.0 Allergy status to penicillin; Z88.6 Allergy status to analgesic agent; Z88.5 Allergy status to narcotic agent; Z88.2 Allergy status to sulfonamides; Z85.038 Personal history of other malignant neoplasm of large intestine; Z92.21 Personal history of antineoplastic chemotherapy; W54.1XXA Struck by dog, initial encounter; Y92.009 Unspecified place in unspecified non-institutional (private) residence as the place of occurrence of the external cause
CPT/HCPCS: 99283

== ENCOUNTER 2019-07-01 09:23 | Emergency (ER) | payer OTHER ==
--- NOTE | 2019-07-01 09:33 | ED ---
Neck Injury/Pain HPI - General Chief Complaint: Neck Pain/Injury Stated Complaint: neck pain Time Seen by Provider: 07/01/19 09:32 Mode of arrival: ambulatory Limitations: no limitations - History of Present Illness Initial Comments: 28-year-old female presenting today for chief complaint of neck pain she states she has history of similar degenerative changes of the neck which has been treated to her having chemotherapy as a child, for cervical uterine and endometrial cancer, patient states she gets a ROSS CT every 6 months with no noted reoccurence. Patient states she has been strugglign with neck pain for years, she states that she has a scheduled surgery with Dr. Barroso due to developing weakness in the left arm/parathesias. Patient states that she takes percocet at home for the pain. Patient states that she usually has exacerbations of neck pain and need to come to the ER. Denies any falls/trauma to the neck, denies fevers, changes in characteristics of pain, denies increasing weakness or parathesias. Patient states she came to the ER for pain control. Patient denies any other complaints at this time. Denies chest pain, SOB, pain with inspiration, abdominal pain. - Related Data Home Medications Medication Instructions Recorded Confirmed Gabapentin 800 mg PO TID 10/16/17 05/10/19 Methocarbamol [Robaxin-750] 750 mg PO QID 06/01/18 05/10/19 Ranitidine HCl [Zantac] 150 mg PO BID 06/01/18 05/10/19 Venlafaxine HCl ER [Effexor XR] 150 mg PO HS 06/01/18 05/10/19 risperiDONE [RisperDAL] 1 mg PO HS 06/01/18 05/10/19 risperiDONE [RisperDAL] 0.5 mg PO DAILY 09/28/18 05/10/19 Butalb/Acetaminophen/Caffeine 1 cap PO DIRECTED PRN 04/27/19 05/10/19 [Esgic 50-325-40 Capsule] Cetirizine HCl [Zyrtec] 10 mg PO DAILY 04/27/19 05/10/19 Doxycycline [Vibramycin] 100 mg PO BID 04/27/19 05/10/19 HYDROcodone/APAP 5-325MG [[place] 1 tab PO Q8HR PRN 05/03/19 05/10/19 5-325] Previous Rx's Medication Instructions Recorded Atorvastatin [Lipitor] 10 mg PO DAILY #30 tab 06/02/18 Allergies Allergy/AdvReac Type Severity Reaction Status Date / Time adhesive tape Allergy skin Verified 06/23/19 13:30 blisters amoxicillin trihydrate Allergy Swelling Verified 06/23/19 13:30 [From Augmentin] ceftriaxone sodium Allergy Swelling Verified 06/23/19 13:30 [From Rocephin] clarithromycin [From Biaxin] Allergy Swelling Verified 06/23/19 13:30 fexofenadine HCl Allergy Swelling Verified 06/23/19 13:30 [From Leslye] ketorolac tromethamine Allergy Swelling Verified 06/23/19 13:30 [From Toradol] loratadine [From Claritin] Allergy Swelling Verified 06/23/19 13:30 meperidine HCl [From Demerol] Allergy Swelling Verified 06/23/19 13:30 morphine Allergy Swelling Verified 06/23/19 13:30 Penicillins Allergy Swelling Verified 06/23/19 13:30 potassium clavulanate Allergy Swelling Verified 06/23/19 13:30 [From Augmentin] propoxyphene Allergy Swelling Verified 06/23/19 13:30 [From Darvocet-N] Sulfa (Sulfonamide Allergy Swelling Verified 06/23/19 13:30 Antibiotics) Review of Systems ROS Statement: Those systems with pertinent positive or pertinent negative responses have been documented in the HPI. ROS Other: All systems not noted in ROS Statement are negative. Past Medical History Past Medical History: Asthma, Cancer, CVA/TIA, Fibromyalgia, Musculoskeletal Disorder, Syncope Additional Past Medical History / Comment(s): HX OF CERVICAL,UTERINE AND COLON CANCER W/ HYSTERECTOMY/CHEMO AT 16 YRS OLD. RIGHT KIDNEY STONES, HYPOGLYCEMIA (HIGH PROTEIN DIET), BULGING DISCS CERVICAL, AND BACK, W/PAIN, R SIDED SCIATICA, CERVICAL PAIN, OCCIPITAL NEURALGIA. STATES HX OF PVC'S, SYNCOPE. History of Any Multi-Drug Resistant Organisms: C-DIFF Date of last positivie culture/infection: 2010 MDRO Source:: stool Past Surgical History: Cholecystectomy, Hysterectomy, Tonsillectomy Additional Past Surgical History / Comment(s): R sided kidney stents- since removed, EGD/colonoscopy, several pain clinic procedures/blocks. LOOP RECORDER INSERTION since removed. Right SI infusion Past Anesthesia/Blood Transfusion Reactions: Motion Sickness, Postoperative Nausea & Vomiting (PONV) Additional Past Anesthesia/Blood Transfusion Reaction / Comment(s): PT IS ADOPTED AND DOES NOT KNOW FAMILY HX. Past Psychological History: Anxiety, Depression, PTSD Smoking Status: Current every day smoker Past Alcohol Use History: None Reported Past Drug Use History: None Reported - Past Family History Mother Family Medical History: Unable to Obtain Additional Family Medical History / Comment(s): Adopted Father Family Medical History: Neurologic Disorder Additional Family Medical History / Comment(s): Father of ALS. General Exam - General Exam Comments Initial Comments: General: The patient is awake and alert, in no distress, and does not appear acutely ill. Eye: +3 mm pupils are equal, round and reactive to light, extra-ocular movements are intact. No nystagmus. There is normal conjunctiva bilaterally. No signs of icterus. Ears, nose, mouth and throat: There are moist mucous membranes and no oral lesions. Neck: The neck is supple, there is no tenderness or JVD. Midline tenderness to palpation of c-spine. No other changes noted. Cardiovascular: There is a regular rate and rhythm. No murmur, rub or gallop is appreciated. Respiratory: Lungs are clear to auscultation, respirations are non-labored, breath sounds are equal. No wheezes, stridor, rales, or rhonchi. Musculoskeletal: Normal ROM, no tenderness. Strength 5/5 of the right UE 4/5 of the left . Sensation intact of the UE b/l. Radial pulses equal bilaterally 2+. Neurological: A&O x 3. CN II-XII intact grossly, There are no obvious motor or sensory deficits. Coordination appears grossly intact. Speech is normal. Skin: Skin is warm and dry and no rashes or lesions are noted. Psychiatric: Cooperative, appropriate mood & affect, normal judgment. Limitations: no limitations Course Vital Signs 07/01/19 07/01/19 07/01/19 09:25 09:47 10:57 Temperature 98.4 F 98.7 F Pulse Rate 124 H 98 Respiratory 22 20 Rate Blood Pressure 119/82 105/79 O2 Sat by Pulse 95 98 Oximetry 07/01/19 11:00 Temperature Pulse Rate 72 Respiratory 18 Rate Blood Pressure 112/72 O2 Sat by Pulse 100 Oximetry Medical Decision Making - Medical Decision Making 28 oh female with history of chronic neck pain with severe degenerative changes and bulging disc presenting to emergency department for chief complaint of acute on chronic neck pain. She states she has frequent exacerbations of her neck pain that Percocet does not seem to help her she states usually comes to emergency Department for these complaints. Patient denies any change in characteristic pain denies any recent trauma follows denies fevers. Denies any increasing weakness of the left upper extremity which is patient's baseline. Patient states she has scheduled outpatient surgery and she simply came to the emergency department for further evaluation for pain control. Patient was given 1 IM dose of Dilaudid, 1 dose percocet to be taken at home, patient requesting discharge. Case discussed with attending Dr. Reagan--who is agreeable care plan discharge at this time. Return parameters were discussed at length patient verbalized understanding eye surgery patient to contact her neurosurgeon to discuss her visit to emergency department today Disposition Clinical Impression: Chronic neck pain Disposition: HOME SELF-CARE Condition: Good Instructions (If sedation given, give patient instructions): Chronic Neck Pain (DC) Additional Instructions: Please use medication as discussed. Please follow-up with family doctor in the next 2 days, call neurosurgery office in order to obtain refill. Please return to emergency room if the symptoms increase or worsen or for any other concerns. Is patient prescribed a controlled substance at d/c from ED?: No Referrals: Bijan James DO [Primary Care Provider] - 1-2 days Time of Disposition: 10:34
[2019-07-01 09:49] VITALS: TEMP 98.7
[2019-07-01] MEDS ORDERED: HYDROmorphone 0.5 MG/0.5 ML SYRINGE IM STA (09:50)
[2019-07-01] MEDS ORDERED: oxyCODONE-APAP 10-325MG 1 EACH TAB PO STA (10:39)
[2019-07-01 11:01] VITALS: BP 112/72; PULSE 72; RESP 18
== END 2019-07-01 11:00 | disposition home or self-care (01) ==
LOC: EC 09:23
DX: G89.29 Other chronic pain (principal); M54.2 Cervicalgia; F41.9 Anxiety disorder, unspecified; F32.9 Major depressive disorder, single episode, unspecified; F17.200 Nicotine dependence, unspecified, uncomplicated; Z79.899 Other long term (current) drug therapy; Z91.048 Other nonmedicinal substance allergy status; Z88.0 Allergy status to penicillin; Z88.1 Allergy status to other antibiotic agents; Z88.5 Allergy status to narcotic agent; Z88.2 Allergy status to sulfonamides; Z88.8 Allergy status to other drugs, medicaments and biological substances; Z86.73 Personal history of transient ischemic attack (TIA), and cerebral infarction without residual deficits; Z85.41 Personal history of malignant neoplasm of cervix uteri; Z85.038 Personal history of other malignant neoplasm of large intestine
CPT/HCPCS: 99283; 96372; J1170

== ENCOUNTER 2019-07-07 14:10 | Emergency (ER) | payer OTHER ==
[2019-07-07 14:19] VITALS: TEMP 98.6
[2019-07-07] MEDS ORDERED: HYDROmorphone 0.5 MG/0.5 ML SYRINGE IM STA (15:18)
[2019-07-07] MEDS ORDERED: oxyCODONE-APAP 10-325MG 1 EACH TAB PO STA (15:18)
--- NOTE | 2019-07-07 15:23 | ED ---
Neck Injury/Pain HPI - General Chief Complaint: Neck Pain/Injury Stated Complaint: neck pain Time Seen by Provider: 07/07/19 15:00 Mode of arrival: ambulatory Limitations: no limitations - History of Present Illness Initial Comments: 28-year-old female with history of chronic neck pain scheduled for surgery with Dr. Barroso on 08/03 presenting to the ER for increasing pain after physcial therapy today. Patient states that she is unable to tolerate the pain after PT she states her home does of percocet does not seem to control it patient states she needs something to take the edge off. Patient states however she is feeling stronger denies any increasing weakness and fevers denies IV drug use or change in characteristic of her chronic neck pain. Patient denies any falls or trauma. Patient denies increasing loss of sensation or other changes involving her cervical spine. At last visit patient was provided a soft collar for comfort and states that she feels this is helping with comfort significantly. Patient denies any other complaints. On arrival patient appears well no signs of acute distress. Denies chest pain shortness of breath and leg swelling., elissa CASTAÑEDA (-). - Related Data Home Medications Medication Instructions Recorded Confirmed Gabapentin 800 mg PO TID 10/16/17 05/10/19 Methocarbamol [Robaxin-750] 750 mg PO QID 06/01/18 05/10/19 Ranitidine HCl [Zantac] 150 mg PO BID 06/01/18 05/10/19 Venlafaxine HCl ER [Effexor XR] 150 mg PO HS 06/01/18 05/10/19 risperiDONE [RisperDAL] 1 mg PO HS 06/01/18 05/10/19 risperiDONE [RisperDAL] 0.5 mg PO DAILY 09/28/18 05/10/19 Butalb/Acetaminophen/Caffeine 1 cap PO DIRECTED PRN 04/27/19 05/10/19 [Esgic 50-325-40 Capsule] Cetirizine HCl [Zyrtec] 10 mg PO DAILY 04/27/19 05/10/19 Doxycycline [Vibramycin] 100 mg PO BID 04/27/19 05/10/19 HYDROcodone/APAP 5-325MG [[place] 1 tab PO Q8HR PRN 05/03/19 05/10/19 5-325] Previous Rx's Medication Instructions Recorded Atorvastatin [Lipitor] 10 mg PO DAILY #30 tab 06/02/18 Allergies Allergy/AdvReac Type Severity Reaction Status Date / Time adhesive tape Allergy skin Verified 06/23/19 13:30 blisters amoxicillin trihydrate Allergy Swelling Verified 06/23/19 13:30 [From Augmentin] ceftriaxone sodium Allergy Swelling Verified 06/23/19 13:30 [From Rocephin] clarithromycin [From Biaxin] Allergy Swelling Verified 06/23/19 13:30 fexofenadine HCl Allergy Swelling Verified 06/23/19 13:30 [From Leslye] ketorolac tromethamine Allergy Swelling Verified 06/23/19 13:30 [From Toradol] loratadine [From Claritin] Allergy Swelling Verified 06/23/19 13:30 meperidine HCl [From Demerol] Allergy Swelling Verified 06/23/19 13:30 morphine Allergy Swelling Verified 06/23/19 13:30 Penicillins Allergy Swelling Verified 06/23/19 13:30 potassium clavulanate Allergy Swelling Verified 06/23/19 13:30 [From Augmentin] propoxyphene Allergy Swelling Verified 06/23/19 13:30 [From Darvocet-N] Sulfa (Sulfonamide Allergy Swelling Verified 06/23/19 13:30 Antibiotics) Review of Systems ROS Statement: Those systems with pertinent positive or pertinent negative responses have been documented in the HPI. ROS Other: All systems not noted in ROS Statement are negative. Past Medical History Past Medical History: Asthma, Cancer, CVA/TIA, Fibromyalgia, Musculoskeletal Disorder, Syncope Additional Past Medical History / Comment(s): HX OF CERVICAL,UTERINE AND COLON CANCER W/ HYSTERECTOMY/CHEMO AT 16 YRS OLD. RIGHT KIDNEY STONES, HYPOGLYCEMIA (HIGH PROTEIN DIET), BULGING DISCS CERVICAL, AND BACK, W/PAIN, R SIDED SCIATICA, CERVICAL PAIN, OCCIPITAL NEURALGIA. STATES HX OF PVC'S, SYNCOPE. History of Any Multi-Drug Resistant Organisms: C-DIFF Date of last positivie culture/infection: 2010 MDRO Source:: stool Past Surgical History: Cholecystectomy, Hysterectomy, Tonsillectomy Additional Past Surgical History / Comment(s): R sided kidney stents- since removed, EGD/colonoscopy, several pain clinic procedures/blocks. LOOP RECORDER INSERTION since removed. Right SI infusion Past Anesthesia/Blood Transfusion Reactions: Motion Sickness, Postoperative Nausea & Vomiting (PONV) Additional Past Anesthesia/Blood Transfusion Reaction / Comment(s): PT IS ADOPTED AND DOES NOT KNOW FAMILY HX. Past Psychological History: Anxiety, Depression, PTSD Smoking Status: Current every day smoker Past Alcohol Use History: None Reported Past Drug Use History: None Reported - Past Family History Mother Family Medical History: Unable to Obtain Additional Family Medical History / Comment(s): Adopted Father Family Medical History: Neurologic Disorder Additional Family Medical History / Comment(s): Father of ALS. General Exam - General Exam Comments Initial Comments: General: The patient is awake and alert, in no distress, and does not appear acutely ill. Eye: +3 mm pupils are equal, round and reactive to light, extra-ocular movements are intact. No nystagmus. There is normal conjunctiva bilaterally. No signs of icterus. Ears, nose, mouth and throat: There are moist mucous membranes and no oral lesions. Neck: The neck is supple, there is no tenderness or JVD. Cardiovascular: There is a regular rate and rhythm. No murmur, rub or gallop is appreciated. Respiratory: Lungs are clear to auscultation, respirations are non-labored, breath sounds are equal. No wheezes, stridor, rales, or rhonchi. Gastrointestinal: Soft, non-distended, non-tender abdomen without masses or organomegaly noted. There is no rebound or guarding present. Musculoskeletal: Normal ROM of the UE /vl, no tenderness. Strength 5/5 of the UE b/l today (appears increase in strength from previous exam) strong shield operator equal b/l. Sensation intact. Radial pulses equal bilaterally 2+. Neurological: A&O x 3. CN II-XII intact grossly, There are no obvious motor or sensory deficits. Coordination appears grossly intact. Speech is normal. Skin: Skin is warm and dry and no rashes or lesions are noted. Psychiatric: Cooperative, appropriate mood & affect, normal judgment. Limitations: no limitations Course Vital Signs 07/07/19 07/07/19 14:17 15:30 Temperature 98.6 F Pulse Rate 115 H 100 Respiratory 17 18 Rate Blood Pressure 114/79 118/74 O2 Sat by Pulse 95 100 Oximetry Medical Decision Making - Medical Decision Making 28-year-old female presenting today for chief complaint of neck pain after physical therapy. Patient denies any changes in characteristic of pain or new injury. Patient states she would like something for the breakthrough pain. Patient states she does not want any other further evaluation she states that she is excited for her surgery coming up on August [address] Barroso. She states Dr. Barroso is aware of her emergency department visits. Patient denies fevers chills. Acute distress. Patient's edges of the left arm appears to be improved from previous exams. Patient appears well nontoxic. Patient will be discharged with instruction to follow-up with Dr. Barroso. Return parameters discussed patient discharged appearing well. Disposition Clinical Impression: Chronic neck pain Disposition: HOME SELF-CARE Condition: Good Instructions (If sedation given, give patient instructions): Chronic Neck Pain (DC) Additional Instructions: Please use medication as discussed. Please follow-up with neurosurgeon as discussed, please notify him of your visit in the ER. If weakness increases, you develop fever, or increasing neck pain please return to the ER. Please return to emergency room if the symptoms increase or worsen or for any other concerns. Is patient prescribed a controlled substance at d/c from ED?: No Referrals: Bijan James DO [Primary Care Provider] - 1-2 days Wilder Barroso DO [REFERRING] - 1-2 days Time of Disposition: 15:22
[2019-07-07 15:34] VITALS: BP 118/74; PULSE 100; RESP 18
== END 2019-07-07 15:30 | disposition home or self-care (01) ==
LOC: EC 14:10
DX: G89.29 Other chronic pain (principal); M54.2 Cervicalgia; F41.9 Anxiety disorder, unspecified; F32.9 Major depressive disorder, single episode, unspecified; F17.200 Nicotine dependence, unspecified, uncomplicated; Z79.899 Other long term (current) drug therapy; Z91.048 Other nonmedicinal substance allergy status; Z88.0 Allergy status to penicillin; Z88.1 Allergy status to other antibiotic agents; Z88.5 Allergy status to narcotic agent; Z88.2 Allergy status to sulfonamides; Z88.6 Allergy status to analgesic agent; Z86.73 Personal history of transient ischemic attack (TIA), and cerebral infarction without residual deficits; Z85.41 Personal history of malignant neoplasm of cervix uteri; Z85.42 Personal history of malignant neoplasm of other parts of uterus; Z85.038 Personal history of other malignant neoplasm of large intestine
CPT/HCPCS: 99283; 96372; J1170

== ENCOUNTER 2019-07-19 08:28 | Emergency (ER) | payer OTHER ==
[2019-07-19 08:35] VITALS: RESP 18; TEMP 98.7
[2019-07-19] MEDS ORDERED: HYDROmorphone 1 MG/ML 1 ML SYRINGE IM STA (09:12)
[2019-07-19] MEDS ORDERED: ONDANSETRON ODT 4 MG TAB PO STA (09:13)
--- NOTE | 2019-07-19 09:42 | ED ---
Neck Injury/Pain HPI - General Chief Complaint: Neck Pain/Injury Stated Complaint: Neck pain Time Seen by Provider: 07/19/19 08:40 Mode of arrival: ambulatory Limitations: no limitations - History of Present Illness Initial Comments: 28-year-old female past history of chronic back pain presenting to ER for neck pain she states she is out of her Percocet and presents for pain management in the ER. Patient states that she does have a refill tomorrow. Patient states that there is no new weakness. She denies fevers. Patient states she has tingling in her left hand which has been present in the past. Patient denies any nausea vomiting headache dizziness. Patient does have history of cancer, currently in remission. Patient denies other complaints, and appears well on arr ival. - Related Data Home Medications Medication Instructions Recorded Confirmed Gabapentin 800 mg PO TID 10/16/17 05/10/19 Methocarbamol [Robaxin-750] 750 mg PO QID 06/01/18 05/10/19 Ranitidine HCl [Zantac] 150 mg PO BID 06/01/18 05/10/19 Venlafaxine HCl ER [Effexor XR] 150 mg PO HS 06/01/18 05/10/19 risperiDONE [RisperDAL] 1 mg PO HS 06/01/18 05/10/19 risperiDONE [RisperDAL] 0.5 mg PO DAILY 09/28/18 05/10/19 Butalb/Acetaminophen/Caffeine 1 cap PO DIRECTED PRN 04/27/19 05/10/19 [Esgic 50-325-40 Capsule] Cetirizine HCl [Zyrtec] 10 mg PO DAILY 04/27/19 05/10/19 Doxycycline [Vibramycin] 100 mg PO BID 04/27/19 05/10/19 HYDROcodone/APAP 5-325MG [[place] 1 tab PO Q8HR PRN 05/03/19 05/10/19 5-325] Previous Rx's Medication Instructions Recorded Atorvastatin [Lipitor] 10 mg PO DAILY #30 tab 06/02/18 Allergies Allergy/AdvReac Type Severity Reaction Status Date / Time adhesive tape Allergy skin Verified 07/19/19 08:35 blisters amoxicillin trihydrate Allergy Swelling Verified 07/19/19 08:35 [From Augmentin] ceftriaxone sodium Allergy Swelling Verified 07/19/19 08:35 [From Rocephin] clarithromycin [From Biaxin] Allergy Swelling Verified 07/19/19 08:35 fexofenadine HCl Allergy Swelling Verified 07/19/19 08:35 [From Leslye] ketorolac tromethamine Allergy Swelling Verified 07/19/19 08:35 [From Toradol] loratadine [From Claritin] Allergy Swelling Verified 07/19/19 08:35 meperidine HCl [From Demerol] Allergy Swelling Verified 07/19/19 08:35 morphine Allergy Swelling Verified 07/19/19 08:35 Penicillins Allergy Swelling Verified 07/19/19 08:35 potassium clavulanate Allergy Swelling Verified 07/19/19 08:35 [From Augmentin] propoxyphene Allergy Swelling Verified 07/19/19 08:35 [From Darvocet-N] Sulfa (Sulfonamide Allergy Swelling Verified 07/19/19 08:35 Antibiotics) Review of Systems ROS Statement: Those systems with pertinent positive or pertinent negative responses have been documented in the HPI. ROS Other: All systems not noted in ROS Statement are negative. Past Medical History Past Medical History: Asthma, Cancer, CVA/TIA, Fibromyalgia, Musculoskeletal Disorder, Syncope Additional Past Medical History / Comment(s): HX OF CERVICAL,UTERINE AND COLON CANCER W/ HYSTERECTOMY/CHEMO AT 16 YRS OLD. RIGHT KIDNEY STONES, HYPOGLYCEMIA (HIGH PROTEIN DIET), BULGING DISCS CERVICAL, AND BACK, W/PAIN, R SIDED SCIATICA, CERVICAL PAIN, OCCIPITAL NEURALGIA. STATES HX OF PVC'S, SYNCOPE. History of Any Multi-Drug Resistant Organisms: C-DIFF Date of last positivie culture/infection: 2010 MDRO Source:: stool Past Surgical History: Cholecystectomy, Hysterectomy, Tonsillectomy Additional Past Surgical History / Comment(s): R sided kidney stents- since removed, EGD/colonoscopy, several pain clinic procedures/blocks. LOOP RECORDER INSERTION since removed. Right SI infusion Past Anesthesia/Blood Transfusion Reactions: Motion Sickness, Postoperative Nausea & Vomiting (PONV) Additional Past Anesthesia/Blood Transfusion Reaction / Comment(s): PT IS ADOPTED AND DOES NOT KNOW FAMILY HX. Past Psychological History: Anxiety, Depression, PTSD Smoking Status: Current every day smoker Past Alcohol Use History: None Reported Past Drug Use History: None Reported - Past Family History Mother Family Medical History: Unable to Obtain Additional Family Medical History / Comment(s): Adopted Father Family Medical History: Neurologic Disorder Additional Family Medical History / Comment(s): Father of ALS. General Exam - General Exam Comments Initial Comments: General: The patient is awake and alert, in no distress, and does not appear acutely ill. Soft cervical collar in space. Eye: +3 mm pupils are equal, round and reactive to light, extra-ocular movements are intact. No nystagmus. There is normal conjunctiva bilaterally. No signs of icterus. Ears, nose, mouth and throat: There are moist mucous membranes and no oral lesions. Neck: The neck is supple, there is no tenderness or JVD. Midline tenderness to palpation of the cervical spine. Cardiovascular: There is a regular rate and rhythm. No murmur, rub or gallop is appreciated. Respiratory: Lungs are clear to auscultation, respirations are non-labored, breath sounds are equal. No wheezes, stridor, rales, or rhonchi. Gastrointestinal: Soft, non-distended, non-tender abdomen without masses or organomegaly noted. There is no rebound or guarding present. Musculoskeletal: Normal ROM, no tenderness. 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 Sensation intact. radial pulses equal bilaterally 2+. Able to the fingers crossed okay oppose all digits and thumb. Neurological: A&O x 3. CN II-XII intact grossly, There are no obvious motor or sensory deficits. Coordination appears grossly intact. Speech is normal. Skin: Skin is warm and dry and no rashes or lesions are noted. Psychiatric: Cooperative, appropriate mood & affect, normal judgment. Limitations: no limitations Course Vital Signs 07/19/19 07/19/19 08:33 11:49 Temperature 98.7 F 98.7 F Pulse Rate 101 H 89 Respiratory 18 18 Rate Blood Pressure 116/77 120/77 O2 Sat by Pulse 97 97 Oximetry Medical Decision Making - Medical Decision Making 28-year-old female presents emergency department today for chief complaint of neck pain out of medications. Surgery scheduled 08/02. Patient has no new focal deficits. Contacted patients surgical practice, speaking with her surgeons colleague Dr. Lucero who recommended CT of the cervical spine and f/u in office. CT revealed no new acute process. Patient requesting discharge, threatening to leave AMA. At this time I feel she is stable for discharge with no new focal neurological deficits and no new acute process seen of the cervical spine. Return for emergency including fevers were discussed the patient verbalizes understanding she states she will contact her surgeon tomorrow. Discussed case wtih Dr. eGe who is agreeable with care plan and discharge/ - Lab Data Result diagrams: 07/19/19 09:46 07/19/19 09:46 Lab Results 07/19/19 07/19/19 Range/Units 09:46 09:46 WBC 13.1 H (3.8-10.6) k/uL RBC 5.11 (3.80-5.40) m/uL Hgb 15.3 (11.4-16.0) gm/dL Hct 46.1 H (34.0-46.0) % MCV 90.3 (80.0-100.0) fL MCH 30.1 (25.0-35.0) pg MCHC 33.3 (31.0-37.0) g/dL RDW 13.2 (11.5-15.5) % Plt Count 218 (150-450) k/uL Neutrophils % 73 % Lymphocytes % 18 % Monocytes % 3 % Eosinophils % 3 % Basophils % 1 % Neutrophils # 9.5 H (1.3-7.7) k/uL Lymphocytes # 2.4 (1.0-4.8) k/uL Monocytes # 0.4 (0-1.0) k/uL Eosinophils # 0.4 (0-0.7) k/uL Basophils # 0.1 (0-0.2) k/uL Sodium 141 (137-145) mmol/L Potassium 4.7 (3.5-5.1) mmol/L Chloride 110 H (98-107) mmol/L Carbon Dioxide 22 (22-30) mmol/L Anion Gap 9 mmol/L BUN 8 (7-17) mg/dL Creatinine 0.50 L (0.52-1.04) mg/dL Est GFR (CKD-EPI)AfAm >90 (>60 ml/min/1.73 sqM) Est GFR (CKD-EPI)NonAf >90 (>60 ml/min/1.73 sqM) Glucose 90 (74-99) mg/dL Calcium 9.7 (8.4-10.2) mg/dL Disposition Clinical Impression: Neck pain Disposition: HOME SELF-CARE Condition: Good Instructions (If sedation given, give patient instructions): Chronic Neck Pain (DC) Additional Instructions: Please use medication as discussed. Please call primary care provider for medication refill, and please follow-up with Dr. Barroso calling office tomorrow to scheduled appointment and discuss visit. Please return to emergency room if the symptoms increase or worsen or for any other concerns. Is patient prescribed a controlled substance at d/c from ED?: No Referrals: Bijan James DO [Primary Care Provider] - 1-2 days Time of Disposition: 11:33
[2019-07-19 10:01] LABS: Basophils # (A) 0.1 k/uL (0-0.2); Basophils % (A) 1 %; Eosinophils # (A) 0.4 k/uL (0-0.7); Eosinophils % (A) 3 %; HCT 46.1 % (34.0-46.0); HGB 15.3 gm/dL (11.4-16.0); Lymphocytes # (A) 2.4 k/uL (1.0-4.8); Lymphocytes % (A) 18 %; MCH 30.1 pg (25.0-35.0); MCHC 33.3 g/dL (31.0-37.0); MCV 90.3 fL (80.0-100.0); Mean Platelet Volume 7.9; Monocytes # (A) 0.4 k/uL (0-1.0); Monocytes % (A) 3 %; Neutrophils # (A) 9.5 k/uL (1.3-7.7); Neutrophils % (A) 73 %; Platelet Count 218 k/uL (150-450); RBC 5.11 m/uL (3.80-5.40); RDW 13.2 % (11.5-15.5); WBC 13.1 k/uL (3.8-10.6)
[2019-07-19 10:18] LABS: African American GFR (CKD) >90 (>60 ml/min/1.73 sqM); Anion Gap 9 mmol/L; Blood Urea Nitrogen 8 mg/dL (7-17); Calcium 9.7 mg/dL (8.4-10.2); Carbon Dioxide 22 mmol/L (22-30); Chloride 110 mmol/L (98-107); Glucose 90 mg/dL (74-99); Non-African American GFR(CKD) >90 (>60 ml/min/1.73 sqM); Potassium 4.7 mmol/L (3.5-5.1); Sodium 141 mmol/L (137-145)
--- NOTE | 2019-07-19 11:26 | CT ---
EXAMINATION TYPE: CT cervical spine wo con DATE OF EXAM: 07/19/2019 COMPARISON: 06/03/2017 CT and MR cervical spine dated 07/09/2018 HISTORY: Neck pain, upcoming surgery CT DLP: 324.6 mGycm. Automated Exposure Control for Dose Reduction was Utilized. TECHNIQUE: CT scan of the cervical spine is obtained without contrast, axial images are obtained, sa gittal and coronal reformatted images are also reviewed. FINDINGS: There is reversal usual cervical lordosis. Cervical spine is visualized in its entirety fro m C1 through upper thoracic levels, demonstrates satisfactory alignment without evidence of acute fra cture or dislocation. Prevertebral soft tissue appears within normal limits. The C1-C2 articulation is within normal limits on the coronal images. Review of axial images shows no significant spinal canal stenosis or neural foraminal narrowing at an y cervical level. Thyroid gland is felt within normal limits. Visualized lung apices demonstrate very minimal dependent atelectasis is subsegmental. IMPRESSION: 1. There is no acute fracture or dislocation evident in the cervical spine. 2. Reversal usual cervical lordosis that may be on the basis of muscular strain/spasm or patient posi tioning. 3. The previously seen disc bulge at C5-C6 and disc desiccation at C6-C7 on the MRI of 07/09/2018 are n ot well seen on CT. MRI provides better visualization of the intervertebral discs and disc pathology.
[2019-07-19] MEDS ORDERED: HYDROmorphone 0.5 MG/0.5 ML SYRINGE IVP STA (11:37)
[2019-07-19 11:50] VITALS: BP 120/77; PULSE 89
== END 2019-07-19 11:48 | disposition home or self-care (01) ==
LOC: EC 08:28
DX: M54.2 Cervicalgia (principal); R20.2 Paresthesia of skin; G89.29 Other chronic pain; J45.909 Unspecified asthma, uncomplicated; M79.7 Fibromyalgia; F32.9 Major depressive disorder, single episode, unspecified; F41.9 Anxiety disorder, unspecified; F17.200 Nicotine dependence, unspecified, uncomplicated; Z88.0 Allergy status to penicillin; Z88.1 Allergy status to other antibiotic agents; Z88.2 Allergy status to sulfonamides; Z88.5 Allergy status to narcotic agent; Z88.6 Allergy status to analgesic agent; Z88.8 Allergy status to other drugs, medicaments and biological substances; Z91.048 Other nonmedicinal substance allergy status; Z79.899 Other long term (current) drug therapy; Z85.038 Personal history of other malignant neoplasm of large intestine; Z85.41 Personal history of malignant neoplasm of cervix uteri; Z92.21 Personal history of antineoplastic chemotherapy; Z90.710 Acquired absence of both cervix and uterus; Z90.49 Acquired absence of other specified parts of digestive tract
CPT/HCPCS: 36415; 80048; 85025; 72125; 99284; 96374; 96376; J1170 ×2

== ENCOUNTER 2019-07-31 13:34 | Emergency (ER) | payer OTHER ==
[2019-07-31 13:43] VITALS: RESP 18
[2019-07-31] MEDS ORDERED: HYDROmorphone 1 MG/ML 1 ML SYRINGE IM STA (14:17)
[2019-07-31] MEDS ORDERED: ORPHENADRINE 30 MG/ML 2 ML VIAL IM STA (14:17)
--- NOTE | 2019-07-31 14:27 | ED ---
General Adult HPI - General Chief complaint: Neck Pain/Injury Stated complaint: Neck pain Time Seen by Provider: 07/31/19 14:04 Source: patient, RN notes reviewed Mode of arrival: ambulatory Limitations: no limitations - History of Present Illness Initial comments: 28-year-old female presents to the emergency department for chronic neck pain. Patient states that she is having pain consistent with previous flareups of neck pain. States she is scheduled to see her surgeon in 2 days. States she is scheduled for surgery on August 27. Patient denies any new weakness or numbness of the upper extremities or lower extremities. Patient had an ME in 2018 that showed disc bulge at C5-C6 and dislocation at C6-C7. Patient had recent CT that showed no acute fracture or dislocation. This was done and July 19. Denies fevers or chills. Denies headache.Patient has no other complaints at this time including shortness of breath, chest pain, abdominal pain, nausea or vomiting, or visual changes. - Related Data Home Medications Medication Instructions Recorded Confirmed Gabapentin 800 mg PO TID 10/16/17 05/10/19 Methocarbamol [Robaxin-750] 750 mg PO QID 06/01/18 05/10/19 Ranitidine HCl [Zantac] 150 mg PO BID 06/01/18 05/10/19 Venlafaxine HCl ER [Effexor XR] 150 mg PO HS 06/01/18 05/10/19 risperiDONE [RisperDAL] 1 mg PO HS 06/01/18 05/10/19 risperiDONE [RisperDAL] 0.5 mg PO DAILY 09/28/18 05/10/19 Butalb/Acetaminophen/Caffeine 1 cap PO DIRECTED PRN 04/27/19 05/10/19 [Esgic 50-325-40 Capsule] Cetirizine HCl [Zyrtec] 10 mg PO DAILY 04/27/19 05/10/19 Doxycycline [Vibramycin] 100 mg PO BID 04/27/19 05/10/19 HYDROcodone/APAP 5-325MG [[place] 1 tab PO Q8HR PRN 05/03/19 05/10/19 5-325] Previous Rx's Medication Instructions Recorded Atorvastatin [Lipitor] 10 mg PO DAILY #30 tab 06/02/18 Allergies Allergy/AdvReac Type Severity Reaction Status Date / Time adhesive tape Allergy skin Verified 07/31/19 13:43 blisters amoxicillin trihydrate Allergy Swelling Verified 07/31/19 13:43 [From Augmentin] ceftriaxone sodium Allergy Swelling Verified 07/31/19 13:43 [From Rocephin] clarithromycin [From Biaxin] Allergy Swelling Verified 07/31/19 13:43 fexofenadine HCl Allergy Swelling Verified 07/31/19 13:43 [From Leslye] ketorolac tromethamine Allergy Swelling Verified 07/31/19 13:43 [From Toradol] loratadine [From Claritin] Allergy Swelling Verified 07/31/19 13:43 meperidine HCl [From Demerol] Allergy Swelling Verified 07/31/19 13:43 morphine Allergy Swelling Verified 07/31/19 13:43 Penicillins Allergy Swelling Verified 07/31/19 13:43 potassium clavulanate Allergy Swelling Verified 07/31/19 13:43 [From Augmentin] propoxyphene Allergy Swelling Verified 07/31/19 13:43 [From Darvocet-N] Sulfa (Sulfonamide Allergy Swelling Verified 07/31/19 13:43 Antibiotics) Review of Systems ROS Statement: Those systems with pertinent positive or pertinent negative responses have been documented in the HPI. ROS Other: All systems not noted in ROS Statement are negative. Past Medical History Past Medical History: Asthma, Cancer, CVA/TIA, Fibromyalgia, Musculoskeletal Disorder, Syncope Additional Past Medical History / Comment(s): HX OF CERVICAL,UTERINE AND COLON CANCER W/ HYSTERECTOMY/CHEMO AT 16 YRS OLD. RIGHT KIDNEY STONES, HYPOGLYCEMIA (HIGH PROTEIN DIET), BULGING DISCS CERVICAL, AND BACK, W/PAIN, R SIDED SCIATICA, CERVICAL PAIN, OCCIPITAL NEURALGIA. STATES HX OF PVC'S, SYNCOPE. History of Any Multi-Drug Resistant Organisms: C-DIFF Date of last positivie culture/infection: 2010 MDRO Source:: stool Past Surgical History: Cholecystectomy, Hysterectomy, Tonsillectomy Additional Past Surgical History / Comment(s): R sided kidney stents- since removed, EGD/colonoscopy, several pain clinic procedures/blocks. LOOP RECORDER INSERTION since removed. Right SI infusion Past Anesthesia/Blood Transfusion Reactions: Motion Sickness, Postoperative Nausea & Vomiting (PONV) Additional Past Anesthesia/Blood Transfusion Reaction / Comment(s): PT IS ADOPTED AND DOES NOT KNOW FAMILY HX. Past Psychological History: Anxiety, Depression, PTSD Smoking Status: Current every day smoker Past Alcohol Use History: None Reported Past Drug Use History: None Reported - Past Family History Mother Family Medical History: Unable to Obtain Additional Family Medical History / Comment(s): Adopted Father Family Medical History: Neurologic Disorder Additional Family Medical History / Comment(s): Father of ALS. General Exam Limitations: no limitations General appearance: alert, in no apparent distress Head exam: Present: atraumatic, normocephalic, normal inspection Eye exam: Present: normal appearance, PERRL, EOMI. Absent: scleral icterus, conjunctival injection, periorbital swelling ENT exam: Present: normal exam, normal oropharynx, mucous membranes moist, TM's normal bilaterally, normal external ear exam Neck exam: Present: normal inspection, full ROM, other (Has soft collar in place). Absent: tenderness, meningismus, lymphadenopathy Respiratory exam: Present: normal lung sounds bilaterally. Absent: respiratory distress, wheezes, rales, rhonchi, stridor Cardiovascular Exam: Present: regular rate, normal rhythm, normal heart sounds. Absent: systolic murmur, diastolic murmur, rubs, gallop, clicks Extremities exam: Present: normal capillary refill (Capillary refill less than 2 seconds, radial pulse 2+ in upper extremities bilaterally.), other (Sensation intact in upper extremities bilaterally.) Course Vital Signs 07/31/19 13:42 Temperature 99.0 F Pulse Rate 103 H Respiratory 18 Rate Blood Pressure 110/74 O2 Sat by Pulse 97 Oximetry Medical Decision Making - Medical Decision Making 29-year-old female presents for chronic neck pain. This is consistent with previous flares of neck pain. Patient had an MRI last year showing disc bulge. Patient is scheduled for surgery on August 27 and she is seeing her surgeon in 2 days. Patient requesting pain medication. I did give patient Dilaudid. She is requesting a muscle relaxer as well as this has helped in the past. Patient will follow-up with primary care as well. She'll return if she has any worsening symptoms. Disposition Clinical Impression: Chronic neck pain Disposition: HOME SELF-CARE Condition: Good Instructions (If sedation given, give patient instructions): Chronic Neck Pain (DC) Additional Instructions: Please follow-up with your surgeon tomorrow. Follow-up with primary care as well. Return to the emergency department if you have any worsening symptoms. Is patient prescribed a controlled substance at d/c from ED?: No Referrals: Bijan James DO [Primary Care Provider] - 1-2 days Time of Disposition: 14:31
[2019-07-31 14:58] VITALS: BP 104/80; PULSE 92; TEMP 98.9
== END 2019-07-31 14:45 | disposition home or self-care (01) ==
LOC: EC 13:34
DX: G89.29 Other chronic pain (principal); M54.2 Cervicalgia; M79.7 Fibromyalgia; F32.9 Major depressive disorder, single episode, unspecified; F41.9 Anxiety disorder, unspecified; F17.200 Nicotine dependence, unspecified, uncomplicated; Z88.0 Allergy status to penicillin; Z88.1 Allergy status to other antibiotic agents; Z88.2 Allergy status to sulfonamides; Z88.5 Allergy status to narcotic agent; Z88.6 Allergy status to analgesic agent; Z88.8 Allergy status to other drugs, medicaments and biological substances; Z91.048 Other nonmedicinal substance allergy status; Z79.899 Other long term (current) drug therapy; Z85.038 Personal history of other malignant neoplasm of large intestine; Z85.41 Personal history of malignant neoplasm of cervix uteri; Z90.710 Acquired absence of both cervix and uterus; Z90.49 Acquired absence of other specified parts of digestive tract; Z92.21 Personal history of antineoplastic chemotherapy; Z98.1 Arthrodesis status
CPT/HCPCS: 99283; 96372 ×2; J2360; J1170

== ENCOUNTER → 2020-07-12 | Outpatient (CLI) | payer OTHER ==
[2020-07-13 01:47] LABS: Urine Alcohol Negative (Negative); Urine Barbiturate Negative (Negative); Urine Cocaine Negative (Negative); Urine Methadone Negative (Negative); Urine Opiates Positive (Negative); Urine Phencyclidine Negative (Negative)
== END | disposition home or self-care (01) ==
LOC: LABWHC1 13:12
PROVIDERS: ATTEND Psychiatry & Neurology Psychiatry
DX: Z51.81 Encounter for therapeutic drug level monitoring (principal); Z79.899 Other long term (current) drug therapy
CPT/HCPCS: 80306

== ENCOUNTER → 2020-08-24 | Outpatient (CLI) | payer OTHER ==
--- NOTE | 2020-08-29 09:45 | P.ARTDOP ---
Arterial Doppler LOWER EXTREMITY ARTERIAL DOPPLER: DATE OF SERVICE: 08/24/2020 Reason for study: Leg pain. Doppler waveforms: Multiphasic bilaterally throughout. Pulse volume recording: []. Pressure gradients: None. Ankle-brachial indices: Greater than 1 bilaterally. Toe brachial indices: 0.87 on the right, 0.87 on the left Impression: Normal study.
== END | disposition home or self-care (01) ==
LOC: RADUSWWP 12:44
PROVIDERS: ATTEND Family Medicine
DX: M79.661 Pain in right lower leg (principal); M79.662 Pain in left lower leg; F17.210 Nicotine dependence, cigarettes, uncomplicated
CPT/HCPCS: 93922

== ENCOUNTER → 2021-03-04 | Outpatient (CLI) | payer OTHER ==
--- NOTE | 2021-03-05 10:18 | MM ---
Reason for exam: additional evaluation requested from prior study. Last mammogram was performed 3 years and 4 months ago. History: Patient is postmenopausal, has history of colon cancer at age 21, has history of endometrial cancer at age 16, has history of ovarian cancer at age 16, and is nulliparous. Taking estrogen for 8 years. Physical Findings: Nurse did not find any significant physical abnormalities on exam. MG 3D Diag Mammo W/Cad NANDINI Bilateral CC and MLO view(s) were taken. Prior study comparison: October 20, 2017, bilateral MG 3d diag mammo w/cad NANDINI. July 04, 2016, right breast MG 3d diag mammo w/cad RT. There are scattered fibroglandular densities. There is no discrete abnormality including area of concern. These results were verbally communicated with the patient and result sheet given to the patient on 03/04/21. ASSESSMENT: Negative, BI-RAD 1 RECOMMENDATION: Routine screening mammogram of both breasts at age 38. Per ACS guidelines. Manage patient on a clinical basis.
== END | disposition home or self-care (01) ==
LOC: RADMAMWWP 14:58
PROVIDERS: ATTEND Family Medicine
DX: N64.89 Other specified disorders of breast (principal); Z85.038 Personal history of other malignant neoplasm of large intestine; Z85.42 Personal history of malignant neoplasm of other parts of uterus; Z85.43 Personal history of malignant neoplasm of ovary; Z78.0 Asymptomatic menopausal state
CPT/HCPCS: 77066; G0279; 77062

== ENCOUNTER → 2023-07-02 | Outpatient (CLI) | payer OTHER ==
--- NOTE | 2023-07-02 20:01 | CT ---
EXAMINATION TYPE: CT abdomen pelvis w con DATE OF EXAM: 07/02/2023 COMPARISON: 02/12/2018 HISTORY: 32-year-old female R19.7 DIARRHEA R11.2 NAUSEA VOMIT R10.31 RLQ PAIN, RUQ abdominal pain, na usea and vomiting. 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 TECHNIQUE: Contiguous axial scanning of the abdomen and pelvis following administration of 80 ml Isov ue 300 IV contrast. Delayed images through the kidneys and coronal/sagittal reconstructions performe d. CT DLP: 1459.4 mGycm Automated exposure control for dose reduction was used. FINDINGS: Heart normal size without pericardial effusion. Lung bases clear without pleural effusion w ith some strandy atelectasis in the lower lungs. No pleural effusion. Liver enlarged at 21.6 cm with diffuse low attenuation. No focal lesion is seen. Portal venous system is patent. No biliary ductal dilatation. Cholecystectomy clips. Adrenal glands, kidneys, and pancreas within normal limits. The spleen is borderline in size at 13.5 cm. No dilated small bowel, free fluid, or free air. No mesenteric or retroperitoneal lymphadenopathy. Normal appendix. No significant stool burden. Oral contrast progressed to the rectum. Bladder is urine distended. Uterus surgically absent. Small pelvic phleboliths. Neither ovary seen. N o abnormal fluid collection in the pelvis or pelvic lymphadenopathy. Bones: Posterior disc bulge L4-L5 with some facet arthropathy. IMPRESSION: 1. HEPATOMEGALY AT 21.6 CM WITH DIFFUSE LOW DENSITY OF THE LIVER PARENCHYMA. FINDINGS COULD REPRESENT HEPATITIS OR SEVERE HEPATIC STEATOSIS. 2. STATUS POST CHOLECYSTECTOMY. STATUS POST HYSTERECTOMY.
== END | disposition home or self-care (01) ==
LOC: RADCTMAIN 17:47
PROVIDERS: ATTEND Family Medicine
DX: K76.89 Other specified diseases of liver (principal); R16.0 Hepatomegaly, not elsewhere classified; R19.7 Diarrhea, unspecified; R11.2 Nausea with vomiting, unspecified; R10.31 Right lower quadrant pain; Z90.49 Acquired absence of other specified parts of digestive tract; Z90.710 Acquired absence of both cervix and uterus
CPT/HCPCS: 74177; Q9967

== ENCOUNTER 2023-07-03 11:23 | Emergency (ER) | payer OTHER ==
[2023-07-03 11:34] VITALS: RESP 18
[2023-07-03] MEDS ORDERED: ONDANSETRON 4 MG/2 ML VIAL IVP STA (12:13)
[2023-07-03] MEDS ORDERED: MORPHINE SULFATE 4 MG/ML SYRINGE IVP STA (12:13)
[2023-07-03] MEDS ORDERED: SODIUM CHLORIDE 0.9% 1,000 ML IV ONE (12:13)
--- NOTE | 2023-07-03 12:16 | ED ---
General Adult HPI - General Chief complaint: Abdominal Pain Stated complaint: Nausea, vomiting Time Seen by Provider: 07/03/23 11:49 Source: patient, RN notes reviewed Mode of arrival: ambulatory - History of Present Illness Initial comments: 32-year-old female with past medical history significant for SÁNCHEZ who presents the emergency department the chief complaint of abnormal CT imaging results. Patient reports from Dr. James's office due to CT results from which revealed hepatomegaly and hepatic steatosis. She reports right upper quadrant abdominal pain and associated nausea. Patient here in order to receive additional laboratory studies. Denies recent alcohol use. Admits to previous cholecystectomy - Related Data Home Medications Medication Instructions Recorded Confirmed HYDROcodone/APAP 7.5-325MG [[place] 1 tab PO 5XD 03/26/20 07/03/23 7.5-325] Etanercept [Enbrel] 50 mg SQ TH 07/03/23 07/03/23 Fenofibrate [Lofibra] 160 mg PO HS 07/03/23 07/03/23 Venlafaxine HCl ER [Effexor Xr] 300 mg PO HS 07/03/23 07/03/23 risperiDONE [RisperDAL] 2 mg PO HS 07/03/23 07/03/23 Allergies Allergy/AdvReac Type Severity Reaction Status Date / Time adhesive tape Allergy skin Verified 07/03/23 12:53 blisters amoxicillin trihydrate Allergy Swelling Verified 07/03/23 12:53 [From Augmentin] ceftriaxone sodium Allergy Swelling Verified 07/03/23 12:53 [From Rocephin] clarithromycin [From Biaxin] Allergy Swelling Verified 07/03/23 12:53 fexofenadine HCl Allergy Swelling Verified 07/03/23 12:53 [From Leslye] loratadine [From Claritin] Allergy Swelling Verified 07/03/23 12:53 meperidine HCl [From Demerol] Allergy Swelling Verified 07/03/23 12:53 Penicillins Allergy Anaphylaxis Verified 07/03/23 12:53 potassium clavulanate Allergy Swelling Verified 07/03/23 12:53 [From Augmentin] propoxyphene Allergy Swelling Verified 07/03/23 12:53 [From Darvocet-N] Sulfa (Sulfonamide Allergy Anaphylaxis Verified 07/03/23 12:53 Antibiotics) Review of Systems ROS Statement: Those systems with pertinent positive or pertinent negative responses have been documented in the HPI. ROS Other: All systems not noted in ROS Statement are negative. Past Medical History Past Medical History: Asthma, Cancer, CVA/TIA, Fibromyalgia, Musculoskeletal Disorder, Osteoarthritis (OA), Syncope Additional Past Medical History / Comment(s): HX OF CERVICAL,UTERINE AND COLON CANCER W/ HYSTERECTOMY/CHEMO AT 16 YRS OLD. RIGHT KIDNEY STONES, HYPOGLYCEMIA (HIGH PROTEIN DIET), BULGING DISCS CERVICAL, AND BACK, W/PAIN, R SIDED SCIATICA, CERVICAL PAIN, OCCIPITAL NEURALGIA. STATES HX OF PVC'S, SYNCOPE, arthiritis. History of Any Multi-Drug Resistant Organisms: C-DIFF Date of last positivie culture/infection: 2010 MDRO Source:: stool Past Surgical History: Cholecystectomy, Hysterectomy, Tonsillectomy Additional Past Surgical History / Comment(s): R sided kidney stents- since removed, EGD/colonoscopy, several pain clinic procedures/blocks. LOOP RECORDER INSERTION since removed. Right SI infusion Past Anesthesia/Blood Transfusion Reactions: Motion Sickness, Postoperative Nausea & Vomiting (PONV) Additional Past Anesthesia/Blood Transfusion Reaction / Comment(s): PT IS ADOPTED AND DOES NOT KNOW FAMILY HX. Past Psychological History: Anxiety, Depression, PTSD Smoking Status: Current every day smoker Past Alcohol Use History: None Reported Past Drug Use History: None Reported - Past Family History Mother Family Medical History: Unable to Obtain Additional Family Medical History / Comment(s): Adopted Father Family Medical History: Neurologic Disorder Additional Family Medical History / Comment(s): Father of ALS. General Exam - General Exam Comments Initial Comments: General: Alert, in no acute distress Head: atraumatic normocephalic. Eyes PERRL, EOMI intact, mucous membranes moist Respiratory: Lungs clear to auscultation bilaterally Cardiovascular: Heart rate regular rate and rhythm Abdominal: Soft without guarding or rebound, mild upper quadrant abdominal tenderness Extremities: Normal inspection with full range of motion and normal capillary refill Neuroogic: alert and oriented 3, CN II-XII intact, able to ambulate with steady gait Skin: warm dry and intact with normal color Course Vital Signs 07/03/23 07/03/23 07/03/23 11:27 12:26 15:08 Temperature 97.8 F 98.3 F Pulse Rate 92 84 94 Respiratory 18 18 18 Rate Blood Pressure 127/85 106/56 118/76 O2 Sat by Pulse 98 94 L 96 Oximetry - Reevaluation(s) Reevaluation #1: 07/03/23 12:01 CT results reviewed from 07/02/2023. Initial history and physical exam were performed. Patient agreeable with laboratory studies at this time. Medical Decision Making - Medical Decision Making Was pt. sent in by a medical professional or institution (, PA, [employer], urgent care, hospital, or penitentiary...) When possible be specific @ -[No] Did you speak to anyone other than the patient for history (EMS, parent, family, police, friend...)? What history was obtained from this source @ -[No] Did you review nursing and triage notes (agree or disagree)? Why? @ -[I reviewed and agree with nursing and triage notes] Were old charts reviewed (outside hosp., previous admission, EMS record, old EKG, old radiological studies, urgent care reports/EKG's, penitentiary records)? Report findings @ -[No old charts were reviewed] Differential Diagnosis (chest pain, altered mental status, abdominal pain women, abdominal pain men, vaginal bleeding, weakness, fever, dyspnea, syncope, headache, dizziness, GI bleed, back pain, seizure, CVA, palpatations, mental health, musculoskeletal)? @ -[not applicable] EKG interpreted by me (3pts min.). @ -[As above] X-rays interpreted by me (1pt min.). @ -[None done] CT interpreted by me (1pt min.). @ -CT reviewed from 07/02/2023. Reveals hepatic steatosis and hepatomegaly. U/S interpreted by me (1pt. min.). @ -[None done] What testing was considered but not performed or refused? (CT, X-rays, U/S, labs)? Why? @ -[None] What meds were considered but not given or refused? Why? @ -[None] Did you discuss the management of the patient with other professionals (anthony chow i.e. , PA, [employer], lab, RT, psych nurse, social media specialist, die sinker apprentice, teacher, retirement officer, database development project manager)? Give summary @ -[No] Was smoking cessation discussed for >3mins.? @ -[No] Was critical care preformed (if so, how long)? @ -[No] Were there social determinants of health that impacted care today? How? (Homelessness, low income, unemployed, alcoholism, drug addiction, transpor tation, low edu. Level, literacy, decrease access to med. care, halfway, rehab)? @ -[No] Was there de-escalation of care discussed even if they declined (Discuss DNR or withdrawal of care, Hospice)? DNR status @ -[No] What co-morbidities impacted this encounter? (DM, HTN, Smoking, COPD, CAD, Cancer, CVA, ARF, Chemo, Hep., AIDS, mental health diagnosis, sleep apnea, morbid obesity)? @ -[None] Was patient admitted / discharged? Hospital course, mention meds given and route, prescriptions, significant lab abnormalities, going to OR and other pertinent info. @ -Discharged. This is a 32-year-old female who presents the emergency department with abnormal imaging. Patient had thorough history and physical exam performed. Physical exam essentially unremarkable. Heart rate regular rate and rhythm, lungs are to auscultation bilaterally abdomen is soft w ith mild right upper quadrant tenderness. Patient CT reviewed from 06/24/2023 reveals hepatomegaly. Patient's laboratory studies essentially unremarkable with mild elevation to ALT and AST. I discussed the results in detail with the patient verbalized understanding and all questions were addressed. She is agreeable with the plan for discharge home with recommended close follow-up with PCP. Return precautions were discussed at length. Discharged in stable condition. Case is discussed with Dr. Frias, ED attending who agrees with plan of care Undiagnosed new problem with uncertain prognosis? @ -[No] Drug Therapy requiring intensive monitoring for toxicity (Heparin, Nitro, Insulin, Cardizem)? @ -[No] Were any procedures done? @ -[No] Diagnosis/symptom? @ - Transaminitis Acute, or Chronic, or Acute on Chronic? @ -Acute Uncomplicated (without systemic symptoms) or Complicated (systemic symptoms)? @ -Uncomplicated Side effects of treatment? @ -[No] Exacerbation, Progression, or Severe Exacerbation? @ -[No] Poses a threat to life or bodily function? How? (Chest pain, [place], [place], pneumonia, PE, COPD, DKA, ARF, appy, cholecystitis, CVA, Diverticulitis, Homicidal, Suicidal, threat to staff... and all critical care pts) @ -Low likelihood - Lab Data Result diagrams: 07/03/23 12:17 07/03/23 12:17 Lab Results 07/03/23 07/03/23 07/03/23 Range/Units 12:17 12:17 12:17 WBC 7.9 (3.8-10.6) k/uL RBC 4.30 (3.80-5.40) m/uL Hgb 13.6 (11.4-16.0) gm/dL Hct 39.3 (34.0-46.0) % MCV 91.5 (80.0-100.0) fL MCH 31.7 (25.0-35.0) pg MCHC 34.6 (31.0-37.0) g/dL RDW 12.0 (11.5-15.5) % Plt Count 327 (150-450) k/uL MPV 8.1 Neutrophils % 58 % Lymphocytes % 32 % Monocytes % 5 % Eosinophils % 4 % Basophils % 1 % Neutrophils # 4.6 (1.3-7.7) k/uL Lymphocytes # 2.5 (1.0-4.8) k/uL Monocytes # 0.4 (0-1.0) k/uL Eosinophils # 0.3 (0-0.7) k/uL Basophils # 0.1 (0-0.2) k/uL PT 10.0 (10.0-12.5) sec INR 0.9 (<1.2) APTT 23.8 (22.0-30.0) sec Sodium 139 (137-145) mmol/L Potassium 4.5 (3.5-5.1) mmol/L Chloride 103 (98-107) mmol/L Carbon Dioxide 24 (22-30) mmol/L Anion Gap 12 mmol/L BUN 13 (7-17) mg/dL Creatinine 0.53 (0.52-1.04) mg/dL Est GFR (CKD-EPI)AfAm >90 (>60 ml/min/1.73 sqM) Est GFR (CKD-EPI)NonAf >90 (>60 ml/min/1.73 sqM) Glucose 93 (74-99) mg/dL Calcium 9.8 (8.4-10.2) mg/dL Total Bilirubin 0.3 (0.2-1.3) mg/dL Conjugated Bilirubin 0.0 (0.0-0.3) mg/dL Unconjugated Bilirubin 0.1 (0.0-1.1) mg/dL Delta Bilirubin 0.2 (0.0-0.2) mg/dL AST 43 H (14-36) U/L ALT 58 H (4-34) U/L Alkaline Phosphatase 54 (38-126) U/L C-Reactive Protein 0.7 (<1.0) mg/dL Total Protein 7.0 (6.3-8.2) g/dL Albumin 4.7 (3.5-5.0) g/dL Influenza Type A (PCR) (Not Detectd) Influenza Type B (PCR) (Not Detectd) RSV (PCR) (Not Detectd) SARS-CoV-2 (PCR) (Not Detectd) 07/03/23 Range/Units 12:17 WBC (3.8-10.6) k/uL RBC (3.80-5.40) m/uL Hgb (11.4-16.0) gm/dL Hct (34.0-46.0) % MCV (80.0-100.0) fL MCH (25.0-35.0) pg MCHC (31.0-37.0) g/dL RDW (11.5-15.5) % Plt Count (150-450) k/uL MPV Neutrophils % % Lymphocytes % % Monocytes % % Eosinophils % % Basophils % % Neutrophils # (1.3-7.7) k/uL Lymphocytes # (1.0-4.8) k/uL Monocytes # (0-1.0) k/uL Eosinophils # (0-0.7) k/uL Basophils # (0-0.2) k/uL PT (10.0-12.5) sec INR (<1.2) APTT (22.0-30.0) sec Sodium (137-145) mmol/L Potassium (3.5-5.1) mmol/L Chloride (98-107) mmol/L Carbon Dioxide (22-30) mmol/L Anion Gap mmol/L BUN (7-17) mg/dL Creatinine (0.52-1.04) mg/dL Est GFR (CKD-EPI)AfAm (>60 ml/min/1.73 sqM) Est GFR (CKD-EPI)NonAf (>60 ml/min/1.73 sqM) Glucose (74-99) mg/dL Calcium (8.4-10.2) mg/dL Total Bilirubin (0.2-1.3) mg/dL Conjugated Bilirubin (0.0-0.3) mg/dL Unconjugated Bilirubin (0.0-1.1) mg/dL Delta Bilirubin (0.0-0.2) mg/dL AST (14-36) U/L ALT (4-34) U/L Alkaline Phosphatase (38-126) U/L C-Reactive Protein (<1.0) mg/dL Total Protein (6.3-8.2) g/dL Albumin (3.5-5.0) g/dL Influenza Type A (PCR) Not Detected (Not Detectd) Influenza Type B (PCR) Not Detected (Not Detectd) RSV (PCR) Not Detected (Not Detectd) SARS-CoV-2 (PCR) Not Detected (Not Detectd) Disposition Clinical Impression: Transaminitis Disposition: HOME SELF-CARE Condition: Stable Additional Instructions: Please follow up with Dr. Rascon PLease return if worsening pain or nausea develop Is patient prescribed a controlled substance at d/c from ED?: No Referrals: Bijan James DO [Primary Care Provider] - 1-2 days Time of Disposition: 14:35
[2023-07-03 12:35] LABS: Basophils # (A) 0.1 k/uL (0-0.2); Basophils % (A) 1 %; Eosinophils # (A) 0.3 k/uL (0-0.7); Eosinophils % (A) 4 %; HCT 39.3 % (34.0-46.0); HGB 13.6 gm/dL (11.4-16.0); Lymphocytes # (A) 2.5 k/uL (1.0-4.8); Lymphocytes % (A) 32 %; MCH 31.7 pg (25.0-35.0); MCHC 34.6 g/dL (31.0-37.0); MCV 91.5 fL (80.0-100.0); Mean Platelet Volume 8.1; Monocytes # (A) 0.4 k/uL (0-1.0); Monocytes % (A) 5 %; Neutrophils # (A) 4.6 k/uL (1.3-7.7); Neutrophils % (A) 58 %; Platelet Count 327 k/uL (150-450); WBC 7.9 k/uL (3.8-10.6)
[2023-07-03 12:43] LABS: INR 0.9 (<1.2); Partial Thromboplastin Time 23.8 sec (22.0-30.0)
[2023-07-03 12:51] LABS: ALT 58 U/L (4-34); AST 43 U/L (14-36); African American GFR (CKD) >90 (>60 ml/min/1.73 sqM); Albumin 4.7 g/dL (3.5-5.0); Alkaline Phosphatase 54 U/L (38-126); Anion Gap 12 mmol/L; Bilirubin, Delta 0.2 mg/dL (0.0-0.2); Bilirubin,Unconjugated 0.1 mg/dL (0.0-1.1); Blood Urea Nitrogen 13 mg/dL (7-17); Calcium 9.8 mg/dL (8.4-10.2); Carbon Dioxide 24 mmol/L (22-30); Chloride 103 mmol/L (98-107); Glucose 93 mg/dL (74-99); Non-African American GFR(CKD) >90 (>60 ml/min/1.73 sqM); Potassium 4.5 mmol/L (3.5-5.1); Sodium 139 mmol/L (137-145); Total Bilirubin 0.3 mg/dL (0.2-1.3)
[2023-07-03 13:39] LABS: C Reactive Protein 0.7 mg/dL (<1.0)
[2023-07-03 15:12] VITALS: BP 118/76; PULSE 94; TEMP 98.3
== END 2023-07-03 15:11 | disposition home or self-care (01) ==
LOC: EC 11:23
DX: K76.0 Fatty (change of) liver, not elsewhere classified (principal); J45.909 Unspecified asthma, uncomplicated; F32.A Depression, unspecified; F41.9 Anxiety disorder, unspecified; F17.200 Nicotine dependence, unspecified, uncomplicated; Z20.822 Contact with and (suspected) exposure to COVID-19; Z79.899 Other long term (current) drug therapy; Z88.0 Allergy status to penicillin; Z88.1 Allergy status to other antibiotic agents; Z88.2 Allergy status to sulfonamides; Z91.09 Other allergy status, other than to drugs and biological substances; Z88.5 Allergy status to narcotic agent; Z88.8 Allergy status to other drugs, medicaments and biological substances; Z90.49 Acquired absence of other specified parts of digestive tract; Z86.73 Personal history of transient ischemic attack (TIA), and cerebral infarction without residual deficits
CPT/HCPCS: 36415; 80053; 82248; 85025; 85610; 85730; 86140; 87636; 99284; 96374; 96375; 96361; J2270; J2405

== ENCOUNTER → 2023-08-06 | Outpatient (CLI) | payer OTHER ==
--- NOTE | 2023-08-07 07:58 | XR ---
EXAMINATION TYPE: XR chest 2V DATE OF EXAM: 08/06/2023 COMPARISON: 03/26/2020 HISTORY: Chest pain TECHNIQUE: Frontal and lateral views of the chest are obtained. FINDINGS: There is no focal air space opacity. Linear density right medial lung base may reflect atelectasis. No evidence for pneumothorax. No pleural effusion. The cardiac silhouette size is within normal limits. The osseous structures are grossly intact. IMPRESSION: 1. No acute cardiopulmonary process.
== END | disposition home or self-care (01) ==
LOC: RADXRYALE 16:46
PROVIDERS: ATTEND Physician Assistant
DX: R06.02 Shortness of breath (principal); R07.9 Chest pain, unspecified
CPT/HCPCS: 71046

== ENCOUNTER → 2024-03-31 | Outpatient (CLI) | payer OTHER ==
--- NOTE | 2024-03-31 16:01 | XR ---
EXAMINATION TYPE: XR chest 2V DATE OF EXAM: 03/31/2024 COMPARISON: 08/06/2023 INDICATION: Short of breath TECHNIQUE: Frontal and lateral views of the chest are obtained. FINDINGS: The heart size is normal. The pulmonary vasculature is normal. The lungs are clear. IMPRESSION: 1. No acute pulmonary process. [facility], , 03/31/2024 3:59 PM
== END | disposition home or self-care (01) ==
LOC: RADXRYALE 15:27
PROVIDERS: ATTEND Physician Assistant
DX: R06.02 Shortness of breath (principal)
CPT/HCPCS: 71046

== ENCOUNTER 2024-04-02 19:55 | Emergency (ER) | payer OTHER ==
[2024-04-02 20:01] VITALS: RESP 18
--- NOTE | 2024-04-02 20:32 | ED ---
Skin/Abscess/FB HPI - General Chief complaint: Skin/Abscess/Foreign Body Stated complaint: bug bite Time Seen by Provider: 04/02/24 20:04 Source: patient, RN notes reviewed Mode of arrival: ambulatory Limitations: no limitations - History of Present Illness Initial comments: This is a 33-year-old female who presents to the emergency department for a spid er bite. States that she was bitten by a spider on her right thigh shortly before arrival. Unsure what kind of spider this was. She tried to bob the area with a purple marker. States that the area feels like it is burning and stinging. - Related Data Home Medications Medication Instructions Recorded Confirmed HYDROcodone/APAP 7.5-325MG [[place] 1 tab PO 5XD 03/26/20 07/03/23 7.5-325] Etanercept [Enbrel] 50 mg SQ TH 07/03/23 07/03/23 Fenofibrate [Lofibra] 160 mg PO HS 07/03/23 07/03/23 Venlafaxine HCl ER [Effexor Xr] 300 mg PO HS 07/03/23 07/03/23 risperiDONE [RisperDAL] 2 mg PO HS 07/03/23 07/03/23 Allergies Allergy/AdvReac Type Severity Reaction Status Date / Time adhesive tape Allergy skin Verified 04/02/24 20:01 blisters amoxicillin trihydrate Allergy Swelling Verified 04/02/24 20:01 [From Augmentin] ceftriaxone sodium Allergy Swelling Verified 04/02/24 20:01 [From Rocephin] clarithromycin [From Biaxin] Allergy Swelling Verified 04/02/24 20:01 fexofenadine HCl Allergy Swelling Verified 04/02/24 20:01 [From Leslye] loratadine [From Claritin] Allergy Swelling Verified 04/02/24 20:01 meperidine HCl [From Demerol] Allergy Swelling Verified 04/02/24 20:01 Penicillins Allergy Anaphylaxis Verified 04/02/24 20:01 potassium clavulanate Allergy Swelling Verified 04/02/24 20:01 [From Augmentin] propoxyphene Allergy Swelling Verified 04/02/24 20:01 [From Darvocet-N] Sulfa (Sulfonamide Allergy Anaphylaxis Verified 04/02/24 20:01 Antibiotics) Review of Systems ROS Statement: Those systems with pertinent positive or pertinent negative responses have been documented in the HPI. ROS Other: All systems not noted in ROS Statement are negative. Past Medical History Past Medical History: Asthma, Cancer, CVA/TIA, Fibromyalgia, Musculoskeletal Disorder, Osteoarthritis (OA), Syncope Additional Past Medical History / Comment(s): HX OF CERVICAL,UTERINE AND COLON CANCER W/ HYSTERECTOMY/CHEMO AT 16 YRS OLD. RIGHT KIDNEY STONES, HYPOGLYCEMIA (HIGH PROTEIN DIET), BULGING DISCS CERVICAL, AND BACK, W/PAIN, R SIDED SCIATICA, CERVICAL PAIN, OCCIPITAL NEURALGIA. STATES HX OF PVC'S, SYNCOPE, arthiritis. History of Any Multi-Drug Resistant Organisms: C-DIFF Date of last positivie culture/infection: 2010 MDRO Source:: stool Past Surgical History: Cholecystectomy, Hysterectomy, Tonsillectomy Additional Past Surgical History / Comment(s): R sided kidney stents- since removed, EGD/colonoscopy, several pain clinic procedures/blocks. LOOP RECORDER INSERTION since removed. Right SI infusion Past Anesthesia/Blood Transfusion Reactions: Motion Sickness, Postoperative Nausea & Vomiting (PONV) Additional Past Anesthesia/Blood Transfusion Reaction / Comment(s): PT IS ADOPTED AND DOES NOT KNOW FAMILY HX. Past Psychological History: Anxiety, Depression, PTSD Smoking Status: Current every day smoker Past Alcohol Use History: None Reported Past Drug Use History: None Reported - Past Family History Mother Family Medical History: Unable to Obtain Additional Family Medical History / Comment(s): Adopted Father Family Medical History: Neurologic Disorder Additional Family Medical History / Comment(s): Father of ALS. General Exam Limitations: no limitations General appearance: alert, in no apparent distress Head exam: Present: atraumatic, normocephalic, normal inspection Respiratory exam: Present: normal lung sounds bilaterally. Absent: respiratory distress, wheezes, rales, rhonchi, stridor Cardiovascular Exam: Present: regular rate, normal rhythm, normal heart sounds. Absent: systolic murmur, diastolic murmur, rubs, gallop, clicks Neurological exam: Present: alert, oriented X3, CN II-XII intact Psychiatric exam: Present: normal affect, normal mood Skin exam: Present: warm, dry, intact, normal color. Absent: rash Course Vital Signs 04/02/24 04/02/24 19:57 21:41 Temperature 98.2 F 98.1 F Pulse Rate 102 H 92 Respiratory 18 18 Rate Blood Pressure 139/92 132/90 O2 Sat by Pulse 96 97 Oximetry Medical Decision Making - Medical Decision Making This is a 33 year old female who presents to the emergency department for a spider bite. Was pt. sent in by a medical professional or institution? @ -No Did you speak to anyone other than the patient for history? @ -No Did you review nursing and triage notes? @ -Yes, and I agree, it is accurate with regards to the patient's symptoms. Were old charts reviewed? @ -No Differential Diagnosis? @ - Spider bite, cellulitis, burn, abrasion, this is not meant to be an all- inclusive list. EKG interpreted by me (3pts min.)? @ -Not obtained X-rays interpreted by me (1pt min.)? @ -Not obtained CT interpreted by me (1pt min.)? @ -Not obtained U/S interpreted by me (1pt. min.)? @ -Not obtained What testing was considered but not performed? (CT, X-rays, U/S, labs)? Why? @ -None What meds were considered but not given? Why? @ -None Did you discuss the management of the patient with other professionals? @ -No Did you reconcile home meds? @ -No Was smoking cessation discussed for >3mins.? @ -No Was critical care preformed (if so, how long)? @ -No Were there social determinants of health that impacted care today? How? (Homelessness, low income, unemployed, alcoholism, drug addiction, transportation, low edu. Level, literacy, decrease access to med. care, residential, rehab)? @ -No Was there de-escalation of care discussed even if they declined? (Discuss DNR or withdrawal of care, Hospice)? @ -No What co-morbidities impacted this encounter? (DM, HTN, Smoking, COPD, CAD, Cancer, CVA, Hep., AIDS, mental health diagnosis, sleep apnea, morbid obesity)? @ -None Was patient admitted / discharged? @ -Discharged. Patient circled the area where she was bitten on her thigh. There was no obvious bite bob or any skin changes over that area. Advised that these do not require any specific treatment unless she were to develop a secondary infection. Advised she wash the area and she can use antibiotic ointment if she would like to help prevent secondary infection. Ibuprofen and Tylenol can be taken for pain relief. Antihistamines can also be used for the itching. Case discussed with ED attending, Dr. Gee. Return precautions reviewed in depth, the patient is instructed to return to the emergency department with any new, worsening, or concerning symptoms. Patient verbalized understanding. Undiagnosed new problem with uncertain prognosis? @ -None Drug Therapy requiring intensive monitoring for toxicity (Heparin, Nitro, Insulin, Cardizem)? @ -None Were any procedures done? @ -None Diagnosis/symptom? @ -Spider bite Acute, or Chronic, or Acute on Chronic? @ -Acute Uncomplicated (without systemic symptoms) or Complicated (systemic symptoms)? @ -Uncomplicated Side effects of treatment? @ -None Exacerbation, Progression, or Severe Exacerbation] @ -Not applicable Poses a threat to life or bodily function? @ -No Disposition Clinical Impression: Bite of right lower extremity, Spider bite Disposition: HOME SELF-CARE Instructions (If sedation given, give patient instructions): Insect Bite or Sting (ED) Additional Instructions: Return to the emergency department with any new, worsening, or concerning symptoms. Clean this area with soap and water. You can apply [id number] antibiotic ointment a few times each day to help prevent infection. You can apply the triamcinolone cream provided 3-4 times daily as needed to help with discomfort. Follow up with your primary care provider in 1-2 days. Is patient prescribed a controlled substance at d/c from ED?: No Referrals: Ada Ayala PAC [Primary Care Provider] - 1-2 days Time of Disposition: 20:32
[2024-04-02] MEDS: TRIAMCINOLONE ACET 0.5% CREAM 15 GM TUBE TOPICAL STA (21:37)
[2024-04-02] MEDS: DOXYCYCLINE 100 MG CAP PO STA (21:38)
[2024-04-02 21:43] VITALS: BP 132/90; PULSE 92; TEMP 98.1
== END 2024-04-02 21:42 | disposition home or self-care (01) ==
LOC: EC 19:55
CPT/HCPCS: 99283

== ENCOUNTER → 2024-06-18 | Outpatient (CLI) | payer OTHER ==
--- NOTE | 2024-06-18 13:12 | MR ---
EXAMINATION TYPE: MR brain wo/w con DATE OF EXAM: 06/18/2024 1:05 PM COMPARISON: 07/09/2018. CLINICAL INDICATION: Female, 33 years old with history of H53.9,G43.709, R53.82; PHH, No prior MR, pr ior CT on PACS, migraine changes , family history of brain tumors, no CVA, no seizure, no CA TECHNIQUE: Multi planar, multi sequence imaging was performed through the brain including: T1, T2, In version recovery, susceptibility weighted imaging and gradient echo imaging and Diffusion weighted im aging. The patient was then given intravenous contrast and multi planar, T1 fat-saturation images wer e obtained. IV Contrast: 8.5ml mL Gadobutrol FINDINGS: The moore-white junctions, ventricular system, basal cisterns appear unremarkable. Diffusion-weighted imaging shows no evidence of restricted diffusion to suggest acute/subacute infarct. Intracranial ar terial flow voids are maintained. Midline structures show no abnormality. The susceptibility weighted images do not reveal any evidence for micro-hemorrhage. After administration of gadolinium, no abnor mal enhancement is seen. The bone marrow signal is within normal limits. Paranasal sinuses and mastoid air cells: No significant paranasal sinus disease. Visualized orbits: Orbital contents are intact. IMPRESSION: No evidence of intracranial mass, acute/subacute infarct, or abnormal enhancement. [facility], , 06/18/2024 1:10 PM
== END | disposition home or self-care (01) ==
LOC: RADMRIMAIN 12:20
PROVIDERS: ATTEND Family Medicine
DX: H53.9 Unspecified visual disturbance (principal); G43.709 Chronic migraine without aura, not intractable, without status migrainosus; R53.82 Chronic fatigue, unspecified
CPT/HCPCS: 70553; A9585